=== PATIENT | female | born 1970 | race Caucasian/White ===

== ENCOUNTER 2017-07-11 06:16 | Day surgery (SDC) | payer MEDICARE ==
[2017-07-09 14:22] LABS: HEMATOCRIT 46.6 % (36.0-48.0); HEMOGLOBIN 15.7 g/dL (12-16); MCH 29.3 pg (26.0-34.0); MCHC 33.7 g/dL (31.0-37.0); MCV 87.1 fL (80.0-100.0); MEAN PLATELET VOLUME 10.6 fL (7.4-10.4); RBC 5.35 10x6/uL (4.00-5.40); RDW 12.9 % (11.5-14.5); WBC 9.8 10x3/uL (4.8-10.8)
[~2017-07-11 06:16] MED LIST: COUMADIN5 MG PO; CYCLOBENZAPRINE10 MG PO; DILAUDID4 MG PO; KLONOPIN0.5 MG PO; NORCO 10/325 TA1 TA1 PO; NORCO 7.5/325 T1 TA1 PO; PERCOCET 10/3251 TA1 PO; SOMA350 MG PO; TYLENOL #4 W/CO1 TAB PO
[2017-07-11 12:32] VITALS: BP 125/84; BMI 35.3
[2017-07-11] MEDS ORDERED: MEPERIDINE HCL50 MG PO (15:38)
--- NOTE | 2017-07-11 18:21 | NUR ---
1645 IV DC WITH CATHER TIP INTACT
--- NOTE | 2017-07-26 10:57 | OP ---
PATIENT NAME: SALMA FREEMAN MEDICAL RECORD: [id number] :[birth year] [facility]ATION[facility] ADMISSION DATE: SURGEON: MCKAY DENNIS MD DATE OF OPERATION: 07/11/2017 PREOPERATIVE DIAGNOSES: Patellar tendon and lateral retinacular tear status post fall down stairs with total knee arthroplasty. POSTOPERATIVE DIAGNOSES: Patellar tendon and lateral retinacular tear status post fall down stairs with total knee arthroplasty. PROCEDURE: Left knee patellar tendon and lateral retinacular repair. SURGEON: Mckay Dennis MD ANESTHESIA: General. INTRAOPERATIVE COMPLICATIONS: None. SUMMARY OF PATHOLOGIC FINDINGS: The patient had partial thickness tearing of the patellar tendon as well as complete tearing of the medial retinaculum after a fall down stairs. OPERATIVE SUMMARY IN DETAIL: After obtaining the appropriate preoperative orthopedic surgery consent as well as anesthetic consultation, evaluation, and clearance, the patient was brought and placed on the operating table in supine position. After general laryngeal mask was administered, tourniquet was placed about the proximal aspect of left lower extremity. Left lower extremity was then prepped and draped in routine sterile fashion. The leg was elevated and exsanguinated, tourniquet inflated to 350 mmHg. An incision was made down the previous incision. Gentle dissection was carried out and the tear of the medial retinaculum was immediately visible as was the partial thickness tear of the patellar tendon. A combination of FiberWire as well as Ethibond were utilized for reapproximation. Slight imbrication was done as the medial retinaculum had elongated. This was advanced approximately 1 cm and the patellar tendon was then reapproximated using a modified Luna suture on the half side that it was torn, this looked to be a very stable repair. The wound was copiously irrigated and closed with #1 Vicryl followed by skin austen. Sterile dressings were applied. Knee immobilizer was applied. Tourniquet was deflated. The patient was awakened, taken to recovery in stable condition. All final needle and sponge counts were correct. TRANSINT:[id number] Voice Confirmation ID: [id number] DOCUMENT ID: [id number] MCKAY DENNIS MD at 1051 CC: [id number] DICTATION DATE: 07/24/17 0538 SOFTWARE EDUCATOR: 07/24/17 0823 DEP SD 07/11/17 [facility] [address] [facility] [place] [address]
== END 2017-07-11 17:00 | disposition home or self-care (01) ==
LOC: D.OPS 06:16
PROVIDERS: Anesthesiology
DX: S83.015A Lateral dislocation of left patella, initial encounter (principal); K21.9 Gastro-esophageal reflux disease without esophagitis; E66.01 Morbid (severe) obesity due to excess calories; Z68.35 Body mass index [BMI] 35.0-35.9, adult; Z01.812 Encounter for preprocedural laboratory examination

== ENCOUNTER → 2017-08-20 15:52 | Outpatient (CLI) | payer MEDICARE ==
[~2017-08-20 15:52] MED LIST changes: +BACTRIM DS TABL1 TAB PO; +CEFAZOLIN2 GM/50 ML IV; +DOXYCYCLINE HY100 M2 PO; +ELIQUIS2.5 MG PO; +HYDROCODONE-APA1 TAB PO; +MEPERIDINE HCL50 MG PO; +OXYCONTIN10 MG PO
[2017-08-20 16:35] LABS: BASOPHILS 0.3 % (0-2); EOSINOPHILS 1.8 % (0-7); HEMATOCRIT 35.9 % (36.0-48.0); HEMOGLOBIN 11.3 g/dL (12-16); IMMATURE GRANULOCYTES 0.1 % (0-5); MCH 27.8 pg (26.0-34.0); MCHC 31.5 g/dL (31.0-37.0); MCV 88.2 fL (80.0-100.0); MEAN PLATELET VOLUME 10.6 fL (7.4-10.4); MONOCYTES 8.1 % (2-11); NEUTROPHILS 63.7 % (40-80); RBC 4.07 10x6/uL (4.00-5.40); RDW 13.8 % (11.5-14.5); WBC 8.9 10x3/uL (4.8-10.8)
[2017-08-20 17:10] LABS: PLATELET COUNT 413 10x3/uL (130-400)
[2017-08-20 18:17] LABS: ERYTHROCYTE SEDIMENTATION RATE 52 mm/hr (0-20)
== END | disposition home or self-care (01) ==
LOC: D.LABREF 15:52
PROVIDERS: Orthopaedic Surgery
DX: M25.562 Pain in left knee (principal)

== ENCOUNTER 2017-08-27 16:57 | Inpatient (IN) | payer MEDICARE ==
[~2017-08-27] VITALS: Ht 180.3 cm; Wt 115.0 kg
[~2017-08-27 16:57] MED LIST changes: -BACTRIM DS TABL1 TAB PO; -CEFAZOLIN2 GM/50 ML IV; -DOXYCYCLINE HY100 M2 PO; -ELIQUIS2.5 MG PO; -HYDROCODONE-APA1 TAB PO; -OXYCONTIN10 MG PO
--- NOTE | 2017-08-27 17:19 | NUR ---
RECEIVED TO ROOM [address] ERVIN OFFICE. A/O X3. LEFT KNEE RED AND SWOLLEN WITH 3 SMALL OPEN AREAS AND WARMTH THROUGHOUT. DENIES NEEDS.
[2017-08-27] MEDS ORDERED: BACTRIM DS TABL1 TAB PO (17:21)
[2017-08-27 17:41] VITALS: BP 128/83; Ht 180.3 cm; Wt 115.0 kg
--- NOTE | 2017-08-27 18:06 | NUR ---
IV SITED TO LEFT FOREARM AFTER 3 ATTEMPTS. ATE ALL OF SUPPER TRAY. DENIES NEEDS.
[2017-08-27 18:39] LABS: BASOPHILS 0.4 % (0-2); EOSINOPHILS 1.3 % (0-7); HEMATOCRIT 37.3 % (36.0-48.0); HEMOGLOBIN 11.9 g/dL (12-16); IMMATURE GRANULOCYTES 0.2 % (0-5); MCH 27.3 pg (26.0-34.0); MCHC 31.9 g/dL (31.0-37.0); MCV 85.6 fL (80.0-100.0); MEAN PLATELET VOLUME 10.9 fL (7.4-10.4); MONOCYTES 6.4 % (2-11); NEUTROPHILS 62.7 % (40-80); RBC 4.36 10x6/uL (4.00-5.40); RDW 13.6 % (11.5-14.5); WBC 9.1 10x3/uL (4.8-10.8)
[2017-08-27 18:40] LABS: PLATELET COUNT 321 10x3/uL (130-400)
[2017-08-27 18:48] LABS: ANION GAP 15.9 mmol/L (8-16); C-REACTIVE PROTEIN 4.4 mg/dL (0.0-0.9); CALCIUM 8.7 mg/dL (8.5-10.1); CARBON DIOXIDE 25.8 mmol/L (21.0-32.0); CREATININE - SERUM 0.9 mg/dL (0.6-1.3); POTASSIUM - SERUM 4.7 mmol/L (3.5-5.1)
[2017-08-27 20:00] VITALS: BP 118/70
--- NOTE | 2017-08-27 20:30 | NUR ---
IN BED AAO X3. LEFT KNEE RED WITH MODERATE SWELLING.THREE SM. OPEN AREAS NOTED.WARM TO TOUCH.FOOT WARM DENIES NUMBNESS OR TINGLING ON DORSIFLEXION. GOOD PEDAL PULSE.WILL CONTINUE TO MONITOR FOR ANY CHGES. NEUROVASCULAR STATUS AND FOLLOW CURRENT PLAN OF CARE.
[2017-08-27 20:48] LABS: ERYTHROCYTE SEDIMENTATION RATE 94 mm/hr (0-20)
[2017-08-28] VITALS: BP 122/68
[2017-08-28 04:00] VITALS: BP 100/56
--- NOTE | 2017-08-28 05:44 | NUR ---
PATIENT RESTING IN BED AND DENIES NEEDS AT THIS TIME. NO VISIBLE SIGNS OF DISTRESS. BED IN LOWEST POSITION AND CALL LIGHT WITHIN REACH. ENCOURAGED THE PATIENT TO CALL IF SHE HAS NEEDS.
[2017-08-28 06:05] LABS: BASOPHILS 0.7 % (0-2); EOSINOPHILS 2.6 % (0-7); HEMATOCRIT 30.2 % (36.0-48.0); IMMATURE GRANULOCYTES 0.1 % (0-5); LYMPHOCYTES 25.1 % (15-50); MCH 26.4 pg (26.0-34.0); MCHC 30.8 g/dL (31.0-37.0); MCV 85.8 fL (80.0-100.0); MEAN PLATELET VOLUME 10.6 fL (7.4-10.4); MONOCYTES 10.5 % (2-11); PLATELET COUNT 284 10x3/uL (130-400); RBC 3.52 10x6/uL (4.00-5.40); RDW 13.8 % (11.5-14.5); WBC 7.3 10x3/uL (4.8-10.8)
[2017-08-28 06:15] LABS: HEMOGLOBIN 9.3 g/dL (12-16)
[2017-08-28 06:37] LABS: ANION GAP 13.7 mmol/L (8-16); CALCIUM 8.4 mg/dL (8.5-10.1); CARBON DIOXIDE 25.1 mmol/L (21.0-32.0); CREATININE - SERUM 0.9 mg/dL (0.6-1.3)
[2017-08-28 06:44] LABS: POTASSIUM - SERUM 3.8 mmol/L (3.5-5.1)
--- NOTE | 2017-08-28 08:00 | NUR ---
PATIENT IS AWAKE AND ALERT, IV IS PATENT. SHE HAS NO C/O AT THIS TIME, BP LOW THIS AM SO SHE SAYS "I AM GING TO WAIT TO USE MY PAIN MED."
--- NOTE | 2017-08-28 09:30 | NUR ---
PATIENT C/O PAIN AT IV SITE, THERE IS REDNESS NOTED, STOPPED IV, AND CALLED IV NURSE PADDY TO REINSERT.
[2017-08-28 09:32] VITALS: BP 97/59
--- NOTE | 2017-08-28 10:30 | NUR ---
PADDY IV NURSE CAME AN REINSERTED A 20 GUAGE CATH INTO LEFT HAND. ATTEMPTS X3 TO FLUSH AND IT FLOWS, BUT SLOWLY, UNTAPED AREA AND PULLED CATH OUT AND FLUSHED AGAIN. STARTED FLUIDS AND ANTIBIOTICS, BUT THE IV IS POSITIONAL. WILL MONITOE.
[2017-08-28 13:03] VITALS: BP 110/65
--- NOTE | 2017-08-28 13:11 | NUR ---
D/C'D INFILTRATED CATH NOW, BANDAID APPLIED.
--- NOTE | 2017-08-28 13:56 | NUR ---
PATIENT IS GETTING UPSET THAT HER IV KEEPS BEEPING AND SHE SAYS "JUST RESITE IT" DID PULL IV CATH OUT A LITTLE MORE AND RETAPED, IT IS INFUSING WITHOUT BEING POSITIONAL AT THIS TIME.
[2017-08-28 15:34] VITALS: BP 94/52
[2017-08-28 23:09] VITALS: BP 107/71
--- NOTE | 2017-08-29 | NUR ---
PT DENIES ANY NEEDS AT THIS TIME. CALL LIGHT IN REACH, WILL CONTINUE WITH PLAN OF CARE.
--- NOTE | 2017-08-29 00:24 | NUR ---
REC'D.CHGE. OF SHIFT.DRSG. LEFT KNEE DRY AND INTACT.MODERATE AMT. EDEMA REDNESS WITH FIRMNESS TO TOUCH TO LEFT KNEE.DENIES DECREASE IN SENSATION.PEDAL PULSE PRESENT.WILL CONTINUE TO MONITOR FOR ANY CHGES. IN NEUROVASCULAR STATUS AND FOLLOW CURRENT PLAN OF CARE
[2017-08-29 01:20] VITALS: BP 118/59
[2017-08-29 05:24] LABS: BASOPHILS 0.6 % (0-2); HEMATOCRIT 31.7 % (36.0-48.0); HEMOGLOBIN 9.9 g/dL (12-16); IMMATURE GRANULOCYTES 0.1 % (0-5); LYMPHOCYTES 26.8 % (15-50); MCH 26.8 pg (26.0-34.0); MCHC 31.2 g/dL (31.0-37.0); MCV 85.9 fL (80.0-100.0); MEAN PLATELET VOLUME 10.7 fL (7.4-10.4); MONOCYTES 10.7 % (2-11); NEUTROPHILS 58.8 % (40-80); PLATELET COUNT 286 10x3/uL (130-400); RBC 3.69 10x6/uL (4.00-5.40); RDW 13.6 % (11.5-14.5); WBC 6.9 10x3/uL (4.8-10.8)
[2017-08-29 05:45] LABS: ANION GAP 11.5 mmol/L (8-16); C-REACTIVE PROTEIN 4.6 mg/dL (0.0-0.9); CALCIUM 8.5 mg/dL (8.5-10.1); CARBON DIOXIDE 27.7 mmol/L (21.0-32.0); CREATININE - SERUM 0.9 mg/dL (0.6-1.3); POTASSIUM - SERUM 4.2 mmol/L (3.5-5.1)
[2017-08-29 05:48] VITALS: BP 115/61
[2017-08-29 06:39] LABS: ERYTHROCYTE SEDIMENTATION RATE 99 mm/hr (0-20)
--- NOTE | 2017-08-29 08:00 | NUR ---
Patient Name: SALMA FREEMAN Admission Status: Urgent Accout number: [id number] Admission Date: 08-27-2017 : 1970 Admission Diagnosis:PYOGENIC ARTHRITIS, UNSPECIFIED Attending: MCKAY DENNIS Current LOS: 2 Anticipated DC Date: 09-02-2017 Planned Disposition: Home Primary Insurance: MEDICARE A & B Discharge Planning Comments: CM MET WITH PATIENT REGARDING D/C NEEDS AND PLANS. PATIENT STATED SHE LIVES WITH HER SISTER AND SHE WILL DRIVE PATIENT HOME AT DISCHARGE. PATIENT STATED THERE ARE NO STEPS OR STAIRS AT HOME. PATIENT IS INDEPENDENT WITH HER CARE AND HAS A WHEELCHAIR, AND WALKER AT HOME. PATIENT SEES AN DIMMER BOARD OPERATOR NAMED [facility] IN [place]. PATIENT DOES NOT KNOW PHYSICIANS NAME DIMMER BOARD OPERATOR IS UNDER. PATIENTS PHARMACY IS [facility] IN [place]. PATIENT HAS REFUSED HOME HEALTH. CM WILL CONTINUE TO FOLLOW PATIENT WITH D/C NEEDS AND PLANS. PCP ? DIMMER BOARD OPERATOR [facility]- [phone] ELLE (SISTER) [phone] Environmental Permitting Specialist: Isabella Woodard Is the patient Alert and Oriented? Yes 0 * How many steps to enter\exit or inside your home? 0 0 * PCP SEES DIMMER BOARD OPERATOR AT [place] NAMED [facility]OBO DOES NOT KNOW PHYSICIAN 0 * Pharmacy [facility] * Preadmission Environment Home with Family 0 * ADLs Independent 0 * Equipment Walker Wheelchair 0 * List name and contact numbers for known caregivers / representatives who currently or will assist patient after discharge: ELLE ([place]) [phone] 0 * Community resources currently utilized None 0 * Additional services required to return to the preadmission environment? Yes 0 * Can the patient safely return to the preadmission environment? Yes 0 * Has this patient been hospitalized within the prior 30 days at any hospital? No 0 Grand Total: 0
[2017-08-29 09:42] VITALS: BP 112/68
[2017-08-29 13:05] VITALS: BP 118/65
--- NOTE | 2017-08-29 13:18 | NUR ---
PT NOTE-NO COMPLAINTS AT PRESENT. STATES PAIN IS CONTROLLED AT PRESENT. CALL LIGHT IN REACH
[2017-08-29 16:00] VITALS: BP 107/57
--- NOTE | 2017-08-29 19:00 | NUR ---
REPORT RECEIVED AND CARE OF PT ASSUMED. PT LYING IN SEMI LUNA'S POSITION WATCHING TV. IV IN RIGHT HAND PATENT WITH 1/2 NS INFUSING AT 50 ML / HR. DRESSING ON LEFT KNEE CLEAN AND DRY. WILL MONITOR [place] FOR NEEDS.
--- NOTE | 2017-08-29 19:15 | NUR ---
PT CONSENTED FOR AM SURGERY BY DAY SHIFT NURSE.
--- NOTE | 2017-08-29 20:30 | NUR ---
PT C/O IV BURNING. REMOVED AND ATTEMPTED TO RE-SITE WITHOUT SUCCESS.
[2017-08-29 21:20] VITALS: BP 122/71
--- NOTE | 2017-08-29 21:30 | NUR ---
IV RE-SITED BY EAN ROWAN RN TO LEFT WRIST USING 22 GUAGE CATHETER. IV FLUIDS RE-STARTED.
--- NOTE | 2017-08-29 21:43 | NUR ---
HS MEDICATIONS GIVEN. WILL CONTINUE TO MONITOR FOR NEEDS.
--- NOTE | 2017-08-29 22:30 | NUR ---
GAVE HS SNACK OF CHOCOLATE PUDDING X2. WILL CONTINUE TO MONITOR FOR NEEDS.
--- NOTE | 2017-08-30 | NUR ---
NPO STATUS BEGINS NOW. ALL CUPS AND FOOD ITEMS REMOVED FROM PT'S TABLE.
--- NOTE | 2017-08-30 01:20 | NUR ---
CHANGED DRESSING ON LEFT KNEE THAT IS SATURATED WITH DRAINAGE. CLEANSED WOUND AND COVERED WITH 4X4'S AND MEDIPORE TAPE. WILL CONTINUE TO MONITOR FOR NEEDS.
[2017-08-30 05:16] LABS: BASOPHILS 0.6 % (0-2); EOSINOPHILS 2.6 % (0-7); HEMATOCRIT 31.6 % (36.0-48.0); HEMOGLOBIN 10.1 g/dL (12-16); IMMATURE GRANULOCYTES 0.1 % (0-5); LYMPHOCYTES 24.9 % (15-50); MCH 27.2 pg (26.0-34.0); MCV 85.2 fL (80.0-100.0); MEAN PLATELET VOLUME 10.8 fL (7.4-10.4); NEUTROPHILS 62.8 % (40-80); PLATELET COUNT 298 10x3/uL (130-400); RBC 3.71 10x6/uL (4.00-5.40); RDW 13.7 % (11.5-14.5); WBC 6.8 10x3/uL (4.8-10.8)
[2017-08-30 05:56] LABS: ANION GAP 11.6 mmol/L (8-16); CALCIUM 8.8 mg/dL (8.5-10.1); CARBON DIOXIDE 28.5 mmol/L (21.0-32.0); CREATININE - SERUM 0.9 mg/dL (0.6-1.3); POTASSIUM - SERUM 4.1 mmol/L (3.5-5.1); VANCOMYCIN - TROUGH 10.3 ug/mL (10.0-20.0)
--- NOTE | 2017-08-30 07:35 | NUR ---
PT AOX4 RESP EVEN AND NONLABORED PT DENIES NEEDS AT THIS TIME IV TO LEFT WRIST PATENT AND INTACT AT THIS TIME SRX2 BED AT LOWEST SETTING CALL LIGHT WITHIN REACH WILL CONTINUE TO MONITOR
[2017-08-30 08:36] VITALS: BP 112/76
[2017-08-30 13:47] VITALS: BP 106/67
--- NOTE | 2017-08-30 19:00 | NUR ---
REPORT RECEIVED AND CARE OF PT ASSUMED. PT LYING IN SEMI LUNA'S POSITION WATCHING TV. IV IN LEFT WRIST PATENT WITH 1/2 NS INFUSING AT 50 ML / HR. DRESSING ON LEFT KNEE CLEAN AND DRY WITH SMALL AREA OF DRAINAGE SEEPING THROUGH ERASTO WRAP. MARKED AREA TO SEE IF PROGRESSING. WILL MONITOR CLOSELY FOR NEEDS.
--- NOTE | 2017-08-30 19:45 | NUR ---
GAVE CHOCOLATE MILK FOR SNACK.
[2017-08-30 20:00] VITALS: BP 116/58
--- NOTE | 2017-08-30 20:45 | NUR ---
HS MEDICATIONS GIVEN. WILL CONTINUE TO MONITOR FOR NEEDS.
[2017-08-31] VITALS: BP 130/60
[2017-08-31 04:00] VITALS: BP 125/73
[2017-08-31 06:45] LABS: BASOPHILS 0.4 % (0-2); EOSINOPHILS 0.3 % (0-7); HEMATOCRIT 29.7 % (36.0-48.0); HEMOGLOBIN 9.1 g/dL (12-16); IMMATURE GRANULOCYTES 0.1 % (0-5); MCH 26.5 pg (26.0-34.0); MCHC 30.6 g/dL (31.0-37.0); MCV 86.6 fL (80.0-100.0); MEAN PLATELET VOLUME 10.5 fL (7.4-10.4); NEUTROPHILS 69.2 % (40-80); PLATELET COUNT 296 10x3/uL (130-400); RBC 3.43 10x6/uL (4.00-5.40); RDW 13.9 % (11.5-14.5); WBC 7.6 10x3/uL (4.8-10.8)
[2017-08-31 07:18] LABS: ANION GAP 14.1 mmol/L (8-16); CALCIUM 8.2 mg/dL (8.5-10.1); CARBON DIOXIDE 26.1 mmol/L (21.0-32.0); CREATININE - SERUM 0.9 mg/dL (0.6-1.3); POTASSIUM - SERUM 4.2 mmol/L (3.5-5.1)
--- NOTE | 2017-08-31 09:00 | NUR ---
MORNING MEDS PASSED AT THIS TIME. SILVER LAP MACHINE TENDER SYRINGE CHANGED WELL. FRESH WATER PROVIDED. BED LOW, CALL LIGHT IN REACH, DENIES NEEDS. CPOC.
--- NOTE | 2017-08-31 09:30 | NUR ---
PATIENT IN BED WITH IV INTACT. NO COMPLAINTS AT THIS TIME. CALL LIGHT WITHIN REACH.
[2017-08-31 10:10] VITALS: BP 133/72
--- NOTE | 2017-08-31 12:49 | NUR ---
PT REC'D FROM [facility]. RESTING IN BED WATCHING TV. AAOX4. RATING CURRENT PAIN IN L KNEE 04/22. DILAUDID AQUATICS SPECIALIST INFUSING. DRESSING TO L KNEE WITH SOME DRAINAGE. OUTLINED WITH MARKER, INITIALED AND DATED. WILL CHANGE. PIV TO L WRIST FREE OF REDNESS AND SWELLING. DISCUSSED LAB VALUES. NO QUESTIONS OR CONCERNS VOICED AT THIS TIME. BED LOW, CALL LIGHT IN REACH, DENIES NEEDS. CPOC.
[2017-08-31 13:39] VITALS: BP 109/56
--- NOTE | 2017-08-31 14:19 | NUR ---
PIV TO L WRIST SWOLLEN AND TENDER. DC'D WITH CATHETER INTACT. RESITED TO R HAND WITH 22 GUAGE CATHETER. X1 ATTEMPT. RECONNECTED TO IVF. BED LOW, CALL LIGHT IN REACH, DENIES NEEDS CPOC.
[2017-08-31 16:51] VITALS: BP 110/64
--- NOTE | 2017-08-31 17:37 | NUR ---
DRESSING TO L KNEE CHANGED. PACKING CHANGED USING 1/2" IODOFORM GUAZE. SECURED WITH 4X4'S, KERLIX, AND A NEW ERASTO WRAP. PT TOLERATED WELL. DILAUDID PUMP REBUILDER INFUSING. PIV TO R HAND FREE OF REDNESS AND SWELLING. BED LOW, CALL LIGHT IN REACH, DENIES NEEDS. CPOC.
--- NOTE | 2017-08-31 19:00 | NUR ---
REPORT RECEIVED AND CARE OF PT ASSUMED. PT LYING IN SEMI LUNA'S POSITION WATCHING TV. IV IN RIGHT HAND PATENT WITH 1/2 NS INFUSING AT 50 ML / HR. MATERIALS MGMT TECH / DEMERAL IN USE FOR PAIN CONTROL. DRESSING LEFT KNEE CLEAN AND DRY. WILL MONITOR CLOSLEY FOR NEEDS.
[2017-08-31 20:00] VITALS: BP 109/64
--- NOTE | 2017-08-31 20:45 | NUR ---
HS SNACK OF ICE CREAM AND JESS CRACKERS GIVEN.
--- NOTE | 2017-08-31 21:31 | NUR ---
HS MEDICATIONS GIVEN. WILL CONTINUE TO MONITOR FOR NEEDS.
[2017-09-01] VITALS: BP 131/53; BP 94/55
[2017-09-01 04:00] VITALS: BP 112/66
[2017-09-01 06:04] LABS: BASOPHILS 0.4 % (0-2); EOSINOPHILS 2.7 % (0-7); HEMATOCRIT 30.9 % (36.0-48.0); HEMOGLOBIN 9.3 g/dL (12-16); IMMATURE GRANULOCYTES 0.3 % (0-5); LYMPHOCYTES 37.5 % (15-50); MCH 26.9 pg (26.0-34.0); MCHC 30.1 g/dL (31.0-37.0); MEAN PLATELET VOLUME 10.5 fL (7.4-10.4); MONOCYTES 7.2 % (2-11); NEUTROPHILS 51.9 % (40-80); PLATELET COUNT 281 10x3/uL (130-400); RBC 3.46 10x6/uL (4.00-5.40); RDW 14.4 % (11.5-14.5); WBC 7.5 10x3/uL (4.8-10.8)
[2017-09-01 06:11] LABS: MCV 89.3 fL (80.0-100.0)
[2017-09-01 06:33] LABS: ANION GAP 13.4 mmol/L (8-16); CALCIUM 8.2 mg/dL (8.5-10.1); CARBON DIOXIDE 26.4 mmol/L (21.0-32.0); CREATININE - SERUM 0.9 mg/dL (0.6-1.3); POTASSIUM - SERUM 3.8 mmol/L (3.5-5.1)
--- NOTE | 2017-09-01 07:00 | NUR ---
PATIENT IN BED WITH NO COMPLAINTS. IV INTACT. CALL LIGHT WITHIN REACH.
--- NOTE | 2017-09-01 07:12 | NUR ---
PT IS SITTING IN BED AT A 45 DEGREE ANGLE, STATED THAT PAIN IS AT A 10 IN KNEE AND IS USUALLY THERE OR GREATER WHEN SHE GETS UP TO USE RESTROOM, PT HAS BULL FIDDLE PLAYER AND STATED THAT DOES HELP, DID NOT WANT ANYTHING ELSE AT THIS TIME, BED IN LOW POSITION, CALL LIGHT IN REACH, CONTINUE WITH PLAN OF CARE
[2017-09-01 08:31] VITALS: BP 104/61
--- NOTE | 2017-09-01 08:51 | NUR ---
VANCOMYCIN TROUGH WAS 18 THIS MORNING DRAWN CORRECTLY. RENAL FUNCTION APPEARS STABLE. WILL CONTINUE VANCOMYCIN ORDERED AND WILL RECHECK A TROUGH IN A FEW DAYS
[2017-09-01 11:47] VITALS: BP 100/50
[2017-09-01 15:51] VITALS: BP 104/51
[2017-09-01 20:00] VITALS: BP 125/74; BP 94/55
--- NOTE | 2017-09-01 23:15 | NUR ---
PT AWOKE WITH SEVERE PAIN IN LEFT KNEE...MOANING AND GRIMACING. GAVE BOLUS OF 25 MG DEMERAL VIA VEGETABLE CUTTER. WILL MONITOR FOR EFFECTIVENESS. CALL LIGHT WITHIN REACH.
[2017-09-02] VITALS: BP 125/74
--- NOTE | 2017-09-02 08:14 | NUR ---
PT IV CAME DISLODGED, HERNAN CAME IN AT THAT TIME AND TOLD ME TO JUST DC IT PT IS TO BE DC TODAY, PER HERNAN PT NEEDS TO BE SEEN BY PT BEFORE DC, EDMUNDOUE WITH PT CARE UNTIL DC
[2017-09-02] MEDS ORDERED: PERCOCET 10/3251 TA1 PO (08:16)
[2017-09-02] MEDS ORDERED: ELIQUIS2.5 MG PO (08:16)
[2017-09-02] MEDS ORDERED: DOXYCYCLINE HY100 M2 PO (08:19)
[2017-09-02 08:38] VITALS: BP 121/71
--- NOTE | 2017-09-02 09:04 | NUR ---
CM REASSESSMENT NOTE: PATIENT IS DISCHARGING HOME TODAY / FRIEND OR FAMILY DRIVING HER. PATIENT SIGNED THE [facility] FORM WITH [facility]. [facility] WILL CALL PATIENT AND SET UP TIME FOR TOMORROWS VISIT. D/C IMM SERVED. PATIENT HAD NO OTHER NEEDS FOR DISCHARGE.
--- NOTE | 2017-09-02 09:30 | NUR ---
PT AOX4 RESP EVEN AND NONLABORED PT DENIES NEEDS AT THIS TIME PT HERE FOR LEFT KNEE INFECTION FOR THIS VISIT SRX2 BED AT LOWEST SETTING CALL LIGHT WITHIN REACH WILL CONTINUE TO MONITOR
--- NOTE | 2017-09-02 09:56 | NUR ---
WENT OVER PT DC INFORMATION WITH PT, CHANGED PT DRESSING. WAITING ON RIDE
--- NOTE | 2017-09-30 14:52 | OP ---
PATIENT NAME: SALMA FEREMAN MEDICAL RECORD: [id number] :68 LOCATION:[facility] ADMISSION DATE:08/27/17 SURGEON: MCKAY DENNIS MD DATE OF OPERATION: 08/30/2017 PREOPERATIVE DIAGNOSIS: Infected left knee. POSTOPERATIVE DIAGNOSIS: Infected left prepatellar bursa. PROCEDURE: Excisional debridement of infected left prepatellar bursa to include skin, subcutaneous tissue, portions of fat, fascia, and muscle. SURGEON: Mckay Dennis MD ANESTHESIA: General. INTRAOPERATIVE COMPLICATIONS: None. SUMMARY OF PATHOLOGIC FINDINGS: Upon entering this patient's knee, copious amounts of pus was taken out of the prepatellar fascia, it did not go into the knee. No purulence could be expressed from the knee using an 18-gauge needle at separate side. OPERATIVE SUMMARY IN DETAIL: After obtaining the appropriate preoperative orthopedic surgery consent as well as anesthetic consultation, evaluation and clearance, the patient was brought to the operating room and placed on the operating table in supine position. After general laryngeal mask airway was administered, the patient's left lower extremity was prepped and draped in routine sterile fashion. The wound was then incised, cultures were taken, and then the wound tract itself was opened up and copiously irrigated using pulsatile lavage alumni relations manager, curettage as well as scalpel debridement and finally a rongeur debridement. When it was felt that all necrotic appearing tissue had been removed, the wound was packed with 1-inch iodoform gauze. Sterile dressings were applied. The patient was awakened and taken to recovery in stable condition. All final instruments and sponge counts were correct. TRANSINT:[id number] Voice Confirmation ID: [id number] DOCUMENT ID: [id number] MCKAY DENNIS MD at 1452 CC: [id number] DICTATION DATE: 09/30/17 1326 ACTIVITY ASSISTANT: 09/30/17 1343 DIS IN 09/02/17 [place] [id number] [place] [address]
== END 2017-09-02 09:58 | disposition home health service (06) | DRG 858 ==
LOC: D.MS 16:57
PROVIDERS: ADMIT Orthopaedic Surgery
PROC: 0JBP0ZZ Excision of Left Lower Leg Subcutaneous Tissue and Fascia, Open Approach (ICD-10-PCS; principal; 2017-08-30 10:45)
DX: T81.4XXA Infection following a procedure, initial encounter (principal); L76.82 Other postprocedural complications of skin and subcutaneous tissue

== ENCOUNTER → 2017-10-11 12:39 | Outpatient (CLI) | payer MEDICARE ==
[2017-08-27 17:41] VITALS: BMI 35.3
[~2017-10-11 12:39] MED LIST changes: +BACTRIM DS TABL1 TAB PO; +CEFAZOLIN2 GM/50 ML IV; +DOXYCYCLINE HY100 M2 PO; +ELIQUIS2.5 MG PO; +HYDROCODONE-APA1 TAB PO; +OXYCONTIN10 MG PO
== END | disposition home or self-care (01) ==
LOC: D.CT 10-09 11:00
DX: M25.562 Pain in left knee (principal)

== ENCOUNTER 2017-10-24 10:48 | Inpatient (IN) | payer MEDICARE ==
[~2017-10-24] VITALS: Ht 180.3 cm; Wt 114.8 kg
--- NOTE | ~2017-10-24 | OP ---
PATIENT NAME: SALMA FREEMAN MEDICAL RECORD: [id number] :68 LOCATION:[facility] ADMISSION DATE:10/24/17 SURGEON: MCKAY DENNIS MD DATE OF OPERATION: 10/24/2017 PREOPERATIVE DIAGNOSIS: Bursal infection of the left knee. POSTOPERATIVE DIAGNOSIS: Infection, left total knee arthroplasty. PROCEDURE: Arthroscopic irrigation, cultures were taken. OPERATIVE SUMMARY IN DETAIL: After obtaining the appropriate preoperative orthopedic surgery consent as well as anesthetic consultation, evaluation, and clearance, the patient was brought to the operating room and placed on operating table in supine position. After adequate general laryngeal mask was administered, tourniquet was placed about the proximal aspect of left lower extremity. left lower extremity was prepped and draped in routine sterile fashion. The leg was elevated and exsanguinated, tourniquet was inflated to 250 mmHg. At this point, inferior medial portal and inferior lateral portal were established followed by the superior medial. Before arthroscopic flow was established, the intra-articular fluid was collected and sent to the lab for cultures as well as further studies. At this time, copious resector debridement of medial and lateral gutters as well as the suprapopliteal space was undertaken. Approximately 12 liters of fluid was washed through the knee. At this point, the arthroscopy portals were closed in routine interrupted fashion using 4-0 Prolene. Sterile dressings were applied. The patient was awakened, taken to recovery room in stable condition. All final needle and sponge counts were correct. TRANSINT:[id number] Voice Confirmation ID: [id number] DOCUMENT ID: [id number] MCKAY DENNIS MD at 1920 CC: [id number] DICTATION DATE: 10/28/17 1333 PLUMBING DESIGNER: 10/28/17 1718 ADM IN [facility] [address] [place] [address]
--- NOTE | ~2017-10-24 | OP ---
PATIENT NAME: SALMA FREEMAN MEDICAL RECORD: [id number] :[birth year] LOCATION:[facility] ADMISSION DATE:10/24/17 SURGEON: MCKAY DENNIS MD DATE OF OPERATION: 10/28/2017 PREOPERATIVE DIAGNOSIS: Infected left total knee. POSTOPERATIVE DIAGNOSIS: Infected left total knee. PROCEDURE: Removal of infected left total knee with antibiotic cement spacer. SURGEON: Mckay Dennis MD ANESTHESIA: General. INTRAOPERATIVE COMPLICATIONS: None. SUMMARY OF PATHOLOGIC FINDINGS: The patient had gross infection underneath the femoral component consistent with preop diagnosis of Staphylococcus aureus infection. OPERATIVE SUMMARY IN DETAIL: After obtaining the appropriate preoperative orthopedic surgery consent as well as anesthetic consultation, evaluation and clearance, the patient was brought to the operating room and placed on the operating table in supine position. After general laryngeal mask was administered, tourniquet was placed about the proximal aspect of the left lower extremity. Left lower extremity was then prepped and draped in routine sterile fashion. Previously utilized incision was utilized again. A paramedian arthrotomy was performed and distal femur was exposed. Serial and sequential takedown of the cement was done. When the femur was removed, there was no bone loss. Findings of infection underneath the total knee were noted. The distal femoral component was removed. Polyethylene component was then removed and then again the cement mantle was taken down with the grasp osteotome set from [employer]. The tibial component was removed with no blood loss either. At this point, the patellar component was removed as was the cement holding the patellar component and then the wound was copiously irrigated. Curettage was utilized to scrape the distal femur and proximal tibial bone ends posteriorly, distally, and anteriorly, followed by further curettage. At this point, antibiotic cement spacer was mixed and allowed to get doughy and then it was placed between the 2 bone ends and a small piece was placed to maintain patellar separation. At this point, the paramedian arthrotomy was closed with #2 Ethibond. This was followed by #1 Vicryl, 2-0 Vicryl, and skin austen. Sterile dressings were applied. The patient was awakened and taken to recovery room in stable condition. All final needle and sponge counts were correct. TRANSINT:[id number] Voice Confirmation ID: [id number] DOCUMENT ID: [id number] OPERATIVE REPORT [id number] LYDIASALMA MCKAY MUSTAFA MD at 1504 CC: [id number] DICTATION DATE: 10/31/17 1253 CAN CARRIER: 10/31/17 1332 ADM IN [place] [id number] [place] [id number]
[~2017-10-24 10:48] MED LIST changes: -CEFAZOLIN2 GM/50 ML IV; -HYDROCODONE-APA1 TAB PO; -OXYCONTIN10 MG PO
[2017-10-24] MEDS ORDERED: HYDROCODONE-APA1 TAB PO (11:19)
[2017-10-24 11:36] VITALS: BP 191/77; BMI 35.5
[2017-10-24 12:39] LABS: BASOPHILS 0.5 % (0-2); EOSINOPHILS 1.5 % (0-7); HEMATOCRIT 38.8 % (36.0-48.0); HEMOGLOBIN 12.3 g/dL (12-16); IMMATURE GRANULOCYTES 0.1 % (0-5); LYMPHOCYTES 25.4 % (15-50); MCH 25.5 pg (26.0-34.0); MCHC 31.7 g/dL (31.0-37.0); MCV 80.3 fL (80.0-100.0); MEAN PLATELET VOLUME 10.8 fL (7.4-10.4); MONOCYTES 7.3 % (2-11); NEUTROPHILS 65.2 % (40-80); RBC 4.83 10x6/uL (4.00-5.40); RDW 13.9 % (11.5-14.5)
[2017-10-24 12:42] LABS: PLATELET COUNT 350 10x3/uL (130-400)
[2017-10-24 12:52] LABS: C-REACTIVE PROTEIN 2.3 mg/dL (0.0-0.9); CALCIUM 9.4 mg/dL (8.5-10.1); CARBON DIOXIDE 28.9 mmol/L (21.0-32.0); CREATININE - SERUM 0.9 mg/dL (0.6-1.3)
[2017-10-24 12:54] LABS: ANION GAP 15.1 mmol/L (8-16)
[2017-10-24 13:45] VITALS: BP 191/77
[2017-10-24 14:57] LABS: ERYTHROCYTE SEDIMENTATION RATE 91 mm/hr (0-20)
[2017-10-24 17:18] VITALS: BP 114/80
[2017-10-24 22:28] VITALS: BP 97/55
[2017-10-25 02:16] VITALS: BP 103/58
[2017-10-25 04:00] VITALS: BP 102/53
[2017-10-25 06:04] LABS: BASOPHILS 0.4 % (0-2); EOSINOPHILS 3.2 % (0-7); HEMATOCRIT 33.6 % (36.0-48.0); HEMOGLOBIN 10.3 g/dL (12-16); IMMATURE GRANULOCYTES 0.3 % (0-5); LYMPHOCYTES 37.2 % (15-50); MCHC 30.7 g/dL (31.0-37.0); MCV 81.6 fL (80.0-100.0); MEAN PLATELET VOLUME 10.6 fL (7.4-10.4); MONOCYTES 7.9 % (2-11); PLATELET COUNT 302 10x3/uL (130-400); RBC 4.12 10x6/uL (4.00-5.40); RDW 14.2 % (11.5-14.5)
[2017-10-25 06:17] LABS: CALCIUM 8.1 mg/dL (8.5-10.1); CARBON DIOXIDE 28.1 mmol/L (21.0-32.0); CHLORIDE - SERUM 108 mmol/L (98-107); CREATININE - SERUM 0.8 mg/dL (0.6-1.3); GLUCOSE 95 mg/dL (74-106); SODIUM 145 mmol/L (136-145); eGFR NON AFRICAN AMERICAN 81 mL/min (90-120)
[2017-10-25 06:26] LABS: CALC OSMOLALITY 292 mosm/kg (275-300); POTASSIUM - SERUM 3.6 mmol/L (3.5-5.1); UREA NITROGEN 24 mg/dL (7-18)
[2017-10-25 08:57] VITALS: BP 98/64
[2017-10-25 12:46] VITALS: BP 113/81
[2017-10-25 13:26] VITALS: BMI 35.3
[2017-10-25 20:00] VITALS: BP 108/63
[2017-10-26] VITALS: BP 107/62
[2017-10-26 06:33] LABS: BASOPHILS 0.1 % (0-2); EOSINOPHILS 0 % (0-7); HEMATOCRIT 33.5 % (36.0-48.0); HEMOGLOBIN 10.3 g/dL (12-16); IMMATURE GRANULOCYTES 0.2 % (0-5); LYMPHOCYTES 15.9 % (15-50); MCHC 30.7 g/dL (31.0-37.0); MCV 81.3 fL (80.0-100.0); MONOCYTES 6.5 % (2-11); NEUTROPHILS 77.3 % (40-80); PLATELET COUNT 330 10x3/uL (130-400); RBC 4.12 10x6/uL (4.00-5.40); WBC 9.3 10x3/uL (4.8-10.8)
[2017-10-26 06:57] LABS: CALCIUM 8.7 mg/dL (8.5-10.1); CARBON DIOXIDE 25.3 mmol/L (21.0-32.0); CHLORIDE - SERUM 104 mmol/L (98-107); CREATININE - SERUM 0.8 mg/dL (0.6-1.3); POTASSIUM - SERUM 3.8 mmol/L (3.5-5.1); SODIUM 141 mmol/L (136-145); eGFR NON AFRICAN AMERICAN 81 mL/min (90-120)
[2017-10-26 06:59] LABS: CALC OSMOLALITY 285 mosm/kg (275-300); GLUCOSE 152 mg/dL (74-106); UREA NITROGEN 17 mg/dL (7-18)
[2017-10-26 08:34] VITALS: BP 116/70
[2017-10-26 12:05] VITALS: BP 104/57
[2017-10-26 12:08] LABS: PROTEIN - BODY FLUID 4.7 G/DL
[2017-10-26 16:07] VITALS: BP 100/72
[2017-10-26 22:01] VITALS: BP 119/58
[2017-10-27] VITALS (7 sets, daily range): BP systolic 104–127; BP diastolic 59–70
[2017-10-27 05:51] LABS: BASOPHILS 0.4 % (0-2); EOSINOPHILS 1.6 % (0-7); HEMATOCRIT 33.5 % (36.0-48.0); IMMATURE GRANULOCYTES 0.2 % (0-5); LYMPHOCYTES 27.8 % (15-50); MCH 24.9 pg (26.0-34.0); MCHC 29.9 g/dL (31.0-37.0); MEAN PLATELET VOLUME 11.2 fL (7.4-10.4); MONOCYTES 9.9 % (2-11); NEUTROPHILS 60.1 % (40-80); RBC 4.02 10x6/uL (4.00-5.40); RDW 14.5 % (11.5-14.5); WBC 10.4 10x3/uL (4.8-10.8)
[2017-10-27 06:05] LABS: MCV 83.3 fL (80.0-100.0); PLATELET COUNT 245 10x3/uL (130-400)
[2017-10-27 06:28] LABS: CALC OSMOLALITY 284 mosm/kg (275-300); CALCIUM 7.8 mg/dL (8.5-10.1); CARBON DIOXIDE 24.8 mmol/L (21.0-32.0); CHLORIDE - SERUM 106 mmol/L (98-107); CREATININE - SERUM 0.8 mg/dL (0.6-1.3); GLUCOSE 115 mg/dL (74-106); POTASSIUM - SERUM 4.1 mmol/L (3.5-5.1); SODIUM 141 mmol/L (136-145); UREA NITROGEN 20 mg/dL (7-18); eGFR NON AFRICAN AMERICAN 81 mL/min (90-120)
[2017-10-28 03:56] LABS: BASOPHILS 0.4 % (0-2); EOSINOPHILS 2.7 % (0-7); HEMATOCRIT 31.7 % (36.0-48.0); HEMOGLOBIN 9.5 g/dL (12-16); IMMATURE GRANULOCYTES 0.3 % (0-5); LYMPHOCYTES 29.2 % (15-50); MCH 24.9 pg (26.0-34.0); MCV 83.2 fL (80.0-100.0); MEAN PLATELET VOLUME 11.3 fL (7.4-10.4); MONOCYTES 12.7 % (2-11); NEUTROPHILS 54.7 % (40-80); PLATELET COUNT 266 10x3/uL (130-400); RBC 3.81 10x6/uL (4.00-5.40); RDW 14.8 % (11.5-14.5); WBC 7.8 10x3/uL (4.8-10.8)
[2017-10-28 04:07] LABS: CALC OSMOLALITY 278 mosm/kg (275-300); CALCIUM 7.8 mg/dL (8.5-10.1); CARBON DIOXIDE 29.8 mmol/L (21.0-32.0); CHLORIDE - SERUM 104 mmol/L (98-107); CREATININE - SERUM 0.7 mg/dL (0.6-1.3); GLUCOSE 102 mg/dL (74-106); SODIUM 139 mmol/L (136-145); UREA NITROGEN 16 mg/dL (7-18); eGFR NON AFRICAN AMERICAN > 90 mL/min (90-120)
[2017-10-28 04:29] VITALS: BP 107/63
[2017-10-28 08:44] VITALS: BP 108/59
[2017-10-28 12:34] VITALS: BP 117/69
[2017-10-28 17:18] VITALS: BP 121/68
[2017-10-28 20:00] VITALS: BP 129/60
[2017-10-29 06:08] LABS: CALC OSMOLALITY 272 mosm/kg (275-300); CARBON DIOXIDE 29.9 mmol/L (21.0-32.0); CHLORIDE - SERUM 101 mmol/L (98-107); CREATININE - SERUM 0.8 mg/dL (0.6-1.3); GLUCOSE 125 mg/dL (74-106); POTASSIUM - SERUM 4.1 mmol/L (3.5-5.1); SODIUM 136 mmol/L (136-145); UREA NITROGEN 12 mg/dL (7-18); eGFR NON AFRICAN AMERICAN 81 mL/min (90-120)
[2017-10-29 06:13] LABS: BASOPHILS 0.2 % (0-2); EOSINOPHILS 1.1 % (0-7); HEMATOCRIT 32.1 % (36.0-48.0); HEMOGLOBIN 9.9 g/dL (12-16); IMMATURE GRANULOCYTES 0.1 % (0-5); LYMPHOCYTES 14.5 % (15-50); MCH 25.2 pg (26.0-34.0); MCHC 30.8 g/dL (31.0-37.0); MCV 81.7 fL (80.0-100.0); MEAN PLATELET VOLUME 11.1 fL (7.4-10.4); MONOCYTES 14.1 % (2-11); PLATELET COUNT 271 10x3/uL (130-400); RBC 3.93 10x6/uL (4.00-5.40); RDW 14.8 % (11.5-14.5); WBC 8.5 10x3/uL (4.8-10.8)
[2017-10-29 06:49] VITALS: BP 133/65
[2017-10-29 08:45] VITALS: BP 108/66
[2017-10-29 12:18] VITALS: BP 112/62
[2017-10-29 14:46] VITALS: Ht 180.3 cm; Wt 114.8 kg
[2017-10-29 16:31] VITALS: BP 110/57
[2017-10-29 20:24] VITALS: BP 109/61
[2017-10-29 23:39] VITALS: BP 101/55
[2017-10-30 04:33] VITALS: BP 111/63
[2017-10-30 06:15] LABS: CALCIUM 8.3 mg/dL (8.5-10.1); CARBON DIOXIDE 27.1 mmol/L (21.0-32.0); CHLORIDE - SERUM 101 mmol/L (98-107); CREATININE - SERUM 0.8 mg/dL (0.6-1.3); GLUCOSE 137 mg/dL (74-106); POTASSIUM - SERUM 4.3 mmol/L (3.5-5.1); SODIUM 135 mmol/L (136-145); eGFR NON AFRICAN AMERICAN 81 mL/min (90-120)
[2017-10-30 06:45] LABS: C-REACTIVE PROTEIN 120.1 mg/dL (0.0-0.9); CALC OSMOLALITY 273 mosm/kg (275-300); UREA NITROGEN 18 mg/dL (7-18)
[2017-10-30 07:02] LABS: ERYTHROCYTE SEDIMENTATION RATE 65 mm/hr (0-20)
[2017-10-30 07:54] VITALS: BP 101/65
[2017-10-30 11:38] VITALS: BP 117/71
[2017-10-30 15:55] VITALS: BP 109/58
[2017-10-30 22:12] VITALS: BP 110/53
[2017-10-31 01:32] VITALS: BP 99/46
[2017-10-31 06:33] VITALS: BP 92/58
[2017-10-31] MEDS ORDERED: ELIQUIS2.5 MG PO (07:48)
[2017-10-31] MEDS ORDERED: OXYCONTIN10 MG PO (07:49)
[2017-10-31] MEDS ORDERED: HYDROCODONE-APA1 TAB PO (07:49)
[2017-10-31 12:20] VITALS: BP 134/59
[2017-10-31 16:34] VITALS: BP 118/59
[2017-10-31 20:54] VITALS: BP 106/50
[2017-11-01 00:53] VITALS: BP 111/42
[2017-11-01 04:00] VITALS: BP 108/68
[2017-11-01 08:34] VITALS: BP 121/65
[2017-11-01] MEDS ORDERED: CEFAZOLIN2 GM/50 ML IV (12:41)
== END 2017-11-01 21:15 | disposition home health service (06) | DRG 465 ==
LOC: D.MS 10:48
PROVIDERS: Orthopaedic Surgery; Student in an Organized Health Care Education/Training Program
PROC: 0S9D4ZZ Drainage of Left Knee Joint, Percutaneous Endoscopic Approach (ICD-10-PCS; principal; 2017-10-24)
PROC: 0SPD0JZ Removal of Synthetic Substitute from Left Knee Joint, Open Approach (ICD-10-PCS; 2017-10-28)
PROC: 0SHD08Z Insertion of Spacer into Left Knee Joint, Open Approach (ICD-10-PCS; 2017-10-28)
DX: T84.54XA Infection and inflammatory reaction due to internal left knee prosthesis, initial encounter (principal); F17.200 Nicotine dependence, unspecified, uncomplicated; M66.862 Spontaneous rupture of other tendons, left lower leg; F41.9 Anxiety disorder, unspecified; F32.9 Major depressive disorder, single episode, unspecified

== ENCOUNTER → 2017-11-04 14:49 | Outpatient (CLI) | payer MEDICARE ==
[2017-10-29 14:46] VITALS: BMI 35.3
[~2017-11-04 14:49] MED LIST changes: +CEFAZOLIN2 GM/50 ML IV; +HYDROCODONE-APA1 TAB PO; +OXYCONTIN10 MG PO
[2017-11-04 15:13] LABS: BASOPHILS 0.4 % (0-2); EOSINOPHILS 3.8 % (0-7); HEMATOCRIT 29.3 % (36.0-48.0); HEMOGLOBIN 8.7 g/dL (12-16); IMMATURE GRANULOCYTES 0.2 % (0-5); LYMPHOCYTES 24.4 % (15-50); MCH 24.8 pg (26.0-34.0); MCHC 29.7 g/dL (31.0-37.0); MCV 83.5 fL (80.0-100.0); MEAN PLATELET VOLUME 10.5 fL (7.4-10.4); NEUTROPHILS 62.2 % (40-80); PLATELET COUNT 309 10x3/uL (130-400); RBC 3.51 10x6/uL (4.00-5.40); RDW 15.6 % (11.5-14.5); WBC 4.7 10x3/uL (4.8-10.8)
[2017-11-04 15:29] LABS: CREATININE - SERUM 0.7 mg/dL (0.6-1.3)
[2017-11-04 16:43] LABS: ERYTHROCYTE SEDIMENTATION RATE 99 mm/hr (0-20)
== END | disposition home or self-care (01) ==
LOC: D.LABREF 14:49
PROVIDERS: Orthopaedic Surgery
DX: T84.53XA Infection and inflammatory reaction due to internal right knee prosthesis, initial encounter (principal)

== ENCOUNTER → 2017-11-12 13:48 | Outpatient (CLI) | payer MEDICARE ==
[2017-10-29 14:46] VITALS: BMI 35.3
[2017-11-12 16:53] LABS: BASOPHILS 0.5 % (0-2); EOSINOPHILS 4.5 % (0-7); HEMATOCRIT 33.2 % (36.0-48.0); HEMOGLOBIN 9.9 g/dL (12-16); IMMATURE GRANULOCYTES 0.3 % (0-5); LYMPHOCYTES 25.3 % (15-50); MCH 24.9 pg (26.0-34.0); MCHC 29.8 g/dL (31.0-37.0); MCV 83.6 fL (80.0-100.0); MONOCYTES 7.7 % (2-11); NEUTROPHILS 61.7 % (40-80); PLATELET COUNT 303 10x3/uL (130-400); RBC 3.97 10x6/uL (4.00-5.40); RDW 15.9 % (11.5-14.5); WBC 7.6 10x3/uL (4.8-10.8)
[2017-11-12 17:19] LABS: C-REACTIVE PROTEIN 0.5 mg/dL (0.0-0.9); CREATININE - SERUM 0.8 mg/dL (0.6-1.3)
[2017-11-12 18:31] LABS: ERYTHROCYTE SEDIMENTATION RATE 1 mm/hr (0-20)
== END | disposition home or self-care (01) ==
LOC: D.LABREF 13:48
PROVIDERS: Orthopaedic Surgery
DX: B95.61 Methicillin susceptible Staphylococcus aureus infection as the cause of diseases classified elsewhere (principal); T84.53XD Infection and inflammatory reaction due to internal right knee prosthesis, subsequent encounter

== ENCOUNTER → 2017-11-19 13:33 | Outpatient (CLI) | payer MEDICARE ==
[2017-10-29 14:46] VITALS: BMI 35.3
[2017-11-19 13:48] LABS: BASOPHILS 0.4 % (0-2); EOSINOPHILS 2.9 % (0-7); HEMOGLOBIN 10.8 g/dL (12-16); IMMATURE GRANULOCYTES 0.1 % (0-5); LYMPHOCYTES 23.4 % (15-50); MCH 25.5 pg (26.0-34.0); MCHC 30.9 g/dL (31.0-37.0); MCV 82.5 fL (80.0-100.0); MEAN PLATELET VOLUME 11.8 fL (7.4-10.4); MONOCYTES 5.2 % (2-11); PLATELET COUNT 251 10x3/uL (130-400); RBC 4.24 10x6/uL (4.00-5.40); RDW 15.5 % (11.5-14.5); WBC 7.1 10x3/uL (4.8-10.8)
[2017-11-19 14:00] LABS: CREATININE - SERUM 0.7 mg/dL (0.6-1.3)
[2017-11-19 15:10] LABS: ERYTHROCYTE SEDIMENTATION RATE 23 mm/hr (0-20)
== END | disposition home or self-care (01) ==
LOC: D.LABREF 13:33
PROVIDERS: Orthopaedic Surgery
DX: T84.53XD Infection and inflammatory reaction due to internal right knee prosthesis, subsequent encounter (principal); B95.61 Methicillin susceptible Staphylococcus aureus infection as the cause of diseases classified elsewhere

== ENCOUNTER → 2017-11-25 14:22 | Outpatient (CLI) | payer MEDICARE ==
[2017-10-29 14:46] VITALS: BMI 35.3
[2017-11-25 14:38] LABS: BASOPHILS 0.4 % (0-2); EOSINOPHILS 4.1 % (0-7); HEMATOCRIT 34.1 % (36.0-48.0); HEMOGLOBIN 10.4 g/dL (12-16); IMMATURE GRANULOCYTES 0.2 % (0-5); LYMPHOCYTES 26.1 % (15-50); MCH 25.5 pg (26.0-34.0); MCHC 30.5 g/dL (31.0-37.0); MCV 83.6 fL (80.0-100.0); MEAN PLATELET VOLUME 11.3 fL (7.4-10.4); MONOCYTES 7.4 % (2-11); NEUTROPHILS 61.8 % (40-80); RBC 4.08 10x6/uL (4.00-5.40); RDW 15.5 % (11.5-14.5); WBC 4.6 10x3/uL (4.8-10.8)
[2017-11-25 14:42] LABS: PLATELET COUNT 186 10x3/uL (130-400)
[2017-11-25 14:46] LABS: C-REACTIVE PROTEIN 1.1 mg/dL (0.0-0.9); CREATININE - SERUM 0.8 mg/dL (0.6-1.3)
[2017-11-25 16:18] LABS: ERYTHROCYTE SEDIMENTATION RATE 16 mm/hr (0-20)
== END | disposition home or self-care (01) ==
LOC: D.LABREF 14:22
PROVIDERS: Orthopaedic Surgery
DX: B95.61 Methicillin susceptible Staphylococcus aureus infection as the cause of diseases classified elsewhere (principal); T84.53XD Infection and inflammatory reaction due to internal right knee prosthesis, subsequent encounter

== ENCOUNTER → 2017-12-03 11:26 | Outpatient (CLI) | payer MEDICARE ==
[2017-10-29 14:46] VITALS: BMI 35.3
[2017-12-03 11:41] LABS: HEMATOCRIT 35.9 % (36.0-48.0); HEMOGLOBIN 11.5 g/dL (12-16); LYMPHOCYTES 39.8 % (15-50); MEAN PLATELET VOLUME 11.5 fL (7.4-10.4); NEUTROPHILS 51.4 % (40-80); PLATELET COUNT 178 10x3/uL (130-400); RBC 4.43 10x6/uL (4.00-5.40); RDW 14.6 % (11.5-14.5); WBC 4.9 10x3/uL (4.8-10.8)
[2017-12-03 12:07] LABS: C-REACTIVE PROTEIN 0.5 mg/dL (0.0-0.9); CREATININE - SERUM 0.7 mg/dL (0.6-1.3)
[2017-12-03 12:43] LABS: ERYTHROCYTE SEDIMENTATION RATE 17 mm/hr (0-20)
== END | disposition home or self-care (01) ==
LOC: D.LABREF 11:26
PROVIDERS: Orthopaedic Surgery
DX: B95.61 Methicillin susceptible Staphylococcus aureus infection as the cause of diseases classified elsewhere (principal); T84.53XA Infection and inflammatory reaction due to internal right knee prosthesis, initial encounter

== ENCOUNTER → 2017-12-09 15:15 | Outpatient (CLI) | payer MEDICARE ==
[2017-10-29 14:46] VITALS: BMI 35.3
[2017-12-09 15:37] LABS: BASOPHILS 0.6 % (0-2); EOSINOPHILS 2.1 % (0-7); HEMATOCRIT 36.7 % (36.0-48.0); HEMOGLOBIN 11.3 g/dL (12-16); LYMPHOCYTES 31.6 % (15-50); MCH 25.7 pg (26.0-34.0); MCHC 30.8 g/dL (31.0-37.0); MCV 83.4 fL (80.0-100.0); MEAN PLATELET VOLUME 11.4 fL (7.4-10.4); MONOCYTES 7.8 % (2-11); NEUTROPHILS 57.9 % (40-80); PLATELET COUNT 182 10x3/uL (130-400); RDW 15.1 % (11.5-14.5); WBC 5.3 10x3/uL (4.8-10.8)
[2017-12-09 16:00] LABS: C-REACTIVE PROTEIN 0.2 mg/dL (0.0-0.9)
[2017-12-09 17:16] LABS: ERYTHROCYTE SEDIMENTATION RATE 23 mm/hr (0-20)
[2017-12-10 08:25] LABS: CREATININE - SERUM 0.7 mg/dL (0.6-1.3)
== END | disposition home or self-care (01) ==
LOC: D.LABREF 15:15
PROVIDERS: Orthopaedic Surgery
DX: B95.61 Methicillin susceptible Staphylococcus aureus infection as the cause of diseases classified elsewhere (principal); T84.53XA Infection and inflammatory reaction due to internal right knee prosthesis, initial encounter

== ENCOUNTER 2017-12-19 11:28 | Inpatient (IN) | payer MEDICARE ==
[~2017-12-19] VITALS: Ht 180.3 cm; Wt 106.4 kg
[2017-12-19 13:07] LABS: BASOPHILS 0.3 % (0-2); EOSINOPHILS 2.4 % (0-7); HEMATOCRIT 38.9 % (36.0-48.0); HEMOGLOBIN 12.3 g/dL (12-16); MCH 26.2 pg (26.0-34.0); MCHC 31.6 g/dL (31.0-37.0); MCV 82.9 fL (80.0-100.0); MEAN PLATELET VOLUME 11.6 fL (7.4-10.4); MONOCYTES 8.2 % (2-11); NEUTROPHILS 54.1 % (40-80); PLATELET COUNT 184 10x3/uL (130-400); RBC 4.69 10x6/uL (4.00-5.40); RDW 14.9 % (11.5-14.5); WBC 6.7 10x3/uL (4.8-10.8)
[2017-12-19 13:23] LABS: ALBUMIN 3.2 g/dL (3.4-5.0); ALKALINE PHOSPHATASE 74 U/L (46-116); ALT (SGPT) 13 U/L (10-68); BILIRUBIN - TOTAL 0.26 mg/dL (0.2-1.3); CALC OSMOLALITY 285 mosm/kg (275-300); CALCIUM 8.8 mg/dL (8.5-10.1); CARBON DIOXIDE 26.1 mmol/L (21.0-32.0); CHLORIDE - SERUM 105 mmol/L (98-107); CREATININE - SERUM 0.8 mg/dL (0.6-1.3); GLUCOSE 106 mg/dL (74-106); POTASSIUM - SERUM 3.4 mmol/L (3.5-5.1); SODIUM 142 mmol/L (136-145); UREA NITROGEN 21 mg/dL (7-18); eGFR NON AFRICAN AMERICAN 81 mL/min (90-120)
[2017-12-19 16:08] LABS: APPEARANCE CLEAR (CLEAR); BILIRUBIN NEGATIVE (NEGATIVE); COLOR YELLOW (YELLOW); GLUCOSE NEGATIVE (NEGATIVE); KETONE NEGATIVE (NEGATIVE); NITRITE NEGATIVE (NEGATIVE); PROTEIN NEGATIVE (NEGATIVE); UROBILINOGEN NORMAL (NORMAL)
[2017-12-20 03:11] VITALS: BP 103/57; BMI 32.7
[2017-12-20 04:00] VITALS: BP 92/51
[2017-12-20 05:35] LABS: BASOPHILS 0.7 % (0-2); EOSINOPHILS 2.7 % (0-7); HEMATOCRIT 34.6 % (36.0-48.0); HEMOGLOBIN 10.9 g/dL (12-16); IMMATURE GRANULOCYTES 0.2 % (0-5); LYMPHOCYTES 45.5 % (15-50); MCH 26.1 pg (26.0-34.0); MCHC 31.5 g/dL (31.0-37.0); MEAN PLATELET VOLUME 11.1 fL (7.4-10.4); MONOCYTES 8.6 % (2-11); NEUTROPHILS 42.3 % (40-80); PLATELET COUNT 156 10x3/uL (130-400); RBC 4.17 10x6/uL (4.00-5.40); RDW 14.7 % (11.5-14.5); WBC 5.8 10x3/uL (4.8-10.8)
[2017-12-20 06:47] LABS: CALC OSMOLALITY 283 mosm/kg (275-300); CALCIUM 7.9 mg/dL (8.5-10.1); CHLORIDE - SERUM 105 mmol/L (98-107); CREATININE - SERUM 0.8 mg/dL (0.6-1.3); GLUCOSE 121 mg/dL (74-106); POTASSIUM - SERUM 3.9 mmol/L (3.5-5.1); SODIUM 140 mmol/L (136-145); UREA NITROGEN 23 mg/dL (7-18); eGFR NON AFRICAN AMERICAN 81 mL/min (90-120)
[2017-12-20 08:43] VITALS: BP 99/47
[2017-12-20 09:16] LABS: ERYTHROCYTE SEDIMENTATION RATE 13 mm/hr (0-20)
[2017-12-20 12:46] VITALS: BP 99/50
[2017-12-20 12:49] VITALS: Ht 180.3 cm; Wt 106.4 kg
[2017-12-20 16:26] VITALS: BP 94/53
[2017-12-20 23:02] VITALS: BP 111/67
[2017-12-21 04:32] VITALS: BP 113/56
[2017-12-21 10:51] VITALS: BP 125/65
[2017-12-21 15:10] VITALS: BP 107/60
[2017-12-21 22:58] VITALS: BP 105/63
[2017-12-22 01:21] VITALS: BP 115/67
[2017-12-22 05:44] VITALS: BP 116/64
[2017-12-22 09:00] VITALS: BP 116/70
[2017-12-22 13:13] VITALS: BP 128/68
[2017-12-22 16:58] VITALS: BP 108/71
[2017-12-22 23:07] VITALS: BP 114/82
[2017-12-23 05:06] VITALS: BP 118/68
[2017-12-23 08:18] VITALS: BP 125/87
[2017-12-23 13:20] VITALS: BP 139/88
== END 2017-12-23 15:01 | disposition home or self-care (01) | DRG 561 ==
LOC: D.ER 11:28 → D.MS 15:39 → D.EDHOLD 15:39 → OBSVTIME 15:39 → D.MS 22:33
PROVIDERS: Emergency Medicine; Nurse Practitioner Family; Orthopaedic Surgery
PROC: 0S9D3ZZ Drainage of Left Knee Joint, Percutaneous Approach (ICD-10-PCS; principal; 2017-12-20)
DX: T84.54XA Infection and inflammatory reaction due to internal left knee prosthesis, initial encounter (principal); F41.9 Anxiety disorder, unspecified; F32.9 Major depressive disorder, single episode, unspecified; Z91.19 Patient's noncompliance with other medical treatment and regimen; M66.9 Spontaneous rupture of unspecified tendon

== ENCOUNTER 2017-12-29 08:24 | Inpatient (IN) | payer MEDICARE ==
[~2017-12-29] VITALS: Ht 180.3 cm; Wt 110.5 kg
--- NOTE | ~2017-12-29 | CN ---
PATIENT NAME:SALMA FREEMAN MEDICAL RECORD: [id number] : 68 LOCATION:[facility] ADMIT DATE: 12/29/17 ACCOUNT: [id number] CONSULTING PHYSICIAN: MARIA ELENA ADAMS MD REFERRING PHYSICIAN: NITZA ROMERO MD DATE OF CONSULTATION: 12/30/2017 IDENTIFYING DATA: The patient is 47 years old and she is admitted to the hospital secondary to aseptic knee. CHIEF COMPLAINT: Depression. HISTORY OF PRESENT ILLNESS: The patient endorses a lot of neurovegetative depressive symptoms that she ties largely to her frustrations over the knee replacement she had a year ago. She says she has been unable to walk for most or all of that time and that she has become quite frustrated and depressed. She also says that she is looking very forward to her surgery tomorrow and thinks that that will largely resolve the issues. Unfortunately, the patient does have a remote history of overdose and suicide attempt associated with depression and she formally was followed by the [facility] for that. She would like to return to doing so. ASSESSMENT: 1. Adjustment disorder with mixed emotional features. 2. History of major depression. PLAN: I think it is very reasonable to treat the patient with a low dose of an SSRI. I also think it is very appropriate and reasonable to refer her to the [facility] for outpatient followup after hospitalization here and her rehabilitation from the knee replacement has been sufficient such that she can reasonably make the outpatient appointments. I do not see her as acutely dangerous or suicidal at this point. TRANSINT:[id number] Voice Confirmation ID: [id number] DOCUMENT ID: [id number] MARIA ELENA ADAMS MD at 1445 CC: [id number] DICTATION DATE: 12/30/17 1414 LABOR RELATIONS SPECIALIST: 12/30/17 1423 ADM IN [facility] [address] [place] [address]
--- NOTE | ~2017-12-29 | OP ---
PATIENT NAME: SALMA SEPULVEDA MEDICAL RECORD: [id number] :68 LOCATION:[facility] ADMISSION DATE:12/29/17 SURGEON: MCKAY DENNIS MD DATE OF OPERATION: 12/31/2017 PREOPERATIVE DIAGNOSIS: Recurrent infection of the left knee. POSTOPERATIVE DIAGNOSIS: Recurrent infection of the left knee. PROCEDURES: 1. Excisional debridement of the left knee. 2. Placement of antibiotic cement spacer. 3. Removal of previous antibiotic cement spacer. SURGEON: Mckay Dennis MD ANESTHESIA: General. INTRAOPERATIVE COMPLICATIONS: None. SUMMARY OF PATHOLOGIC FINDINGS: The patient had a huge area of pus in the suprapatellar pouch consistent with the increasing sedimentation rate and C-reactive protein. INDICATIONS: Ms. Sepulveda has been an extremely noncompliant patient. After she had her index procedure, she fell going downstairs, ruptured quad requiring surgery from that, re-ruptured this requiring repeat surgery for that, did not keep multiple follow ups, came in with a painful knee, which turned out to be infected. The infection was treated with resection and placement of antibiotic cement spacer and when she was discharged, she made no follow ups until her return to the hospital with a recurrent infection. She did, however, receive 6 weeks of antibiotic therapy, evidently transportation has been a very hard issue for her. This has been sorted out possibly at this time. OPERATIVE SUMMARY IN DETAIL: After obtaining the appropriate preoperative orthopedic surgery consent as well as anesthetic consultation, evaluation and clearance, the patient was brought to the operating room and placed on the operating table in supine position. After general laryngeal mask was administered, tourniquet was placed about the proximal aspect of left lower extremity. Left lower extremity was prepped and draped in routine sterile fashion. The leg was elevated, it was not exsanguinated. Tourniquet was inflated to 350 mmHg. Routine midline incision was taken down for paramedian arthrotomy, immediately upon cutting the paramedian arthrotomy, copious amounts of purulent fluid were obtained. They were sent for stat Gram stain, it did show gram-positive cocci. At this point, the knee was opened up completely. The antibiotic cement spacer was taken out in its entirety. Serial and sequential rongeur curettage was utilized for excisional debridement to include skin, subcutaneous tissue, portions of fat, fascia, muscle, and bone. Pulsatile lavage irrigation was continued and then a second vancomycin laden antibiotic cement spacer was made and placed between the tibia and distal femur after this had become doughy. After the cement was allowed to harden, the paramedian arthrotomy was closed with #2 Ethibond followed by #1 Vicryl, 2-0 Vicryl, and skin austen. Sterile dressings were applied. The patient was awakened, taken to recovery in stable condition. All final needle and sponge counts were correct. OPERATIVE REPORT [id number] SALMA SEPULVEDA TRANSINT:[id number] Voice Confirmation ID: [id number] DOCUMENT ID: [id number] JEANNIE LIU, MCKAY FUENTES at 1401 CC: [id number] DICTATION DATE: 12/31/17 1310 BRIDGE GAME DIRECTOR: 12/31/17 1336 ADM IN [place] [id number] [place] [address]
[2017-12-29 09:24] LABS: BASOPHILS 0.1 % (0-2); EOSINOPHILS 0.9 % (0-7); HEMOGLOBIN 13.5 g/dL (12-16); IMMATURE GRANULOCYTES 0.1 % (0-5); LYMPHOCYTES 13.8 % (15-50); MCH 26.7 pg (26.0-34.0); MCHC 32.1 g/dL (31.0-37.0); MEAN PLATELET VOLUME 10.7 fL (7.4-10.4); MONOCYTES 8.7 % (2-11); NEUTROPHILS 76.4 % (40-80); PLATELET COUNT 260 10x3/uL (130-400); RBC 5.06 10x6/uL (4.00-5.40); RDW 15.3 % (11.5-14.5); WBC 13.6 10x3/uL (4.8-10.8)
[2017-12-29 09:26] LABS: ALBUMIN 4.1 g/dL (3.4-5.0); ANION GAP 14.6 mmol/L (8-16); BILIRUBIN - TOTAL 0.58 mg/dL (0.2-1.3); C-REACTIVE PROTEIN 2.3 mg/dL (0.0-0.9); CALCIUM 9.9 mg/dL (8.5-10.1); CARBON DIOXIDE 27.2 mmol/L (21.0-32.0); CREATININE - SERUM 0.9 mg/dL (0.6-1.3); POTASSIUM - SERUM 3.8 mmol/L (3.5-5.1); PROTEIN - SERUM 8.4 g/dL (6.4-8.2)
[2017-12-29 10:28] LABS: ERYTHROCYTE SEDIMENTATION RATE 39 mm/hr (0-20)
[2017-12-29 17:34] VITALS: BP 128/78; BMI 33.9
[2017-12-30 05:05] VITALS: BP 109/67
[2017-12-30 06:05] LABS: BASOPHILS 0.3 % (0-2); HEMATOCRIT 35.1 % (36.0-48.0); HEMOGLOBIN 10.9 g/dL (12-16); IMMATURE GRANULOCYTES 0.3 % (0-5); MCH 26.1 pg (26.0-34.0); MCHC 31.1 g/dL (31.0-37.0); MEAN PLATELET VOLUME 11.1 fL (7.4-10.4); MONOCYTES 12.4 % (2-11); PLATELET COUNT 224 10x3/uL (130-400); RBC 4.18 10x6/uL (4.00-5.40); RDW 15.7 % (11.5-14.5); WBC 10.5 10x3/uL (4.8-10.8)
[2017-12-30 06:14] LABS: CALC OSMOLALITY 277 mosm/kg (275-300); CALCIUM 8.5 mg/dL (8.5-10.1); CHLORIDE - SERUM 102 mmol/L (98-107); CREATININE - SERUM 0.8 mg/dL (0.6-1.3); GLUCOSE 116 mg/dL (74-106); POTASSIUM - SERUM 4.1 mmol/L (3.5-5.1); SODIUM 137 mmol/L (136-145); eGFR NON AFRICAN AMERICAN 81 mL/min (90-120)
[2017-12-30 06:20] LABS: UREA NITROGEN 21 mg/dL (7-18)
[2017-12-30 09:38] VITALS: BP 114/64
[2017-12-30 10:52] LABS: APPEARANCE CLEAR (CLEAR); BILIRUBIN NEGATIVE (NEGATIVE); COLOR DK YELLOW (YELLOW); GLUCOSE NEGATIVE (NEGATIVE); KETONE NEGATIVE (NEGATIVE); NITRITE NEGATIVE (NEGATIVE); PROTEIN NEGATIVE (NEGATIVE); SPECIFIC GRAVITY 1.025 (1.005-1.020); UROBILINOGEN NORMAL (NORMAL)
[2017-12-30 13:11] VITALS: BP 117/67
[2017-12-30 14:32] VITALS: Ht 180.3 cm; Wt 110.5 kg
[2017-12-30 16:44] VITALS: BP 104/57
[2017-12-30 23:59] VITALS: BP 108/60
[2017-12-31 04:17] VITALS: BP 112/64
[2017-12-31 06:58] LABS: BASOPHILS 0.3 % (0-2); EOSINOPHILS 1.8 % (0-7); HEMATOCRIT 32.7 % (36.0-48.0); HEMOGLOBIN 10.1 g/dL (12-16); IMMATURE GRANULOCYTES 0.3 % (0-5); MCHC 30.9 g/dL (31.0-37.0); MCV 84.1 fL (80.0-100.0); MEAN PLATELET VOLUME 11.7 fL (7.4-10.4); MONOCYTES 11.6 % (2-11); PLATELET COUNT 236 10x3/uL (130-400); RBC 3.89 10x6/uL (4.00-5.40); RDW 15.4 % (11.5-14.5); WBC 10.9 10x3/uL (4.8-10.8)
[2017-12-31 07:04] LABS: CALC OSMOLALITY 273 mosm/kg (275-300); CALCIUM 8.6 mg/dL (8.5-10.1); CARBON DIOXIDE 26.3 mmol/L (21.0-32.0); CHLORIDE - SERUM 100 mmol/L (98-107); CREATININE - SERUM 0.8 mg/dL (0.6-1.3); GLUCOSE 119 mg/dL (74-106); POTASSIUM - SERUM 3.9 mmol/L (3.5-5.1); SODIUM 135 mmol/L (136-145); UREA NITROGEN 20 mg/dL (7-18); eGFR NON AFRICAN AMERICAN 81 mL/min (90-120)
[2017-12-31 08:40] VITALS: BP 114/75
[2017-12-31 20:22] VITALS: BP 103/67
[2018-01-01 00:23] VITALS: BP 139/76
[2018-01-01 04:40] VITALS: BP 109/68
[2018-01-01 06:33] LABS: BASOPHILS 0.1 % (0-2); EOSINOPHILS 0 % (0-7); HEMATOCRIT 32.7 % (36.0-48.0); HEMOGLOBIN 10.1 g/dL (12-16); IMMATURE GRANULOCYTES 0.3 % (0-5); LYMPHOCYTES 8.2 % (15-50); MCH 25.9 pg (26.0-34.0); MCHC 30.9 g/dL (31.0-37.0); MCV 83.8 fL (80.0-100.0); MEAN PLATELET VOLUME 11.8 fL (7.4-10.4); MONOCYTES 8.9 % (2-11); NEUTROPHILS 82.5 % (40-80); PLATELET COUNT 283 10x3/uL (130-400)
[2018-01-01 07:24] LABS: ALBUMIN 2.4 g/dL (3.4-5.0); ALKALINE PHOSPHATASE 131 U/L (46-116); ALT (SGPT) 29 U/L (10-68); BILIRUBIN - TOTAL 0.17 mg/dL (0.2-1.3); CALC OSMOLALITY 281 mosm/kg (275-300); CALCIUM 8.7 mg/dL (8.5-10.1); CARBON DIOXIDE 24.9 mmol/L (21.0-32.0); CHLORIDE - SERUM 102 mmol/L (98-107); CREATININE - SERUM 0.8 mg/dL (0.6-1.3); GLUCOSE 162 mg/dL (74-106); PROTEIN - SERUM 7.1 g/dL (6.4-8.2); SODIUM 138 mmol/L (136-145); UREA NITROGEN 18 mg/dL (7-18); eGFR NON AFRICAN AMERICAN 81 mL/min (90-120)
[2018-01-01 08:18] LABS: ERYTHROCYTE SEDIMENTATION RATE 97 mm/hr (0-20)
[2018-01-01 08:30] VITALS: BP 123/72; BP 187/97
[2018-01-01 13:22] VITALS: BP 118/60
[2018-01-01 17:23] VITALS: BP 122/59
[2018-01-01 21:18] VITALS: BP 111/58
[2018-01-02 04:09] VITALS: BP 115/74
[2018-01-02 05:59] LABS: BASOPHILS 0.2 % (0-2); EOSINOPHILS 0.3 % (0-7); HEMATOCRIT 31.8 % (36.0-48.0); HEMOGLOBIN 9.7 g/dL (12-16); IMMATURE GRANULOCYTES 0.3 % (0-5); LYMPHOCYTES 26.4 % (15-50); MCH 25.9 pg (26.0-34.0); MCHC 30.5 g/dL (31.0-37.0); MEAN PLATELET VOLUME 11.1 fL (7.4-10.4); MONOCYTES 7.4 % (2-11); NEUTROPHILS 65.4 % (40-80); PLATELET COUNT 310 10x3/uL (130-400); RBC 3.74 10x6/uL (4.00-5.40); RDW 15.4 % (11.5-14.5); WBC 9.2 10x3/uL (4.8-10.8)
[2018-01-02 06:03] LABS: CALC OSMOLALITY 277 mosm/kg (275-300); CALCIUM 8.3 mg/dL (8.5-10.1); CARBON DIOXIDE 26.6 mmol/L (21.0-32.0); CHLORIDE - SERUM 105 mmol/L (98-107); CREATININE - SERUM 0.8 mg/dL (0.6-1.3); POTASSIUM - SERUM 3.9 mmol/L (3.5-5.1); SODIUM 138 mmol/L (136-145); UREA NITROGEN 19 mg/dL (7-18); eGFR NON AFRICAN AMERICAN 81 mL/min (90-120)
[2018-01-02 06:08] LABS: GLUCOSE 95 mg/dL (74-106)
[2018-01-02 08:31] VITALS: BP 120/48
[2018-01-02 13:03] VITALS: BP 82/65
[2018-01-02] MEDS ORDERED: RIFADIN150 MG PO (15:26)
[2018-01-02] MEDS ORDERED: FLORAJEN3 CAPS460 MG PO (15:26)
[2018-01-02 16:28] VITALS: BP 117/63
[2018-01-02 20:55] VITALS: BP 102/57
== END 2018-01-02 22:25 | disposition home health service (06) | DRG 494 ==
LOC: D.ER 08:24 → D.EDHOLD 14:15 → D.MS 14:15
PROVIDERS: Family Medicine; Internal Medicine Nephrology; Orthopaedic Surgery
PROC: 0S9D3ZZ Drainage of Left Knee Joint, Percutaneous Approach (ICD-10-PCS; principal; 2017-12-29)
PROC: 0QBK0ZZ Excision of Left Fibula, Open Approach (ICD-10-PCS; 2017-12-31)
PROC: 0SHD08Z Insertion of Spacer into Left Knee Joint, Open Approach (ICD-10-PCS; 2017-12-31)
PROC: 0SPD08Z Removal of Spacer from Left Knee Joint, Open Approach (ICD-10-PCS; 2017-12-31)
DX: T84.54XA Infection and inflammatory reaction due to internal left knee prosthesis, initial encounter (principal); F41.8 Other specified anxiety disorders; F43.25 Adjustment disorder with mixed disturbance of emotions and conduct; Z91.19 Patient's noncompliance with other medical treatment and regimen; E66.01 Morbid (severe) obesity due to excess calories; Z68.32 Body mass index [BMI] 32.0-32.9, adult; B95.61 Methicillin susceptible Staphylococcus aureus infection as the cause of diseases classified elsewhere; Z91.5 Personal history of self-harm; Z87.891 Personal history of nicotine dependence

== ENCOUNTER → 2018-01-06 13:26 | Outpatient (CLI) | payer MEDICARE ==
[2017-12-30 14:32] VITALS: BMI 33.9
[~2018-01-06 13:26] MED LIST changes: +EFFEXOR100 MG PO; +FLORAJEN3 CAPS460 MG PO; +RIFADIN150 MG PO; +VIBRAMYCIN 100100 MG PO
[2018-01-06 14:09] LABS: C-REACTIVE PROTEIN 1.2 mg/dL (0.0-0.9); CREATININE - SERUM 0.8 mg/dL (0.6-1.3)
[2018-01-06 15:10] LABS: ERYTHROCYTE SEDIMENTATION RATE 40 mm/hr (0-20)
[2018-01-06 15:13] LABS: BASOPHILS 0.2 % (0-2); EOSINOPHILS 3.3 % (0-7); HEMATOCRIT 34.9 % (36.0-48.0); IMMATURE GRANULOCYTES 0.2 % (0-5); LYMPHOCYTES 27.4 % (15-50); MCH 26.6 pg (26.0-34.0); MCHC 31.5 g/dL (31.0-37.0); MCV 84.3 fL (80.0-100.0); MEAN PLATELET VOLUME 10.7 fL (7.4-10.4); MONOCYTES 6.8 % (2-11); NEUTROPHILS 62.1 % (40-80); RBC 4.14 10x6/uL (4.00-5.40); RDW 16.1 % (11.5-14.5); WBC 8.1 10x3/uL (4.8-10.8)
[2018-01-06 15:15] LABS: PLATELET COUNT 381 10x3/uL (130-400)
== END | disposition home or self-care (01) ==
LOC: D.LABREF 13:26
PROVIDERS: Student in an Organized Health Care Education/Training Program
DX: T84.9XXA Unspecified complication of internal orthopedic prosthetic device, implant and graft, initial encounter (principal)

== ENCOUNTER → 2018-01-14 17:43 | Outpatient (CLI) | payer MEDICARE ==
[2017-12-30 14:32] VITALS: BMI 33.9
[2018-01-14 20:35] LABS: BASOPHILS 0.9 % (0-2); EOSINOPHILS 2.8 % (0-7); HEMATOCRIT 33.7 % (36.0-48.0); HEMOGLOBIN 10.2 g/dL (12-16); IMMATURE GRANULOCYTES 0.1 % (0-5); LYMPHOCYTES 33.6 % (15-50); MCH 25.8 pg (26.0-34.0); MCHC 30.3 g/dL (31.0-37.0); MCV 85.1 fL (80.0-100.0); MEAN PLATELET VOLUME 11.4 fL (7.4-10.4); NEUTROPHILS 53.6 % (40-80); RBC 3.96 10x6/uL (4.00-5.40); RDW 15.2 % (11.5-14.5); WBC 6.7 10x3/uL (4.8-10.8)
[2018-01-14 20:46] LABS: CREATININE - SERUM 0.7 mg/dL (0.6-1.3)
[2018-01-14 20:47] LABS: PLATELET COUNT 282 10x3/uL (130-400)
[2018-01-14 22:14] LABS: ERYTHROCYTE SEDIMENTATION RATE 16 mm/hr (0-20)
== END | disposition home or self-care (01) ==
LOC: D.LABREF 17:43
PROVIDERS: Student in an Organized Health Care Education/Training Program
DX: T84.54XA Infection and inflammatory reaction due to internal left knee prosthesis, initial encounter (principal)

== ENCOUNTER → 2018-01-20 14:08 | Outpatient (CLI) | payer MEDICARE ==
[2017-12-30 14:32] VITALS: BMI 33.9
[2018-01-20 14:20] LABS: BASOPHILS 0.3 % (0-2); EOSINOPHILS 1.9 % (0-7); HEMATOCRIT 38.6 % (36.0-48.0); HEMOGLOBIN 11.9 g/dL (12-16); LYMPHOCYTES 22.7 % (15-50); MCHC 30.8 g/dL (31.0-37.0); MCV 84.5 fL (80.0-100.0); MEAN PLATELET VOLUME 11.7 fL (7.4-10.4); MONOCYTES 6.3 % (2-11); NEUTROPHILS 68.8 % (40-80); PLATELET COUNT 282 10x3/uL (130-400); RBC 4.57 10x6/uL (4.00-5.40); RDW 15.1 % (11.5-14.5); WBC 6.8 10x3/uL (4.8-10.8)
[2018-01-20 14:33] LABS: CREATININE - SERUM 0.7 mg/dL (0.6-1.3)
[2018-01-20 15:21] LABS: ERYTHROCYTE SEDIMENTATION RATE 40 mm/hr (0-20)
== END | disposition home or self-care (01) ==
LOC: D.LABREF 14:08
PROVIDERS: Student in an Organized Health Care Education/Training Program
DX: B95.62 Methicillin resistant Staphylococcus aureus infection as the cause of diseases classified elsewhere (principal); T84.54XA Infection and inflammatory reaction due to internal left knee prosthesis, initial encounter; Z51.81 Encounter for therapeutic drug level monitoring; Z79.2 Long term (current) use of antibiotics

== ENCOUNTER → 2018-01-27 13:19 | Outpatient (CLI) | payer MEDICARE ==
[2017-12-30 14:32] VITALS: BMI 33.9
[2018-01-27 14:51] LABS: BASOPHILS 0.5 % (0-2); EOSINOPHILS 4.8 % (0-7); HEMATOCRIT 36.5 % (36.0-48.0); HEMOGLOBIN 11.5 g/dL (12-16); IMMATURE GRANULOCYTES 0.2 % (0-5); LYMPHOCYTES 35.6 % (15-50); MCH 26.9 pg (26.0-34.0); MCHC 31.5 g/dL (31.0-37.0); MCV 85.3 fL (80.0-100.0); MEAN PLATELET VOLUME 11.3 fL (7.4-10.4); MONOCYTES 9.9 % (2-11); PLATELET COUNT 244 10x3/uL (130-400); RBC 4.28 10x6/uL (4.00-5.40); RDW 14.5 % (11.5-14.5)
[2018-01-27 15:00] LABS: C-REACTIVE PROTEIN 2.1 mg/dL (0.0-0.9); CREATININE - SERUM 0.8 mg/dL (0.6-1.3)
[2018-01-27 15:55] LABS: ERYTHROCYTE SEDIMENTATION RATE 43 mm/hr (0-20)
== END | disposition home or self-care (01) ==
LOC: D.LABREF 13:19
PROVIDERS: Student in an Organized Health Care Education/Training Program
DX: T84.54XA Infection and inflammatory reaction due to internal left knee prosthesis, initial encounter (principal); Z51.81 Encounter for therapeutic drug level monitoring; Z79.2 Long term (current) use of antibiotics

== ENCOUNTER → 2018-02-03 13:23 | Outpatient (CLI) | payer MEDICARE ==
[2017-12-30 14:32] VITALS: BMI 33.9
[2018-02-03 14:18] LABS: BASOPHILS 0.7 % (0-2); EOSINOPHILS 3.6 % (0-7); HEMATOCRIT 34.4 % (36.0-48.0); HEMOGLOBIN 10.8 g/dL (12-16); LYMPHOCYTES 28.1 % (15-50); MCH 26.5 pg (26.0-34.0); MCHC 31.4 g/dL (31.0-37.0); MCV 84.3 fL (80.0-100.0); MONOCYTES 10.8 % (2-11); NEUTROPHILS 56.8 % (40-80); PLATELET COUNT 208 10x3/uL (130-400); RBC 4.08 10x6/uL (4.00-5.40); RDW 14.6 % (11.5-14.5); WBC 4.5 10x3/uL (4.8-10.8)
[2018-02-03 14:44] LABS: C-REACTIVE PROTEIN 3.4 mg/dL (0.0-0.9); CREATININE - SERUM 0.8 mg/dL (0.6-1.3)
[2018-02-03 15:48] LABS: ERYTHROCYTE SEDIMENTATION RATE 40 mm/hr (0-20)
== END | disposition home or self-care (01) ==
LOC: D.LABREF 13:23
PROVIDERS: Student in an Organized Health Care Education/Training Program
DX: B95.62 Methicillin resistant Staphylococcus aureus infection as the cause of diseases classified elsewhere (principal); Z51.81 Encounter for therapeutic drug level monitoring; Z79.2 Long term (current) use of antibiotics

== ENCOUNTER → 2018-02-11 14:24 | Outpatient (CLI) | payer MEDICARE ==
[2017-12-30 14:32] VITALS: BMI 33.9
[2018-02-11 15:00] LABS: BASOPHILS 0.3 % (0-2); HEMATOCRIT 38.2 % (36.0-48.0); HEMOGLOBIN 12.4 g/dL (12-16); IMMATURE GRANULOCYTES 0.2 % (0-5); LYMPHOCYTES 27.1 % (15-50); MCHC 32.5 g/dL (31.0-37.0); MCV 83.2 fL (80.0-100.0); MEAN PLATELET VOLUME 11.7 fL (7.4-10.4); MONOCYTES 7.1 % (2-11); NEUTROPHILS 63.3 % (40-80); RBC 4.59 10x6/uL (4.00-5.40); RDW 14.3 % (11.5-14.5); WBC 5.9 10x3/uL (4.8-10.8)
[2018-02-11 15:05] LABS: PLATELET COUNT 290 10x3/uL (130-400)
[2018-02-11 15:13] LABS: C-REACTIVE PROTEIN 0.4 mg/dL (0.0-0.9); CREATININE - SERUM 0.8 mg/dL (0.6-1.3)
[2018-02-11 16:17] LABS: ERYTHROCYTE SEDIMENTATION RATE 48 mm/hr (0-20)
== END | disposition home or self-care (01) ==
LOC: D.LABREF 14:24
PROVIDERS: Student in an Organized Health Care Education/Training Program
DX: T84.54XA Infection and inflammatory reaction due to internal left knee prosthesis, initial encounter (principal); Z51.81 Encounter for therapeutic drug level monitoring; Z79.2 Long term (current) use of antibiotics

== ENCOUNTER 2018-02-24 06:17 | Inpatient (IN) | payer MEDICARE ==
[2018-02-21 15:27] LABS: BASOPHILS 0.4 % (0-2); EOSINOPHILS 3.8 % (0-7); HEMATOCRIT 37.9 % (36.0-48.0); HEMOGLOBIN 12.2 g/dL (12-16); IMMATURE GRANULOCYTES 0.1 % (0-5); MCH 27.2 pg (26.0-34.0); MCHC 32.2 g/dL (31.0-37.0); MCV 84.4 fL (80.0-100.0); MEAN PLATELET VOLUME 10.5 fL (7.4-10.4); MONOCYTES 6.4 % (2-11); NEUTROPHILS 58.3 % (40-80); PLATELET COUNT 330 10x3/uL (130-400); RBC 4.49 10x6/uL (4.00-5.40); RDW 13.9 % (11.5-14.5); WBC 7.8 10x3/uL (4.8-10.8)
[2018-02-21 15:42] LABS: APTT 30.1 SECONDS (22.8-39.4); PROTIME 12.8 SECONDS (11.6-15.0)
[2018-02-21 15:58] LABS: ALBUMIN 3.1 g/dL (3.4-5.0); ALKALINE PHOSPHATASE 81 U/L (46-116); ALT (SGPT) 10 U/L (10-68); BILIRUBIN - TOTAL 0.16 mg/dL (0.2-1.3); CALC OSMOLALITY 279 mosm/kg (275-300); CALCIUM 9.3 mg/dL (8.5-10.1); CARBON DIOXIDE 29.3 mmol/L (21.0-32.0); CHLORIDE - SERUM 102 mmol/L (98-107); CREATININE - SERUM 0.7 mg/dL (0.6-1.3); GLUCOSE 103 mg/dL (74-106); POTASSIUM - SERUM 3.5 mmol/L (3.5-5.1); PROTEIN - SERUM 7.9 g/dL (6.4-8.2); SODIUM 140 mmol/L (136-145); UREA NITROGEN 15 mg/dL (7-18); eGFR NON AFRICAN AMERICAN > 90 mL/min (90-120)
[~2018-02-24] VITALS: Ht 180.3 cm; Wt 111.8 kg
--- NOTE | ~2018-02-24 | OP ---
PATIENT NAME: SALMA FREEMAN MEDICAL RECORD: [id number] :68 LOCATION:[id number] ADMISSION DATE:02/24/18 SURGEON: MCKAY DENNIS MD DATE OF OPERATION: 02/24/2018 PREOPERATIVE DIAGNOSES: Prior infection of the left knee, status post removal of left total knee arthroplasty, I&D of a cement spacer times 2. POSTOPERATIVE DIAGNOSES: Prior infection of the left knee, status post removal of left total knee arthroplasty, I&D of a cement spacer times 2. PROCEDURE: Revision total knee arthroplasty of the left knee. SURGEON: Mckay Dennis MD ANESTHESIA: General. INTRAOPERATIVE COMPLICATIONS: None. SUMMARY OF PATHOLOGIC FINDINGS: The wound bed at this occasion looked very good. Intraoperative Gram stain was negative. There was no evidence of phlegmon or any purulent material. IMPLANTS USED: John triathlon total stabilizer with distal and posterior augments of 10 and 5 respectively on the femur and a tibial baseplate augment of 5. Size 9 polyethylene insert and a 150 mm stem proximally and a 100 mm stem distally. Both stems press fit cemented at the knee joint. OPERATIVE SUMMARY IN DETAIL: After obtaining the appropriate preoperative orthopedic surgery consents as well as anesthetic consultation, evaluation and clearance, the patient was brought to the operating room and placed on the operating table in supine position. After general laryngeal mask airway was administered, the tourniquet was placed about the proximal aspect of the left lower extremity. Left lower extremity was then prepped and draped in routine sterile fashion. Leg was elevated and exsanguinated, tourniquet was inflated to 350 mmHg. Previously utilized incision was taken down for a paramedian arthrotomy. A substantial amount of scar tissue was encountered. The knee was flexed to approximately 100 degrees. Further scar tissue was taken down. Dissection was carried out. Cultures were taken prior to flexing the knee. At this point, serial and sequential debridement of all tissue that was on the bone ends was carried out with a scalpel and rongeurs as well as curettage. When the joint was a substantially cleaned out, distal femur was reamed and the distal femoral preparations were made for the distal femoral stabilizing including posterior augments medially and laterally at 5 and distal augments medial and laterally of 10. The offset required was a 6 o'clock at 9 to centralize the femur. This was built on the back table and inserted and found to be excellent. Having completed this, attention was turned to the tibia. Likewise all soft tissue had been removed from the proximal tibia. Intramedullary reamer was then followed by proximal tibial clean cut out with 5 augments on either side of the tibial baseplate and a 100-mm stem. These trials were put in and taken through range of motion, corresponding to the above-mentioned final components. These were then removed and then substantial pulsatile irrigation was followed by drying the bone ends. Final components were prepared on the back field. They were cemented into place. All excess cement was removed. After the cement was allowed to harden, the knee was gently taken through a range of motion. Please OPERATIVE REPORT [id number] SALMA FREEMAN note that the patellar tendinous insert on the tibial tubercle was augmented with a SwiveLock from [employer]. The joint capsule intracapsularly in the entire knee joint was sprayed down Vitagel. The paramedian arthrotomy was closed with combination of #2 Ethibond and #5 Ethibond. The subcutaneous closure was achieved with #1 Vicryl, 2-0 Vicryl and skin austen. Sterile dressings were applied. Tourniquet was deflated. The patient was given TXA. Knee immobilizer was applied. The patient was awakened and taken to recovery room in stable condition. All final sponge and needle counts were correct. TRANSINT:[id number] Voice Confirmation ID: [id number] DOCUMENT ID: [id number] JEANNIE LIU, MCKAY FUENTES at 1246 CC: [id number] DICTATION DATE: 02/24/18 0954 ASSOCIATE DOCTOR: 02/24/18 1219 [facility] [address] [place] [address]
[~2018-02-24 06:17] MED LIST changes: -EFFEXOR100 MG PO; -VIBRAMYCIN 100100 MG PO
[2018-02-24 06:46] VITALS: BP 127/84; BMI 34.5
[2018-02-24 11:41] VITALS: BP 131/65
[2018-02-24 13:46] VITALS: BP 121/74; Ht 180.3 cm; Wt 111.8 kg
[2018-02-24 21:45] VITALS: BP 117/65
[2018-02-25 01:01] VITALS: BP 118/64
[2018-02-25 04:45] VITALS: BP 124/74
[2018-02-25 05:02] LABS: HEMATOCRIT 29.7 % (36.0-48.0); HEMOGLOBIN 9.3 g/dL (12-16); MCH 26.1 pg (26.0-34.0); MCHC 31.3 g/dL (31.0-37.0); MCV 83.4 fL (80.0-100.0); MEAN PLATELET VOLUME 10.3 fL (7.4-10.4); RBC 3.56 10x6/uL (4.00-5.40); RDW 14.1 % (11.5-14.5); WBC 9.8 10x3/uL (4.8-10.8)
[2018-02-25 08:16] VITALS: BP 139/74
[2018-02-25 13:02] VITALS: BP 135/70
[2018-02-25 16:50] VITALS: BP 166/84
[2018-02-25 21:07] VITALS: BP 155/84
[2018-02-26 01:17] VITALS: BP 158/74
[2018-02-26 04:44] VITALS: BP 164/84
[2018-02-26 05:04] LABS: HEMOGLOBIN 8.9 g/dL (12-16); MCH 26.4 pg (26.0-34.0); MCHC 31.8 g/dL (31.0-37.0); MCV 83.1 fL (80.0-100.0); MEAN PLATELET VOLUME 10.1 fL (7.4-10.4); RBC 3.37 10x6/uL (4.00-5.40); RDW 14.5 % (11.5-14.5); WBC 8.8 10x3/uL (4.8-10.8)
[2018-02-26 08:00] VITALS: BP 149/89
[2018-02-26 12:53] VITALS: BP 127/79
[2018-02-26 16:04] VITALS: BP 146/83
[2018-02-26 20:15] VITALS: BP 123/67
[2018-02-27 01:48] VITALS: BP 134/64
[2018-02-27 04:53] VITALS: BP 148/74
[2018-02-27 08:32] VITALS: BP 147/75
[2018-02-27] MEDS ORDERED: ELIQUIS2.5 MG PO (10:27)
[2018-02-27] MEDS ORDERED: PERCOCET 10/3251 TA1 PO (10:27)
== END 2018-02-27 12:13 | disposition home or self-care (01) | DRG 467 ==
LOC: D.MS 06:17 → D.SDCHOLD 06:17 → D.MS 10:53
PROVIDERS: Anesthesiology; Orthopaedic Surgery
PROC: 0SPD08Z Removal of Spacer from Left Knee Joint, Open Approach (ICD-10-PCS; 2018-02-24)
PROC: 0SRD0JA Replacement of Left Knee Joint with Synthetic Substitute, Uncemented, Open Approach (ICD-10-PCS; principal; 2018-02-24 08:00)
DX: Z47.33 Aftercare following explantation of knee joint prosthesis (principal); D62 Acute posthemorrhagic anemia; F41.9 Anxiety disorder, unspecified; F17.200 Nicotine dependence, unspecified, uncomplicated

== ENCOUNTER → 2018-03-04 11:44 | Outpatient (CLI) | payer MEDICARE ==
[2018-02-24 13:46] VITALS: BMI 34.3
[~2018-03-04 11:44] MED LIST changes: +EFFEXOR100 MG PO; +VIBRAMYCIN 100100 MG PO
[2018-03-04 14:11] LABS: BASOPHILS 0.5 % (0-2); EOSINOPHILS 1.4 % (0-7); HEMATOCRIT 34.8 % (36.0-48.0); HEMOGLOBIN 11.1 g/dL (12-16); IMMATURE GRANULOCYTES 0.3 % (0-5); MCH 26.6 pg (26.0-34.0); MCHC 31.9 g/dL (31.0-37.0); MCV 83.5 fL (80.0-100.0); MEAN PLATELET VOLUME 10.4 fL (7.4-10.4); MONOCYTES 7.1 % (2-11); NEUTROPHILS 67.7 % (40-80); RBC 4.17 10x6/uL (4.00-5.40); RDW 14.7 % (11.5-14.5); WBC 8.7 10x3/uL (4.8-10.8)
[2018-03-04 14:16] LABS: PLATELET COUNT 503 10x3/uL (130-400)
[2018-03-04 14:43] LABS: CALC OSMOLALITY 283 mosm/kg (275-300); CALCIUM 9.6 mg/dL (8.5-10.1); CARBON DIOXIDE 24.3 mmol/L (21.0-32.0); CHLORIDE - SERUM 103 mmol/L (98-107); CREATININE - SERUM 0.7 mg/dL (0.6-1.3); GLUCOSE 102 mg/dL (74-106); SODIUM 141 mmol/L (136-145); UREA NITROGEN 21 mg/dL (7-18); eGFR NON AFRICAN AMERICAN > 90 mL/min (90-120)
[2018-03-04 15:55] LABS: ERYTHROCYTE SEDIMENTATION RATE 80 mm/hr (0-20)
== END | disposition home or self-care (01) ==
LOC: D.LABREF 11:44
PROVIDERS: Orthopaedic Surgery
DX: M79.605 Pain in left leg (principal)

== ENCOUNTER 2018-03-08 21:35 | Inpatient (IN) | payer MEDICARE ==
[~2018-03-08] VITALS: Ht 180.3 cm; Wt 110.2 kg
--- NOTE | ~2018-03-08 | OP ---
PATIENT NAME: SALMA FREEMAN MEDICAL RECORD: [id number] :68 LOCATION:[facility] ADMISSION DATE:03/08/18 SURGEON: MCKAY DENNIS MD DATE OF OPERATION: 03/13/2018 PREOPERATIVE DIAGNOSIS: Recurrent infection, left total knee arthroplasty, status post revision. POSTOPERATIVE DIAGNOSIS: Recurrent infection, left total knee arthroplasty, status post revision. PROCEDURES: 1. Complete removal of revision total knee arthroplasty. 2. Curettage excisional debridement of the knee cavity. 3. Placement of antibiotic cement spacer. SURGEON: Mckay Dennis MD ANESTHESIA: General. INTRAOPERATIVE COMPLICATIONS: None. SUMMARY OF PATHOLOGIC FINDINGS: The knee was grossly infected and the patellar tendon reapproximation had all but completely avulsed secondary to infection. At this point, decision was made to essentially start over instead of doing a poly swap, I do feel like it was too grossly contaminated for poly exchange. OPERATIVE SUMMARY IN DETAIL: After obtaining appropriate preoperative orthopedic surgery consents as well as anesthetic consultation, evaluation and clearance, the patient was brought to the operating room and placed on the operating table in supine position. After adequate general laryngeal mask was administered, tourniquet was placed on the proximal aspect of the left lower extremity. Left lower extremity was then prepped and draped in routine sterile fashion. The leg was elevated and exsanguinated, tourniquet was inflated to 250 mmHg. Previously utilized incision was made, turbid appearing fluid was immediately encountered along with a large cavity. Cultures were taken from deep at this point. Dissection was carried down to the previous paramedian arthrotomy and the knee joint was exposed. Gross purulence slime layer was noted on all components. At this point, the decision was made to proceed with extraction and cement spacer rather than try to do just a simple poly exchange. Polyethylene was removed along with the center post followed by removal of the tibial baseplate. Fortunately, the tibial baseplate and the femur were removed with almost zero bone loss and I do feel like there is plenty of room for standard revision total knee arthroplasty after this operation. At this point, both curettage and rongeur were utilized to scrape bony ends and clean every aspect of the knee joint from any nonviable-appearing material. Having finished the irrigation approximately 6 liters, the vancomycin-laden antibiotic cement spacer was placed in the knee joint, allowed to harden and moved fractionally so that the cement would not adhere to the bone. Having completed this, the paramedian arthrotomy was closed with #2 Ethibond. This was followed with a #1 Vicryl, 2-0 Vicryl and skin austen. It is of note that the patient will likely have to have a graft for her patellar tendon at the time of revision surgery. Hopefully, the infection can be eradicated. Having completed this, a Prevena vacuum dressing was placed. Tourniquet was deflated. The patient was placed in a knee immobilizer. She was awakened, LMA was removed. She was taken to OPERATIVE REPORT [id number] SALMA FREEMAN recovery in stable condition. All final needle and sponge counts were correct. TRANSINT:[id number] Voice Confirmation ID: [id number] DOCUMENT ID: [id number] JEANNIE LIU, MCKAY FUENTES at 1737 CC: [id number] DICTATION DATE: 03/13/18 1606 PIPE PRODUCTION WORKER: 03/13/18 1731 ADM IN [facility] [address] [place] [address]
[~2018-03-08 21:35] MED LIST changes: -EFFEXOR100 MG PO; -VIBRAMYCIN 100100 MG PO
[2018-03-08 23:17] LABS: BASOPHILS 0.3 % (0-2); EOSINOPHILS 1.4 % (0-7); HEMATOCRIT 33.5 % (36.0-48.0); HEMOGLOBIN 10.7 g/dL (12-16); IMMATURE GRANULOCYTES 0.2 % (0-5); LYMPHOCYTES 30.8 % (15-50); MCH 26.7 pg (26.0-34.0); MCHC 31.9 g/dL (31.0-37.0); MCV 83.5 fL (80.0-100.0); MEAN PLATELET VOLUME 10.1 fL (7.4-10.4); MONOCYTES 7.1 % (2-11); NEUTROPHILS 60.2 % (40-80); RBC 4.01 10x6/uL (4.00-5.40); RDW 15.3 % (11.5-14.5); WBC 8.9 10x3/uL (4.8-10.8)
[2018-03-08 23:18] LABS: PLATELET COUNT 332 10x3/uL (130-400)
[2018-03-08 23:40] LABS: ALBUMIN 3.3 g/dL (3.4-5.0); ALKALINE PHOSPHATASE 118 U/L (46-116); ALT (SGPT) 11 U/L (10-68); BILIRUBIN - TOTAL 0.21 mg/dL (0.2-1.3); C-REACTIVE PROTEIN 0.8 mg/dL (0.0-0.9); CALC OSMOLALITY 285 mosm/kg (275-300); CALCIUM 8.8 mg/dL (8.5-10.1); CARBON DIOXIDE 27.5 mmol/L (21.0-32.0); CHLORIDE - SERUM 104 mmol/L (98-107); CREATININE - SERUM 0.7 mg/dL (0.6-1.3); GLUCOSE 109 mg/dL (74-106); POTASSIUM - SERUM 3.4 mmol/L (3.5-5.1); PROTEIN - SERUM 7.1 g/dL (6.4-8.2); SODIUM 142 mmol/L (136-145); UREA NITROGEN 17 mg/dL (7-18); eGFR NON AFRICAN AMERICAN > 90 mL/min (90-120)
[2018-03-09] MEDS ORDERED: VIBRAMYCIN 100100 MG PO (00:18)
[2018-03-09] MEDS ORDERED: EFFEXOR100 MG PO (00:20)
[2018-03-09 00:28] LABS: ERYTHROCYTE SEDIMENTATION RATE 9 mm/hr (0-20)
[2018-03-09 01:59] VITALS: BP 180/96; BMI 33.9
[2018-03-09 04:33] VITALS: BP 180/96
[2018-03-09 07:11] LABS: BASOPHILS 0.5 % (0-2); EOSINOPHILS 2.1 % (0-7); HEMATOCRIT 29.4 % (36.0-48.0); HEMOGLOBIN 9.2 g/dL (12-16); LYMPHOCYTES 36.4 % (15-50); MCH 26.3 pg (26.0-34.0); MCHC 31.3 g/dL (31.0-37.0); MEAN PLATELET VOLUME 10.2 fL (7.4-10.4); MONOCYTES 6.5 % (2-11); NEUTROPHILS 54.5 % (40-80); PLATELET COUNT 306 10x3/uL (130-400); RDW 15.5 % (11.5-14.5)
[2018-03-09 07:19] LABS: WBC 5.8 10x3/uL (4.8-10.8)
[2018-03-09 08:42] VITALS: BP 115/67
[2018-03-09 12:45] VITALS: BP 133/73
[2018-03-09 16:35] VITALS: BP 100/59
[2018-03-09 17:12] LABS: % SATURATION 15 % (15-55); IRON 45 ug/dl (35-150); TOTAL IRON BIND CAPACITY 283 ug/dl (260-445); UNSAT IRON BIND CAPACITY 238 ug/dl (150-375)
[2018-03-09 17:28] LABS: FERRITIN 130 ng/mL (3-244); LDH 209 U/L (81-234)
[2018-03-09 20:00] VITALS: BP 128/78
[2018-03-10 04:00] VITALS: BP 109/65
[2018-03-10 07:30] LABS: BASOPHILS 0.9 % (0-2); EOSINOPHILS 1.8 % (0-7); HEMATOCRIT 28.3 % (36.0-48.0); HEMOGLOBIN 8.8 g/dL (12-16); IMMATURE GRANULOCYTES 0.2 % (0-5); LYMPHOCYTES 40.4 % (15-50); MCH 26.3 pg (26.0-34.0); MCHC 31.1 g/dL (31.0-37.0); MCV 84.5 fL (80.0-100.0); MEAN PLATELET VOLUME 10.5 fL (7.4-10.4); MONOCYTES 7.1 % (2-11); NEUTROPHILS 49.6 % (40-80); RBC 3.35 10x6/uL (4.00-5.40); RDW 15.3 % (11.5-14.5); WBC 5.5 10x3/uL (4.8-10.8)
[2018-03-10 07:45] LABS: CALC OSMOLALITY 283 mosm/kg (275-300); CARBON DIOXIDE 28.1 mmol/L (21.0-32.0); CHLORIDE - SERUM 109 mmol/L (98-107); CREATININE - SERUM 0.7 mg/dL (0.6-1.3); GLUCOSE 104 mg/dL (74-106); POTASSIUM - SERUM 3.7 mmol/L (3.5-5.1); SODIUM 142 mmol/L (136-145); UREA NITROGEN 15 mg/dL (7-18); eGFR NON AFRICAN AMERICAN > 90 mL/min (90-120)
[2018-03-10 07:49] LABS: PLATELET COUNT 242 10x3/uL (130-400)
[2018-03-10 08:00] VITALS: BP 120/65
[2018-03-10 16:17] LABS: APPEARANCE CLEAR (CLEAR); BILIRUBIN NEGATIVE (NEGATIVE); COLOR YELLOW (YELLOW); GLUCOSE NEGATIVE (NEGATIVE); KETONE NEGATIVE (NEGATIVE); NITRITE NEGATIVE (NEGATIVE); PROTEIN NEGATIVE (NEGATIVE); SPECIFIC GRAVITY 1.015 (1.005-1.020); UROBILINOGEN NORMAL (NORMAL)
[2018-03-10 22:58] VITALS: BP 126/65
[2018-03-11 05:19] LABS: BASOPHILS 0.6 % (0-2); EOSINOPHILS 2.4 % (0-7); HEMATOCRIT 29.6 % (36.0-48.0); HEMOGLOBIN 9.3 g/dL (12-16); IMMATURE GRANULOCYTES 0.2 % (0-5); LYMPHOCYTES 36.8 % (15-50); MCH 26.5 pg (26.0-34.0); MCHC 31.4 g/dL (31.0-37.0); MCV 84.3 fL (80.0-100.0); MEAN PLATELET VOLUME 10.6 fL (7.4-10.4); MONOCYTES 9.1 % (2-11); NEUTROPHILS 50.9 % (40-80); PLATELET COUNT 230 10x3/uL (130-400); RBC 3.51 10x6/uL (4.00-5.40); RDW 15.1 % (11.5-14.5); WBC 4.9 10x3/uL (4.8-10.8)
[2018-03-11 05:32] LABS: CALC OSMOLALITY 286 mosm/kg (275-300); CALCIUM 8.1 mg/dL (8.5-10.1); CARBON DIOXIDE 29.3 mmol/L (21.0-32.0); CHLORIDE - SERUM 108 mmol/L (98-107); CREATININE - SERUM 0.7 mg/dL (0.6-1.3); GLUCOSE 103 mg/dL (74-106); POTASSIUM - SERUM 3.8 mmol/L (3.5-5.1); SODIUM 144 mmol/L (136-145); UREA NITROGEN 13 mg/dL (7-18); eGFR NON AFRICAN AMERICAN > 90 mL/min (90-120)
[2018-03-11 05:40] VITALS: BP 138/64
[2018-03-11 09:28] VITALS: BP 158/86
[2018-03-11 12:20] VITALS: Ht 180.3 cm; Wt 110.2 kg
[2018-03-11 13:26] VITALS: BP 139/85
[2018-03-11 22:17] VITALS: BP 145/65
[2018-03-12 03:56] VITALS: BP 130/65
[2018-03-12 06:21] LABS: BASOPHILS 0.6 % (0-2); EOSINOPHILS 2.3 % (0-7); HEMATOCRIT 31.7 % (36.0-48.0); HEMOGLOBIN 10.1 g/dL (12-16); IMMATURE GRANULOCYTES 0.2 % (0-5); LYMPHOCYTES 33.7 % (15-50); MCH 26.6 pg (26.0-34.0); MCHC 31.9 g/dL (31.0-37.0); MCV 83.4 fL (80.0-100.0); MEAN PLATELET VOLUME 11.5 fL (7.4-10.4); MONOCYTES 8.8 % (2-11); NEUTROPHILS 54.4 % (40-80); PLATELET COUNT 263 10x3/uL (130-400); RDW 15.1 % (11.5-14.5); WBC 4.8 10x3/uL (4.8-10.8)
[2018-03-12 07:06] LABS: C-REACTIVE PROTEIN 0.6 mg/dL (0.0-0.9); CALC OSMOLALITY 278 mosm/kg (275-300); CALCIUM 8.6 mg/dL (8.5-10.1); CHLORIDE - SERUM 103 mmol/L (98-107); CREATININE - SERUM 0.8 mg/dL (0.6-1.3); GLUCOSE 99 mg/dL (74-106); POTASSIUM - SERUM 3.6 mmol/L (3.5-5.1); SODIUM 141 mmol/L (136-145); eGFR NON AFRICAN AMERICAN 81 mL/min (90-120)
[2018-03-12 07:13] LABS: UREA NITROGEN 8 mg/dL (7-18)
[2018-03-12 08:22] LABS: FOLATE (FOLIC ACID) - SERUM 8.6 ng/mL (>3.0)
[2018-03-12 09:22] LABS: ERYTHROCYTE SEDIMENTATION RATE 30 mm/hr (0-20)
[2018-03-12 10:03] VITALS: BP 139/70
[2018-03-12 13:35] VITALS: BP 94/60
[2018-03-12 16:54] VITALS: BP 97/60
[2018-03-12 21:38] VITALS: BP 97/58
[2018-03-13 03:50] VITALS: BP 98/58
[2018-03-13 06:09] LABS: CALC OSMOLALITY 280 mosm/kg (275-300); CALCIUM 7.9 mg/dL (8.5-10.1); CARBON DIOXIDE 28.3 mmol/L (21.0-32.0); CHLORIDE - SERUM 106 mmol/L (98-107); CREATININE - SERUM 0.8 mg/dL (0.6-1.3); GLUCOSE 111 mg/dL (74-106); SODIUM 140 mmol/L (136-145); eGFR NON AFRICAN AMERICAN 81 mL/min (90-120)
[2018-03-13 06:14] LABS: BASOPHILS 0.6 % (0-2); HEMATOCRIT 30.5 % (36.0-48.0); HEMOGLOBIN 9.5 g/dL (12-16); IMMATURE GRANULOCYTES 0.2 % (0-5); MCH 26.2 pg (26.0-34.0); MCHC 31.1 g/dL (31.0-37.0); MCV 84.3 fL (80.0-100.0); MEAN PLATELET VOLUME 11.6 fL (7.4-10.4); MONOCYTES 12.4 % (2-11); NEUTROPHILS 51.8 % (40-80); PLATELET COUNT 159 10x3/uL (130-400); RBC 3.62 10x6/uL (4.00-5.40); RDW 15.4 % (11.5-14.5); WBC 5.3 10x3/uL (4.8-10.8)
[2018-03-13 06:19] LABS: UREA NITROGEN 16 mg/dL (7-18)
[2018-03-13 08:30] VITALS: BP 101/52
[2018-03-13 12:50] VITALS: BP 111/55
[2018-03-13 17:06] VITALS: BP 135/71
[2018-03-13 20:00] VITALS: BP 104/56
[2018-03-14] VITALS: BP 113/66
[2018-03-14 04:00] VITALS: BP 113/63
[2018-03-14 06:03] LABS: BASOPHILS 0.3 % (0-2); EOSINOPHILS 1.6 % (0-7); HEMOGLOBIN 8.7 g/dL (12-16); IMMATURE GRANULOCYTES 0.2 % (0-5); MCH 26.7 pg (26.0-34.0); MCHC 31.1 g/dL (31.0-37.0); MCV 85.9 fL (80.0-100.0); MEAN PLATELET VOLUME 11.4 fL (7.4-10.4); MONOCYTES 16.7 % (2-11); NEUTROPHILS 62.2 % (40-80); PLATELET COUNT 196 10x3/uL (130-400); RBC 3.26 10x6/uL (4.00-5.40); RDW 15.5 % (11.5-14.5); WBC 6.2 10x3/uL (4.8-10.8)
[2018-03-14 06:37] LABS: CALC OSMOLALITY 272 mosm/kg (275-300); CALCIUM 7.6 mg/dL (8.5-10.1); CARBON DIOXIDE 28.3 mmol/L (21.0-32.0); CHLORIDE - SERUM 103 mmol/L (98-107); CREATININE - SERUM 0.8 mg/dL (0.6-1.3); GLUCOSE 110 mg/dL (74-106); POTASSIUM - SERUM 4.3 mmol/L (3.5-5.1); SODIUM 136 mmol/L (136-145); UREA NITROGEN 13 mg/dL (7-18); eGFR NON AFRICAN AMERICAN 81 mL/min (90-120)
[2018-03-14 06:40] LABS: VANCOMYCIN - TROUGH 11.2 ug/mL (10.0-20.0)
[2018-03-14 07:57] VITALS: BP 112/54
[2018-03-14 11:47] VITALS: BP 102/42
[2018-03-14 15:46] VITALS: BP 130/67
[2018-03-14 20:00] VITALS: BP 123/64
[2018-03-15] VITALS: BP 123/81
[2018-03-15 04:00] VITALS: BP 148/79
[2018-03-15 06:06] LABS: HEMATOCRIT 27.4 % (36.0-48.0); HEMOGLOBIN 8.5 g/dL (12-16); MCH 26.4 pg (26.0-34.0); MCV 85.1 fL (80.0-100.0); MEAN PLATELET VOLUME 12.3 fL (7.4-10.4); RBC 3.22 10x6/uL (4.00-5.40); RDW 15.5 % (11.5-14.5); WBC 5.7 10x3/uL (4.8-10.8)
[2018-03-15 09:04] VITALS: BP 129/57
[2018-03-15 13:23] VITALS: BP 152/68
[2018-03-15 16:58] VITALS: BP 119/61
[2018-03-15 19:36] VITALS: BP 106/56
[2018-03-16] VITALS: BP 106/43
[2018-03-16 04:00] VITALS: BP 114/63
[2018-03-16 06:24] LABS: BASOPHILS 0.3 % (0-2); EOSINOPHILS 3.4 % (0-7); HEMOGLOBIN 8.3 g/dL (12-16); IMMATURE GRANULOCYTES 0.2 % (0-5); LYMPHOCYTES 30.3 % (15-50); MCH 26.7 pg (26.0-34.0); MCHC 30.7 g/dL (31.0-37.0); MCV 86.8 fL (80.0-100.0); MONOCYTES 13.6 % (2-11); NEUTROPHILS 52.2 % (40-80); PLATELET COUNT 164 10x3/uL (130-400); RBC 3.11 10x6/uL (4.00-5.40); RDW 15.5 % (11.5-14.5); WBC 5.8 10x3/uL (4.8-10.8)
[2018-03-16 06:39] LABS: ALBUMIN 2.2 g/dL (3.4-5.0); ALKALINE PHOSPHATASE 116 U/L (46-116); ALT (SGPT) 8 U/L (10-68); CALC OSMOLALITY 278 mosm/kg (275-300); CALCIUM 8.2 mg/dL (8.5-10.1); CARBON DIOXIDE 29.8 mmol/L (21.0-32.0); CHLORIDE - SERUM 104 mmol/L (98-107); CREATININE - SERUM 0.6 mg/dL (0.6-1.3); GLUCOSE 117 mg/dL (74-106); SODIUM 140 mmol/L (136-145); eGFR NON AFRICAN AMERICAN > 90 mL/min (90-120)
[2018-03-16 06:45] LABS: UREA NITROGEN 9 mg/dL (7-18)
[2018-03-16 08:33] VITALS: BP 116/67
[2018-03-16 11:57] VITALS: BP 143/78
[2018-03-16 17:00] VITALS: BP 126/51
[2018-03-16 20:00] VITALS: BP 133/67
[2018-03-17 04:00] VITALS: BP 111/51
[2018-03-17 05:16] LABS: BASOPHILS 0.5 % (0-2); HEMATOCRIT 26.3 % (36.0-48.0); HEMOGLOBIN 8.1 g/dL (12-16); IMMATURE GRANULOCYTES 0.2 % (0-5); MCH 26.6 pg (26.0-34.0); MCHC 30.8 g/dL (31.0-37.0); MCV 86.2 fL (80.0-100.0); MEAN PLATELET VOLUME 11.8 fL (7.4-10.4); MONOCYTES 12.1 % (2-11); NEUTROPHILS 61.2 % (40-80); PLATELET COUNT 184 10x3/uL (130-400); RBC 3.05 10x6/uL (4.00-5.40); RDW 15.4 % (11.5-14.5); WBC 6.1 10x3/uL (4.8-10.8)
[2018-03-17 05:33] LABS: ALBUMIN 2.1 g/dL (3.4-5.0); ALKALINE PHOSPHATASE 106 U/L (46-116); CALC OSMOLALITY 280 mosm/kg (275-300); CALCIUM 8.1 mg/dL (8.5-10.1); CARBON DIOXIDE 30.9 mmol/L (21.0-32.0); CHLORIDE - SERUM 105 mmol/L (98-107); CREATININE - SERUM 0.7 mg/dL (0.6-1.3); GLUCOSE 121 mg/dL (74-106); POTASSIUM - SERUM 4.1 mmol/L (3.5-5.1); PROTEIN - SERUM 5.9 g/dL (6.4-8.2); SODIUM 141 mmol/L (136-145); UREA NITROGEN 11 mg/dL (7-18); eGFR NON AFRICAN AMERICAN > 90 mL/min (90-120)
[2018-03-17 05:39] LABS: ALT (SGPT) 5 U/L (10-68)
[2018-03-17 09:08] VITALS: BP 98/55
[2018-03-17 12:45] VITALS: BP 100/47
[2018-03-17 16:29] VITALS: BP 112/61
[2018-03-17 19:50] VITALS: BP 123/59
[2018-03-17 22:22] VITALS: BP 124/59
[2018-03-18 04:00] VITALS: BP 97/55
[2018-03-18 06:39] LABS: BASOPHILS 0.4 % (0-2); EOSINOPHILS 4.2 % (0-7); HEMATOCRIT 26.4 % (36.0-48.0); IMMATURE GRANULOCYTES 0.2 % (0-5); LYMPHOCYTES 27.4 % (15-50); MCH 26.4 pg (26.0-34.0); MCHC 30.3 g/dL (31.0-37.0); MCV 87.1 fL (80.0-100.0); MEAN PLATELET VOLUME 12.4 fL (7.4-10.4); NEUTROPHILS 56.8 % (40-80); PLATELET COUNT 127 10x3/uL (130-400); RBC 3.03 10x6/uL (4.00-5.40); RDW 15.3 % (11.5-14.5); WBC 4.8 10x3/uL (4.8-10.8)
[2018-03-18 06:45] LABS: ALBUMIN 2.2 g/dL (3.4-5.0); ALKALINE PHOSPHATASE 108 U/L (46-116); BILIRUBIN - TOTAL 0.12 mg/dL (0.2-1.3); CALC OSMOLALITY 284 mosm/kg (275-300); CALCIUM 8.1 mg/dL (8.5-10.1); CARBON DIOXIDE 30.2 mmol/L (21.0-32.0); CHLORIDE - SERUM 105 mmol/L (98-107); CREATININE - SERUM 0.8 mg/dL (0.6-1.3); GLUCOSE 149 mg/dL (74-106); PROTEIN - SERUM 6.3 g/dL (6.4-8.2); SODIUM 142 mmol/L (136-145); UREA NITROGEN 11 mg/dL (7-18); eGFR NON AFRICAN AMERICAN 81 mL/min (90-120)
[2018-03-18 06:47] LABS: ALT (SGPT) 7 U/L (10-68)
[2018-03-18 08:17] VITALS: BP 102/49
[2018-03-18 12:35] VITALS: BP 109/52
[2018-03-18 15:49] VITALS: BP 115/48
[2018-03-18 20:00] VITALS: BP 109/53
[2018-03-19] VITALS (7 sets, daily range): BP systolic 111–142; BP diastolic 56–78
[2018-03-19 05:39] LABS: BASOPHILS 0.6 % (0-2); EOSINOPHILS 4.8 % (0-7); HEMATOCRIT 26.9 % (36.0-48.0); HEMOGLOBIN 8.1 g/dL (12-16); LYMPHOCYTES 37.4 % (15-50); MCH 26.5 pg (26.0-34.0); MCHC 30.1 g/dL (31.0-37.0); MCV 87.9 fL (80.0-100.0); MEAN PLATELET VOLUME 11.2 fL (7.4-10.4); MONOCYTES 8.5 % (2-11); NEUTROPHILS 48.7 % (40-80); RBC 3.06 10x6/uL (4.00-5.40); RDW 15.5 % (11.5-14.5); WBC 4.8 10x3/uL (4.8-10.8)
[2018-03-19 05:44] LABS: PLATELET COUNT 222 10x3/uL (130-400)
[2018-03-19 06:12] LABS: ALBUMIN 2.2 g/dL (3.4-5.0); ALKALINE PHOSPHATASE 103 U/L (46-116); ALT (SGPT) 6 U/L (10-68); CALC OSMOLALITY 283 mosm/kg (275-300); CALCIUM 8.3 mg/dL (8.5-10.1); CARBON DIOXIDE 31.1 mmol/L (21.0-32.0); CHLORIDE - SERUM 106 mmol/L (98-107); CREATININE - SERUM 0.6 mg/dL (0.6-1.3); GLUCOSE 103 mg/dL (74-106); POTASSIUM - SERUM 4.3 mmol/L (3.5-5.1); PROTEIN - SERUM 6.3 g/dL (6.4-8.2); SODIUM 143 mmol/L (136-145); UREA NITROGEN 11 mg/dL (7-18); VANCOMYCIN - TROUGH 13.4 ug/mL (10.0-20.0); eGFR NON AFRICAN AMERICAN > 90 mL/min (90-120)
[2018-03-20 03:58] VITALS: BP 128/58
[2018-03-20 05:45] LABS: BASOPHILS 0.5 % (0-2); EOSINOPHILS 3.9 % (0-7); HEMATOCRIT 29.8 % (36.0-48.0); IMMATURE GRANULOCYTES 0.2 % (0-5); LYMPHOCYTES 22.6 % (15-50); MCH 26.1 pg (26.0-34.0); MCHC 30.2 g/dL (31.0-37.0); MCV 86.4 fL (80.0-100.0); MEAN PLATELET VOLUME 10.7 fL (7.4-10.4); MONOCYTES 8.1 % (2-11); NEUTROPHILS 64.7 % (40-80); PLATELET COUNT 274 10x3/uL (130-400); RBC 3.45 10x6/uL (4.00-5.40); RDW 15.3 % (11.5-14.5); WBC 6.2 10x3/uL (4.8-10.8)
[2018-03-20 06:02] LABS: ALBUMIN 2.5 g/dL (3.4-5.0); ALKALINE PHOSPHATASE 106 U/L (46-116); BILIRUBIN - TOTAL 0.15 mg/dL (0.2-1.3); CALCIUM 9.1 mg/dL (8.5-10.1); CHLORIDE - SERUM 106 mmol/L (98-107); CREATININE - SERUM 0.7 mg/dL (0.6-1.3); GLUCOSE 113 mg/dL (74-106); SODIUM 141 mmol/L (136-145); eGFR NON AFRICAN AMERICAN > 90 mL/min (90-120)
[2018-03-20 06:03] LABS: ALT (SGPT) 8 U/L (10-68); CALC OSMOLALITY 279 mosm/kg (275-300); UREA NITROGEN 8 mg/dL (7-18)
[2018-03-20 07:59] LABS: PROTIME 12.8 SECONDS (11.6-15.0)
[2018-03-20 08:20] VITALS: BP 153/74
[2018-03-20 13:20] LABS: PROTEIN - BODY FLUID 6.5 G/DL
[2018-03-20 14:33] LABS: MACROPHAGES BF 13 %; NEUT - BF 74 %
[2018-03-20 15:52] VITALS: BP 115/64
[2018-03-20 19:58] VITALS: BP 147/74
[2018-03-21] VITALS (8 sets, daily range): BP systolic 97–160; BP diastolic 67–87
[2018-03-21 11:19] LABS: FUNGUS STAIN Final report (())
[2018-03-21 16:15] LABS: AFB SPECIMEN PROCESSING Concentration (())
[2018-03-22 04:20] VITALS: BP 147/68
[2018-03-22 08:16] VITALS: BP 123/71
[2018-03-22 12:09] VITALS: BP 139/82
[2018-03-22 16:09] LABS: AEROBE ID Final report (()); RESULT 1 Streptococcus mitis (())
[2018-03-22 16:55] VITALS: BP 142/78
[2018-03-22 20:49] VITALS: BP 175/90
[2018-03-23 00:52] VITALS: BP 142/81
[2018-03-23 04:17] VITALS: BP 142/71
[2018-03-23 09:09] VITALS: BP 140/68
[2018-03-23 12:31] VITALS: BP 133/69
[2018-03-23 20:09] VITALS: BP 134/79
[2018-03-24] VITALS: BP 124/65
[2018-03-24 04:00] VITALS: BP 136/79
[2018-03-24 07:01] LABS: BASOPHILS 0.7 % (0-2); EOSINOPHILS 4.3 % (0-7); HEMATOCRIT 27.5 % (36.0-48.0); HEMOGLOBIN 8.8 g/dL (12-16); IMMATURE GRANULOCYTES 0.4 % (0-5); LYMPHOCYTES 19.9 % (15-50); MCV 87.6 fL (80.0-100.0); MEAN PLATELET VOLUME 11.4 fL (7.4-10.4); NEUTROPHILS 63.7 % (40-80); RBC 3.14 10x6/uL (4.00-5.40); RDW 14.8 % (11.5-14.5); WBC 8.1 10x3/uL (4.8-10.8)
[2018-03-24 07:06] LABS: C-REACTIVE PROTEIN 0.7 mg/dL (0.0-0.9); CALC OSMOLALITY 280 mosm/kg (275-300); CALCIUM 8.5 mg/dL (8.5-10.1); CARBON DIOXIDE 28.4 mmol/L (21.0-32.0); CHLORIDE - SERUM 105 mmol/L (98-107); CREATININE - SERUM 0.7 mg/dL (0.6-1.3); GLUCOSE 107 mg/dL (74-106); POTASSIUM - SERUM 3.9 mmol/L (3.5-5.1); SODIUM 141 mmol/L (136-145); UREA NITROGEN 13 mg/dL (7-18); eGFR NON AFRICAN AMERICAN > 90 mL/min (90-120)
[2018-03-24 07:20] LABS: PLATELET COUNT 361 10x3/uL (130-400)
[2018-03-24 07:49] LABS: ERYTHROCYTE SEDIMENTATION RATE 140 mm/hr (0-20)
[2018-03-24] MEDS ORDERED: PERCOCET 10/3251 TA1 PO (08:11)
[2018-03-24 08:50] VITALS: BP 138/84
[2018-03-24] MEDS ORDERED: FLORAJEN3 CAPS460 MG PO (11:26)
[2018-03-24] MEDS ORDERED: CUBICIN500 MG IV (11:27)
[2018-03-24 11:40] VITALS: BP 149/81
[2018-03-24] MEDS ORDERED: LEVAQUIN750 MG PO (12:07)
[2018-03-24 16:11] LABS: AEROBE ID Final report (())
[2018-03-31 06:07] LABS: VIRAL - RESULT No virus isolated. (())
[2018-04-19 10:11] LABS: FUNGUS MYCOLOGY CULTURE Final report (())
[2018-05-12 10:12] LABS: ACID FAST CULTURE Negative (()); ACID FAST SMEAR Negative (())
== END 2018-03-24 14:22 | disposition home health service (06) | DRG 464 ==
LOC: D.ER 21:35 → D.MS 23:29
PROVIDERS: Family Medicine; Internal Medicine Nephrology; Orthopaedic Surgery; Orthopaedic Surgery Foot and Ankle Surgery; Radiology Vascular & Interventional Radiology; Student in an Organized Health Care Education/Training Program
PROC: 0SPD0JZ Removal of Synthetic Substitute from Left Knee Joint, Open Approach (ICD-10-PCS; principal; 2018-03-13 13:00)
PROC: 0SHD08Z Insertion of Spacer into Left Knee Joint, Open Approach (ICD-10-PCS; 2018-03-13 13:00)
PROC: 02HV33Z Insertion of Infusion Device into Superior Vena Cava, Percutaneous Approach (ICD-10-PCS; 2018-03-18)
PROC: B548ZZA Ultrasonography of Superior Vena Cava, Guidance (ICD-10-PCS; 2018-03-18)
PROC: 0S9D3ZZ Drainage of Left Knee Joint, Percutaneous Approach (ICD-10-PCS; 2018-03-20)
DX: T84.54XA Infection and inflammatory reaction due to internal left knee prosthesis, initial encounter (principal); D62 Acute posthemorrhagic anemia; S76.112A Strain of left quadriceps muscle, fascia and tendon, initial encounter; I10 Essential (primary) hypertension; E87.6 Hypokalemia; E66.01 Morbid (severe) obesity due to excess calories; Z91.19 Patient's noncompliance with other medical treatment and regimen; Z68.33 Body mass index [BMI] 33.0-33.9, adult; B95.0 Streptococcus, group A, as the cause of diseases classified elsewhere; B95.61 Methicillin susceptible Staphylococcus aureus infection as the cause of diseases classified elsewhere; F17.200 Nicotine dependence, unspecified, uncomplicated

== ENCOUNTER → 2018-04-02 12:46 | Outpatient (CLI) | payer MEDICARE ==
[2018-03-11 12:20] VITALS: BMI 33.9
[~2018-04-02 12:46] MED LIST changes: +CUBICIN500 MG IV; +EFFEXOR100 MG PO; +LEVAQUIN750 MG PO; +TORADOL10 MG PO; +VIBRAMYCIN 100100 MG PO
[2018-04-02 13:15] LABS: BASOPHILS 0.7 % (0-2); EOSINOPHILS 2.6 % (0-7); HEMATOCRIT 37.4 % (36.0-48.0); HEMOGLOBIN 11.4 g/dL (12-16); IMMATURE GRANULOCYTES 0.2 % (0-5); LYMPHOCYTES 33.1 % (15-50); MCH 26.6 pg (26.0-34.0); MCHC 30.5 g/dL (31.0-37.0); MCV 87.2 fL (80.0-100.0); MEAN PLATELET VOLUME 12.3 fL (7.4-10.4); MONOCYTES 6.7 % (2-11); NEUTROPHILS 56.7 % (40-80); RBC 4.29 10x6/uL (4.00-5.40); RDW 15.2 % (11.5-14.5); WBC 6.1 10x3/uL (4.8-10.8)
[2018-04-02 13:35] LABS: C-REACTIVE PROTEIN 1.8 mg/dL (0.0-0.9); CREATININE - SERUM 0.8 mg/dL (0.6-1.3)
[2018-04-02 13:39] LABS: PLATELET COUNT 231 10x3/uL (130-400)
[2018-04-02 14:54] LABS: ERYTHROCYTE SEDIMENTATION RATE 38 mm/hr (0-20)
== END | disposition home or self-care (01) ==
LOC: D.LABREF 12:46
PROVIDERS: Orthopaedic Surgery
DX: M00.9 Pyogenic arthritis, unspecified (principal); Z79.2 Long term (current) use of antibiotics

== ENCOUNTER 2018-04-03 19:39 | Emergency (ER) | payer MEDICARE ==
[~2018-04-03] VITALS: Ht 180.3 cm; Wt 112.0 kg
[~2018-04-03 19:39] MED LIST changes: -TORADOL10 MG PO
[2018-04-03 20:12] VITALS: Ht 180.3 cm; Wt 112.0 kg
[2018-04-03 20:38] LABS: BASOPHILS 0.5 % (0-2); EOSINOPHILS 1.9 % (0-7); HEMATOCRIT 38.3 % (36.0-48.0); HEMOGLOBIN 12.2 g/dL (12-16); IMMATURE GRANULOCYTES 0.2 % (0-5); MCH 27.2 pg (26.0-34.0); MCHC 31.9 g/dL (31.0-37.0); MCV 85.3 fL (80.0-100.0); MEAN PLATELET VOLUME 10.8 fL (7.4-10.4); MONOCYTES 8.7 % (2-11); NEUTROPHILS 54.7 % (40-80); PLATELET COUNT 234 10x3/uL (130-400); RBC 4.49 10x6/uL (4.00-5.40); WBC 6.3 10x3/uL (4.8-10.8)
[2018-04-03 21:03] LABS: ALBUMIN 3.4 g/dL (3.4-5.0); ALKALINE PHOSPHATASE 104 U/L (46-116); ALT (SGPT) 19 U/L (10-68); BILIRUBIN - TOTAL 0.22 mg/dL (0.2-1.3); CALC OSMOLALITY 277 mosm/kg (275-300); CALCIUM 9.2 mg/dL (8.5-10.1); CHLORIDE - SERUM 101 mmol/L (98-107); CREATININE - SERUM 0.8 mg/dL (0.6-1.3); GLUCOSE 96 mg/dL (74-106); POTASSIUM - SERUM 3.8 mmol/L (3.5-5.1); PROTEIN - SERUM 7.9 g/dL (6.4-8.2); SODIUM 139 mmol/L (136-145); eGFR NON AFRICAN AMERICAN 81 mL/min (90-120)
[2018-04-03 21:05] LABS: UREA NITROGEN 13 mg/dL (7-18)
[2018-04-03] MEDS ORDERED: TORADOL10 MG PO (22:16)
[2018-04-03 23:20] VITALS: BP 147/89
== END 2018-04-03 23:20 | disposition home or self-care (01) ==
LOC: D.ER 19:39
PROVIDERS: Family Medicine
DX: G89.18 Other acute postprocedural pain (principal); S80.02XA Contusion of left knee, initial encounter; X58.XXXA Exposure to other specified factors, initial encounter; Y93.9 Activity, unspecified; Y92.9 Unspecified place or not applicable; F17.200 Nicotine dependence, unspecified, uncomplicated

== ENCOUNTER → 2018-04-09 16:53 | Outpatient (CLI) | payer MEDICARE ==
[2018-04-03 20:12] VITALS: BMI 33.9
[~2018-04-09 16:53] MED LIST changes: +TORADOL10 MG PO
[2018-04-09 21:39] LABS: BASOPHILS 0.5 % (0-2); EOSINOPHILS 1.6 % (0-7); HEMATOCRIT 34.6 % (36.0-48.0); HEMOGLOBIN 10.5 g/dL (12-16); IMMATURE GRANULOCYTES 0.2 % (0-5); LYMPHOCYTES 32.9 % (15-50); MCH 26.7 pg (26.0-34.0); MCHC 30.3 g/dL (31.0-37.0); MEAN PLATELET VOLUME 11.8 fL (7.4-10.4); NEUTROPHILS 53.8 % (40-80); PLATELET COUNT 198 10x3/uL (130-400); RBC 3.93 10x6/uL (4.00-5.40); RDW 15.2 % (11.5-14.5); WBC 6.1 10x3/uL (4.8-10.8)
[2018-04-09 21:58] LABS: CREATININE - SERUM 0.7 mg/dL (0.6-1.3)
[2018-04-09 22:46] LABS: ERYTHROCYTE SEDIMENTATION RATE 7 mm/hr (0-20)
== END | disposition home or self-care (01) ==
LOC: D.LABREF 16:53
PROVIDERS: Orthopaedic Surgery
DX: M00.9 Pyogenic arthritis, unspecified (principal); Z51.81 Encounter for therapeutic drug level monitoring; Z79.2 Long term (current) use of antibiotics

== ENCOUNTER → 2018-04-14 16:27 | Outpatient (CLI) | payer MEDICARE ==
[2018-04-03 20:12] VITALS: BMI 33.9
[2018-04-14 20:10] LABS: BASOPHILS 0.4 % (0-2); EOSINOPHILS 3.6 % (0-7); HEMATOCRIT 33.8 % (36.0-48.0); HEMOGLOBIN 10.4 g/dL (12-16); IMMATURE GRANULOCYTES 0.2 % (0-5); LYMPHOCYTES 27.2 % (15-50); MCH 26.2 pg (26.0-34.0); MCHC 30.8 g/dL (31.0-37.0); MCV 85.1 fL (80.0-100.0); MEAN PLATELET VOLUME 12.4 fL (7.4-10.4); NEUTROPHILS 62.6 % (40-80); PLATELET COUNT 170 10x3/uL (130-400); RBC 3.97 10x6/uL (4.00-5.40); RDW 14.5 % (11.5-14.5)
[2018-04-14 20:47] LABS: C-REACTIVE PROTEIN 1.7 mg/dL (0.0-0.9); CREATININE - SERUM 0.7 mg/dL (0.6-1.3)
[2018-04-14 21:17] LABS: ERYTHROCYTE SEDIMENTATION RATE 21 mm/hr (0-20)
== END | disposition home or self-care (01) ==
LOC: D.LAB 16:27
PROVIDERS: Orthopaedic Surgery
DX: T85.79XA Infection and inflammatory reaction due to other internal prosthetic devices, implants and grafts, initial encounter (principal)

== ENCOUNTER → 2018-04-21 16:52 | Outpatient (CLI) | payer MEDICARE ==
[2018-04-03 20:12] VITALS: BMI 33.9
[2018-04-21 17:54] LABS: BASOPHILS 0.4 % (0-2); EOSINOPHILS 2.5 % (0-7); HEMATOCRIT 36.6 % (36.0-48.0); HEMOGLOBIN 11.7 g/dL (12-16); IMMATURE GRANULOCYTES 0.1 % (0-5); LYMPHOCYTES 19.6 % (15-50); MCH 26.9 pg (26.0-34.0); MCV 84.1 fL (80.0-100.0); MEAN PLATELET VOLUME 11.3 fL (7.4-10.4); MONOCYTES 10.7 % (2-11); NEUTROPHILS 66.7 % (40-80); RBC 4.35 10x6/uL (4.00-5.40); RDW 14.4 % (11.5-14.5); WBC 7.6 10x3/uL (4.8-10.8)
[2018-04-21 17:55] LABS: PLATELET COUNT 210 10x3/uL (130-400)
[2018-04-21 18:19] LABS: C-REACTIVE PROTEIN 2.5 mg/dL (0.0-0.9); CREATININE - SERUM 0.9 mg/dL (0.6-1.3)
[2018-04-21 19:39] LABS: ERYTHROCYTE SEDIMENTATION RATE 24 mm/hr (0-20)
== END | disposition home or self-care (01) ==
LOC: D.LABREF 16:52
PROVIDERS: Orthopaedic Surgery
DX: M00.9 Pyogenic arthritis, unspecified (principal)

== ENCOUNTER 2018-05-26 08:00 | Inpatient (IN) | payer MEDICARE ==
[2018-05-21 12:08] LABS: HEMATOCRIT 47.7 % (36.0-48.0); HEMOGLOBIN 15.7 g/dL (12-16); LYMPHOCYTES 25.3 % (15-50); MCH 26.5 pg (26.0-34.0); MCHC 32.9 g/dL (31.0-37.0); MCV 80.4 fL (80.0-100.0); NEUTROPHILS 69.8 % (40-80); PLATELET COUNT 171 10x3/uL (130-400); RBC 5.93 10x6/uL (4.00-5.40); RDW 14.2 % (11.5-14.5); WBC 6.6 10x3/uL (4.8-10.8)
[2018-05-21 12:17] LABS: APPEARANCE HAZY (CLEAR); BACTERIA MODERATE /hpf (NONE SEEN); BILIRUBIN NEGATIVE (NEGATIVE); COLOR DK YELLOW (YELLOW); EPITHELIAL CELLS 0-5 /hpf (0-5); GLUCOSE NEGATIVE (NEGATIVE); KETONE NEGATIVE (NEGATIVE); MUCUS >1+ /lpf (NONE SEEN); NITRITE NEGATIVE (NEGATIVE); PROTEIN NEGATIVE (NEGATIVE); RED CELLS - URINE 0-5 /hpf (0-5); SPECIFIC GRAVITY 1.025 (1.005-1.020); UROBILINOGEN NORMAL (NORMAL); WHITE CELLS - URINE 0-5 /hpf (0-5); YEAST RARE /hpf (NONE SEEN)
[2018-05-21 12:24] LABS: CALC OSMOLALITY 284 mosm/kg (275-300); CALCIUM 9.3 mg/dL (8.5-10.1); CARBON DIOXIDE 28.2 mmol/L (21.0-32.0); CHLORIDE - SERUM 103 mmol/L (98-107); CREATININE - SERUM 0.7 mg/dL (0.6-1.3); GLUCOSE 106 mg/dL (74-106); POTASSIUM - SERUM 4.1 mmol/L (3.5-5.1); SODIUM 143 mmol/L (136-145); UREA NITROGEN 13 mg/dL (7-18); eGFR NON AFRICAN AMERICAN > 90 mL/min (90-120)
[2018-05-21 12:27] LABS: APTT 26.8 SECONDS (22.8-39.4); INR 1.01 (0.85-1.17); PROTIME 12.9 SECONDS (11.6-15.0)
[~2018-05-26] VITALS: Ht 180.3 cm; Wt 110.5 kg
--- NOTE | ~2018-05-26 | OP ---
PATIENT NAME: SALMA FREEMAN MEDICAL RECORD: [id number] :68 LOCATION:[facility] ADMISSION DATE:05/26/18 SURGEON: MCKAY DENNIS MD DATE OF OPERATION: 05/26/2018 PREOPERATIVE DIAGNOSIS: Prior infected total knee on the left. POSTOPERATIVE DIAGNOSIS: Prior infected total knee on the left. PROCEDURE: 1. Revision left total knee arthroplasty. 2. Removal of previously placed cement spacer. SURGEON: Mckay Dennis MD ANESTHESIA: General. INTRAOPERATIVE COMPLICATIONS: None. SUMMARY OF PATHOLOGIC FINDINGS: At last the patient's wound bed was very clean and receptive to total knee arthroplasty. Preoperative markers had normalized. The patient continues to have problems with the quadriceps mechanism, although it seemed to be more healed this time than it had in the past. Slight tibial tubercle avulsion was encountered; however, this was treated with a corkscrew anchor. IMPLANTS USED: John triathlon total knee arthroplasty with a size 5 distal femoral component, 10 mm medial and lateral distal augments, a 20 x 150 mm fluted stem, size 5 tibial baseplate with a 18 x 100 mm fluted stem, offset adapters were used in both 6 on the femur and 2 on the tibia. OPERATIVE SUMMARY IN DETAIL: After obtaining the appropriate preoperative orthopedic surgery consent as well as anesthetic consultation, evaluation, and clearance, the patient was brought to the operating room and placed on the operating table in supine position. After adequate general laryngeal mask airway was administered, tourniquet was placed on the proximal aspect of the left lower extremity. Left lower extremity was then prepped and draped in routine sterile fashion. Leg was elevated and exsanguinated, tourniquet was inflated to 350 mmHg. Routine midline incision was taken over the previous incision. Care was taken to avoid further rupture into her anteromedial incision. The incision was taken down for paramedian arthrotomy. Paramedian arthrotomy was performed. Careful dissection was then utilized to get down to the cement spacer, which was serially and sequentially removed with an osteotome. Having completed this, gentle flexion was then brought up. The distal femur was exposed. Substantial amounts of soft tissue fibrosis were removed. Serial and sequential reaming of the distal femur was then followed by chamfer cuts after appropriate measurements and box cutting. The final trial component corresponding to the above components was put into place with good position and placement. Attention was then turned to the proximal femur. Again, serial and sequential reaming were done for the appropriate sized tibia. The cleanup cut was then made. The trial corresponding to the above-mentioned trial with the offsets as mentioned was then put into place. Serial and sequential trials were then undertaken with the tibial insert. It was felt that the 19 was the most appropriate. This was taken through range of motion and found to be stable in all planes. Trials were then removed. The knee was OPERATIVE REPORT [id number] SALMA FREEMAN copiously irrigated while the trials being assembled on the back table. Final components were cemented into place. All excess cement was removed. After the polyethylene was put into place, the knee was again taken through range of motion, good patellar tracking and good stability in all planes. Wound was again copiously irrigated and closed with #2 Ethibond followed by #1 Vicryl, 2-0 Vicryl and skin austen. The wound was dressed with a Prevena after the tourniquet was deflated. The patient was then awakened and taken to the recovery room in stable condition. All final needle and sponge counts were correct. TRANSINT:[id number] Voice Confirmation ID: [id number] DOCUMENT ID: [id number] JEANNIE LIU, MCKAY FUENTES at 1459 CC: [id number] DICTATION DATE: 05/27/18 1003 DECALER: 05/27/18 1112 ADM IN [place] [id number] [place] [address]
[2018-05-26 09:12] VITALS: BP 129/83; BMI 33.9
[2018-05-26 15:19] VITALS: BP 130/83
[2018-05-26 15:25] VITALS: BP 130/83; Ht 180.3 cm; Wt 110.5 kg
[2018-05-26 16:33] VITALS: BP 117/66
[2018-05-26 21:02] VITALS: BP 109/59
[2018-05-27 05:45] VITALS: BP 102/60
[2018-05-27 07:19] LABS: HEMATOCRIT 33.9 % (36.0-48.0); HEMOGLOBIN 10.6 g/dL (12-16); MCHC 31.3 g/dL (31.0-37.0); MCV 83.3 fL (80.0-100.0); MEAN PLATELET VOLUME 12.1 fL (7.4-10.4); RBC 4.07 10x6/uL (4.00-5.40); RDW 14.1 % (11.5-14.5)
[2018-05-27 09:21] VITALS: BP 113/64
[2018-05-27 12:38] VITALS: BP 110/63
[2018-05-27 17:30] VITALS: BP 125/71
[2018-05-27 21:36] VITALS: BP 110/64
[2018-05-28 04:17] VITALS: BP 104/60
[2018-05-28 06:04] LABS: HEMATOCRIT 32.5 % (36.0-48.0); HEMOGLOBIN 10.1 g/dL (12-16); MCHC 31.1 g/dL (31.0-37.0); MCV 83.8 fL (80.0-100.0); MEAN PLATELET VOLUME 11.2 fL (7.4-10.4); RBC 3.88 10x6/uL (4.00-5.40); RDW 14.5 % (11.5-14.5); WBC 8.1 10x3/uL (4.8-10.8)
[2018-05-28 08:40] VITALS: BP 114/65
[2018-05-28 12:19] VITALS: BP 113/62
[2018-05-28 16:37] VITALS: BP 97/45
[2018-05-28 19:50] VITALS: BP 114/61
[2018-05-29] VITALS: BP 98/52
[2018-05-29 04:00] VITALS: BP 115/62
[2018-05-29] MEDS ORDERED: HYDROCODONE-APA1 TAB PO (07:53)
[2018-05-29] MEDS ORDERED: ELIQUIS2.5 MG PO (07:53)
[2018-05-29] MEDS ORDERED: CYCLOBENZAPRINE10 MG PO (07:53)
[2018-05-29 08:19] VITALS: BP 113/54
== END 2018-05-29 12:22 | disposition home health service (06) | DRG 468 ==
LOC: D.SDCHOLD 08:00 → D.MS 08:00 → D.SDCHOLD 09:45 → D.MS 15:06
PROVIDERS: Orthopaedic Surgery
PROC: 0SPD08Z Removal of Spacer from Left Knee Joint, Open Approach (ICD-10-PCS; 2018-05-26)
PROC: 0SPD0JZ Removal of Synthetic Substitute from Left Knee Joint, Open Approach (ICD-10-PCS; principal; 2018-05-26 09:45)
PROC: 0SRD0J9 Replacement of Left Knee Joint with Synthetic Substitute, Cemented, Open Approach (ICD-10-PCS; 2018-05-26 09:45)
DX: Z47.33 Aftercare following explantation of knee joint prosthesis (principal); F41.9 Anxiety disorder, unspecified; F17.200 Nicotine dependence, unspecified, uncomplicated

== ENCOUNTER 2018-07-26 16:17 | Emergency (ER) | payer MEDICARE ==
[~2018-07-26] VITALS: Ht 180.3 cm; Wt 112.3 kg
[2018-07-26 16:28] VITALS: Ht 180.3 cm; Wt 112.3 kg
[2018-07-26 17:19] LABS: BASOPHILS 0.5 % (0-2); EOSINOPHILS 2.7 % (0-7); HEMATOCRIT 35.6 % (36.0-48.0); HEMOGLOBIN 11.4 g/dL (12-16); IMMATURE GRANULOCYTES 0.3 % (0-5); LYMPHOCYTES 31.7 % (15-50); MCH 27.4 pg (26.0-34.0); MCV 85.6 fL (80.0-100.0); MEAN PLATELET VOLUME 10.1 fL (7.4-10.4); MONOCYTES 6.4 % (2-11); NEUTROPHILS 58.4 % (40-80); PLATELET COUNT 248 10x3/uL (130-400); RBC 4.16 10x6/uL (4.00-5.40); RDW 14.3 % (11.5-14.5); WBC 7.5 10x3/uL (4.8-10.8)
[2018-07-26 17:34] LABS: ALBUMIN 3.5 g/dL (3.4-5.0); ALKALINE PHOSPHATASE 113 U/L (46-116); ALT (SGPT) 19 U/L (10-68); BILIRUBIN - TOTAL 0.24 mg/dL (0.2-1.3); CALC OSMOLALITY 281 mosm/kg (275-300); CALCIUM 9.2 mg/dL (8.5-10.1); CHLORIDE - SERUM 104 mmol/L (98-107); CREATININE - SERUM 0.8 mg/dL (0.6-1.3); GLUCOSE 92 mg/dL (74-106); POTASSIUM - SERUM 3.9 mmol/L (3.5-5.1); PROTEIN - SERUM 7.6 g/dL (6.4-8.2); SODIUM 141 mmol/L (136-145); UREA NITROGEN 14 mg/dL (7-18); eGFR NON AFRICAN AMERICAN 81 mL/min (90-120)
[2018-07-26 21:25] LABS: ERYTHROCYTE SEDIMENTATION RATE 49 mm/hr (0-20)
[2018-07-26] MEDS ORDERED: NORCO 10-325 TA1 TAB PO (21:44)
[2018-07-26 21:55] VITALS: BP 136/72
== END 2018-07-26 21:56 | disposition home or self-care (01) ==
LOC: D.ER 16:17
PROVIDERS: Family Medicine
DX: M25.562 Pain in left knee (principal); Z96.652 Presence of left artificial knee joint; V49.9XXA Car occupant (driver) (passenger) injured in unspecified traffic accident, initial encounter; Y93.89 Activity, other specified; Y92.410 Unspecified street and highway as the place of occurrence of the external cause; F17.200 Nicotine dependence, unspecified, uncomplicated; R60.0 Localized edema

== ENCOUNTER → 2018-08-05 09:56 | Outpatient (CLI) | payer MEDICARE ==
[2018-07-26 16:28] VITALS: BMI 34.5
[~2018-08-05 09:56] MED LIST changes: +NORCO 10-325 TA1 TAB PO; +OXYCODONE-APAP1 TAB PO
[2018-08-05 11:41] LABS: BASOPHILS 0.6 % (0-2); EOSINOPHILS 1.5 % (0-7); HEMATOCRIT 34.6 % (36.0-48.0); HEMOGLOBIN 11.4 g/dL (12-16); IMMATURE GRANULOCYTES 0.2 % (0-5); MCH 27.5 pg (26.0-34.0); MCHC 32.9 g/dL (31.0-37.0); MCV 83.4 fL (80.0-100.0); MEAN PLATELET VOLUME 10.2 fL (7.4-10.4); MONOCYTES 5.1 % (2-11); NEUTROPHILS 61.6 % (40-80); RBC 4.15 10x6/uL (4.00-5.40); RDW 13.5 % (11.5-14.5); WBC 5.5 10x3/uL (4.8-10.8)
[2018-08-05 11:42] LABS: PLATELET COUNT 300 10x3/uL (130-400)
[2018-08-05 12:45] LABS: ERYTHROCYTE SEDIMENTATION RATE 28 mm/hr (0-20)
== END | disposition home or self-care (01) ==
LOC: D.US 09:56
PROVIDERS: Orthopaedic Surgery
DX: R22.42 Localized swelling, mass and lump, left lower limb (principal)

== ENCOUNTER 2018-08-07 08:51 | Day surgery (SDC) | payer MEDICARE ==
[~2018-08-07] VITALS: Ht 180.3 cm; Wt 114.8 kg
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
[~2018-08-07 08:51] MED LIST changes: -OXYCODONE-APAP1 TAB PO
[2018-08-07 10:00] VITALS: BP 131/85; Ht 180.3 cm; Wt 114.8 kg
[2018-08-07 10:45] LABS: HEMATOCRIT 36.6 % (36.0-48.0); HEMOGLOBIN 11.7 g/dL (12-16); MCH 27.3 pg (26.0-34.0); MCV 85.3 fL (80.0-100.0); MEAN PLATELET VOLUME 11.2 fL (7.4-10.4); RBC 4.29 10x6/uL (4.00-5.40); RDW 13.8 % (11.5-14.5); WBC 4.8 10x3/uL (4.8-10.8)
[2018-08-07] MEDS ORDERED: OXYCODONE-APAP1 TAB PO (14:50)
== END 2018-08-07 16:25 | disposition home or self-care (01) ==
LOC: D.OPS 08:51 → D.PAN 13:00 → D.OPS 13:00
PROVIDERS: Orthopaedic Surgery
DX: S80.12XA Contusion of left lower leg, initial encounter (principal)

== ENCOUNTER → 2018-08-18 18:09 | Outpatient (CLI) | payer MEDICARE ==
[2018-08-07 10:00] VITALS: BMI 35.3
[~2018-08-18 18:09] MED LIST changes: +OXYCODONE-APAP1 TAB PO
[2018-08-18 18:42] LABS: HEMATOCRIT 39.4 % (36.0-48.0); IMMATURE GRANULOCYTES 0.2 % (0-5); MCH 27.8 pg (26.0-34.0); MCV 84.2 fL (80.0-100.0); MEAN PLATELET VOLUME 11.6 fL (7.4-10.4); PLATELET COUNT 246 10x3/uL (130-400); RBC 4.68 10x6/uL (4.00-5.40); RDW 13.3 % (11.5-14.5); WBC 9.7 10x3/uL (4.8-10.8)
[2018-08-18 19:31] LABS: BASOPHILS 0 % (0-2); EOSINOPHILS 1 % (0-7); LYMPHOCYTES 24 % (15-50); MONOCYTES 1 % (2-11); NEUTROPHILS 74 % (40-80); PLATELET ESTIMATE NORMAL
[2018-08-18 19:52] LABS: ERYTHROCYTE SEDIMENTATION RATE 20 mm/hr (0-20)
== END | disposition home or self-care (01) ==
LOC: D.LABREF 18:09
PROVIDERS: Clinical Nurse Specialist Family Health
DX: M25.562 Pain in left knee (principal)

== ENCOUNTER 2018-08-23 16:45 | Emergency (ER) | payer MEDICARE ==
[~2018-08-23] VITALS: Ht 180.3 cm; Wt 66.8 kg
[2018-08-23 16:52] VITALS: Ht 180.3 cm; Wt 66.8 kg
[2018-08-23 18:02] LABS: BASOPHILS 0.3 % (0-2); EOSINOPHILS 2.6 % (0-7); HEMATOCRIT 38.5 % (36.0-48.0); HEMOGLOBIN 12.5 g/dL (12-16); IMMATURE GRANULOCYTES 0.2 % (0-5); LYMPHOCYTES 32.2 % (15-50); MCH 27.3 pg (26.0-34.0); MCHC 32.5 g/dL (31.0-37.0); MCV 84.1 fL (80.0-100.0); MEAN PLATELET VOLUME 10.6 fL (7.4-10.4); MONOCYTES 6.9 % (2-11); NEUTROPHILS 57.8 % (40-80); PLATELET COUNT 216 10x3/uL (130-400); RBC 4.58 10x6/uL (4.00-5.40); RDW 13.3 % (11.5-14.5); WBC 6.1 10x3/uL (4.8-10.8)
[2018-08-23 18:12] LABS: ALBUMIN 3.4 g/dL (3.4-5.0); ALKALINE PHOSPHATASE 103 U/L (46-116); ALT (SGPT) 17 U/L (10-68); BILIRUBIN - TOTAL 0.17 mg/dL (0.2-1.3); C-REACTIVE PROTEIN 0.9 mg/dL (0.0-0.9); CALC OSMOLALITY 282 mosm/kg (275-300); CALCIUM 9.1 mg/dL (8.5-10.1); CARBON DIOXIDE 27.6 mmol/L (21.0-32.0); CHLORIDE - SERUM 106 mmol/L (98-107); CREATININE - SERUM 0.7 mg/dL (0.6-1.3); GLUCOSE 104 mg/dL (74-106); POTASSIUM - SERUM 3.8 mmol/L (3.5-5.1); PROTEIN - SERUM 7.2 g/dL (6.4-8.2); SODIUM 142 mmol/L (136-145); UREA NITROGEN 13 mg/dL (7-18); eGFR NON AFRICAN AMERICAN > 90 mL/min (90-120)
[2018-08-23] MEDS ORDERED: NORCO 7.5/325 T1 TA1 PO (19:01)
[2018-08-23 19:24] VITALS: BP 140/93
== END 2018-08-23 19:24 | disposition home or self-care (01) ==
LOC: D.ER 16:45
PROVIDERS: Family Medicine
DX: M25.562 Pain in left knee (principal); F17.200 Nicotine dependence, unspecified, uncomplicated

== ENCOUNTER → 2018-09-09 14:17 | Outpatient (CLI) | payer MEDICARE ==
[2018-08-23 16:52] VITALS: BMI 20.5
[2018-09-09 15:27] LABS: BASOPHILS 0.3 % (0-2); HEMATOCRIT 41.6 % (36.0-48.0); HEMOGLOBIN 13.5 g/dL (12-16); IMMATURE GRANULOCYTES 0.2 % (0-5); LYMPHOCYTES 25.4 % (15-50); MCH 27.6 pg (26.0-34.0); MCHC 32.5 g/dL (31.0-37.0); MCV 85.1 fL (80.0-100.0); MEAN PLATELET VOLUME 11.6 fL (7.4-10.4); MONOCYTES 7.3 % (2-11); NEUTROPHILS 64.8 % (40-80); PLATELET COUNT 255 10x3/uL (130-400); RBC 4.89 10x6/uL (4.00-5.40); RDW 12.9 % (11.5-14.5); WBC 9.3 10x3/uL (4.8-10.8)
[2018-09-09 17:20] LABS: ERYTHROCYTE SEDIMENTATION RATE 20 mm/hr (0-20)
== END | disposition home or self-care (01) ==
LOC: D.LABREF 14:17
PROVIDERS: Orthopaedic Surgery
DX: M25.562 Pain in left knee (principal)

== ENCOUNTER → 2018-10-10 12:23 | Outpatient (CLI) | payer MEDICARE ==
[2018-08-23 16:52] VITALS: BMI 20.5
[2018-10-10 12:42] LABS: BASOPHILS 0.3 % (0-2); EOSINOPHILS 0.9 % (0-7); HEMATOCRIT 39.1 % (36.0-48.0); HEMOGLOBIN 12.8 g/dL (12-16); IMMATURE GRANULOCYTES 0.1 % (0-5); LYMPHOCYTES 17.1 % (15-50); MCH 27.5 pg (26.0-34.0); MCHC 32.7 g/dL (31.0-37.0); MCV 84.1 fL (80.0-100.0); MONOCYTES 10.2 % (2-11); NEUTROPHILS 71.4 % (40-80); PLATELET COUNT 273 10x3/uL (130-400); RBC 4.65 10x6/uL (4.00-5.40); RDW 13.9 % (11.5-14.5); WBC 10.1 10x3/uL (4.8-10.8)
[2018-10-10 14:45] LABS: ERYTHROCYTE SEDIMENTATION RATE 61 mm/hr (0-20)
== END | disposition home or self-care (01) ==
LOC: D.LABREF 12:23
PROVIDERS: Orthopaedic Surgery
DX: M25.562 Pain in left knee (principal)

== ENCOUNTER 2018-10-14 12:06 | Emergency (ER) | payer MEDICARE ==
[~2018-10-14] VITALS: Ht 180.3 cm; Wt 127.3 kg
[2018-10-14 12:08] VITALS: Ht 180.3 cm; Wt 127.3 kg
[2018-10-14 15:04] VITALS: BP 140/66
== END 2018-10-14 15:06 | disposition home or self-care (01) ==
LOC: D.ER 12:06
DX: M25.562 Pain in left knee (principal)

== ENCOUNTER 2018-10-19 10:39 | Inpatient (IN) | payer MEDICARE ==
[~2018-10-19] VITALS: Ht 180.3 cm; Wt 113.6 kg
[2018-10-19 12:34] LABS: BASOPHILS 0.3 % (0-2); EOSINOPHILS 0.5 % (0-7); HEMATOCRIT 40.5 % (36.0-48.0); HEMOGLOBIN 13.5 g/dL (12-16); IMMATURE GRANULOCYTES 0.2 % (0-5); MCH 27.6 pg (26.0-34.0); MCHC 33.3 g/dL (31.0-37.0); MCV 82.8 fL (80.0-100.0); MEAN PLATELET VOLUME 9.9 fL (7.4-10.4); MONOCYTES 6.3 % (2-11); NEUTROPHILS 75.7 % (40-80); PLATELET COUNT 411 10x3/uL (130-400); RBC 4.89 10x6/uL (4.00-5.40); RDW 13.4 % (11.5-14.5); WBC 10.7 10x3/uL (4.8-10.8)
[2018-10-19 12:48] LABS: ALBUMIN 2.9 g/dL (3.4-5.0); ANION GAP 16.1 mmol/L (8-16); BILIRUBIN - TOTAL 0.27 mg/dL (0.2-1.3); C-REACTIVE PROTEIN 9.9 mg/dL (0.0-0.9); CALCIUM 9.5 mg/dL (8.5-10.1); CARBON DIOXIDE 26.5 mmol/L (21.0-32.0); CREATININE - SERUM 0.9 mg/dL (0.6-1.3); POTASSIUM - SERUM 3.6 mmol/L (3.5-5.1); PROTEIN - SERUM 9.3 g/dL (6.4-8.2)
[2018-10-19 16:34] LABS: ERYTHROCYTE SEDIMENTATION RATE 105 mm/hr (0-20)
[2018-10-19 18:22] VITALS: BP 129/68; BMI 34.5
[2018-10-19 20:00] VITALS: BP 119/75
--- NOTE | 2018-10-19 20:30 | NUR ---
PATIENT RESTING IN BED WITH NO S/S OF DISTRESS. BROUGHT PATIENT PAIN MEDS, SNACK, A DRINK, AND SEVERAL PERSONAL ITEMS PER HER REQUEST. PATIENT DENIES OTHER NEEDS AT THIS TIME. BED IN LOWEST POSITION AND CALL LIGHT WITHIN REACH. ENCOURAGED THE PATIENT TO CALL IF SHE HAS NEEDS. WILL CONTINUE TO MONITOR.
[2018-10-19 23:59] VITALS: BP 107/64
[2018-10-20 04:00] VITALS: BP 114/57
--- NOTE | 2018-10-20 07:24 | NUR ---
ADMINISTERED 1MG OF DILAUDID FOR PAIN LEVEL OF 10/10. PT DENIES ANY OTHER NEEDS AT THIS TIME. CALL LIGHT IN REACH, NAD NOTED, WILL CONTINUE TO MONITOR.
[2018-10-20 08:05] LABS: BASOPHILS 0.3 % (0-2); EOSINOPHILS 1.6 % (0-7); HEMATOCRIT 33.7 % (36.0-48.0); IMMATURE GRANULOCYTES 0.3 % (0-5); LYMPHOCYTES 25.6 % (15-50); MCH 26.7 pg (26.0-34.0); MCHC 31.8 g/dL (31.0-37.0); NEUTROPHILS 64.2 % (40-80); PLATELET COUNT 335 10x3/uL (130-400); RBC 4.01 10x6/uL (4.00-5.40); RDW 13.4 % (11.5-14.5); WBC 9.3 10x3/uL (4.8-10.8)
[2018-10-20 08:16] LABS: HEMOGLOBIN 10.7 g/dL (12-16)
[2018-10-20 08:19] LABS: ANION GAP 15.3 mmol/L (8-16); CALCIUM 8.4 mg/dL (8.5-10.1); CREATININE - SERUM 0.9 mg/dL (0.6-1.3); POTASSIUM - SERUM 3.3 mmol/L (3.5-5.1)
[2018-10-20 08:24] VITALS: BP 109/65
--- NOTE | 2018-10-20 10:43 | NUR ---
PT RATES PAIN LEVEL NOW 7/10, DENIES ANY NEEDS AT THIS TIME. CALL LIGHT IN REACH, NAD NOTED, WILL CONTINUE TO MONITOR.
[2018-10-20 13:00] VITALS: BP 102/65
--- NOTE | 2018-10-20 13:21 | NUR ---
PT RESTING COMFROTABLY WITH EYES CLOSED, NAD NOTED, CALL LIGHT IN REACH.
[2018-10-20 13:55] VITALS: BMI 34.4
--- NOTE | 2018-10-20 15:00 | NUR ---
IVBP VANCOMYCIN HUNG AT THIS TIME. PT DROWSY BUT EASILY AROUSES TO VOICE. DENIES ANY NEEDS AT THIS TIME. CALL LIGHT IN REACH, NAD NOTED, WILL CONTINUE TO MONITOR.
[2018-10-20 16:54] VITALS: BP 99/51
[2018-10-20 20:00] VITALS: BP 101/50
--- NOTE | 2018-10-20 20:55 | NUR ---
PATIENT RESTING IN BED WITH NO S/S OF DISTRESS. ADMINISTERED MEDS PER ORDERS. PATIENT DENIES NEEDS AT THIS TIME. BED IN LOWEST POSITION AND CALL LIGHT WITHIN REACH. ENCOURAGED THE PATIENT TO CALL IF SHE HAS NEEDS. WILL CONTINUE TO MONITOR.
[2018-10-21] VITALS: BP 115/63
[2018-10-21 04:00] VITALS: BP 117/53
[2018-10-21 07:27] VITALS: BP 112/54
[2018-10-21 08:39] LABS: BASOPHILS 0.2 % (0-2); EOSINOPHILS 1.4 % (0-7); HEMOGLOBIN 9.8 g/dL (12-16); IMMATURE GRANULOCYTES 0.2 % (0-5); LYMPHOCYTES 24.4 % (15-50); MCH 26.5 pg (26.0-34.0); MCHC 31.6 g/dL (31.0-37.0); MCV 83.8 fL (80.0-100.0); MEAN PLATELET VOLUME 9.7 fL (7.4-10.4); MONOCYTES 7.8 % (2-11); PLATELET COUNT 286 10x3/uL (130-400); RDW 13.4 % (11.5-14.5); WBC 8.8 10x3/uL (4.8-10.8)
[2018-10-21 08:48] LABS: CALC OSMOLALITY 280 mosm/kg (275-300); CARBON DIOXIDE 25.3 mmol/L (21.0-32.0); CHLORIDE - SERUM 106 mmol/L (98-107); GLUCOSE 117 mg/dL (74-106); POTASSIUM - SERUM 3.6 mmol/L (3.5-5.1); SODIUM 140 mmol/L (136-145); UREA NITROGEN 15 mg/dL (7-18)
[2018-10-21 08:57] LABS: CALCIUM 8.3 mg/dL (8.5-10.1); CREATININE - SERUM 0.8 mg/dL (0.6-1.3); eGFR NON AFRICAN AMERICAN 81 mL/min (90-120)
[2018-10-21 10:14] LABS: ERYTHROCYTE SEDIMENTATION RATE 86 mm/hr (0-20)
[2018-10-21 11:43] VITALS: BP 114/58
--- NOTE | 2018-10-21 14:30 | NUR ---
CALLED PHARMACY AND SPOKE WITH OSIEL, INFORMED HIM THAT I NEED TOMAOT FOR PT.
[2018-10-21 15:13] VITALS: BP 121/64
[2018-10-21 16:53] VITALS: Ht 180.3 cm; Wt 113.6 kg
[2018-10-21] MEDS ORDERED: OXYCODONE-APAP1 TAB PO (18:49)
[2018-10-21 20:00] VITALS: BP 120/55
--- NOTE | 2018-10-21 20:16 | NUR ---
PATIENT RESTING IN BED WITH NO S/S OF DISTRESS. ASSISTED PATIENT WITH BEDPAN. ADMINISTERED MEDS PER ORDERS. PATIENT DENIES OTHER NEEDS AT THIS TIME. BED IN LOWEST POSITION AND CALL LIGHT WITHIN REACH. ENCOURAGED THE PATIENT TO CALL IF SHE HAS NEEDS.
[2018-10-22 00:20] VITALS: BP 116/50
[2018-10-22 04:00] VITALS: BP 116/60
[2018-10-22 07:18] LABS: BASOPHILS 0.1 % (0-2); EOSINOPHILS 1.5 % (0-7); HEMATOCRIT 30.7 % (36.0-48.0); HEMOGLOBIN 9.5 g/dL (12-16); IMMATURE GRANULOCYTES 0.2 % (0-5); LYMPHOCYTES 24.7 % (15-50); MCH 26.2 pg (26.0-34.0); MCHC 30.9 g/dL (31.0-37.0); MCV 84.8 fL (80.0-100.0); MEAN PLATELET VOLUME 10.3 fL (7.4-10.4); MONOCYTES 7.6 % (2-11); NEUTROPHILS 65.9 % (40-80); PLATELET COUNT 307 10x3/uL (130-400); RBC 3.62 10x6/uL (4.00-5.40); RDW 13.5 % (11.5-14.5); WBC 8.5 10x3/uL (4.8-10.8)
[2018-10-22 07:42] LABS: CALC OSMOLALITY 277 mosm/kg (275-300); CALCIUM 8.3 mg/dL (8.5-10.1); CARBON DIOXIDE 26.1 mmol/L (21.0-32.0); CHLORIDE - SERUM 106 mmol/L (98-107); CREATININE - SERUM 0.7 mg/dL (0.6-1.3); GLUCOSE 99 mg/dL (74-106); POTASSIUM - SERUM 3.8 mmol/L (3.5-5.1); SODIUM 140 mmol/L (136-145); eGFR NON AFRICAN AMERICAN > 90 mL/min (90-120)
[2018-10-22 07:45] LABS: UREA NITROGEN 10 mg/dL (7-18)
[2018-10-22 08:24] VITALS: BP 107/56
[2018-10-22 09:19] LABS: ERYTHROCYTE SEDIMENTATION RATE 88 mm/hr (0-20)
--- NOTE | 2018-10-22 09:24 | NUR ---
AM MEDS GIVEN AT THIS TIME. ALSO GAVE 0.4MG BOLUS OF DILAUDID FOR PAIN LEVEL OF 10/10. ALSO HELPED PT TO USE BEDPAN. PT DENIES ANY OTHER NEEDS AT THIS TIME. CALL LIGHT IN REACH, NAD NOTED, WILL CONTINUE TO MONITOR.
[2018-10-22 12:56] VITALS: BP 112/61
--- NOTE | 2018-10-22 15:38 | NUR ---
PT RESTING COMFORTABLY IN BED, DENIES ANY NEEDS AT THIS TIME. CALL LIGHT IN REACH, NAD NOTED, WILL CONTINUE PLAN OF CARE.
--- NOTE | 2018-10-22 16:04 | NUR ---
DILAUDID SUPERVISOR SEWER SYSTEM SYRINGE CHANGED AT THIS TIME. PT RATES PAIN LEVEL OF 10/10. PT DENIES ANY OTHER NEEDS AT THIS TIME. CALL LIGHT IN REACH, FAMILY AT BEDSIDE, NAD NOTED, WILL CONTINUE TO MONITOR.
[2018-10-22 16:50] VITALS: BP 115/59
--- NOTE | 2018-10-22 17:36 | NUR ---
0.4MG BOLUS OF DILAUDID GIVEN FOR PAIN LEVEL OF 10/10 TO LT KNEE. PT DENIES ANY OTHER NEEDS AT THIS TIME. CALL LIGHT IN REACH, FAMILY AT BEDSIDE, NAD NOTED.
--- NOTE | 2018-10-22 19:46 | NUR ---
PT CALLED FOR BEDPAN AND PUT HER SELF ON IT. PT DECLINED ANY ASSIST, PT IS ALERT AND HAS LEFT KNEE ELEVATED ON KNEE. PT BEDLOW AND CALL LIGHT IN REACH. ANIMAL GROOMER DILAUDID NOTED IN LEFT FA WITH NS INFUSING ORDERED. PT STATES SHE WILL USE CALL LIGHT WHEN FINISHED. PT HAS NO S/S OF DISTRESS. BEDLOW AND CALL LIGHT IN REACH. NAME AND DATE PLACED ON BOARD. WILL CPOC
[2018-10-22 21:00] VITALS: BP 132/73
--- NOTE | 2018-10-22 21:04 | NUR ---
BOLUS DOSE GIVEN PER PT REQUEST. STATES PAIN IS 10/10 IN LEFT KNEE. PT HAS NO S/S OF DISTRESS. BEDLOW AND CALL LIGHT IN REACH. WILL CPOC
--- NOTE | 2018-10-22 23:27 | NUR ---
PT CALLED FOR BEDPAN. URINE 200 PT BEDLOW AND CALL LIGHT IN REACH. WILL CPOC
--- NOTE | 2018-10-23 00:32 | NUR ---
PT IS AAO. COMPLAINS OF PAIN IN LEFT KNEE. BOLUS DOSE OF 0.4MG GIVEN PT HAS NO S/S OF DISTRESS. PT BEDLOW AND CALL LIGHT IN REACH. WILL CPOC
--- NOTE | 2018-10-23 00:38 | NUR ---
PT IS NPO AFTER MIDNIGHT. NO FLUIDS AT BEDSIDE. PT DENIES ANY NEEDS. WILL CPOC
--- NOTE | 2018-10-23 03:45 | NUR ---
PT ASLEEP. RESP EVEN AND UNLABORED. BEDLOW AND CALL LIGHT IN REACH. PT WILL CALL FOR ASSIST WHEN NEEDED. NO S/S OF DISTRESS. WILL CPOC
[2018-10-23 06:21] VITALS: BP 139/72
--- NOTE | 2018-10-23 06:25 | NUR ---
BOLUS GIVEN FOR PRN BREAKTHROUGH PAIN. PT ASKING FOR BEDPAN. GAVE PT A HEPACLEANS TO LEFT KNEE. PT HAS NO S/S OF DISTRESS. BEDLOW AND CALL LIGHT IN REACH.
[2018-10-23 07:50] LABS: CALC OSMOLALITY 276 mosm/kg (275-300); CALCIUM 8.2 mg/dL (8.5-10.1); CARBON DIOXIDE 26.3 mmol/L (21.0-32.0); CHLORIDE - SERUM 103 mmol/L (98-107); CREATININE - SERUM 0.7 mg/dL (0.6-1.3); GLUCOSE 93 mg/dL (74-106); POTASSIUM - SERUM 4.2 mmol/L (3.5-5.1); SODIUM 139 mmol/L (136-145); UREA NITROGEN 10 mg/dL (7-18); eGFR NON AFRICAN AMERICAN > 90 mL/min (90-120)
[2018-10-23 08:18] LABS: HEMATOCRIT 32.8 % (36.0-48.0); HEMOGLOBIN 10.6 g/dL (12-16); LYMPHOCYTES 22.6 % (15-50); MCH 26.8 pg (26.0-34.0); MCHC 32.3 g/dL (31.0-37.0); MEAN PLATELET VOLUME 11.7 fL (7.4-10.4); NEUTROPHILS 69.8 % (40-80); RBC 3.95 10x6/uL (4.00-5.40); RDW 12.3 % (11.5-14.5); WBC 8.6 10x3/uL (4.8-10.8)
[2018-10-23 08:23] LABS: PLATELET COUNT 216 10x3/uL (130-400)
[2018-10-23 09:11] LABS: ERYTHROCYTE SEDIMENTATION RATE 95 mm/hr (0-20)
[2018-10-23 09:34] VITALS: BP 108/54
[2018-10-23 12:41] VITALS: BP 120/60
[2018-10-23 16:42] VITALS: BP 118/76
[2018-10-23 19:50] VITALS: BP 136/72
--- NOTE | 2018-10-23 20:06 | NUR ---
GAVE PATIENT BOLUS DOSE OF HYDROMORPHONE MIRROR MACHINE FEEDER 0.4 FOR PAIN 10/10 ON 0-10 PAIN SCALE LEFT KNEE. WCTM.
--- NOTE | 2018-10-24 00:40 | NUR ---
ADMINISTERED BOLUS DOSE OF HYDROMORPHONE FOR PAIN 9/10 ON 0-10 PAIN SCALE LEFT LEG. CALL LIGHT IN REACH. [facility].
--- NOTE | 2018-10-24 01:33 | NUR ---
TRIED TO RE-SITE IV ON RIGHT WRIST. UNSUCCESSFUL ATTEMPT. REDRESSED EXISTING IV LEFT AC. WCTM.
--- NOTE | 2018-10-24 01:43 | NUR ---
PUT 4 X 4 ON PATIENTS LEFT KNEE FOR DRAINAGE.
--- NOTE | 2018-10-24 03:40 | NUR ---
ADMINISTERED BOLUS DOSE OF HYDROMORPHONE FOR PAIN 10/10 ON 0-10 PAIN SCALE LEFT LEG. CALL LIGHT IN REACH. [facility].
[2018-10-24 04:15] VITALS: BP 108/52
[2018-10-24 07:26] LABS: CALC OSMOLALITY 277 mosm/kg (275-300); CALCIUM 8.3 mg/dL (8.5-10.1); CARBON DIOXIDE 29.6 mmol/L (21.0-32.0); CHLORIDE - SERUM 104 mmol/L (98-107); CREATININE - SERUM 0.7 mg/dL (0.6-1.3); GLUCOSE 97 mg/dL (74-106); POTASSIUM - SERUM 3.6 mmol/L (3.5-5.1); SODIUM 140 mmol/L (136-145); UREA NITROGEN 10 mg/dL (7-18); eGFR NON AFRICAN AMERICAN > 90 mL/min (90-120)
[2018-10-24 08:00] VITALS: BP 116/78
[2018-10-24 08:24] VITALS: BP 113/41
[2018-10-24 08:43] LABS: ERYTHROCYTE SEDIMENTATION RATE 95 mm/hr (0-20)
[2018-10-24 08:45] LABS: BASOPHILS 0.1 % (0-2); EOSINOPHILS 2.3 % (0-7); HEMATOCRIT 30.3 % (36.0-48.0); HEMOGLOBIN 9.7 g/dL (12-16); IMMATURE GRANULOCYTES 0.1 % (0-5); LYMPHOCYTES 23.4 % (15-50); MCH 26.6 pg (26.0-34.0); MCV 83.2 fL (80.0-100.0); MEAN PLATELET VOLUME 10.8 fL (7.4-10.4); MONOCYTES 7.4 % (2-11); NEUTROPHILS 66.7 % (40-80); RBC 3.64 10x6/uL (4.00-5.40); RDW 13.1 % (11.5-14.5); WBC 7.9 10x3/uL (4.8-10.8)
[2018-10-24 08:52] LABS: PLATELET COUNT 343 10x3/uL (130-400)
--- NOTE | 2018-10-24 09:29 | NUR ---
PT RESTING IN BED THIS AM, C/O IV LEAKING IN LEFT AC. IV INSPECTED, INFILTRATION NOTED. IV STOPPED AND REMOVED. IV RESITED TO RIGHT THUMB. BOLUS DOSE OF 0.4MG DILAUDID SQUARE SHEAR OPERATOR GIVEN PER EMAR ORDER FOR C/O PAIN 10/10 ON A NUMERICAL SCALE IN LEFT KNEE. LEFT KNEE BLISTER NOTED, DRAINAGE TO SITE. 4X4 GAUZE COVERING. RESPIRATIONS EVEN AND UNLABORED, NO S/S OF DISTRESS NOTED. DENIES FURTHER NEEDS. BED LOW AND LOCKED, SR UP X2, CL IN EASY REACH.
[2018-10-24 11:40] VITALS: BP 122/63
--- NOTE | 2018-10-24 13:17 | NUR ---
RESTING QUIETLY IN BED. C/O PAIN TO LEFT KNEE. REQUESTING MORE PAIN MEDS. WILL MONITOR.
[2018-10-24 16:43] VITALS: BP 125/81
[2018-10-25] VITALS: BP 136/75
--- NOTE | 2018-10-25 | NUR ---
IV SITE BECAME RED AND PUFFY SO IT WAS DC'D. PT HAD A FURNITURE RENTAL CONSULTANT FOR PAIN CONTROL AND MD WAS CALLED TO RECEIVE ANOTHER WAY TO GIVE PAIN MEDS TO KEEP PT COMFORTABLE UNTIL THE AM WHEN SHE CAN POSSIBLE GET A MIDLINE OR PICC. HER INFECTED KNEE IS DRAINING LOTS OF BLOODY FLUID AND SHE WAS CLEANED UP AND NEW SHEETS AND PADS FOR KNEE WERE APPLIED. SHE DID NOT WANT TO TAKE THE NEW ORDER OF [place] FOR PAIN SHE SAID IT HURT SO BAD AND IT HAD NOT HELPED IN THE PAST. SHE RECEIVED DILAUDID FOR PAIN IM AND IT SEEMED TO HELP.
[2018-10-25 03:00] VITALS: BP 116/64
[2018-10-25 06:11] LABS: BASOPHILS 0.3 % (0-2); EOSINOPHILS 1.7 % (0-7); HEMATOCRIT 32.3 % (36.0-48.0); HEMOGLOBIN 10.3 g/dL (12-16); IMMATURE GRANULOCYTES 0.2 % (0-5); LYMPHOCYTES 16.5 % (15-50); MCH 26.5 pg (26.0-34.0); MCHC 31.9 g/dL (31.0-37.0); MCV 83.2 fL (80.0-100.0); MEAN PLATELET VOLUME 10.4 fL (7.4-10.4); MONOCYTES 8.3 % (2-11); PLATELET COUNT 331 10x3/uL (130-400); RBC 3.88 10x6/uL (4.00-5.40); RDW 13.1 % (11.5-14.5)
[2018-10-25 06:31] LABS: CALC OSMOLALITY 277 mosm/kg (275-300); CALCIUM 8.5 mg/dL (8.5-10.1); CHLORIDE - SERUM 102 mmol/L (98-107); CREATININE - SERUM 0.7 mg/dL (0.6-1.3); GLUCOSE 115 mg/dL (74-106); POTASSIUM - SERUM 3.9 mmol/L (3.5-5.1); SODIUM 139 mmol/L (136-145); UREA NITROGEN 9 mg/dL (7-18); eGFR NON AFRICAN AMERICAN > 90 mL/min (90-120)
--- NOTE | 2018-10-25 07:15 | NUR ---
PT RESTING IN BED EYES OPEN. PT C/O PAIN 07/23. PT ALERT AND ORIENTED. NO S/S OF ACUTE DISTRESS NOTED. NO IV ACCESS AT THIS TIME. PHYSICIAN AWARE. LEFT KNEE SEROUS DRAINAGE. SCHEDULED FOR SURGERY ON SATURDAY. PT DENIES ANYTHING FURTHER AT THIS TIME. CALL LIGHT IN REACH. WILL CONTINUE TO MONITOR.
--- NOTE | 2018-10-25 07:45 | NUR ---
PT C/O PAIN 07/23, GAVE DILAUDID INJ 2MG. NO S/S OF ACUTE DISTRESS. PT DENIES ANYTHING FURTHER AT THIS TIME. CALL LIGHT IN REACH. WILL CONTINUE TO MONITOR.
[2018-10-25 08:16] LABS: ERYTHROCYTE SEDIMENTATION RATE 105 mm/hr (0-20)
[2018-10-25 08:25] VITALS: BP 126/79
[2018-10-25 12:02] VITALS: BP 118/64
--- NOTE | 2018-10-25 15:39 | NUR ---
PT IS LYING IN BED STATING PAIN IS EXCRUCIATING, ASKED FOR A BOLUS, PT STATED SHE FEELS IF SHE NEEDS TO URINATE CONSTANTLY AND IT IS STARTING TO BURN, ORDERED UA AND CULTURE UNDER ADMITTING DOCTOR, ADMINISTERED MACHINE STONECUTTER BOLUS OF 0.4 DILAUDID. CL IN REACH NO OTHER NEEDS VOICED, CONTINUE WITH PLAN OF CARE
[2018-10-25 16:52] VITALS: BP 123/77
--- NOTE | 2018-10-25 18:35 | NUR ---
PT RESTING IN BED, EYES CLOSED. RESPIRATIONS EVEN AND UNLABORED. NO C/O PAIN. NO S/S OF ACUTE DISTRESS NOTED. PT DENIES ANYTHING FURTHER AT THIS TIME. CALL LIGHT IN REACH. WILL CONTINUE TO MONITOR.
[2018-10-25 18:39] LABS: APPEARANCE CLEAR (CLEAR); BILIRUBIN NEGATIVE (NEGATIVE); COLOR YELLOW (YELLOW); GLUCOSE NEGATIVE (NEGATIVE); KETONE NEGATIVE (NEGATIVE); NITRITE NEGATIVE (NEGATIVE); PROTEIN NEGATIVE (NEGATIVE); SPECIFIC GRAVITY 1.005 (1.005-1.020); UROBILINOGEN NORMAL (NORMAL)
[2018-10-25 19:00] VITALS: BP 147/81
--- NOTE | 2018-10-25 19:14 | NUR ---
RECIEVED UP IN BED WITH EYES OPEN AND TV ON. ALERT AND ORIENTED X4. IV TO LEFT WRIST WITH NS AT 75ML/HR. 4X4'S TO LEFT KNEE WITH SMALL AMT OF YELLOW DRAINAGE. LEFT KNEE EDEMATOUS. DENIES ANY NEEDS AT THIS TIME. WILL CONT. WITH POC.
--- NOTE | 2018-10-25 23:51 | NUR ---
IV RESTARTED WITH ATTEMPTS X2 WITH 22GA TO RIGHT POSTERIOR WRIST. PT IS LEFT HANDED.
[2018-10-26] VITALS: BP 101/54
[2018-10-26 03:00] VITALS: BP 86/50
[2018-10-26 09:36] VITALS: BP 98/50
[2018-10-26 13:00] VITALS: BP 80/49
[2018-10-26 15:12] VITALS: BP 112/46
--- NOTE | 2018-10-26 17:00 | NUR ---
APPLIED ICE PACK TO LEFT KNEE FOR DISCOMFORTS 0.4 MG BOLUS GIVEN FOR SEVERE PAIN 07/23. DENIES ANY OTHER NEEDS OR DISCOMFORTS, BED LOWERED AND LOCKED CALL LIGHT WITHIN REACH
[2018-10-26 19:00] VITALS: BP 120/53
--- NOTE | 2018-10-26 19:59 | NUR ---
PATIENT RESTING IN BED AND DENIES NEEDS AT THIS TIME. ADMINISTERED MEDS PER ORDERS. BED IN LOWEST POSITION AND CALL LIGHT WITHIN REACH. ENCOURAGED THE PATIENT TO CALL IF SHE HAS NEEDS. WILL CONTINUE TO MONITOR
[2018-10-27] VITALS: BP 115/43
[2018-10-27 03:00] VITALS: BP 99/55
--- NOTE | 2018-10-27 07:45 | NUR ---
PT AOX4 RESP EVEN AND NONLABORED PT DENIES NEEDS AT THIS TIME IV TO RIGHT WRIST PATENT AND INTACT AT THIS TIME SRX2 BED AT LOWEST SETTING CALL LIGHT WITHIN REACH WILL CONTINUE TO MONITOR
[2018-10-27 08:00] VITALS: BP 101/53
[2018-10-27 10:10] LABS: BASOPHILS 0.2 % (0-2); EOSINOPHILS 1.9 % (0-7); HEMATOCRIT 30.6 % (36.0-48.0); HEMOGLOBIN 9.4 g/dL (12-16); IMMATURE GRANULOCYTES 0.2 % (0-5); LYMPHOCYTES 22.8 % (15-50); MCH 25.8 pg (26.0-34.0); MCHC 30.7 g/dL (31.0-37.0); MCV 84.1 fL (80.0-100.0); MEAN PLATELET VOLUME 10.8 fL (7.4-10.4); MONOCYTES 9.2 % (2-11); NEUTROPHILS 65.7 % (40-80); PLATELET COUNT 322 10x3/uL (130-400); RBC 3.64 10x6/uL (4.00-5.40); RDW 13.2 % (11.5-14.5); WBC 8.8 10x3/uL (4.8-10.8)
[2018-10-27 10:43] LABS: ALKALINE PHOSPHATASE 68 U/L (46-116); ALT (SGPT) 11 U/L (10-68); BILIRUBIN - TOTAL 0.16 mg/dL (0.2-1.3); CALC OSMOLALITY 283 mosm/kg (275-300); CALCIUM 8.3 mg/dL (8.5-10.1); CARBON DIOXIDE 28.2 mmol/L (21.0-32.0); CHLORIDE - SERUM 106 mmol/L (98-107); CREATININE - SERUM 0.8 mg/dL (0.6-1.3); GLUCOSE 91 mg/dL (74-106); POTASSIUM - SERUM 3.6 mmol/L (3.5-5.1); PROTEIN - SERUM 6.4 g/dL (6.4-8.2); SODIUM 142 mmol/L (136-145); UREA NITROGEN 15 mg/dL (7-18); eGFR NON AFRICAN AMERICAN 81 mL/min (90-120)
[2018-10-27 12:00] VITALS: BP 114/72
[2018-10-27 13:08] LABS: % SATURATION 13 % (15-55); IRON 29 ug/dl (35-150); TOTAL IRON BIND CAPACITY 220 ug/dl (260-445); UNSAT IRON BIND CAPACITY 191 ug/dl (150-375)
--- NOTE | 2018-10-27 14:32 | NUR ---
Pt is NPO for surgery today. Pt reports son may bring in food for after surgery as she is already hungry. Pt reports yesterday she ate a good lunch and then experienced some nausea around dinner time and didnt eat much. Pt later had a snack of pudding. RD following
[2018-10-27 16:00] VITALS: BP 114/62
[2018-10-27 20:00] VITALS: BP 102/57
--- NOTE | 2018-10-27 20:02 | NUR ---
PATIENT TAKEN FOR SURGERY
--- NOTE | 2018-10-27 20:07 | NUR ---
PATIENT TAKEN FOR SURGERY
--- NOTE | 2018-10-27 21:58 | NUR ---
REC'D REPORT FROM RECOVERY ON PATIENT
--- NOTE | 2018-10-27 22:25 | NUR ---
REC'D PATIENT FROM RECOVERY. PATIENT HAS NO S/S OF DISTRESS. BROUGHT PATIENT HER DINNER TRAY, STARTED HER FLUIDS, HOOKED PATIENT'S BRUSHER HAND UP. PATIENT HAS GUESTS AT BEDSIDE AND DENIES OTHER NEEDS AT THIS TIME. BED IN LOWET POSITION AND CALL LIGHT WITHIN REACH. ENCOURAGED THE PATIENT TO CALL IF SHE HAS NEEDS
[2018-10-28] VITALS: BP 135/73
[2018-10-28 04:00] VITALS: BP 103/47
[2018-10-28 07:06] LABS: BASOPHILS 0.1 % (0-2); EOSINOPHILS 0 % (0-7); HEMATOCRIT 33.9 % (36.0-48.0); HEMOGLOBIN 10.9 g/dL (12-16); IMMATURE GRANULOCYTES 0.7 % (0-5); LYMPHOCYTES 7.1 % (15-50); MCH 26.4 pg (26.0-34.0); MCHC 32.2 g/dL (31.0-37.0); MEAN PLATELET VOLUME 11.6 fL (7.4-10.4); MONOCYTES 0.9 % (2-11); NEUTROPHILS 91.2 % (40-80); RBC 4.13 10x6/uL (4.00-5.40); WBC 8.1 10x3/uL (4.8-10.8)
[2018-10-28 07:13] LABS: MCV 82.1 fL (80.0-100.0); PLATELET COUNT 242 10x3/uL (130-400)
[2018-10-28 07:39] LABS: ALBUMIN 2.1 g/dL (3.4-5.0); ANION GAP 13.7 mmol/L (8-16); BILIRUBIN - TOTAL 0.15 mg/dL (0.2-1.3); CALCIUM 8.1 mg/dL (8.5-10.1); CARBON DIOXIDE 25.5 mmol/L (21.0-32.0)
[2018-10-28 07:43] LABS: CREATININE - SERUM 1.1 mg/dL (0.6-1.3); POTASSIUM - SERUM 4.2 mmol/L (3.5-5.1)
[2018-10-28 08:05] VITALS: BP 130/80
--- NOTE | 2018-10-28 08:07 | NUR ---
PATIENT IS ON ELECTROLYTE PROTOCOL, THE PATIENTS POTASSIUM IS WNL THIS MORNING AT 4.2. THE PHOS AND MAG HAVE NOT BEEN ORDERED/MONITORED THIS VISIT.
--- NOTE | 2018-10-28 08:09 | NUR ---
RECIEVED REPORT, MET PATIENT SITTING UP IN BED, FAMILY AT BEDSIDE. PATIENT REQUESTING HER KLONOPIN AND A BOLUS DOSE FROM PREPARED FOODS SERVICE TEAM MEMBER. NO SOB/DISTRESS NOTED.
--- NOTE | 2018-10-28 09:18 | NUR ---
CALLED PHARMACY AND REQUESTED KLONOPIN FOR THE PATIENT
--- NOTE | 2018-10-28 10:34 | NUR ---
CALLED AND SPOKE TO DYLAN IN THE PHARMACY, REQUESTING FOR THE 2ND TIME, KLONOPIN FOR THE PATIENT
--- NOTE | 2018-10-28 11:30 | MORECARE ---
CASE MANAGEMENT DISCHARGE SUMMARY PATIENT: SALMA FREEMAN UNIT: [id number] ADM DATE: 10/19/18 AGE: 48 : [birth year] SEX: F ROOM/BED: D.1201 AUTHOR: LYNN BRADLEY PHYSICIAN: REFERRING PHYSICIAN: NITZA ROMERO MD DATE OF SERVICE: 10/28/18 Discharge Plan Patient Name: SALMA FREEMAN [facility] [facility] 1970 Planned Disposition: Home with Home Health Anticipated Discharge Date: 10/31/18 Discharge Date: Expected LOS: 12 Initial Reviewer: [email or web address] Initial Review Date: 10/28/2018 Generated: 10/28/18 12:30 pm Comments DCP- Discharge Planning Updated by [email or web address]: Afshan Durham on 10/20/18 11:[address] 1135 CM went to meet with patient to assess needs. She states she was just medicated for pain and wanted to rest..Will revisit. CM to follow. Previously has opted for outpatient physical therapy in [place]. Patient Name: SALMA FREEMAN Page [id number] at 1130 All edits/amendments must be made on the electronic document DICTATION DATE: 10/28/18 113 AIR MOTOR REPAIRER: OBDULIO 10/28/18 1130 RPT#: [id number] DC DATE: STATUS: ADM IN [place] [address] [place] [address] END OF REPORT
--- NOTE | 2018-10-28 11:48 | MORECARE ---
CASE MANAGEMENT DISCHARGE SUMMARY PATIENT: SALMA FREEMAN UNIT: [id number] ADM DATE: 10/19/18 AGE: 48 : 68 SEX: F ROOM/BED: D.1201 AUTHOR: LYNN BRADLEY PHYSICIAN: REFERRING PHYSICIAN: NITZA ROMERO MD DATE OF SERVICE: 10/28/18 Discharge Plan Patient Name: SALMA FREEMAN [facility] [facility] 1970 Planned Disposition: Home with Home Health Anticipated Discharge Date: 10/31/18 Discharge Date: Expected LOS: 12 Initial Reviewer: [email or web address] Initial Review Date: 10/28/2018 Generated: 10/28/18 12:47 pm Comments DCP- Discharge Planning Updated by [email or web address]: Afshan Durham on 10/20/18 11:[address] 1135 CM went to meet with patient to assess needs. She states she was just medicated for pain and wanted to rest..Will revisit. CM to follow. Previously has opted for outpatient physical therapy in [place]. Last DP export: 10/28/18 10:30 a Patient Name: SALMA FREEMAN Page [id number] at 1148 All edits/amendments must be made on the electronic document DICTATION DATE: 10/28/18 1147 WET POUR MIXER: OBDULIO 10/28/18 1147 RPT#: [id number] DC DATE: STATUS: ADM IN [facility] [address] [place] [address] END OF REPORT
[2018-10-28 11:54] VITALS: BP 118/69
--- NOTE | 2018-10-28 11:56 | MORECARE ---
CASE MANAGEMENT DISCHARGE SUMMARY PATIENT: SALMA SEPULVEDA UNIT: [id number] ADM DATE: 10/19/18 AGE: 48 : 68 SEX: F ROOM/BED: D.1201 AUTHOR: MIRNA,DOC PHYSICIAN: REFERRING PHYSICIAN: NITZA ROMERO MD DATE OF SERVICE: 10/28/18 Discharge Plan Patient Name: SALMA SEPULVEDA Facility: [facility]:[place] : 1970 Planned Disposition: Home with Home Health Anticipated Discharge Date: 10/31/18 Discharge Date: Expected LOS: 12 Initial Reviewer: [email or web address] Initial Review Date: 10/28/2018 Generated: 10/28/18 12:56 pm Comments DCP- Discharge Planning Updated by [email or web address]: Lamar Hogan on 10/28/18 10:[address] Patient Name: SALMA SEPULVEDA Admission Status: ER Accout number: [id number] Admission Date: 10-19-2018 : 1970 Admission Diagnosis:INFECT/INFLM REACTION DUE TO INTERNAL LEFT KNEE PROSTH, Attending: NITZA ROMERO Current LOS: 9 Anticipated DC Date: 10-31-2018 Planned Disposition: Home with Home Health Primary Insurance: MEDICARE A & B Discharge Planning Comments: CM met with patient about discharge planning / needs. Patient states her plan is to discharge home to her cousin's house ([facility] [phone]) at [address] [place] [address]. used to live with her daughter, Lorenza Sepulveda ([phone]) but moved to her cousin's house just prior to hospitalization because she would be able to get 24 hour care at her cousin's house. States she has used [facility] in the past and if she needs home health again for IV infusions or wound vac dressing changes she wants to use the agency again. Patient signed AYAH for [facility]. Patient also informed CM that she has used [facility] previously and if she has to get IV Antibiotics at home upon discharge, she wants to use them for the infusion supplies. Patient states she may need a walker. She had borrowed one previously but doesn't have it anymore. Denies any other discharge planning needs or concerns at this time. States she feels safe at the cousin's house and her cousin will transport her home upon discharge. CM will continue to follow and assist as needed with discharge planning / needs. Outside Sales Executive: Lamar Hogan DCP- Discharge Planning Updated by [email or web address]: Afshan Fernandezs on 10/20/18 11:[address] 1135 CM went to meet with patient to assess needs. She states she was just medicated for pain and wanted to rest..Will revisit. CM to follow. Previously has opted for outpatient physical therapy in [place]. DCPIA - Discharge Planning Initial Assessment Updated by [id number]: Lamar Hogan on 10/28/18 11:49 am * Is the patient Alert and Oriented? Yes * How many steps to enter\exit or inside your home? * PCP NONE * Pharmacy [facility] * Preadmission Environment Home with Family * ADLs Independent * Equipment Wheelchair * List name and contact numbers for known caregivers / representatives who currently or will assist patient after discharge: Lou Sandoval, cousin, Lorenza Sepulveda, daughter, * Verbal permission to speak to the caregivers and representatives has been obtained from the patient. N/A * Community resources currently utilized Home Health * Please name any agencies selected above. [facility], [facility], * Additional services required to return to the preadmission environment? Yes * Can the patient safely return to the preadmission environment? Yes * Has this patient been hospitalized within the prior 30 days at any hospital? No Coverage Notice Reviewer: [id number] - Lamar Hogan Notice Issued Date-Time: 10/28/2018 11:55 Notice Type: Patient Choice Letter Notice Delivered To: Patient Relationship to Patient: Self Continuous Crusher Operator Name: Delivery Method: HAND - Hand Delivered Kate Days: Prior Verbal Notification: Recipient Understood Notice: Yes Recipient Signature: Yes Med Rec Note Co-signed by Attending: Coverage Notice Comment: Last DP export: 10/28/18 10:47 a Patient Name: SALMA SEPULVEDA Page [phone] at 1156 All edits/amendments must be made on the electronic document DICTATION DATE: 10/28/18 1155 ASSEMBLY LINE SUPERVISOR: DM 10/28/18 1155 RPT#: [id number] DC DATE: STATUS: ADM IN [facility] [address] [place] [address] END OF REPORT
[2018-10-28 13:19] LABS: FOLATE (FOLIC ACID) - SERUM 9.1 ng/mL (>3.0)
[2018-10-28 15:40] VITALS: BP 131/65
--- NOTE | 2018-10-28 19:40 | NUR ---
PATIENT RESTING IN BED AND DENIES NEEDS AT THIS TIME. BED IN LOWEST POSITION AND CALL LIGHT WITHIN REACH. ENCOURAGED THE PATIENT TO CALL IF SHE HAS NEEDS. WILL CONTINUE TO MONITOR.
[2018-10-28 19:44] VITALS: BP 104/42
[2018-10-29 04:00] VITALS: BP 112/42
[2018-10-29 05:43] LABS: BASOPHILS 0.1 % (0-2); EOSINOPHILS 0.2 % (0-7); HEMOGLOBIN 9.4 g/dL (12-16); IMMATURE GRANULOCYTES 0.3 % (0-5); LYMPHOCYTES 17.6 % (15-50); MCH 26.1 pg (26.0-34.0); MCHC 31.3 g/dL (31.0-37.0); MCV 83.3 fL (80.0-100.0); MEAN PLATELET VOLUME 11.2 fL (7.4-10.4); MONOCYTES 8.6 % (2-11); NEUTROPHILS 73.2 % (40-80); RDW 13.4 % (11.5-14.5)
[2018-10-29 05:54] LABS: PLATELET COUNT 297 10x3/uL (130-400); WBC 10.4 10x3/uL (4.8-10.8)
[2018-10-29 06:22] LABS: ANION GAP 13.3 mmol/L (8-16); BILIRUBIN - TOTAL 0.06 mg/dL (0.2-1.3); CALCIUM 7.9 mg/dL (8.5-10.1); CARBON DIOXIDE 25.3 mmol/L (21.0-32.0); CREATININE - SERUM 0.9 mg/dL (0.6-1.3); POTASSIUM - SERUM 3.6 mmol/L (3.5-5.1); PROTEIN - SERUM 6.5 g/dL (6.4-8.2)
--- NOTE | 2018-10-29 07:34 | NUR ---
AM ROUNDS- PT EATING BREAKFAST AT THIS TIME. A/O X4, RESP EVEN AND NONLABORED ON RA. LT MIDLINE INFUSIG NS AT 50CC/HR AND DILAUDID DIABETES PHYSICIAN AT 0.2MG Q10MIN, WITH 4MG LOCKOUT. PT DENIES ANY PAIN AT THIS TIME. POST OP DAY 2 OF I&D OF LT KNEE, ERASTO BANDAGE AND WOUND VAC IN PLACE. CALL LIGHT IN REACH, NAD NOTED,W ILL CONTINUE PLAN OF CARE.
[2018-10-29 07:54] VITALS: BP 115/55
--- NOTE | 2018-10-29 09:27 | NUR ---
GAVE 0.5MG OF KLONOPIN PER PT REQUEST. ALSO PROVIDED PT WITH LEMON WIYOT SODA. PT DENIES ANY OTHER NEEDS AT THIS TIME. CALL LIGHT IN REACH, NAD NOTED, WILL CONTINUE TO MONITOR.
[2018-10-29 11:46] VITALS: BP 101/50
--- NOTE | 2018-10-29 11:54 | NUR ---
ZINC MINER BLASTING SYRINGE CHANGED AT THIS TIME, ALSO GAVE 0.4MG BOLUS FOR PAIN LEVEL OF 10/10. PROVIDED PT WITH LEMON BIG LAGOON SODA. PT DENIES ANY NEEDS AT THIS TIME. CALL LIGHT IN REACH, NAD NOTED, WILL CONTINUE TO MONITOR.
[2018-10-29 15:46] VITALS: BP 103/47
--- NOTE | 2018-10-29 19:20 | NUR ---
INTRODUCED SELF TO PATIENT, PATIENT WAS UP ON THE SIDE OF THE BED, BED IN LOWEST POSITION, CALL LIGHT IN REACH. NO NEEDS AT THIS TIME.
--- NOTE | 2018-10-30 03:23 | NUR ---
BOLUS GIVEN FOR PT BREAKTHROUGH PAIN
[2018-10-30 04:41] VITALS: BP 110/53
[2018-10-30 06:31] LABS: BASOPHILS 0.5 % (0-2); EOSINOPHILS 1.3 % (0-7); HEMATOCRIT 33.6 % (36.0-48.0); HEMOGLOBIN 10.6 g/dL (12-16); IMMATURE GRANULOCYTES 0.6 % (0-5); LYMPHOCYTES 30.7 % (15-50); MCH 26.7 pg (26.0-34.0); MCHC 31.5 g/dL (31.0-37.0); MCV 84.6 fL (80.0-100.0); MEAN PLATELET VOLUME 11.3 fL (7.4-10.4); MONOCYTES 9.3 % (2-11); NEUTROPHILS 57.6 % (40-80); PLATELET COUNT 341 10x3/uL (130-400); RBC 3.97 10x6/uL (4.00-5.40); RDW 13.7 % (11.5-14.5); WBC 9.9 10x3/uL (4.8-10.8)
[2018-10-30 07:39] LABS: ALBUMIN 2.3 g/dL (3.4-5.0); ALKALINE PHOSPHATASE 83 U/L (46-116); BILIRUBIN - TOTAL 0.09 mg/dL (0.2-1.3); CALCIUM 8.3 mg/dL (8.5-10.1); CARBON DIOXIDE 27.1 mmol/L (21.0-32.0); CHLORIDE - SERUM 106 mmol/L (98-107); CREATININE - SERUM 0.7 mg/dL (0.6-1.3); POTASSIUM - SERUM 3.9 mmol/L (3.5-5.1); PROTEIN - SERUM 6.7 g/dL (6.4-8.2); SODIUM 143 mmol/L (136-145); eGFR NON AFRICAN AMERICAN > 90 mL/min (90-120)
[2018-10-30 07:48] LABS: ALT (SGPT) 17 U/L (10-68); CALC OSMOLALITY 284 mosm/kg (275-300); GLUCOSE 87 mg/dL (74-106); UREA NITROGEN 14 mg/dL (7-18)
[2018-10-30 09:46] VITALS: BP 107/65
--- NOTE | 2018-10-30 11:09 | NUR ---
PT STATED PAIN IS STILL BAD WITH REGIONAL FLATBED TRUCK DRIVER AND BOLUS, ADVISED PT SHE HAS [place]CO ON DEC FOR BREAKTHROUGH PAIN AND WE CAN TRY THAT AT NOON INSTEAD OF BOLUS TO SEE IF BETTER, PT IS UP WITH ASSISTANCE, NO SIGNS OR SYMPTOMS OF DISTRESS, CONTINUE WITH PLAN OF CARE
[2018-10-30 13:02] VITALS: BP 111/58
--- NOTE | 2018-10-30 13:42 | NUR ---
Nutrition Follow Up: Chart reviewed. Pt is POD 3 I&D and has wound vac. Diet: Regular PO Intake: 64% meal avg BM: 10/22/17 - no BM x 8 days? Labs reviewed Meds noted inlcuding Reglan Rec continue current diet. Will honor food preferences and provide supplements prn. RD following.
[2018-10-30 17:27] VITALS: BP 113/78
--- NOTE | 2018-10-30 18:00 | NUR ---
PT EATING DINNER, DENIES NEEDS. WCTM.
--- NOTE | 2018-10-30 19:32 | NUR ---
INTRODUCED SELF TO PATIENT, SEVERAL FAMILY/FRIENDS AT BEDSIDE. PATIENT SEEMED IN BETTER SPIRITS TODAY. BED IS IN LOWEST POSITION, CALL LIGHT WITHIN REACH. NO NEEDS AT THIS TIME.
[2018-10-30 20:00] VITALS: BP 98/41
--- NOTE | 2018-10-30 20:03 | NUR ---
PT BP IS LOW, DOCUMENTED IN CHART. SPOKE WITH PT REGARDING DILAUDID MAKING IT LOWER. PT VERBALIZED UNDERSTANDING. NETWORK ENGINEER ADMINISTRATOR PAUSED UNTIL BP IS RECHECKED AND NOT LOW. PT HAS NO S/S OF DISTRESS. ANTHONY. WILL CPOC
--- NOTE | 2018-10-30 22:07 | NUR ---
RECHECKED BP 141/68, GAVE PATIENT BACK BUTTON FOR CHEMOTHERAPIST. APPLIED CALMOSEPTINE CREAM TO LEFT UPPER LEG/BUTTOCK AREA R/T REDNESS AND EXCORIATION, BLANCHABLE. ENCOURAGED PATIENT TO TRY TO LAY ON RIGHT SIDE OR ALTERNATE OFF BACK. PATIENT HAS NO S/SX OF DISCOMFORT AT THIS TIME, BED IN LOWEST POSITION, CALL LIGHT IN REACH.
--- NOTE | 2018-10-31 03:07 | NUR ---
STARTED PATIENTS CEFAZOLIN, CEFAZOLIN FROM PREVIOUS SHIFT WAS SPIKE BUT THE BAG WAS STILL FULL.
[2018-10-31 05:24] VITALS: BP 118/66
[2018-10-31 06:23] LABS: BASOPHILS 0.5 % (0-2); EOSINOPHILS 2.1 % (0-7); HEMATOCRIT 30.8 % (36.0-48.0); HEMOGLOBIN 9.5 g/dL (12-16); IMMATURE GRANULOCYTES 0.9 % (0-5); LYMPHOCYTES 31.9 % (15-50); MCH 25.9 pg (26.0-34.0); MCHC 30.8 g/dL (31.0-37.0); MCV 83.9 fL (80.0-100.0); MEAN PLATELET VOLUME 10.7 fL (7.4-10.4); MONOCYTES 8.8 % (2-11); NEUTROPHILS 55.8 % (40-80); PLATELET COUNT 277 10x3/uL (130-400); RBC 3.67 10x6/uL (4.00-5.40); RDW 13.7 % (11.5-14.5); WBC 8.1 10x3/uL (4.8-10.8)
--- NOTE | 2018-10-31 06:32 | NUR ---
PATIENT RESTING QUIETLY DURING MORNING VITALS, NO S/SX OF DISTRESS OR PAIN NOTED.
[2018-10-31 06:48] LABS: ALKALINE PHOSPHATASE 73 U/L (46-116); ALT (SGPT) 17 U/L (10-68); BILIRUBIN - TOTAL 0.13 mg/dL (0.2-1.3); CALC OSMOLALITY 281 mosm/kg (275-300); CALCIUM 7.8 mg/dL (8.5-10.1); CARBON DIOXIDE 29.4 mmol/L (21.0-32.0); CHLORIDE - SERUM 104 mmol/L (98-107); CREATININE - SERUM 0.8 mg/dL (0.6-1.3); GLUCOSE 100 mg/dL (74-106); SODIUM 141 mmol/L (136-145); UREA NITROGEN 14 mg/dL (7-18); eGFR NON AFRICAN AMERICAN 81 mL/min (90-120)
--- NOTE | 2018-10-31 07:30 | NUR ---
PT AAOX4 RESP EVEN ADN NONLABORED, NO SIGNS OF DISTRTESS NOTED, WILL CONTINUE TO MONITOR CL IN REACH
[2018-10-31 08:00] VITALS: BP 111/62
--- NOTE | 2018-10-31 10:32 | NUR ---
Wound vac dressing change: Right knee surgical incision 1.5cm x 11cm x 2.8cm No odor Wound bed is red and vascular/small bloody drainage No tendon, muscle or bone exposed Used 1 piece black foam to wound bed + 1 piece black foam for TRAC pad Pt tolerated well. -125mmhg moderate continuous Education: Dressing changes (3xweek), healing process. Pt voiced understanding.
[2018-10-31 11:53] VITALS: BP 102/59
[2018-10-31] MEDS ORDERED: Ancef 2 GM/Dextrose IV (12:04)
[2018-10-31] MEDS ORDERED: RIFADIN300 MG PO (12:05)
[2018-10-31] MEDS ORDERED: KLONOPIN0.5 MG PO (12:05)
[2018-10-31] MEDS ORDERED: OXYCODONE-APAP1 TAB PO (12:05)
--- NOTE | 2018-10-31 12:30 | NUR ---
PT AAOX4 RESP EVEN AND NONLABORED, NO SIGNS OF DISTRESS NOTED, SITTING IN BED EATING LUNCH NO QUESTIONS/CONCERNS EXPRESSED
--- NOTE | 2018-10-31 12:34 | MORECARE ---
CASE MANAGEMENT DISCHARGE SUMMARY PATIENT: SALMA SEPULVEDA UNIT: [id number] ADM DATE: 10/19/18 AGE: 48 : 68 SEX: F ROOM/BED: D.1201 AUTHOR: MIRNA,DOC PHYSICIAN: REFERRING PHYSICIAN: NITZA ROMERO MD DATE OF SERVICE: 10/31/18 Discharge Plan Patient Name: SALMA SEPULVEDA Facility: [facility]:[place] : 1970 Planned Disposition: Home with Home Health Anticipated Discharge Date: 10/31/18 Discharge Date: Expected LOS: 12 Initial Reviewer: [email or web address] Initial Review Date: 10/28/2018 Generated: 10/31/18 1:34 pm Comments DCP- Discharge Planning Updated by [email or web address]: Lamar Hogan on 10/28/18 10:[address] Patient Name: SALMA SEPULVEDA Admission Status: ER Accout number: [id number] Admission Date: 10-19-2018 : 1970 Admission Diagnosis:INFECT/INFLM REACTION DUE TO INTERNAL LEFT KNEE PROSTH, Attending: NITZA ROMERO Current LOS: 9 Anticipated DC Date: 10-31-2018 Planned Disposition: Home with Home Health Primary Insurance: MEDICARE A & B Discharge Planning Comments: CM met with patient about discharge planning / needs. Patient states her plan is to discharge home to her cousin's house ([facility] [phone]) at [address] [place] [address]. used to live with her daughter, Lorenza Sepulveda ([phone]) but moved to her cousin's house just prior to hospitalization because she would be able to get 24 hour care at her cousin's house. States she has used [facility] in the past and if she needs home health again for IV infusions or wound vac dressing changes she wants to use the agency again. Patient signed AYAH for [facility]. Patient also informed CM that she has used [facility] previously and if she has to get IV Antibiotics at home upon discharge, she wants to use them for the infusion supplies. Patient states she may need a walker. She had borrowed one previously but doesn't have it anymore. Denies any other discharge planning needs or concerns at this time. States she feels safe at the cousin's house and her cousin will transport her home upon discharge. CM will continue to follow and assist as needed with discharge planning / needs. Hand Outside Cutter: Lamar Hogan DCP- Discharge Planning Updated by [email or web address]: Afshan Fernandezs on 10/20/18 11:[address] 1135 CM went to meet with patient to assess needs. She states she was just medicated for pain and wanted to rest..Will revisit. CM to follow. Previously has opted for outpatient physical therapy in [place]. DCPIA - Discharge Planning Initial Assessment Updated by [email or web address]: Lamar Hogan on 10/28/18 11:49 am * Is the patient Alert and Oriented? Yes * How many steps to enter\exit or inside your home? * PCP NONE * Pharmacy [facility] * Preadmission Environment Home with Family * ADLs Independent * Equipment Wheelchair * List name and contact numbers for known caregivers / representatives who currently or will assist patient after discharge: Lou Sandoval, cousin, Lorenza Sepulveda, daughter, * Verbal permission to speak to the caregivers and representatives has been obtained from the patient. N/A * Community resources currently utilized Home Health * Please name any agencies selected above. [facility], [facility], * Additional services required to return to the preadmission environment? Yes * Can the patient safely return to the preadmission environment? Yes * Has this patient been hospitalized within the prior 30 days at any hospital? No External Providers External Provider: [facility] Next Contact Date: Service Request Date: Service Type: Resolution: Reviewer: Comments: Coverage Notice Reviewer: [id number] - Lamareusebio Hogan Notice Issued Date-Time: 10/28/2018 11:55 Notice Type: Patient Choice Letter Notice Delivered To: Patient Relationship to Patient: Self Research Advisor Name: Delivery Method: HAND - Hand Delivered Kate Days: Prior Verbal Notification: Recipient Understood Notice: Yes Recipient Signature: Yes Med Rec Note Co-signed by Attending: Coverage Notice Comment: Last DP export: 10/28/18 10:56 a Patient Name: SALMA SEPULVEDA Page 70781 at 1234 All edits/amendments must be made on the electronic document DICTATION DATE: 10/31/18 123 NURSE MIDWIFE/CLINICAL INSTRUCTOR: OBDULIO 10/31/18 1233 RPT#: [id number] DC DATE: STATUS: ADM IN [facility] [address] [place] [address] END OF REPORT
--- NOTE | 2018-10-31 12:58 | MORECARE ---
CASE MANAGEMENT DISCHARGE SUMMARY PATIENT: SALMA SEPULVEDA UNIT: [id number] ADM DATE: 10/19/18 AGE: 48 : 68 SEX: F ROOM/BED: D.1201 AUTHOR: MIRNA,DOC PHYSICIAN: REFERRING PHYSICIAN: NITZA ROMERO MD DATE OF SERVICE: 10/31/18 Discharge Plan Patient Name: SALMA SEPULVEDA Facility: [facility]:[place] : 1970 Planned Disposition: Home with Home Health Anticipated Discharge Date: 10/31/18 Discharge Date: Expected LOS: 12 Initial Reviewer: [email or web address] Initial Review Date: 10/28/2018 Generated: 10/31/18 1:57 pm Comments DCP- Discharge Planning Updated by [email or web address]: Lamar Hogan on 10/28/18 10:[address] Patient Name: SALMA SEPULVEDA Admission Status: ER Accout number: [id number] Admission Date: 10-19-2018 : 1970 Admission Diagnosis:INFECT/INFLM REACTION DUE TO INTERNAL LEFT KNEE PROSTH, Attending: NITZA ROMERO Current LOS: 9 Anticipated DC Date: 10-31-2018 Planned Disposition: Home with Home Health Primary Insurance: MEDICARE A & B Discharge Planning Comments: CM met with patient about discharge planning / needs. Patient states her plan is to discharge home to her cousin's house ([facility] [phone]) at [address] [place] [address]. used to live with her daughter, Lorenza Sepulveda ([phone]) but moved to her cousin's house just prior to hospitalization because she would be able to get 24 hour care at her cousin's house. States she has used [facility] in the past and if she needs home health again for IV infusions or wound vac dressing changes she wants to use the agency again. Patient signed AYAH for [facility]. Patient also informed CM that she has used [facility] previously and if she has to get IV Antibiotics at home upon discharge, she wants to use them for the infusion supplies. Patient states she may need a walker. She had borrowed one previously but doesn't have it anymore. Denies any other discharge planning needs or concerns at this time. States she feels safe at the cousin's house and her cousin will transport her home upon discharge. CM will continue to follow and assist as needed with discharge planning / needs. Paramedical Aide: Lamar Hogan DCP- Discharge Planning Updated by [email or web address]: Afshan Fernandezs on 10/20/18 11:[address] 1135 CM went to meet with patient to assess needs. She states she was just medicated for pain and wanted to rest..Will revisit. CM to follow. Previously has opted for outpatient physical therapy in [place]. DCPIA - Discharge Planning Initial Assessment Updated by [email or web address]: Lamar Hogan on 10/28/18 11:49 am * Is the patient Alert and Oriented? Yes * How many steps to enter\exit or inside your home? * PCP NONE * Pharmacy [facility] * Preadmission Environment Home with Family * ADLs Independent * Equipment Wheelchair * List name and contact numbers for known caregivers / representatives who currently or will assist patient after discharge: Lou Sandoval, cousin, Lorenza Sepulveda, daughter, * Verbal permission to speak to the caregivers and representatives has been obtained from the patient. N/A * Community resources currently utilized Home Health * Please name any agencies selected above. [facility], [facility], * Additional services required to return to the preadmission environment? Yes * Can the patient safely return to the preadmission environment? Yes * Has this patient been hospitalized within the prior 30 days at any hospital? No External Providers [facility] Next Contact Date: Service Request Date: Service Type: Resolution: Reviewer: Comments: External Provider: [facility] Next Contact Date: Service Request Date: Service Type: Resolution: Reviewer: Comments: Coverage Notice Reviewer: [id number] - Lamar Hogan Notice Issued Date-Time: 10/28/2018 11:55 Notice Type: Patient Choice Letter Notice Delivered To: Patient Relationship to Patient: Self Transitions Rn Care Coordinator Name: Delivery Method: HAND - Hand Delivered Ktae Days: Prior Verbal Notification: Recipient Understood Notice: Yes Recipient Signature: Yes Med Rec Note Co-signed by Attending: Coverage Notice Comment: Last DP export: 10/31/18 11:34 a Patient Name: SALMA SEPULVEDA Page [phone] at 1258 All edits/amendments must be made on the electronic document DICTATION DATE: 10/31/18 1257 DELIVERY MANAGER: OBDULIO 10/31/18 1257 RPT#: [id number] DC DATE: STATUS: ADM IN [facility] [address] [place] [address] END OF REPORT
--- NOTE | 2018-10-31 13:11 | MORECARE ---
CASE MANAGEMENT DISCHARGE SUMMARY PATIENT: SALMA SEPULVEDA UNIT: [id number] ADM DATE: 10/19/18 AGE: 48 : [birth year] SEX: F ROOM/BED: D.1201 AUTHOR: MIRNA,DOC PHYSICIAN: REFERRING PHYSICIAN: NITZA ROMERO MD DATE OF SERVICE: 10/31/18 Discharge Plan Patient Name: SALMA SEPULVEDA Facility: [facility]:[place] : 1970 Planned Disposition: Home with Home Health Anticipated Discharge Date: 10/31/18 Discharge Date: Expected LOS: 12 Initial Reviewer: [email or web address] Initial Review Date: 10/28/2018 Generated: 10/31/18 2:11 pm Comments DCP- Discharge Planning Updated by [email or web address]: Lamar Hogan on 10/31/18 12:[address] CM received orders for Home Health, IV antibiotics, and wound vac. CM met with patient. explained and served DC IMM. CM contacted Karla Wilcox ([phone]) about wound vac. Faxed records as requested. Instructed Karla that Dr Meade's nurse, Valeria pinedas vac order faxed to [phone]. CM called [facility]. Spoke with Svitlana. Faxed records as requested. Informed HH that patient would discharge to her cousin's home at [address] [place] [id number]. [phone]. CM called [facility]. Spoke with Monica. Agency did not want to accept patient with [facility] for the duration IV Abx are ordered. CM spoke with patient and she selected [facility] for IV Abx. CM called [facility]. Spoke with Danette. Faxed records as requested. CM informed Danette that [facility] be [facility] agency. CM called [facility] and informed them that [facility] would be the infusion company. CM will continue to follow and assist as needed with discharge planning / needs. DCP- Discharge Planning Updated by [id number]: Lamar Hogan on 10/28/18 10:[address] Patient Name: SALMA SEPULVEDA Admission Status: ER Accout number: [id number] Admission Date: 10-19-2018 : 1970 Admission Diagnosis:INFECT/INFLM REACTION DUE TO INTERNAL LEFT KNEE PROSTH, Attending: NITZA ROMERO Current LOS: 9 Anticipated DC Date: 10-31-2018 Planned Disposition: Home with Home Health Primary Insurance: MEDICARE A & B Discharge Planning Comments: CM met with patient about discharge planning / needs. Patient states her plan is to discharge home to her cousin's house ([facility] [phone]) at [address] [place] [address]. States used to live with her daughter, Lorenza Sepulveda ([phone]) but moved to her cousin's house just prior to hospitalization because she would be able to get 24 hour care at her cousin's house. States she has used [facility] in the past and if she needs home health again for IV infusions or wound vac dressing changes she wants to use the agency again. Patient signed AYAH for [facility]. Patient also informed CM that she has used [facility] previously and if she has to get IV Antibiotics at home upon discharge, she wants to use them for the infusion supplies. Patient states she may need a walker. She had borrowed one previously but doesn't have it anymore. Denies any other discharge planning needs or concerns at this time. States she feels safe at the cousin's house and her cousin will transport her home upon discharge. CM will continue to follow and assist as needed with discharge planning / needs. Student Services Advisor: Lamar Hogan DCP- Discharge Planning Updated by [email or web address]: Afshan Durham on 10/20/18 11:[address] 1135 CM went to meet with patient to assess needs. She states she was just medicated for pain and wanted to rest..Will revisit. CM to follow. Previously has opted for outpatient physical therapy in [place]. DCPIA - Discharge Planning Initial Assessment Updated by [email or web address]: Lamar Hogan on 10/28/18 11:49 am * Is the patient Alert and Oriented? Yes * How many steps to enter\exit or inside your home? * PCP NONE * Pharmacy [facility] * Preadmission Environment Home with Family * ADLs Independent * Equipment Wheelchair * List name and contact numbers for known caregivers / representatives who currently or will assist patient after discharge: Lou Sandoval, cousin, Lorenza Sepulveda, daughter, * Verbal permission to speak to the caregivers and representatives has been obtained from the patient. N/A * Community resources currently utilized Home Health * Please name any agencies selected above. [facility], [facility], * Additional services required to return to the preadmission environment? Yes * Can the patient safely return to the preadmission environment? Yes * Has this patient been hospitalized within the prior 30 days at any hospital? No Coverage Notice Reviewer: [id number] Blank Hogan Notice Issued Date-Time: 10/28/2018 11:55 Notice Type: Patient Choice Letter Notice Delivered To: Patient Relationship to Patient: Self Navigation Teacher Name: Delivery Method: HAND - Hand Delivered Kate Days: Prior Verbal Notification: Recipient Understood Notice: Yes Recipient Signature: Yes Med Rec Note Co-signed by Attending: Coverage Notice Comment: Last DP export: 10/31/18 11:58 a Patient Name: SALMA SEPULVEDA Page 42810 at 1311 All edits/amendments must be made on the electronic document DICTATION DATE: 10/31/18 131 POST FORM REMOVER: OBDULIO 10/31/18 1311 RPT#: [id number] DC DATE: STATUS: ADM IN [facility] [address] [place] [address] END OF REPORT
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
--- NOTE | 2018-10-31 15:45 | MORECARE ---
CASE MANAGEMENT DISCHARGE SUMMARY PATIENT: SALMA SEPULVEDA UNIT: [id number] ADM DATE: 10/19/18 AGE: 48 : [birth year] SEX: F ROOM/BED: D.1201 AUTHOR: MIRNA,DOC PHYSICIAN: REFERRING PHYSICIAN: NITZA ROMERO MD DATE OF SERVICE: 10/31/18 Discharge Plan Patient Name: SALMA SEPULVEDA Facility: [facility]:[place] : 1970 Planned Disposition: Home with Home Health Anticipated Discharge Date: 10/31/18 Discharge Date: Expected LOS: 12 Initial Reviewer: [email or web address] Initial Review Date: 10/28/2018 Generated: 10/31/18 4:45 pm Comments DCP- Discharge Planning Updated by [email or web address]: Lamar Hogan on 10/31/18 12:[address] CM received orders for Home Health, IV antibiotics, and wound vac. CM met with patient. explained and served DC IMM. CM contacted Karla Wilcox ([phone]) about wound vac. Faxed records as requested. Instructed Karla that Dr Meade's nurse, Valeria pinedas vac order faxed to [phone]. CM called [facility]. Spoke with Svitlana. Faxed records as requested. Informed HH that patient would discharge to her cousin's home at [address] [place] [id number]. [facility] [phone]. CM called [facility]. Spoke with Monica. Agency did not want to accept patient with [facility] for the duration IV Abx are ordered. CM spoke with patient and she selected [facility] for IV Abx. CM called [facility]. Spoke with Danette. Faxed records as requested. CM informed Danette that [facility] agency. CM called [facility] and informed them that [facility] would be the infusion company. CM will continue to follow and assist as needed with discharge planning / needs. DCP- Discharge Planning Updated by [email or web address]: Lamar Hogan on 10/28/18 10:[address] Patient Name: SALMA SEPULVEDA Admission Status: ER Accout number: [id number] Admission Date: 10-19-2018 : 1970 Admission Diagnosis:INFECT/INFLM REACTION DUE TO INTERNAL LEFT KNEE PROSTH, Attending: NITZA ROMERO Current LOS: 9 Anticipated DC Date: 10-31-2018 Planned Disposition: Home with Home Health Primary Insurance: MEDICARE A & B Discharge Planning Comments: CM met with patient about discharge planning / needs. Patient states her plan is to discharge home to her cousin's house ([facility] [phone]) at [address] [place] [address]. States used to live with her daughter, Lorenza Sepulveda ([phone]) but moved to her cousin's house just prior to hospitalization because she would be able to get 24 hour care at her cousin's house. States she has used [facility] in the past and if she needs home health again for IV infusions or wound vac dressing changes she wants to use the agency again. Patient signed A[facility]AH for [facility]. Patient also informed CM that she has used [facility] previously and if she has to get IV Antibiotics at home upon discharge, she wants to use them for the infusion supplies. Patient states she may need a walker. She had borrowed one previously but doesn't have it anymore. Denies any other discharge planning needs or concerns at this time. States she feels safe at the cousin's house and her cousin will transport her home upon discharge. CM will continue to follow and assist as needed with discharge planning / needs. Credit Investigator: Lamar Hogan DCP- Discharge Planning Updated by [email or web address]: Afshan Durham on 10/20/18 11:[address] 1135 CM went to meet with patient to assess needs. She states she was just medicated for pain and wanted to rest..Will revisit. CM to follow. Previously has opted for outpatient physical therapy in [place]. DCPIA - Discharge Planning Initial Assessment Updated by [email or web address]: Lamar Hogan on 10/28/18 11:49 am * Is the patient Alert and Oriented? Yes * How many steps to enter\exit or inside your home? * PCP NONE * Pharmacy [facility] * Preadmission Environment Home with Family * ADLs Independent * Equipment Wheelchair * List name and contact numbers for known caregivers / representatives who currently or will assist patient after discharge: Lou Sandoval, cousin, Lorenza Sepulveda, daughter, * Verbal permission to speak to the caregivers and representatives has been obtained from the patient. N/A * Community resources currently utilized Home Health * Please name any agencies selected above. [facility], [facility], * Additional services required to return to the preadmission environment? Yes * Can the patient safely return to the preadmission environment? Yes * Has this patient been hospitalized within the prior 30 days at any hospital? No External Providers External Provider: [facility] Next Contact Date: Service Request Date: Service Type: Resolution: Reviewer: Comments: Coverage Notice Reviewer: [id number] Blank Hogan Notice Issued Date-Time: 10/28/2018 11:55 Notice Type: Patient Choice Letter Notice Delivered To: Patient Relationship to Patient: Self Cement Mixer Name: Delivery Method: HAND - Hand Delivered Kate Days: Prior Verbal Notification: Recipient Understood Notice: Yes Recipient Signature: Yes Med Rec Note Co-signed by Attending: Coverage Notice Comment: Last DP export: 10/31/18 12:11 p Patient Name: SALMA SEPULVEDA Page 12157 at 1545 All edits/amendments must be made on the electronic document DICTATION DATE: 10/31/18 1545 ASH WORKER: OBDULIO 10/31/18 154 RPT#: [id number] DC DATE: STATUS: ADM IN [facility] [address] [place] [address] END OF REPORT
[2018-10-31 16:00] VITALS: BP 126/75
--- NOTE | 2018-10-31 16:04 | MORECARE ---
CASE MANAGEMENT DISCHARGE SUMMARY PATIENT: SALMA SEPULVEDA UNIT: [id number] ADM DATE: 10/19/18 AGE: 48 : 68 SEX: F ROOM/BED: D.1201 AUTHOR: MIRNA,DOC PHYSICIAN: REFERRING PHYSICIAN: NITZA ROMERO MD DATE OF SERVICE: 10/31/18 Discharge Plan Patient Name: SALMA SEPULVEDA Facility: [facility]:[place] : 1970 Planned Disposition: Home with Home Health Anticipated Discharge Date: 10/31/18 Discharge Date: Expected LOS: 12 Initial Reviewer: [email or web address] Initial Review Date: 10/28/2018 Generated: 10/31/18 5:04 pm Comments DCP- Discharge Planning Updated by [email or web address]: Marlin Zuleta on 10/31/18 3:[address] Patient Name: SALMA SEPULVEDA Admission Status: ER Accout number: [id number] Admission Date: 10-19-2018 : 1970 Admission Diagnosis:INFECT/INFLM REACTION DUE TO INTERNAL LEFT KNEE PROSTH, Attending: NITZA ROMERO Current LOS: 12 Anticipated DC Date: 10-31-2018 Planned Disposition: Home with Home Health Primary Insurance: MEDICARE A & B Discharge Planning Comments: CM RECEIVED CALL FROM [address] AND CANNOT ACCEPT PATIENT. CALLED [facility] AND FAXED REFERRAL TO THEM, THEY STATE WILL BE SATURDAY BEFORE THEY CAN RUN HER INSURANCE BECAUSE COMPANIES ARE CLOSED NOW. STATES WILL CONTACT US SATURDAY AFTER GETTING AUTH. [facility]OS[facility] [place] CALLED AND WILL ACCEPT THE PATIENT. PAPERS SIGNED AND FAXED TO [facility], WAITING FOR APPROVAL. Crozer Operator: Marlin Zuleta DCP- Discharge Planning Updated by [id number]: Lamar Hogan on 10/31/18 12:[address] CM received orders for Home Health, IV antibiotics, and wound vac. CM met with patient. explained and served DC IMM. CM contacted Karla Wilcox ([phone]) about wound vac. Faxed records as requested. Instructed Karla that Dr Meade's nurse, Valeria pinedas vac order faxed to [phone]. CM called [facility]. Spoke with Svitlana. Faxed records as requested. Informed HH that patient would discharge to her cousin's home at [address] [place], [place] [id number]. Emergency contact will be Caio Elliott [phone]. CM called [facility]. Spoke with Monica. Agency did not want to accept patient with [facility] for the duration IV Abx are ordered. CM spoke with patient and she selected [facility] for IV Abx. CM called [facility]. Spoke with Danette. Faxed records as requested. CM informed Danette that [facility]. CM called [facility] and informed them that [facility] would be the infusion company. CM will continue to follow and assist as needed with discharge planning / needs. DCP- Discharge Planning Updated by [email or web address]: Lamar Hogan on 10/28/18 10:[address] Patient Name: SALMA SEPULVEDA Admission Status: ER Accout number: [id number] Admission Date: 10-19-2018 : 1970 Admission Diagnosis:INFECT/INFLM REACTION DUE TO INTERNAL LEFT KNEE PROSTH, Attending: NITZA ROMERO Current LOS: 9 Anticipated DC Date: 10-31-2018 Planned Disposition: Home with Home Health Primary Insurance: MEDICARE A & B Discharge Planning Comments: CM met with patient about discharge planning / needs. Patient states her plan is to discharge home to her cousin's house (Lou Jaime [phone]) at [address] [place] [address]. States used to live with her daughter, Lorenza Sepulveda ([phone]) but moved to her cousin's house just prior to hospitalization because she would be able to get 24 hour care at her cousin's house. States she has used [facility] in the past and if she needs home health again for IV infusions or wound vac dressing changes she wants to use the agency again. Patient signed A[facility]AH for [facility]. Patient also informed CM that she has used [facility] previously and if she has to get IV Antibiotics at home upon discharge, she wants to use them for the infusion supplies. Patient states she may need a walker. She had borrowed one previously but doesn't have it anymore. Denies any other discharge planning needs or concerns at this time. States she feels safe at the cousin's house and her cousin will transport her home upon discharge. CM will continue to follow and assist as needed with discharge planning / needs. Crozer Operator: Lamar Hogan DCP- Discharge Planning Updated by [id number]: Afshan Fernandezs on 10/20/18 11:[address] 1135 CM went to meet with patient to assess needs. She states she was just medicated for pain and wanted to rest..Will revisit. CM to follow. Previously has opted for outpatient physical therapy in [place]. DCPIA - Discharge Planning Initial Assessment Updated by [email or web address]: Lamar Hogan on 10/28/18 11:49 am * Is the patient Alert and Oriented? Yes * How many steps to enter\exit or inside your home? * PCP NONE * Pharmacy [facility] * Preadmission Environment Home with Family * ADLs Independent * Equipment Wheelchair * List name and contact numbers for known caregivers / representatives who currently or will assist patient after discharge: Lou Sandoval, cousin, Lorenza Sepulveda, daughter, * Verbal permission to speak to the caregivers and representatives has been obtained from the patient. N/A * Community resources currently utilized Home Health * Please name any agencies selected above. [facility], [facility], * Additional services required to return to the preadmission environment? Yes * Can the patient safely return to the preadmission environment? Yes * Has this patient been hospitalized within the prior 30 days at any hospital? No Coverage Notice Reviewer: [id number] - Lamar Hogan Notice Issued Date-Time: 10/28/2018 11:55 Notice Type: Patient Choice Letter Notice Delivered To: Patient Relationship to Patient: Self Predatory Animal Trapper Name: Delivery Method: HAND - Hand Delivered Kate Days: Prior Verbal Notification: Recipient Understood Notice: Yes Recipient Signature: Yes Med Rec Note Co-signed by Attending: Coverage Notice Comment: Last DP export: 10/31/18 2:45 p Patient Name: SALMA SEPULVEDA Page 75506 at 1604 All edits/amendments must be made on the electronic document DICTATION DATE: 10/31/18 1604 PROJECT DEVELOPMENT DIRECTOR: OBDULIO 10/31/18 1604 RPT#: [id number] DC DATE: STATUS: ADM IN [facility] [address] [place] [address] END OF REPORT
--- NOTE | 2018-10-31 18:18 | NUR ---
RESTING QUIETLY IN BED. DENIES NEEDS. ANXIOUS TO GO HOME.
[2018-10-31 20:00] VITALS: BP 145/82
[2018-11-01] VITALS: BP 112/76
[2018-11-01 04:00] VITALS: BP 106/58
[2018-11-01 07:28] LABS: BASOPHILS 0.4 % (0-2); EOSINOPHILS 2.7 % (0-7); HEMATOCRIT 32.6 % (36.0-48.0); HEMOGLOBIN 10.1 g/dL (12-16); IMMATURE GRANULOCYTES 0.7 % (0-5); LYMPHOCYTES 28.7 % (15-50); MCH 26.2 pg (26.0-34.0); MCV 84.5 fL (80.0-100.0); MONOCYTES 9.5 % (2-11); PLATELET COUNT 276 10x3/uL (130-400); RBC 3.86 10x6/uL (4.00-5.40); RDW 14.2 % (11.5-14.5); WBC 8.2 10x3/uL (4.8-10.8)
[2018-11-01 07:29] LABS: CALC OSMOLALITY 275 mosm/kg (275-300); CALCIUM 8.1 mg/dL (8.5-10.1); CARBON DIOXIDE 30.5 mmol/L (21.0-32.0); CHLORIDE - SERUM 101 mmol/L (98-107); CREATININE - SERUM 0.8 mg/dL (0.6-1.3); GLUCOSE 107 mg/dL (74-106); POTASSIUM - SERUM 4.5 mmol/L (3.5-5.1); SODIUM 138 mmol/L (136-145); UREA NITROGEN 13 mg/dL (7-18); eGFR NON AFRICAN AMERICAN 81 mL/min (90-120)
--- NOTE | 2018-11-01 09:00 | NUR ---
DENIES ANY NEEDS AT THIS TIME.
[2018-11-01 16:13] VITALS: BP 112/67
--- NOTE | 2018-11-01 19:31 | NUR ---
PATIENT RESTING IN BED WITH EYES CLOSED AND NO S/S OF DISTRESS. BED IN LOWEST POSITION AND CALL LIGHT WITHIN REACH. ENCOURAGED THE PATIENT TO CALL IF SHE HAS NEEDS. WILL CONTINUE TO MONITOR.
[2018-11-01 19:39] VITALS: BP 107/50
[2018-11-01 23:31] VITALS: BP 124/73
[2018-11-02 04:24] VITALS: BP 102/52
[2018-11-02 06:28] LABS: BASOPHILS 0.5 % (0-2); HEMATOCRIT 35.1 % (36.0-48.0); HEMOGLOBIN 10.9 g/dL (12-16); IMMATURE GRANULOCYTES 0.9 % (0-5); MCH 26.7 pg (26.0-34.0); MCHC 31.1 g/dL (31.0-37.0); MCV 85.8 fL (80.0-100.0); MONOCYTES 9.7 % (2-11); NEUTROPHILS 57.9 % (40-80); PLATELET COUNT 289 10x3/uL (130-400); RBC 4.09 10x6/uL (4.00-5.40); RDW 14.4 % (11.5-14.5); WBC 8.4 10x3/uL (4.8-10.8)
[2018-11-02 06:51] LABS: C-REACTIVE PROTEIN 2.9 mg/dL (0.0-0.9); CALC OSMOLALITY 276 mosm/kg (275-300); CALCIUM 8.2 mg/dL (8.5-10.1); CARBON DIOXIDE 32.4 mmol/L (21.0-32.0); CHLORIDE - SERUM 100 mmol/L (98-107); CREATININE - SERUM 0.8 mg/dL (0.6-1.3); GLUCOSE 105 mg/dL (74-106); POTASSIUM - SERUM 4.8 mmol/L (3.5-5.1); SODIUM 138 mmol/L (136-145); UREA NITROGEN 15 mg/dL (7-18); eGFR NON AFRICAN AMERICAN 81 mL/min (90-120)
--- NOTE | 2018-11-02 07:46 | NUR ---
PT AAOX4 RESP EVEN AND NONLABORED, NO SIGNS OF DISTRESS NOTED, NO QUESTIONS/CONCERNS EXPRESSED WILL CONTINUE TO MONITOR CL IN REACH
[2018-11-02 07:56] LABS: ERYTHROCYTE SEDIMENTATION RATE 56 mm/hr (0-20)
[2018-11-02 08:57] VITALS: BP 91/47
[2018-11-02 11:00] VITALS: BP 96/46
[2018-11-02 15:00] VITALS: BP 115/55
--- NOTE | 2018-11-02 15:37 | NUR ---
RESTING QUIETLY IN BED. DENIES ANY NEEDS AT THIS TIME.
[2018-11-02 19:45] VITALS: BP 106/56
--- NOTE | 2018-11-02 20:33 | NUR ---
PATIENT RESTING IN BED WITH GUESTS AT BEDSIDE. ADMINISTERED MEDS PER ORDERS. GAVE PATIENT ICE FOR HER LEFT KNEE AND BROUGHT HER A DRINK AND SNACK PER HER REQUEST. PATIENT DENIES OTHER NEEDS AT THIS TIME. BED IN LOWEST POSITION AND CALL LIGHT WITHIN REACH. ENCOURAGED THE PATIENT TO CALL IF SHE HAS NEEDS. WILL CONTINUE TO MONITOR.
[2018-11-02 23:55] VITALS: BP 104/52
[2018-11-03 03:55] VITALS: BP 102/53
[2018-11-03 06:56] LABS: BASOPHILS 0.4 % (0-2); EOSINOPHILS 1.8 % (0-7); HEMATOCRIT 35.9 % (36.0-48.0); HEMOGLOBIN 11.2 g/dL (12-16); IMMATURE GRANULOCYTES 0.5 % (0-5); MCH 26.4 pg (26.0-34.0); MCHC 31.2 g/dL (31.0-37.0); MCV 84.7 fL (80.0-100.0); MEAN PLATELET VOLUME 10.8 fL (7.4-10.4); MONOCYTES 9.9 % (2-11); NEUTROPHILS 67.4 % (40-80); PLATELET COUNT 262 10x3/uL (130-400); RBC 4.24 10x6/uL (4.00-5.40); RDW 14.4 % (11.5-14.5)
[2018-11-03 06:58] LABS: WBC 11.5 10x3/uL (4.8-10.8)
[2018-11-03 07:08] LABS: CALC OSMOLALITY 271 mosm/kg (275-300); CALCIUM 8.6 mg/dL (8.5-10.1); CARBON DIOXIDE 30.1 mmol/L (21.0-32.0); CHLORIDE - SERUM 97 mmol/L (98-107); CREATININE - SERUM 0.8 mg/dL (0.6-1.3); GLUCOSE 100 mg/dL (74-106); POTASSIUM - SERUM 4.3 mmol/L (3.5-5.1); SODIUM 136 mmol/L (136-145); UREA NITROGEN 12 mg/dL (7-18); eGFR NON AFRICAN AMERICAN 81 mL/min (90-120)
[2018-11-03 08:35] VITALS: BP 98/56
--- NOTE | 2018-11-03 11:20 | MORECARE ---
CASE MANAGEMENT DISCHARGE SUMMARY PATIENT: SALMA SEPULVEDA UNIT: [id number] ADM DATE: 10/19/18 AGE: 48 : 68 SEX: F ROOM/BED: D.1201 AUTHOR: MIRNA,DOC PHYSICIAN: REFERRING PHYSICIAN: NITZA ROMERO MD DATE OF SERVICE: 11/03/18 Discharge Plan Patient Name: SALMA SEPULVEDA Facility: [facility]:[place] : 1970 Planned Disposition: Home with Home Health Anticipated Discharge Date: 10/31/18 Discharge Date: Expected LOS: 12 Initial Reviewer: [email or web address] Initial Review Date: 10/28/2018 Generated: 11/03/18 12:20 pm Comments DCP- Discharge Planning Updated by [email or web address]: Afshan Durham on 11/03/18 10:[address] LATE ENTRY 1000 RECEIVED TELEPHONE CALL FROM LAMAR WITH [facility] AT [phone]. ADVISED CM WILL CONTACT [facility] TO VERIFY STATUS OF SN COVERAGE. WILL LAMAR WHEN HOME HEALTH IS CONFIRMED. 1103 TC TO [facility]. AWAITED CB FROM CHIQUI SHE WAS ON THE PHONE. REC CB . CHIQUI STATES SHE HAS BEEN COMMUNICATING WITH THE INSURANCE COMPANY AND HER WOOD BORING MACHINE OPERATOR IN [place]. THE INSURANCE COMPANY HAS NOT APPROVED NURSING AT THIS TIME. SHE MUST COMPLETE ADDITIONAL INSURANCE FORMS. TC TO UPDATE [facility] ABOUT STATUS OF DISCHARGE. ADVISED THE PRIMARY NURSE OF PRESENT STATUS. DCP- Discharge Planning Updated by [email or web address]: Marlin Zuleta on 10/31/18 3:[address] Patient Name: SALMA SEPULVEDA Admission Status: ER Accout number: [id number] Admission Date: 10-19-2018 : 1970 Admission Diagnosis:INFECT/INFLM REACTION DUE TO INTERNAL LEFT KNEE PROSTH, Attending: NITZA ROMERO Current LOS: 12 Anticipated DC Date: 10-31-2018 Planned Disposition: Home with Home Health Primary Insurance: MEDICARE A & B Discharge Planning Comments: CM RECEIVED CALL FROM [facility] AND CANNOT ACCEPT PATIENT. CALLED [facility] AND FAXED REFERRAL TO THEM, THEY STATE WILL BE SATURDAY BEFORE THEY CAN RUN HER INSURANCE BECAUSE COMPANIES ARE CLOSED NOW. STATES WILL CONTACT US SATURDAY AFTER GETTING AUTH. [facility] CALLED AND WILL ACCEPT THE PATIENT. PAPERS SIGNED AND FAXED TO [facility], WAITING FOR APPROVAL. Gas Pump Attendant: Marlin Zuleta DCP- Discharge Planning Updated by [email or web address]: Lamar Hogan on 10/31/18 12:[address] CM received orders for Home Health, IV antibiotics, and wound vac. CM met with patient. explained and served DC IMM. CM contacted Karla Wilcox ([phone]) about wound vac. Faxed records as requested. Instructed Karla that Dr Meade's nurse, Valeria wants vac order faxed to [phone]. CM called [facility]. Spoke with Svtilana. Faxed records as requested. Informed HH that patient would discharge to her cousin's home at [address] [place] [address]. Emergency contact will be Lou JaimeCaio [phone]. CM called [facility]. Spoke with Monica. Agency did not want to accept patient with [facility] for the duration IV Abx are ordered. CM spoke with patient and she selected [facility] for IV Abx. CM called [facility]. Spoke with Danette. Faxed records as requested. CM informed Danette that [facility] would be Home Health agency. CM called [facility] and informed them that [facility] would be the infusion company. CM will continue to follow and assist as needed with discharge planning / needs. DCP- Discharge Planning Updated by [email or web address]: Lamar Hogan on 10/28/18 10:[address] Patient Name: SALMA SEPULVEDA Admission Status: ER Accout number: [id number] Admission Date: 10-19-2018 : 1970 Admission Diagnosis:INFECT/INFLM REACTION DUE TO INTERNAL LEFT KNEE PROSTH, Attending: NITZA ROMERO Current LOS: 9 Anticipated DC Date: 10-31-2018 Planned Disposition: Home with Home Health Primary Insurance: MEDICARE A & B Discharge Planning Comments: CM met with patient about discharge planning / needs. Patient states her plan is to discharge home to her cousin's house (Lou Jaime [phone]) at [address] [place] [address]. States used to live with her daughter, Lorenza Sepulvead ([phone]) but moved to her cousin's house just prior to hospitalization because she would be able to get 24 hour care at her cousin's house. States she has used [facility] in the past and if she needs home health again for IV infusions or wound vac dressing changes she wants to use the agency again. Patient signed AYAH for [facility]. Patient also informed CM that she has used [facility] previously and if she has to get IV Antibiotics at home upon discharge, she wants to use them for the infusion supplies. Patient states she may need a walker. She had borrowed one previously but doesn't have it anymore. Denies any other discharge planning needs or concerns at this time. States she feels safe at the cousin's house and her cousin will transport her home upon discharge. CM will continue to follow and assist as needed with discharge planning / needs. Gas Pump Attendant: Lamar Hogan DCP- Discharge Planning Updated by [email or web address]: Afshan Durham on 10/20/18 11:[address] 1135 CM went to meet with patient to assess needs. She states she was just medicated for pain and wanted to rest..Will revisit. CM to follow. Previously has opted for outpatient physical therapy in [place]. DCPIA - Discharge Planning Initial Assessment Updated by [email or web address]: Lamar Hogan on 10/28/18 11:49 am * Is the patient Alert and Oriented? Yes * How many steps to enter\exit or inside your home? * PCP NONE * Pharmacy [facility] * Preadmission Environment Home with Family * ADLs Independent * Equipment Wheelchair * List name and contact numbers for known caregivers / representatives who currently or will assist patient after discharge: Lou Sandoval, cousin, Lorenza Sepulveda, daughter, * Verbal permission to speak to the caregivers and representatives has been obtained from the patient. N/A * Community resources currently utilized Home Health * Please name any agencies selected above. [facility], [facility], * Additional services required to return to the preadmission environment? Yes * Can the patient safely return to the preadmission environment? Yes * Has this patient been hospitalized within the prior 30 days at any hospital? No Coverage Notice Reviewer: [id number] - Lamar Hogan Notice Issued Date-Time: 10/28/2018 11:55 Notice Type: Patient Choice Letter Notice Delivered To: Patient Relationship to Patient: Self Plasma Specialist Name: Delivery Method: HAND - Hand Delivered Kate Days: Prior Verbal Notification: Recipient Understood Notice: Yes Recipient Signature: Yes Med Rec Note Co-signed by Attending: Coverage Notice Comment: Last DP export: 10/31/18 3:04 p Patient Name: SALMA SEPULVEDA Page [id number] at 1120 All edits/amendments must be made on the electronic document DICTATION DATE: 11/03/18 111 PLUG CUTTING MACHINE OPERATOR: OBDULIO 11/03/18 1119 RPT#: [id number] DC DATE: STATUS: ADM IN [facility] [address] [place] [address] END OF REPORT
[2018-11-03 11:38] VITALS: BP 100/67
--- NOTE | 2018-11-03 13:55 | NUR ---
WOUND TYPE: SURGICAL WOUND LOCATION: RIGHT KNEE MEASUREMENT DATE: 11/03/18 1,5CN X 19CN X 1,5CN (IMPROVED) FULL THICKNESS? YES MUSCLE, TENDON OR BONE EXPOSED? NO UNDERMINING? NO TUNNELING/SINUS? NO APPEARANCE OF WOUND BED : RED/BEEFY EXUDATE (AMOUNT, COLOR, ODOR): SMALL BLOODY FOAM TYPE: BLACK 1 PIECE TO WOUND BED + 1 PIECE FOR TRAC PAD EDUCATION: TROUBLESHOOTING ALARMS SETTINGS: -125MMHG MOD CONTINUOUS PT TOLERATED WELL.
--- NOTE | 2018-11-03 14:13 | NUR ---
RN ROUNDING DONE WITH JAY JAY MOSCOSO RN WOUND CARE IN ROOM AT THIS TIME CHANGING LEFT KNEE WOUND VAC OUT.
[2018-11-03 15:37] VITALS: BP 108/70
--- NOTE | 2018-11-03 17:38 | NUR ---
PATIENT LYING IN BED RESTING. HAVING ANXIETY R/T EXPECTED TO BE DISCHARGED BUT UNABLE DUE TO INSURANCE APPROVAL FOR HOME HEALTH. FAMILY AT BEDSIDE.
--- NOTE | 2018-11-03 18:15 | MORECARE ---
CASE MANAGEMENT DISCHARGE SUMMARY PATIENT: SALMA SEPULVEDA UNIT: [id number] ADM DATE: 10/19/18 AGE: 48 : 68 SEX: F ROOM/BED: D.1201 AUTHOR: MIRNA,DOC PHYSICIAN: REFERRING PHYSICIAN: NITZA ROMERO MD DATE OF SERVICE: 11/03/18 Discharge Plan Patient Name: SALMA SEPULVEDA Facility: [facility]:[place] : 1970 Planned Disposition: Home with Home Health Anticipated Discharge Date: 10/31/18 Discharge Date: Expected LOS: 12 Initial Reviewer: [email or web address] Initial Review Date: 10/28/2018 Generated: 11/03/18 7:14 pm Comments DCP- Discharge Planning Updated by [email or web address]: Afshan Durham on 11/03/18 5:[address] LATE ENTRY 1415 CM SPOKE WITH [facility] SHOOTING GALLERY OPERATOR, JAYSON, THIS PM AT [phone]. WOUND VAC WAS APPROVED. MARS FAXED PROOF OF DELIVERY FORM TO [employer]. CALLED AND SPOKE WITH DEBORAH AT 1350. SHE STATED SHE WOULD DELIVER THE UNIT AND OBTAIN SIGNATURE. WOUND VAC UNIT AT [place] [address] NURSE' STATION. STAFF AWARE. MARS HAD CALLED TO CHECK WITH CHIQUI AT [facility] EARLIER THIS PM. SHE WAS GOING INTO A MEETING. CM LEFT PHONE NUMBER. [facility] READY FOR IVAB DELIVERY WHEN NURSING OBTAINED. WOUND VAC SUPPLIES AVAILABLE AWAITING INSURANCE PROVIDER TO APPROVE HALFWAY CARE ! MARS HAD UPDATED THE PATIENT EARLIER. HER DAUGHTER CAME TO THE DESK THIS PM. MARS PROVIDED HER [employer] PHONE NUMBER SO THAT SHE COULD SPEAK WITH [facility] DIRECTLY REGARDING THE INSURANCE CHALLENGES. DCP- Discharge Planning Updated by [id number]: Afshan Durham on 11/03/18 10:[address] LATE ENTRY 1000 RECEIVED TELEPHONE CALL FROM LAMAR WITH [facility] AT [phone]. ADVISED CM WILL CONTACT [facility] TO VERIFY STATUS OF SN COVERAGE. WILL LAMAR WHEN HOME HEALTH IS CONFIRMED. 1103 TC TO [facility]. AWAITED CB FROM CHIQUI SHE WAS ON THE PHONE. REC CB . CHIQUI STATES SHE HAS BEEN COMMUNICATING WITH THE INSURANCE COMPANY AND HER SLUNK SKINNER IN [place]. THE INSURANCE COMPANY HAS NOT APPROVED NURSING AT THIS TIME. SHE MUST COMPLETE ADDITIONAL INSURANCE FORMS. TC TO UPDATE [facility] ABOUT STATUS OF DISCHARGE. ADVISED THE PRIMARY NURSE OF PRESENT STATUS. DCP- Discharge Planning Updated by [email or web address]: Marlin Zuleta on 10/31/18 3:[address] Patient Name: SALMA SEPULVEDA Admission Status: ER Accout number: [id number] Admission Date: 10-19-2018 : 1970 Admission Diagnosis:INFECT/INFLM REACTION DUE TO INTERNAL LEFT KNEE PROSTH, Attending: NITZA ROMERO Current LOS: 12 Anticipated DC Date: 10-31-2018 Planned Disposition: Home with Home Health Primary Insurance: MEDICARE A & B Discharge Planning Comments: CM RECEIVED CALL FROM [address] AND CANNOT ACCEPT PATIENT. CALLED [facility] AND FAXED REFERRAL TO THEM, THEY STATE WILL BE SATURDAY BEFORE THEY CAN RUN HER INSURANCE BECAUSE COMPANIES ARE CLOSED NOW. STATES WILL CONTACT US SATURDAY AFTER GETTING AUTH. JOSÉ MANUEL [facility] CALLED AND WILL ACCEPT THE PATIENT. PAPERS SIGNED AND FAXED TO [facility], WAITING FOR APPROVAL. Publication Designer: Marlineusebio Zuleta DCP- Discharge Planning Updated by [email or web address]: Lamar Hogan on 10/31/18 12:[address] CM received orders for Home Health, IV antibiotics, and wound vac. CM met with patient. explained and served DC IMM. CM contacted Karla Wilcox ([phone]) about wound vac. Faxed records as requested. Instructed Karla that Dr Meade's nurse, Valeria wants vac order faxed to [phone]. CM called [facility]. Spoke with Svitlana. Faxed records as requested. Informed HH that patient would discharge to her cousin's home at [address] [place] [address]. Emergency contact will be Toby Elliottsin [phone]. CM called [facility]. Spoke with Monica. Agency did not want to accept patient with [facility] for the duration IV Abx are ordered. CM spoke with patient and she selected [facility] for IV Abx. CM called [facility]. Spoke with Danette. Faxed records as requested. CM informed Danette that [facility] Home Health agency. CM called [facility] and informed them that [facility] would be the infusion company. CM will continue to follow and assist as needed with discharge planning / needs. DCP- Discharge Planning Updated by [id number]: Lamar Hogan on 10/28/18 10:[address] Patient Name: SALMA SEPULVEDA Admission Status: ER Accout number: [id number] Admission Date: 10-19-2018 : 1970 Admission Diagnosis:INFECT/INFLM REACTION DUE TO INTERNAL LEFT KNEE PROSTH, Attending: NITZA ROMERO Current LOS: 9 Anticipated DC Date: 10-31-2018 Planned Disposition: Home with Home Health Primary Insurance: MEDICARE A & B Discharge Planning Comments: CM met with patient about discharge planning / needs. Patient states her plan is to discharge home to her cousin's house ([facility] [phone]) at [address] [place] [address]. States used to live with her daughter, Lorenza Sepulveda ([phone]) but moved to her cousin's house just prior to hospitalization because she would be able to get 24 hour care at her cousin's house. States she has used [facility] in the past and if she needs home health again for IV infusions or wound vac dressing changes she wants to use the agency again. Patient signed AYAH for [facility]. Patient also informed CM that she has used [facility] previously and if she has to get IV Antibiotics at home upon discharge, she wants to use them for the infusion supplies. Patient states she may need a walker. She had borrowed one previously but doesn't have it anymore. Denies any other discharge planning needs or concerns at this time. States she feels safe at the cousin's house and her cousin will transport her home upon discharge. CM will continue to follow and assist as needed with discharge planning / needs. Publication Designer: Lamar Hogan DCP- Discharge Planning Updated by [email or web address]: Afshan Durham on 10/20/18 11:[address] 1135 CM went to meet with patient to assess needs. She states she was just medicated for pain and wanted to rest..Will revisit. CM to follow. Previously has opted for outpatient physical therapy in [place]. DCPIA - Discharge Planning Initial Assessment Updated by [email or web address]: Lamar Hogan on 10/28/18 11:49 am * Is the patient Alert and Oriented? Yes * How many steps to enter\exit or inside your home? * PCP NONE * Pharmacy [facility] * Preadmission Environment Home with Family * ADLs Independent * Equipment Wheelchair * List name and contact numbers for known caregivers / representatives who currently or will assist patient after discharge: Lou Sandoval, cousin, Lorenza Sepulveda, daughter, * Verbal permission to speak to the caregivers and representatives has been obtained from the patient. N/A * Community resources currently utilized Home Health * Please name any agencies selected above. [facility], [facility], * Additional services required to return to the preadmission environment? Yes * Can the patient safely return to the preadmission environment? Yes * Has this patient been hospitalized within the prior 30 days at any hospital? No Coverage Notice Reviewer: [id number] Blank Hogan Notice Issued Date-Time: 10/28/2018 11:55 Notice Type: Patient Choice Letter Notice Delivered To: Patient Relationship to Patient: Self Shredding Specialist Name: Delivery Method: HAND - Hand Delivered Kate Days: Prior Verbal Notification: Recipient Understood Notice: Yes Recipient Signature: Yes Med Rec Note Co-signed by Attending: Coverage Notice Comment: Last DP export: 11/03/18 10:20 a Patient Name: SALMA SEPULVEDA Page 33554 at 1815 All edits/amendments must be made on the electronic document DICTATION DATE: 11/03/181813 CUTTING MACHINE FIXER: OBDULIO 11/03/181813 RPT#: [id number] DC DATE: STATUS: ADM IN [facility] [address] [place] [address] END OF REPORT
--- NOTE | 2018-11-03 19:55 | NUR ---
PATIENT VOMITING. RAJESH BECERRA AT BEDSIDE. ADMINISTERED ZOFRAN. PATIENT STATED THE NAUSEA STARTED WHEN SHE STARTED TAKING HER PAIN PILLS. I TOLD THE PATIENT THAT I WOULD GET HER ODT ZOFRAN FROM PHARMACY AND START ADMINISTERING WITH HER PAIN MEDICATION TO SEE IF THAT HELPS. THE PATIENT AGREES. PATIENT DENIES OTHER NEEDS AT THIS TIME. BED IN LOWEST POSITION AND CALL LIGHT WITHIN REACH. ENCOURAGED THE PATIENT TO CALL IF SHE HAS NEEDS. WILL CONTINUE TO MONITOR.
[2018-11-03 20:00] VITALS: BP 135/74
[2018-11-04] VITALS (7 sets, daily range): BP systolic 113–148; BP diastolic 67–85
--- NOTE | 2018-11-04 00:38 | NUR ---
PATIENT C/O OF SWEATING AND PATIENT STATING "I JUST DON'T FEEL GOOD". GAVE PATIENT A BED BATH AND CHANGED ALL OF HER LINENS. PATIENT REQUESTED I BRING HER PAIN PILL WHEN IT IS DUE AT 0120. PATIENT HAS REDNESS AND BREAKDOWN TO HER BUTTOCK AND INNER THIGH PRIMARILY ON HER LEFT SIDE. PATIENT DENIES OTHER NEEDS AT THIS TIME. BED IN LOWEST POSITION AND CALL LIGHT WITHIN REACH. ENCOURAGED THE PATIENT TO CALL IF SHE HAS NEEDS.
--- NOTE | 2018-11-04 02:05 | NUR ---
PATIENT RESTING IN BED WITH EYES CLOSED AND NO S/S OF DISTRESS. WILL CONTINUE TO MONITOR.
--- NOTE | 2018-11-04 04:02 | NUR ---
PT RESTING WITH EYES CLOSED, AROUSES TO SOFT VERBAL STIMULATION, VS OBTAINED, PT REQUESTS PAIN MED, INFORMED PT THAT I WILL LET HER NURSE KNOW, PT STATES "THANK YOU", DENIES FURTHER NEEDS AT THIS TIME, BED IN LOW POSITION, SIDE RAILS X 2, CALL LIGHT IN REACH
[2018-11-04 06:59] LABS: BASOPHILS 0.3 % (0-2); EOSINOPHILS 0.8 % (0-7); HEMOGLOBIN 12.7 g/dL (12-16); IMMATURE GRANULOCYTES 0.5 % (0-5); LYMPHOCYTES 19.3 % (15-50); MCH 27.1 pg (26.0-34.0); MCHC 32.6 g/dL (31.0-37.0); MCV 83.2 fL (80.0-100.0); MEAN PLATELET VOLUME 10.8 fL (7.4-10.4); MONOCYTES 8.6 % (2-11); NEUTROPHILS 70.5 % (40-80); PLATELET COUNT 295 10x3/uL (130-400); RBC 4.69 10x6/uL (4.00-5.40); RDW 14.5 % (11.5-14.5); WBC 12.9 10x3/uL (4.8-10.8)
[2018-11-04 07:28] LABS: CALC OSMOLALITY 278 mosm/kg (275-300); CALCIUM 9.1 mg/dL (8.5-10.1); CARBON DIOXIDE 26.8 mmol/L (21.0-32.0); CHLORIDE - SERUM 100 mmol/L (98-107); CREATININE - SERUM 0.8 mg/dL (0.6-1.3); GLUCOSE 120 mg/dL (74-106); POTASSIUM - SERUM 3.9 mmol/L (3.5-5.1); SODIUM 139 mmol/L (136-145); UREA NITROGEN 13 mg/dL (7-18); eGFR NON AFRICAN AMERICAN 81 mL/min (90-120)
--- NOTE | 2018-11-04 08:21 | NUR ---
PT AOX4 RESP EVEN AND NONLABORED PT DENIES NEEDS AT THIS TIME PT HERE FOR SEPTIC KNEE FOR THIS VISIT WILL CONTINUE TO MONITOR
--- NOTE | 2018-11-04 10:30 | MORECARE ---
CASE MANAGEMENT DISCHARGE SUMMARY PATIENT: SALMA SEPULVEDA UNIT: [id number] ADM DATE: 10/19/18 AGE: 48 : [birth year] SEX: F ROOM/BED: D.1201 AUTHOR: MIRNA,DOC PHYSICIAN: REFERRING PHYSICIAN: NITZA ROMERO MD DATE OF SERVICE: 11/04/18 Discharge Plan Patient Name: SALMA SEPULVEDA Facility: [facility]:[place] : 1970 Planned Disposition: Home with Home Health Anticipated Discharge Date: 10/31/18 Discharge Date: Expected LOS: 12 Initial Reviewer: [id number] Initial Review Date: 10/28/2018 Generated: 11/04/18 11:30 am Comments DCP- Discharge Planning Updated by [id number]: Marlin Zuleta on 11/04/18 9:[address] Patient Name: SALMA SEPULVEDA Admission Status: ER Accout number: [id number] Admission Date: 10-19-2018 : 1970 Admission Diagnosis:INFECT/INFLM REACTION DUE TO INTERNAL LEFT KNEE PROSTH, Attending: NITZA ROMERO Current LOS: 16 Anticipated DC Date: 10-31-2018 Planned Disposition: Home with Home Health Primary Insurance: MEDICARE A & B Discharge Planning Comments: MARS SPOKE WITH CHIQUI AT [facility] AND THEY ARE STILL WORKING ON GETTING INSURANCE AUTH. SHE WILL CONTACT ME WITH AN UPDATE WHEN SHE HAS ONE. [facility] PHONE NUMBER IS [phone]. Care Giver: Marlin Zuleta DCP- Discharge Planning Updated by [id number]: Afshan Durham on 11/03/18 5:[address] LATE ENTRY 1415 MARS SPOKE WITH [facility] OVEN UNLOADER, JAYSON, THIS PM AT [phone]. WOUND VAC WAS APPROVED. MARS FAXED PROOF OF DELIVERY FORM TO [employer]. CALLED AND SPOKE WITH DEBORAH AT 1350. SHE STATED SHE WOULD DELIVER THE UNIT AND OBTAIN SIGNATURE. WOUND VAC UNIT AT MED [facility] NURSE' STATION. STAFF AWARE. MARS HAD CALLED TO CHECK WITH CHIQUI AT [facility] EARLIER THIS PM. SHE WAS GOING INTO A MEETING. MARS LEFT PHONE NUMBER. [place] READY FOR IVAB DELIVERY WHEN NURSING OBTAINED. WOUND VAC SUPPLIES AVAILABLE AWAITING INSURANCE PROVIDER TO APPROVE LONG TERM CARE ! CM HAD UPDATED THE PATIENT EARLIER. HER DAUGHTER CAME TO THE DESK THIS PM. PROVIDED HER [employer] PHONE NUMBER SO THAT SHE COULD SPEAK WITH SANJUANITA DIRECTLY REGARDING THE INSURANCE CHALLENGES. DCP- Discharge Planning Updated by [id number]: Afshan Durham on 11/03/18 10:[address] LATE ENTRY 1000 RECEIVED TELEPHONE CALL FROM LAMAR WITH [facility] AT [phone]. ADVISED CM WILL CONTACT [facility] TO VERIFY STATUS OF SN COVERAGE. WILL LAMAR WHEN HOME HEALTH IS CONFIRMED. 1103 TC TO SANJUANITA [email or web address]. AWAITED CB FROM CHIQUI SHE WAS ON THE PHONE. REC CB . CHIQUI STATES SHE HAS BEEN COMMUNICATING WITH THE INSURANCE COMPANY AND HER DIVISION SERVICE MANAGER IN [place]. THE INSURANCE COMPANY HAS NOT APPROVED NURSING AT THIS TIME. SHE MUST COMPLETE ADDITIONAL INSURANCE FORMS. TC TO UPDATE JOSÉ MANUEL LAPORTE ABOUT STATUS OF DISCHARGE. ADVISED THE PRIMARY NURSE OF PRESENT STATUS. DCP- Discharge Planning Updated by [id number]: Marlin Zuleta on 10/31/18 3:[address] Patient Name: SALMA SEPULVEDA Admission Status: ER Accout number: [id number] Admission Date: 10-19-2018 : 1970 Admission Diagnosis:INFECT/INFLM REACTION DUE TO INTERNAL LEFT KNEE PROSTH, Attending: NITZA ROMERO Current LOS: 12 Anticipated DC Date: 10-31-2018 Planned Disposition: Home with Home Health Primary Insurance: MEDICARE A & B Discharge Planning Comments: CM RECEIVED CALL FROM [address] AND CANNOT ACCEPT PATIENT. CALLED [facility] AND FAXED REFERRAL TO THEM, THEY STATE WILL BE SATURDAY BEFORE THEY CAN RUN HER INSURANCE BECAUSE COMPANIES ARE CLOSED NOW. STATES WILL CONTACT US SATURDAY AFTER GETTING AUTH. JOSÉ MANUEL LUIS CALLED AND WILL ACCEPT THE PATIENT. PAPERS SIGNED AND FAXED TO [facility], WAITING FOR APPROVAL. Care Giver: Marlin Zuleta DCP- Discharge Planning Updated by [id number]: Lamar Hogan on 10/31/18 12:[address] CM received orders for Home Health, IV antibiotics, and wound vac. CM met with patient. explained and served DC IMM. CM contacted Karla Wilcox ([phone]) about wound vac. Faxed records as requested. Instructed Karla that Dr Meade's nurse, Valeria pinedas vac order faxed to [phone]. CM called [facility]. Spoke with Svitlana. Faxed records as requested. Informed HH that patient would discharge to her cousin's home at [address] [place], [place] [id number]. Emergency contact will be Caio Elliott [phone]. CM called [facility]. Spoke with Monica. Agency did not want to accept patient with [facility] for the duration IV Abx are ordered. CM spoke with patient and she selected [facility] for IV Abx. CM called [facility]. Spoke with Danette. Faxed records as requested. CM informed Danette that [facility] be Home Health agency. CM called [facility] and informed them that [facility] would be the infusion company. CM will continue to follow and assist as needed with discharge planning / needs. DCP- Discharge Planning Updated by [id number]: Lamar Hogan on 10/28/18 10:[address] Patient Name: SALMA SEPULVEDA Admission Status: ER Accout number: [id number] Admission Date: 10-19-2018 : 1970 Admission Diagnosis:INFECT/INFLM REACTION DUE TO INTERNAL LEFT KNEE PROSTH, Attending: NITZA ROMERO Current LOS: 9 Anticipated DC Date: 10-31-2018 Planned Disposition: Home with Home Health Primary Insurance: MEDICARE A & B Discharge Planning Comments: CM met with patient about discharge planning / needs. Patient states her plan is to discharge home to her cousin's house ([place] [phone]) at [address] [place] [address]. used to live with her daughter, Lorenza Sepulveda ([phone]) but moved to her cousin's house just prior to hospitalization because she would be able to get 24 hour care at her cousin's house. States she has used [facility] in the past and if she needs home health again for IV infusions or wound vac dressing changes she wants to use the agency again. Patient signed AYAH for [facility]. Patient also informed CM that she has used [facility] previously and if she has to get IV Antibiotics at home upon discharge, she wants to use them for the infusion supplies. Patient states she may need a walker. She had borrowed one previously but doesn't have it anymore. Denies any other discharge planning needs or concerns at this time. States she feels safe at the cousin's house and her cousin will transport her home upon discharge. CM will continue to follow and assist as needed with discharge planning / needs. Care Giver: Lamar Hogan DCP- Discharge Planning Updated by [id number]: Afshan Herminio on 10/20/18 11:[address] 1135 CM went to meet with patient to assess needs. She states she was just medicated for pain and wanted to rest..Will revisit. CM to follow. Previously has opted for outpatient physical therapy in [place]. DCPIA - Discharge Planning Initial Assessment Updated by [id number]: Lamar Hogan on 10/28/18 11:49 am * Is the patient Alert and Oriented? Yes * How many steps to enter\exit or inside your home? * PCP NONE * Pharmacy [facility] * Preadmission Environment Home with Family * ADLs Independent * Equipment Wheelchair * List name and contact numbers for known caregivers / representatives who currently or will assist patient after discharge: Lou Jaime, cousin, Lorenza Sepulveda, daughter, * Verbal permission to speak to the caregivers and representatives has been obtained from the patient. N/A * Community resources currently utilized Home Health * Please name any agencies selected above. [facility], [facility], * Additional services required to return to the preadmission environment? Yes * Can the patient safely return to the preadmission environment? Yes * Has this patient been hospitalized within the prior 30 days at any hospital? No Coverage Notice Reviewer: [id number] - Lamar Hogan Notice Issued Date-Time: 10/28/2018 11:55 Notice Type: Patient Choice Letter Notice Delivered To: Patient Relationship to Patient: Self Bead Wire Taper Name: Delivery Method: HAND - Hand Delivered Kate Days: Prior Verbal Notification: Recipient Understood Notice: Yes Recipient Signature: Yes Med Rec Note Co-signed by Attending: Coverage Notice Comment: Last DP export: 11/03/18 5:14 p Patient Name: SALMA SEPULVEDA Page 31004 at 1030 All edits/amendments must be made on the electronic document DICTATION DATE: 11/04/18 103 [employer] SUPPORT EQUIPMENT REPAIRER: OBDULIO 11/04/18 1030 RPT#: [id number] DC DATE: STATUS: ADM IN [facility] [address] [place] [address] END OF REPORT
--- NOTE | 2018-11-04 13:57 | NUR ---
Reviewed chart- pt is low nutritional risk Regular diet with 100,100,25% intake of meals yesterday Plans to d/c soon RD following
--- NOTE | 2018-11-04 14:30 | NUR ---
PATIENT LYING IN BED PLAYING ON PHONE. NO SIGNS OF DISTRESS, NO COMPLAINTS. TURNED OFF LIGHTS FOR PATIENT ON THE WAY OUT. ALL NEEDS MET AT THIS TIME.
--- NOTE | 2018-11-04 17:41 | NUR ---
FEMALE STATING THAT SHE WAS PATIENT'S DAUGHTER CALLED REQUESTING INFORMATION ABOUT PATIENT. I TOLD HER I COULD NOT GIVE MEDICAL INFORMATION WITHOUT THEM KNOWING HER PASSCODE. PATIENT DID NOT HAVE PASSCODE SET UP. TOLD CALLER TO GET PATIENT'S PASSCODE AND I WOULD GET IT FROM HER TOO. I WENT IN TO PATIENT'S ROOM AND ASKED FOR A PASSCODE SO I COULD GIVE THE CALLER INFORMATION AND SHE STATED, "NO" I GOT BACK ON PHONE WITH CALLER AND TOLD HER I COULD NOT GIVE ANY INFORMATION. SHE WAS YELLING AT ME THAT THEY LIVE 10 HOU[address] AWAY OUT OF STATE AND THAT THE PATIENT HAS CALLED THEM SAYING THAT THEY NEED TO COME BECAUSE SHE IS SICK AND THE HOSPITAL WON'T LET HER GO. WOMAN SAID THAT SHE IS ON "PAPERWORK" AND NEEDS INFORMATION. I TOLD HER THAT THE PATIENT SPECIFICALLY SIAD NOT TO GIVE THEM INFORMATION. THE WOMAN APOLOGIZED TO ME AND SAID IT WAS NOT MY FAULT AND THAT SHE WOULD TALK TO THE PATIENT AGAIN. I TOLD CALLER THAT
--- NOTE | 2018-11-04 19:55 | NUR ---
ALERT AND ORIENTED X4. LYING IN BED. RESP EVEN AND NONLABORED. REPORTS PAIN IN LT KNEE 8. WAS JUST MEDICATED PRIOR TO SHIFT CHANGE. RED RASH NOTED UNDER BREASTS AND GROIN AREA. PEDAL PULSES STRONG AND EQUAL. ERASTO WRAP NOTED AROUND WOUND VAC DRSG TO LT KNEE TO CONTINUOUS SUCTION @ 125 MMHG WITH BLOODY DRAINAGE NOTED IN CANISTER. AMBULATORY. GAIT UNSTEADY. LT MIDLINE IS SALINE LOCKED TO LT UPPER ARM. ANXIOUS AND REQEUSTS KLONOPIN. SR ELEVATED X2. CL IN REACH.
--- NOTE | 2018-11-04 20:15 | NUR ---
MEDICATED WITH KLONOPIN FOR ANXIETY. CL IN REACH.
--- NOTE | 2018-11-04 22:10 | NUR ---
MEDICATED FOR C/O PAIN IN LT KNEE WITH PERCOCET. CL IN REACH.
--- NOTE | 2018-11-04 23:35 | NUR ---
NAUSEATED, DRY HEAVING. VOMITED APPROX 100 ML OF CLEAR FLUID. MEDICATED WITH ZOFRAN FOR NAUSEA ORDERED.
--- NOTE | 2018-11-05 00:15 | NUR ---
STATES SHE IS NO LONGER NAUSEATED. NO DISTRESS. CL IN REACH.
--- NOTE | 2018-11-05 02:25 | NUR ---
REQUESTING PERCOCET. MEDICATED WITH PERCOCET. GIVEN JELLO SNACK. CL IN REACH.
[2018-11-05 04:30] VITALS: BP 125/78
[2018-11-05 05:56] LABS: BASOPHILS 0.3 % (0-2); EOSINOPHILS 1.2 % (0-7); HEMATOCRIT 39.2 % (36.0-48.0); HEMOGLOBIN 12.6 g/dL (12-16); IMMATURE GRANULOCYTES 0.4 % (0-5); LYMPHOCYTES 23.3 % (15-50); MCH 26.7 pg (26.0-34.0); MCHC 32.1 g/dL (31.0-37.0); MCV 83.1 fL (80.0-100.0); MEAN PLATELET VOLUME 10.4 fL (7.4-10.4); MONOCYTES 8.5 % (2-11); NEUTROPHILS 66.3 % (40-80); PLATELET COUNT 278 10x3/uL (130-400); RBC 4.72 10x6/uL (4.00-5.40); RDW 14.6 % (11.5-14.5)
[2018-11-05 05:57] LABS: CALC OSMOLALITY 280 mosm/kg (275-300); CALCIUM 8.8 mg/dL (8.5-10.1); CARBON DIOXIDE 26.5 mmol/L (21.0-32.0); CHLORIDE - SERUM 101 mmol/L (98-107); CREATININE - SERUM 0.7 mg/dL (0.6-1.3); GLUCOSE 122 mg/dL (74-106); POTASSIUM - SERUM 3.7 mmol/L (3.5-5.1); SODIUM 139 mmol/L (136-145); eGFR NON AFRICAN AMERICAN > 90 mL/min (90-120)
[2018-11-05 06:12] LABS: UREA NITROGEN 17 mg/dL (7-18)
--- NOTE | 2018-11-05 06:20 | NUR ---
REQUESTED PAIN MED. MEDICATED WITH PERCOCET.
--- NOTE | 2018-11-05 06:30 | NUR ---
PT GYROSCOPIC INSTRUMENT TESTER LIGHT, PT REQUESTED AND SERVED FRESH 20, DENIES FURTHER NEEDS
--- NOTE | 2018-11-05 06:49 | NUR ---
VOMITING AGAIN. MEDICATED WITH ZOFRAN. SMALL AMT CLEAR EMESIS NOTED.
--- NOTE | 2018-11-05 07:30 | NUR ---
PT SITTING UP IN BED. CL IN REACH. BED IN LOW POSITION. SIDE RAILS X2. NS SALINE RUNNING AT 125 ML/HR. RESP EVEN AND UNLABORED. TV ON AND LIGHTS OUT. PT DENIES NEEDS OR PAIN AT THIS TIME.
--- NOTE | 2018-11-05 09:08 | MORECARE ---
CASE MANAGEMENT DISCHARGE SUMMARY PATIENT: SALMA SEPULVEDA UNIT: [id number] ADM DATE: 10/19/18 AGE: 48 : 68 SEX: F ROOM/BED: D.1201 AUTHOR: MIRNA,DOC PHYSICIAN: REFERRING PHYSICIAN: NITZA ROMERO MD DATE OF SERVICE: 11/05/18 Discharge Plan Patient Name: SALMA SEPULVEDA Facility: [facility]:[place] : 1970 Planned Disposition: Home with Home Health Anticipated Discharge Date: 10/31/18 Discharge Date: Expected LOS: 12 Initial Reviewer: [id number] Initial Review Date: 10/28/2018 Generated: 11/05/18 10:07 am Comments DCP- Discharge Planning Updated by [id number]: Marlin Zuleta on 11/04/18 9:[address] Patient Name: SALMA SEPULVEDA Admission Status: ER Accout number: [id number] Admission Date: 10-19-2018 : 1970 Admission Diagnosis:INFECT/INFLM REACTION DUE TO INTERNAL LEFT KNEE PROSTH, Attending: NITZA ROMERO Current LOS: 16 Anticipated DC Date: 10-31-2018 Planned Disposition: Home with Home Health Primary Insurance: MEDICARE A & B Discharge Planning Comments: MARS SPOKE WITH CHIQUI AT [facility] AND THEY ARE STILL WORKING ON GETTING INSURANCE AUTH. SHE WILL CONTACT ME WITH AN UPDATE WHEN SHE HAS ONE. [place] PHONE NUMBER IS [phone]. Air Valve Repairer: Marlin Zuleta DCP- Discharge Planning Updated by [id number]: Afshan Durham on 11/03/18 5:[address] LATE ENTRY 1415 MARS SPOKE WITH [facility] PROTECTIVE CLOTHING ISSUER, JAYSON, THIS PM AT [phone]. WOUND VAC WAS APPROVED. MARS FAXED PROOF OF DELIVERY FORM TO [employer] [facility]. CALLED AND SPOKE WITH DEBORAH AT 1350. SHE STATED SHE WOULD DELIVER THE UNIT AND OBTAIN SIGNATURE. WOUND VAC UNIT AT MED [facility] NURSE' STATION. STAFF AWARE. MARS HAD CALLED TO CHECK WITH CHIQUI AT [facility] EARLIER THIS PM. SHE WAS GOING INTO A MEETING. MARS LEFT PHONE NUMBER. [place] READY FOR IVAB DELIVERY WHEN NURSING OBTAINED. WOUND VAC SUPPLIES AVAILABLE AWAITING INSURANCE PROVIDER TO APPROVE LONG TERM CARE ! CM HAD UPDATED THE PATIENT EARLIER. HER DAUGHTER CAME TO THE DESK THIS PM. PROVIDED HER [employer] PHONE NUMBER SO THAT SHE COULD SPEAK WITH SANJUANITA DIRECTLY REGARDING THE INSURANCE CHALLENGES. DCP- Discharge Planning Updated by [id number]: Afshan Durham on 11/03/18 10:[address] LATE ENTRY 1000 RECEIVED TELEPHONE CALL FROM LAMAR WITH [facility] AT [phone]. ADVISED CM WILL CONTACT [facility] TO VERIFY STATUS OF SN COVERAGE. WILL LAMAR WHEN HOME HEALTH IS CONFIRMED. 1103 TC TO SANJUANITA Wheely [facility]. AWAITED CB FROM CHIQUI SHE WAS ON THE PHONE. REC CB . CHIQUI STATES SHE HAS BEEN COMMUNICATING WITH THE INSURANCE COMPANY AND HER RACK LOADER IN [place]. THE INSURANCE COMPANY HAS NOT APPROVED NURSING AT THIS TIME. SHE MUST COMPLETE ADDITIONAL INSURANCE FORMS. TC TO UPDATE JOSÉ MANUEL VIBURNUM ABOUT STATUS OF DISCHARGE. ADVISED THE PRIMARY NURSE OF PRESENT STATUS. DCP- Discharge Planning Updated by [id number]: Marlin Zuleta on 10/31/18 3:[address] Patient Name: SALMA SEPULVEDA Admission Status: ER Accout number: [id number] Admission Date: 10-19-2018 : 1970 Admission Diagnosis:INFECT/INFLM REACTION DUE TO INTERNAL LEFT KNEE PROSTH, Attending: NITZA ROMERO Current LOS: 12 Anticipated DC Date: 10-31-2018 Planned Disposition: Home with Home Health Primary Insurance: MEDICARE A & B Discharge Planning Comments: CM RECEIVED CALL FROM [address] AND CANNOT ACCEPT PATIENT. [facility] AND FAXED REFERRAL TO THEM, THEY STATE WILL BE SATURDAY BEFORE THEY CAN RUN HER INSURANCE BECAUSE COMPANIES ARE CLOSED NOW. STATES WILL CONTACT US SATURDAY AFTER GETTING AUTH. JOSÉ MANUEL LUIS CALLED AND WILL ACCEPT THE PATIENT. PAPERS SIGNED AND FAXED TO [facility], WAITING FOR APPROVAL. Air Valve Repairer: Marlin Zuleta DCP- Discharge Planning Updated by [id number]: Lamar Hogan on 10/31/18 12:[address] CM received orders for Home Health, IV antibiotics, and wound vac. CM met with patient. explained and served DC IMM. CM contacted Karla Wilcox ([phone]) about wound vac. Faxed records as requested. Instructed Karla that Dr Meade's nurse, Valeria pinedas vac order faxed to [phone]. CM called [facility]. Spoke with Svitlana. Faxed records as requested. Informed HH that patient would discharge to her cousin's home at [address] [place], [place] [id number]. Emergency contact will be Caio Elliott [phone]. CM called [facility]. Spoke with Monica. Agency did not want to accept patient with [facility] for the duration IV Abx are ordered. CM spoke with patient and she selected [facility] for IV Abx. CM called [facility]. Spoke with Danette. Faxed records as requested. CM informed Danette that [facility] Health agency. CM called [facility] and informed them that [facility] would be the infusion company. CM will continue to follow and assist as needed with discharge planning / needs. DCP- Discharge Planning Updated by [id number]: Lamar Hogan on 10/28/18 10:[address] Patient Name: SALMA SEPULVEDA Admission Status: ER Accout number: [id number] Admission Date: 10-19-2018 : 1970 Admission Diagnosis:INFECT/INFLM REACTION DUE TO INTERNAL LEFT KNEE PROSTH, Attending: NITZA ROMERO Current LOS: 9 Anticipated DC Date: 10-31-2018 Planned Disposition: Home with Home Health Primary Insurance: MEDICARE A & B Discharge Planning Comments: CM met with patient about discharge planning / needs. Patient states her plan is to discharge home to her cousin's house ([place] [phone]) at [address] [place] [address]. used to live with her daughter, Lorenza Sepulveda ([phone]) but moved to her cousin's house just prior to hospitalization because she would be able to get 24 hour care at her cousin's house. States she has used [facility] in the past and if she needs home health again for IV infusions or wound vac dressing changes she wants to use the agency again. Patient signed AYAH for [facility]. Patient also informed CM that she has used [facility] previously and if she has to get IV Antibiotics at home upon discharge, she wants to use them for the infusion supplies. Patient states she may need a walker. She had borrowed one previously but doesn't have it anymore. Denies any other discharge planning needs or concerns at this time. States she feels safe at the cousin's house and her cousin will transport her home upon discharge. CM will continue to follow and assist as needed with discharge planning / needs. Air Valve Repairer: Lamar Hogan DCP- Discharge Planning Updated by [id number]: Afshanjed Fernandezs on 10/20/18 11:[address] 1135 CM went to meet with patient to assess needs. She states she was just medicated for pain and wanted to rest..Will revisit. CM to follow. Previously has opted for outpatient physical therapy in [place]. DCPIA - Discharge Planning Initial Assessment Updated by [id number]: Lamar Hogan on 10/28/18 11:49 am * Is the patient Alert and Oriented? Yes * How many steps to enter\exit or inside your home? * PCP NONE * Pharmacy [facility] * Preadmission Environment Home with Family * ADLs Independent * Equipment Wheelchair * List name and contact numbers for known caregivers / representatives who currently or will assist patient after discharge: Lou Jaime, cousin, Lorenza Sepulveda, daughter, * Verbal permission to speak to the caregivers and representatives has been obtained from the patient. N/A * Community resources currently utilized Home Health * Please name any agencies selected above. [facility], [facility], * Additional services required to return to the preadmission environment? Yes * Can the patient safely return to the preadmission environment? Yes * Has this patient been hospitalized within the prior 30 days at any hospital? No Coverage Notice Reviewer: [id number] - Lamar Hogan Notice Issued Date-Time: 10/28/2018 11:55 Notice Type: Patient Choice Letter Notice Delivered To: Patient Relationship to Patient: Self Chef De Froid Name: Delivery Method: HAND - Hand Delivered Kate Days: Prior Verbal Notification: Recipient Understood Notice: Yes Recipient Signature: Yes Med Rec Note Co-signed by Attending: Coverage Notice Comment: Last DP export: 11/04/18 9:30 a Patient Name: SALMA SEPULVEDA Page 43047 at 0908 All edits/amendments must be made on the electronic document DICTATION DATE: 11/05/18906 CAGE OPERATOR: DM 11/05/18906 RPT#: [id number] DC DATE: STATUS: ADM IN [facility] [address] [place] [address] END OF REPORT
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
[2018-11-05 09:50] VITALS: BP 113/70
--- NOTE | 2018-11-05 12:00 | NUR ---
PT LYING IN BED. CL IN REACH. DENIES NEEDS OR PAIN.
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
--- NOTE | 2018-11-05 19:30 | NUR ---
PATIENT RESTING IN BED WITH EYES OPEN AND WATCHING TV. ALERT AND ORIENTED. LEFT MIDLINE RUNNING NS @ 125 ML/HR. LEFT KNEE INCISION AND WOUND VAC. DRESSING CDI. DENIES HAVING ANY NEEDS AT THIS TIME. BED IN LOWEST POSITION. SIDE RAILS UP. CALL LIGHT IN REACH. CONTINUE PLAN OF CARE.
[2018-11-05 20:00] VITALS: BP 106/67
[2018-11-06] VITALS (8 sets, daily range): BP systolic 104–146; BP diastolic 33–83
--- NOTE | 2018-11-06 03:00 | NUR ---
PATIENT RESTING IN BED WITH EYES CLOSED. NO SIGNS OF DISTRESS. BED IN LOWEST POSITION. SIDE RAILS UP. CALL LIGHT IN REACH. CONTINUE PLAN OF CARE.
--- NOTE | 2018-11-06 07:15 | NUR ---
PT AAOX4 RESP EVEN AND NONLABORED, NO SIGNS OF DISTRESS NOTED, NO QUESTIONS/CONCERNS EXPRESSED, CL IN REACH WILL CONTINUE TO MONITOR
--- NOTE | 2018-11-06 09:00 | NUR ---
DENIES ANY NEEDS AT THIS TIME.
--- NOTE | 2018-11-06 14:01 | NUR ---
WOUND VAC DRESSING CHANGE: WOUND LOCATION:left knee WOUND TYPE: surgical MEASUREMENT DATE: 11/06/18 1cm x 9.5cm x 1.4cm (improved) FULL THICKNESS? yes MUSCLE, TENDON OR BONE EXPOSED? no UNDERMINING? no TUNNELING/SINUS? no APPEARANCE OF WOUND BED : red/beefy EXUDATE (AMOUNT, COLOR, ODOR): small bloody no odor FOAM TYPE: 1 black to wound bed + 1 black for TRAC pad EDUCATION: Healing process SETTINGS: -125mmhg moderate continuous Pt tolerated well.
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
[2018-11-07 04:38] VITALS: BP 146/87
--- NOTE | 2018-11-07 07:51 | NUR ---
PT ASLEEP, DI DNOT WAKE I ENTRED. DID NOT FURTHER DISTURB AT THIS TIME. CL IN REACH. SRX2
[2018-11-07 08:00] VITALS: BP 144/79
--- NOTE | 2018-11-07 11:14 | NUR ---
PT ESCORTED OUT VIA WHEELCHAIR WITH FAMILY TO POV.
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
== END 2018-11-07 11:14 | disposition home health service (06) | DRG 493 ==
LOC: D.ER 10:39 → D.EDHOLD 17:02 → D.M3 17:02
PROVIDERS: Emergency Medicine; Family Medicine; Orthopaedic Surgery; ADMIT Internal Medicine Nephrology
PROC: 0S9D3ZZ Drainage of Left Knee Joint, Percutaneous Approach (ICD-10-PCS; 2018-10-19)
PROC: 0S9D3ZZ Drainage of Left Knee Joint, Percutaneous Approach (ICD-10-PCS; 2018-10-27)
PROC: 0QBH0ZZ Excision of Left Tibia, Open Approach (ICD-10-PCS; principal; 2018-10-27 16:45)
PROC: 05HB33Z Insertion of Infusion Device into Right Basilic Vein, Percutaneous Approach (ICD-10-PCS; 2018-11-06)
PROC: B54MZZA Ultrasonography of Right Upper Extremity Veins, Guidance (ICD-10-PCS; 2018-11-06)
DX: T84.54XA Infection and inflammatory reaction due to internal left knee prosthesis, initial encounter (principal); F17.213 Nicotine dependence, cigarettes, with withdrawal; Y83.8 Other surgical procedures as the cause of abnormal reaction of the patient, or of later complication, without mention of misadventure at the time of the procedure; F41.9 Anxiety disorder, unspecified; K59.00 Constipation, unspecified; B95.61 Methicillin susceptible Staphylococcus aureus infection as the cause of diseases classified elsewhere; D50.9 Iron deficiency anemia, unspecified

== ENCOUNTER → 2018-11-10 21:19 | Outpatient (CLI) | payer MEDICARE ==
[2018-10-21 16:53] VITALS: BMI 34.4
[~2018-11-10 21:19] MED LIST changes: +Ancef 2 GM/Dextrose IV; +RIFADIN300 MG PO
[2018-11-10 21:50] LABS: BASOPHILS 0.4 % (0-2); EOSINOPHILS 2.3 % (0-7); HEMATOCRIT 31.9 % (36.0-48.0); HEMOGLOBIN 10.1 g/dL (12-16); IMMATURE GRANULOCYTES 0.1 % (0-5); LYMPHOCYTES 28.1 % (15-50); MCH 26.9 pg (26.0-34.0); MCHC 31.7 g/dL (31.0-37.0); MCV 84.8 fL (80.0-100.0); MONOCYTES 7.9 % (2-11); NEUTROPHILS 61.2 % (40-80); PLATELET COUNT 239 10x3/uL (130-400); RBC 3.76 10x6/uL (4.00-5.40); RDW 14.7 % (11.5-14.5); WBC 7.1 10x3/uL (4.8-10.8)
[2018-11-10 22:04] LABS: C-REACTIVE PROTEIN 5.4 mg/dL (0.0-0.9); CREATININE - SERUM 0.7 mg/dL (0.6-1.3)
[2018-11-10 23:17] LABS: ERYTHROCYTE SEDIMENTATION RATE 52 mm/hr (0-20)
== END | disposition home or self-care (01) ==
LOC: D.LABREF 21:19
PROVIDERS: Student in an Organized Health Care Education/Training Program
DX: T84.53XD Infection and inflammatory reaction due to internal right knee prosthesis, subsequent encounter (principal); A41.9 Sepsis, unspecified organism; B95.61 Methicillin susceptible Staphylococcus aureus infection as the cause of diseases classified elsewhere

== ENCOUNTER → 2018-11-17 14:38 | Outpatient (CLI) | payer MEDICARE ==
[2018-10-21 16:53] VITALS: BMI 34.4
[~2018-11-17 14:38] MED LIST changes: +HYDROCODON-ACE1 EA10 PO
[2018-11-17 15:07] LABS: BASOPHILS 0.3 % (0-2); EOSINOPHILS 2.3 % (0-7); HEMATOCRIT 35.7 % (36.0-48.0); HEMOGLOBIN 11.2 g/dL (12-16); IMMATURE GRANULOCYTES 0.2 % (0-5); LYMPHOCYTES 29.6 % (15-50); MCH 26.7 pg (26.0-34.0); MCHC 31.4 g/dL (31.0-37.0); MEAN PLATELET VOLUME 10.8 fL (7.4-10.4); MONOCYTES 6.2 % (2-11); NEUTROPHILS 61.4 % (40-80); PLATELET COUNT 257 10x3/uL (130-400); RDW 14.9 % (11.5-14.5); WBC 5.8 10x3/uL (4.8-10.8)
[2018-11-17 15:21] LABS: C-REACTIVE PROTEIN 3.9 mg/dL (0.0-0.9); CREATININE - SERUM 0.7 mg/dL (0.6-1.3)
[2018-11-17 16:16] LABS: ERYTHROCYTE SEDIMENTATION RATE 70 mm/hr (0-20)
== END | disposition home or self-care (01) ==
LOC: D.LABREF 14:38
PROVIDERS: Orthopaedic Surgery
DX: T84.54XA Infection and inflammatory reaction due to internal left knee prosthesis, initial encounter (principal); Z48.01 Encounter for change or removal of surgical wound dressing

== ENCOUNTER → 2018-11-25 17:21 | Outpatient (CLI) | payer MEDICARE ==
[2018-10-21 16:53] VITALS: BMI 34.4
[2018-11-25 18:04] LABS: BASOPHILS 0.5 % (0-2); EOSINOPHILS 1.9 % (0-7); HEMATOCRIT 39.3 % (36.0-48.0); HEMOGLOBIN 12.7 g/dL (12-16); IMMATURE GRANULOCYTES 0.1 % (0-5); LYMPHOCYTES 30.5 % (15-50); MCH 27.4 pg (26.0-34.0); MCHC 32.3 g/dL (31.0-37.0); MCV 84.9 fL (80.0-100.0); MEAN PLATELET VOLUME 10.6 fL (7.4-10.4); MONOCYTES 6.8 % (2-11); NEUTROPHILS 60.2 % (40-80); PLATELET COUNT 289 10x3/uL (130-400); RBC 4.63 10x6/uL (4.00-5.40); RDW 14.7 % (11.5-14.5); WBC 7.3 10x3/uL (4.8-10.8)
[2018-11-25 18:20] LABS: C-REACTIVE PROTEIN 2.5 mg/dL (0.0-0.9); CALC OSMOLALITY 283 mosm/kg (275-300); CALCIUM 8.7 mg/dL (8.5-10.1); CARBON DIOXIDE 24.8 mmol/L (21.0-32.0); CHLORIDE - SERUM 101 mmol/L (98-107); CREATININE - SERUM 0.7 mg/dL (0.6-1.3); GLUCOSE 97 mg/dL (74-106); SODIUM 142 mmol/L (136-145); UREA NITROGEN 16 mg/dL (7-18); VANCOMYCIN - RANDOM 0.3 ug/mL (10.0-20.0); eGFR NON AFRICAN AMERICAN > 90 mL/min (90-120)
[2018-11-25 19:37] LABS: ERYTHROCYTE SEDIMENTATION RATE 69 mm/hr (0-20)
== END | disposition home or self-care (01) ==
LOC: D.LABREF 17:21
PROVIDERS: Orthopaedic Surgery
DX: M00.9 Pyogenic arthritis, unspecified (principal)

== ENCOUNTER 2018-12-09 14:24 | Inpatient (IN) | payer MEDICARE ==
[~2018-12-09] VITALS: Ht 180.3 cm; Wt 112.3 kg
--- NOTE | ~2018-12-09 | HEMODYNAMI ---
PATIENT:SALMA FREEMAN MEDICAL RECORD: [id number] : 68 LOCATION:D.MS Hernandez2204 ADMISSION DATE: 12/09/18 Generatedon:12/10/201811:57 Patient name: SALMA FREEMAN Patient #: [id number] SSN: : 1970 Date of study: 12/10/2018 Page: Of Hemodynamic Procedure Report Patient Data Patient Demographics Procedure consent was obtained First Name: SALMA Gender: Female Last Name: LYDIA : 1970 [facility] Initial: C Age: 48 year(s) Patient #: [id number] Race: Unknown Additional ID: [id number] Contact details Address: [address] [place] [address] State: [place] City: [place] Zip code: [address] Past Medical History Allergies Allergen Reaction Date Comments Reported Morphine 12/10/2018 Admission Admission Data Admission Date: 12/09/2018 Admission Time: 14:24 Room #: D.2204 Procedure Procedure Types Cath Procedure Peripheral Cath Diagnostic Procedure Miscellaneous Joint Aspiration w/US Procedure Description Procedure Date Procedure Date: 12/10/2018 Procedure Start Time: 11:36 Procedure Staff Name Function Nichelle Coleman RN Nurse Ga Novak RT Monitor Reza Lynn MD Performing Physician Hemodynamics Rest Pre Cath Intra NCS Post Cath Procedure Log Time Note 11:18:48 Ga Novak RT (R) (CV) sent for patient. Start room use. 11:18:57 Time tracking: Regular hours (M-F 7:00 - 5:00) 11:19:01 Plan of Care:Hemodynamics will remain stable., Cardiac rhythm will remain stable., Comfort level will be maintained., Respiratory function will remain adequate., Patient/ family verbilizes understanding of procedure., Procedure tolerated without complication., Recovers from procedure without complications.. 11:19:05 Patient arrived from Med/Surg to IR. Patient remains on bed/stretcher for procedure. 11:19:07 Correct patient and procedure confirmed by team. 11:19:09 Signed procedure consent form obtained from patient. 11:19:11 Full Disclosure recording started 11:19:11 - 11:19:20 Patient allergic to Morphine 11:19:26 Is patient on blood thinner?No 11:19:42 Left Knee was prepped with betadine and draped in sterile fashion. 11:35:33 Physician arrived 11:35:34 --------ALL STOP TIME OUT------ 11:35:56 Left knee site verified by team. 11:36:12 Sedation plan: Local Anesthetic Medication:Lidocaine 11:36:21 Procedure started. 11:36:32 Local anesthetic to Left Knee with Lidocaine 1% by Reza Lynn MD.INITIA L ACCESS ONLY 11:36:42 SAFE-T PLUS MYELOGRAM TRAY opened to sterile field. 11:56:52 Procedure ended.(Physican Out) 11:57:00 Insertion/operative site no bleeding no hematoma. 11:57:26 bandaide applied to lt.knee fluid sent to lab site stable Device Usage Item Name Manufacture Quantity Catalog Hospital Part Current Minimal Lot# / Number Charge Number Stock Stock Serial# Code SAFE-T [employer] 1 [id number] PLUS MYELOGRAM TRAY Signature Audit Dexter Stage Time Signature Unsigned Intra-Procedure 12/10/2018 Ga 11:57:44 AM Kishore RT (R) (CV) Signatures Monitor : Ga Signature : Kishore RT Date : Time : [facility] [address] [place] [address]
[~2018-12-09 14:24] MED LIST changes: -HYDROCODON-ACE1 EA10 PO
[2018-12-09 15:08] LABS: BASOPHILS 0.5 % (0-2); EOSINOPHILS 2.3 % (0-7); HEMATOCRIT 36.4 % (36.0-48.0); HEMOGLOBIN 11.5 g/dL (12-16); IMMATURE GRANULOCYTES 0.1 % (0-5); LYMPHOCYTES 24.5 % (15-50); MCH 27.3 pg (26.0-34.0); MCHC 31.6 g/dL (31.0-37.0); MCV 86.3 fL (80.0-100.0); MEAN PLATELET VOLUME 10.1 fL (7.4-10.4); MONOCYTES 7.3 % (2-11); NEUTROPHILS 65.3 % (40-80); PLATELET COUNT 232 10x3/uL (130-400); RBC 4.22 10x6/uL (4.00-5.40); RDW 14.5 % (11.5-14.5); WBC 8.2 10x3/uL (4.8-10.8)
[2018-12-09 15:36] LABS: ANION GAP 15.3 mmol/L (8-16); C-REACTIVE PROTEIN 2.7 mg/dL (0.0-0.9); CALCIUM 7.9 mg/dL (8.5-10.1); CARBON DIOXIDE 27.7 mmol/L (21.0-32.0); CREATININE - SERUM 0.9 mg/dL (0.6-1.3)
[2018-12-09 16:20] VITALS: BP 118/60; BMI 34.5
[2018-12-09 16:42] LABS: ERYTHROCYTE SEDIMENTATION RATE 52 mm/hr (0-20)
[2018-12-09] MEDS ORDERED: HYDROCODON-ACE1 EA10 PO (17:38)
--- NOTE | 2018-12-09 19:30 | NUR ---
PT SITTING UP IN BED, NO SIGNS OF DISTRESS. ALERT AND ORIENTED. IV LEFT HAND INFUSING 1/2 NS @ 50 W/ DILAUDID SUPPORT CLERK FOR PAIN CONTROL. PT STATES PAIN IN LEFT KNEE IS 4/10 AT THIS TIME. LEFT KNEE SWOLLEN, TENDER TO TOUCH. PT DENIES NEEDS AT THIS TIME. CL IN REACH, WILL CONTINUE TO MONITOR
[2018-12-09 20:00] VITALS: BP 113/73
[2018-12-10] VITALS: BP 133/75
[2018-12-10 04:00] VITALS: BP 101/53
[2018-12-10 05:12] LABS: BASOPHILS 0.4 % (0-2); EOSINOPHILS 2.2 % (0-7); HEMATOCRIT 33.3 % (36.0-48.0); HEMOGLOBIN 10.4 g/dL (12-16); IMMATURE GRANULOCYTES 0.1 % (0-5); LYMPHOCYTES 18.6 % (15-50); MCH 26.9 pg (26.0-34.0); MCHC 31.2 g/dL (31.0-37.0); MCV 86.3 fL (80.0-100.0); MEAN PLATELET VOLUME 10.6 fL (7.4-10.4); NEUTROPHILS 69.7 % (40-80); PLATELET COUNT 235 10x3/uL (130-400); RBC 3.86 10x6/uL (4.00-5.40); RDW 14.7 % (11.5-14.5); WBC 7.7 10x3/uL (4.8-10.8)
--- NOTE | 2018-12-10 05:16 | NUR ---
PT ACCIDENTALLY PULLED IV OUT WHILE GETTING UP TO BATHROOM. CATHETER INTACT. RESITED 22G IV LEFT FA X1 ATTEMPT. INFUSING 1/2NS @ 50 W/ DILAUDID AIR DEFENSE CONTROL OFFICER
[2018-12-10 05:25] LABS: CALC OSMOLALITY 291 mosm/kg (275-300); CALCIUM 7.9 mg/dL (8.5-10.1); CHLORIDE - SERUM 107 mmol/L (98-107); CREATININE - SERUM 0.7 mg/dL (0.6-1.3); GLUCOSE 161 mg/dL (74-106); SODIUM 144 mmol/L (136-145); UREA NITROGEN 18 mg/dL (7-18); eGFR NON AFRICAN AMERICAN > 90 mL/min (90-120)
--- NOTE | 2018-12-10 07:30 | NUR ---
REC'D IN WALKING ROUNDS AWAKE AND ALERT. RESP EVEN AND UNLABORED WITH NO DISTRESS NOTED. CAN EXPRESS NEEDS AND WANTS. NO C/O NOTED OR VOICED. ASSESSMENT COMPLETED. FAMILY AND C/L IN REACH AT BEDSIDE.
--- NOTE | 2018-12-10 07:33 | NUR ---
PATIENT IN BED WITH IV INTACT. NO COMPLAINTS OR SIGNS OF DISTRESS. FAMILY AT BEDSIDE. CALL LIGHT WITHIN REACH.
[2018-12-10 08:00] VITALS: BP 100/52
--- NOTE | 2018-12-10 11:00 | NUR ---
Pt complaining of pain and wanted her IV restarted. 22 gauge IV started in right wrist x 1 stick, + blood return, flushed with 10 ml of NS secured with tegaderm and swab cap placed. notified patients primary nurse
--- NOTE | 2018-12-10 11:04 | MORECARE ---
CASE MANAGEMENT DISCHARGE SUMMARY PATIENT: SALMA FREEMAN UNIT: [id number] ADM DATE: 12/09/18 AGE: 48 : 68 SEX: F ROOM/BED: D.2204 AUTHOR: LYNN BRADLEY PHYSICIAN: REFERRING PHYSICIAN: MCKAY DENNIS MD DATE OF SERVICE: 12/10/18 Discharge Plan Patient Name: SALMA FREEMAN [facility] [facility] 1970 Planned Disposition: Home with Home Health Anticipated Discharge Date: Discharge Date: Expected LOS: Initial Reviewer: [email or web address] Initial Review Date: 12/09/2018 Generated: 12/10/18 12:04 pm Patient Name: SALMA FREEMAN Page 60716 at 1104 All edits/amendments must be made on the electronic document DICTATION DATE: 12/10/18 110 BLOW DOWN HELPER: OBDULIO 12/10/18 1104 RPT#: [id number] DC DATE: STATUS: ADM IN [facility] [address] [place] [address] END OF REPORT
--- NOTE | 2018-12-10 11:13 | MORECARE ---
CASE MANAGEMENT DISCHARGE SUMMARY PATIENT: SALMA FREEMAN UNIT: [id number] ADM DATE: 12/09/18 AGE: 48 : 68 SEX: F ROOM/BED: D.2204 AUTHOR: MIRNA,DOC PHYSICIAN: REFERRING PHYSICIAN: MCKAY DENNIS MD DATE OF SERVICE: 12/10/18 Discharge Plan Patient Name: SALMA FREEMAN Facility: [facility]:[place] : 1970 Planned Disposition: Home with Home Health Anticipated Discharge Date: Discharge Date: Expected LOS: Initial Reviewer: [email or web address] Initial Review Date: 12/09/2018 Generated: 12/10/18 12:12 pm Comments DCP- Discharge Planning Updated by [email or web address]: Charlene Patrick on 12/10/18 10:[address] Patient Name: SALMA FREEMAN Admission Status: Elective Accout number: [id number] Admission Date: 12-09-2018 : 1970 Admission Diagnosis: Attending: MCKAY DENNIS Current LOS: 1 Anticipated DC Date: Planned Disposition: Home with Home Health Primary Insurance: MEDICARE A & B Discharge Planning Comments: CM met with patient to complete initial dc planning assessment. CM educated patient on the CM role and verbal consent given by patient to complete assessment. Patient lives at home in [place] [facility] with her daughter. At discharge patient plans to return there with [facility] (current) and feels this is a safe discharge. Her daughter will be her courtesy car driver home. She has a walker and wheelchair & does not think she will need anything else when she is DC. Patient denied known discharge needs at this time. CM will continue to follow and will assist as needed with dc plans/needs. Chocolate Maker: Charlene Patrick DCPIA - Discharge Planning Initial Assessment Updated by [id number]: Charlene Patrick on 12/10/18 11:07 am * Is the patient Alert and Oriented? Yes * How many steps to enter\exit or inside your home? * PCP none * Pharmacy [facility] in [place] * Preadmission Environment Home with Family * ADLs Independent * Equipment Walker Wheelchair * List name and contact numbers for known caregivers / representatives who currently or will assist patient after discharge: lilo freeman (daughter) [phone] * Verbal permission to speak to the caregivers and representatives has been obtained from the patient. N/A * Community resources currently utilized Home Health * Please name any agencies selected above. Kim * Additional services required to return to the preadmission environment? No * Can the patient safely return to the preadmission environment? Yes * Has this patient been hospitalized within the prior 30 days at any hospital? No Last DP export: 12/10/18 10:04 a Patient Name: SALMA FREEMAN Page 16203 at 1113 All edits/amendments must be made on the electronic document DICTATION DATE: 12/10/181111 ELEVATOR SERVICE MECHANIC: OBDULIO 12/10/181111 RPT#: [id number] DC DATE: STATUS: ADM IN [facility] [address] [place] [address] END OF REPORT
[2018-12-10 16:01] VITALS: Ht 180.3 cm; Wt 112.3 kg
[2018-12-10 16:30] VITALS: BP 116/64
--- NOTE | 2018-12-10 19:40 | NUR ---
A&O X 4. PT REPORTS PAIN IN LLE. KNEE IS SWOLLEN. HORIZONTAL INCISION SCAB AT BOTTOM OF KNEE, 2 BANDAIDS OVER INCISIONS ON TOP OF KNEE, CLEAN DRY INTACT. BILATTERAL LOWER EXTREMETIES WARM TO TOUCH, PULSES PALPABLE. PT IS AMBULATORY WITH A WALKER. REFUSES SCDs. DENIES NEEDS AT THIS TIME. WILL CONTINUE TO MONITOR.
[2018-12-10 20:41] VITALS: BP 124/59
--- NOTE | 2018-12-10 20:47 | NUR ---
RESING QUIETLY RESPIRATIONS WITH EASE AND UNLABORED. SR UP X2 CALL LIGHT WITHIN REACH.
[2018-12-11 00:33] VITALS: BP 118/54
[2018-12-11 05:52] VITALS: BP 111/59
--- NOTE | 2018-12-11 08:01 | NUR ---
AWAKE AND ALERT. ORIENTED X3. NO C/O AT THIS TIME. LUNGS ARE CLEAR BILATERALLY,, NO COUGH NOTED. SKIN IS INTACT WITHOUT REDNESS EXCEPT SOME REDNESS NOTED TO LEFT KNEE. REPORTS PAIN MANAGED WITH ANALOG DESIGN ENGINEER. IV TO RIGHT WRIST AREA IS PATENT WITHOUT REDNESS AT INSERTION SITE. DENIES NEEDS.
[2018-12-11 09:04] VITALS: BP 121/65
[2018-12-11 09:11] LABS: BASOPHILS 0.3 % (0-2); EOSINOPHILS 2.2 % (0-7); HEMATOCRIT 32.2 % (36.0-48.0); HEMOGLOBIN 10.2 g/dL (12-16); IMMATURE GRANULOCYTES 0.2 % (0-5); LYMPHOCYTES 31.9 % (15-50); MCH 27.2 pg (26.0-34.0); MCHC 31.7 g/dL (31.0-37.0); MCV 85.9 fL (80.0-100.0); MEAN PLATELET VOLUME 10.3 fL (7.4-10.4); MONOCYTES 9.3 % (2-11); NEUTROPHILS 56.1 % (40-80); PLATELET COUNT 222 10x3/uL (130-400); RBC 3.75 10x6/uL (4.00-5.40); RDW 14.8 % (11.5-14.5); WBC 6.3 10x3/uL (4.8-10.8)
[2018-12-11 09:18] LABS: CALC OSMOLALITY 281 mosm/kg (275-300); CALCIUM 8.5 mg/dL (8.5-10.1); CARBON DIOXIDE 29.7 mmol/L (21.0-32.0); CHLORIDE - SERUM 103 mmol/L (98-107); CREATININE - SERUM 0.6 mg/dL (0.6-1.3); POTASSIUM - SERUM 3.3 mmol/L (3.5-5.1); SODIUM 141 mmol/L (136-145); UREA NITROGEN 16 mg/dL (7-18); eGFR NON AFRICAN AMERICAN > 90 mL/min (90-120)
[2018-12-11 09:19] LABS: GLUCOSE 106 mg/dL (74-106)
--- NOTE | 2018-12-11 09:30 | NUR ---
REQUESTED AND GIVEN BOLUS ON PLATE SLITTER AND INSPECTOR FOR C/O LEFT KNEE PAIN.
--- NOTE | 2018-12-11 13:25 | NUR ---
SITTING UP EATING LUNCH. DENIES NEEDS.
[2018-12-11 13:33] VITALS: BP 104/60
[2018-12-11 16:56] VITALS: BP 115/67
[2018-12-11 20:00] VITALS: BP 102/53
[2018-12-12] VITALS: BP 111/64
--- NOTE | 2018-12-12 03:00 | NUR ---
I have reviewed this patient and I concur with the Shift Assessment completed by the Licensed Practical Nurse today this shift.
[2018-12-12 04:00] VITALS: BP 112/73
[2018-12-12 04:36] LABS: BASOPHILS 0.5 % (0-2); EOSINOPHILS 2.6 % (0-7); HEMATOCRIT 30.8 % (36.0-48.0); HEMOGLOBIN 9.5 g/dL (12-16); IMMATURE GRANULOCYTES 0.2 % (0-5); LYMPHOCYTES 36.1 % (15-50); MCH 26.9 pg (26.0-34.0); MCHC 30.8 g/dL (31.0-37.0); MCV 87.3 fL (80.0-100.0); MEAN PLATELET VOLUME 10.6 fL (7.4-10.4); MONOCYTES 9.9 % (2-11); NEUTROPHILS 50.7 % (40-80); PLATELET COUNT 214 10x3/uL (130-400); RBC 3.53 10x6/uL (4.00-5.40); RDW 14.9 % (11.5-14.5); WBC 5.7 10x3/uL (4.8-10.8)
[2018-12-12 04:45] LABS: CALC OSMOLALITY 285 mosm/kg (275-300); CALCIUM 8.1 mg/dL (8.5-10.1); CARBON DIOXIDE 28.8 mmol/L (21.0-32.0); CHLORIDE - SERUM 105 mmol/L (98-107); CREATININE - SERUM 0.7 mg/dL (0.6-1.3); GLUCOSE 152 mg/dL (74-106); POTASSIUM - SERUM 3.7 mmol/L (3.5-5.1); SODIUM 141 mmol/L (136-145); UREA NITROGEN 18 mg/dL (7-18); eGFR NON AFRICAN AMERICAN > 90 mL/min (90-120)
--- NOTE | 2018-12-12 06:12 | NUR ---
I have reviewed this patient and I concur with the Shift Assessment completed by the Licensed Practical Nurse today this shift.
--- NOTE | 2018-12-12 07:37 | NUR ---
AWAKE AND ALERT. ORIENTED X3. NO C/O AT THIS TIME. LUNGS ARE CLEAR BILATERALLY, NO COUGH NOTED. SKIN IS INTACT WITHOUT REDNESS EXCEPT SOME REDNESS AND EDEMA NOTED TO LEFT LEG. IV TO RIGHT HAND IS PATENT WITHOUT REDNESS AT INSERTION SITE.
[2018-12-12 08:06] VITALS: BP 103/54
--- NOTE | 2018-12-12 10:00 | NUR ---
UP TO SHOWER WITH SET UP ASSISTANCE. DENIES NEEDS.
--- NOTE | 2018-12-12 12:30 | NUR ---
ATE MOST OF LUNCH. DENIES NEEDS.
--- NOTE | 2018-12-12 12:40 | NUR ---
FOUND CRYING IN ROOM. REPORTS PAIN LEVEL 10. GIVEN 0.4 MG BOLUS OF DILAUDID. WILL MONITOR.
[2018-12-12 12:53] VITALS: BP 151/76
--- NOTE | 2018-12-12 14:34 | NUR ---
REPORTS PAIN IMPROVED GREATLY. DENIES NEEDS.
[2018-12-12 15:50] VITALS: BP 149/79
--- NOTE | 2018-12-12 18:33 | NUR ---
REPORTS GOOD RELIEF WITH USE OF TORADOL. ATE MOST OF SUPPER. VISITOR AT BEDSIDE. DENEIS NEEDS. NO CHANGES NOTED.
[2018-12-12 20:00] VITALS: BP 119/72
[2018-12-13] VITALS: BP 126/80
[2018-12-13 04:00] VITALS: BP 109/60
--- NOTE | 2018-12-13 06:00 | NUR ---
I have reviewed this patient and I concur with the Shift Assessment completed by the Licensed Practical Nurse today this shift.
[2018-12-13 07:12] LABS: BASOPHILS 0.6 % (0-2); EOSINOPHILS 2.7 % (0-7); HEMATOCRIT 28.4 % (36.0-48.0); HEMOGLOBIN 8.9 g/dL (12-16); IMMATURE GRANULOCYTES 0.2 % (0-5); LYMPHOCYTES 18.3 % (15-50); MCH 27.2 pg (26.0-34.0); MCHC 31.3 g/dL (31.0-37.0); MCV 86.9 fL (80.0-100.0); MEAN PLATELET VOLUME 10.2 fL (7.4-10.4); MONOCYTES 11.8 % (2-11); NEUTROPHILS 66.4 % (40-80); PLATELET COUNT 198 10x3/uL (130-400); RBC 3.27 10x6/uL (4.00-5.40); RDW 14.8 % (11.5-14.5); WBC 4.8 10x3/uL (4.8-10.8)
[2018-12-13 07:41] LABS: CALCIUM 8.1 mg/dL (8.5-10.1); CARBON DIOXIDE 30.6 mmol/L (21.0-32.0); CHLORIDE - SERUM 106 mmol/L (98-107); CREATININE - SERUM 0.6 mg/dL (0.6-1.3); POTASSIUM - SERUM 3.9 mmol/L (3.5-5.1); SODIUM 142 mmol/L (136-145); eGFR NON AFRICAN AMERICAN > 90 mL/min (90-120)
[2018-12-13 07:51] LABS: CALC OSMOLALITY 282 mosm/kg (275-300); GLUCOSE 102 mg/dL (74-106); UREA NITROGEN 12 mg/dL (7-18)
[2018-12-13 08:22] VITALS: BP 121/62
--- NOTE | 2018-12-13 08:30 | NUR ---
PT ALERT X 4. BREATH SOUNDS CLEAR BILAT. IV TO LEFT FOREARM, PATENT, DRESSING CLEAN DRY AND INTACT. PT REPORTING PAIN OF 8/10, CAN CAPPER IN PLACE, WILL MONITOR. FAMILY AT BEDSIDE. BED LOW, CALL LIGHT IN REACH. NO OTHER NEEDS AT THIS TIME.
[2018-12-13] MEDS ORDERED: KEFLEX500 MG PO (10:21)
[2018-12-13] MEDS ORDERED: PERCOCET 10-321 EAC1 PO (10:21)
--- NOTE | 2018-12-13 13:06 | NUR ---
IV TO LEFT FOREARM DC'D. TIP INTACT.
[2018-12-13 13:59] VITALS: BP 132/70
--- NOTE | 2018-12-13 14:28 | NUR ---
DISCHARGE PAPERWORK SIGNED, ALL QUESTIONS ANSWERED. NO OTHER NEEDS AT THIS TIME.
--- NOTE | 2018-12-13 17:19 | MORECARE ---
CASE MANAGEMENT DISCHARGE SUMMARY PATIENT: SALMA FREEMAN UNIT: [id number] ADM DATE: 12/09/18 AGE: 48 : 68 SEX: F ROOM/BED: D.2204 AUTHOR: MIRNA,DOC PHYSICIAN: REFERRING PHYSICIAN: MCKAY DENNIS MD DATE OF SERVICE: 12/13/18 Discharge Plan Patient Name: SALMA FREEMAN Facility: [facility]:[place] : 1970 Planned Disposition: Home with Home Health Anticipated Discharge Date: 12/13/18 Discharge Date: 12/13/2018 Expected LOS: 4 Initial Reviewer: [email or web address] Initial Review Date: 12/09/2018 Generated: 12/13/18 6:19 pm Comments DCP- Discharge Planning Updated by [email or web address]: Afshan Durham on 12/13/18 4:[address] LATE ENTRY 1155 TC TO [facility] TO ADVISE OF DISCHARGE. SPOKE WITH SERVICE. FAXED DISCHARGE INFORMATION. TC TO SERVICE I HAVE NOT SPOKEN WITH THE ONCALL. [facility] SPOKE WITH POLO THE PHYSICAL THERAPIST AIDE. PROVIDED INFORMATION REGARDING DISCHARGE TO HOME. WILL F/U IN THE AM. DCP- Discharge Planning Updated by [email or web address]: Charlene Patrick on 12/10/18 10:[address] Patient Name: SALMA FREEMAN Admission Status: Elective Accout number: [id number] Admission Date: 12-09-2018 : 1970 Admission Diagnosis: Attending: MCKAY DENNIS Current LOS: 1 Anticipated DC Date: Planned Disposition: Home with Home Health Primary Insurance: MEDICARE A & B Discharge Planning Comments: CM met with patient to complete initial dc planning assessment. CM educated patient on the CM role and verbal consent given by patient to complete assessment. Patient lives at home in [facility] with her daughter. At discharge patient plans to return there with [facility] (current) and feels this is a safe discharge. Her daughter will be her national dedicated truck driver home. She has a walker and wheelchair & does not think she will need anything else when she is DC. Patient denied known discharge needs at this time. CM will continue to follow and will assist as needed with dc plans/needs. Manager Digital: Charlene Patrick DCPIA - Discharge Planning Initial Assessment Updated by [email or web address]: Charlene Patrick on 12/10/18 11:07 am * Is the patient Alert and Oriented? Yes * How many steps to enter\exit or inside your home? * PCP none * Pharmacy [facility] [place] * Preadmission Environment Home with Family * ADLs Independent * Equipment Walker Wheelchair * List name and contact numbers for known caregivers / representatives who currently or will assist patient after discharge: lilo freeman (daughter) [phone] * Verbal permission to speak to the caregivers and representatives has been obtained from the patient. N/A * Community resources currently utilized Home Health * Please name any agencies selected above. [facility] * Additional services required to return to the preadmission environment? No * Can the patient safely return to the preadmission environment? Yes * Has this patient been hospitalized within the prior 30 days at any hospital? No Last DP export: 12/10/18 10:13 a Patient Name: SALMA FREEMAN Page 98036 at 1719 All edits/amendments must be made on the electronic document DICTATION DATE: 12/13/181718 SPORTS MARKETING INTERNSHIP: OBDULIO 12/13/181718 RPT#: [id number] DC DATE:12/13/18 STATUS: DIS IN [facility] [address] [place] [address] END OF REPORT
--- NOTE | 2018-12-15 10:22 | MORECARE ---
CASE MANAGEMENT DISCHARGE SUMMARY PATIENT: SALMA FREEMAN UNIT: [id number] ADM DATE: 12/09/18 AGE: 48 : 68 SEX: F ROOM/BED: D.2204 AUTHOR: MIRNA,DOC PHYSICIAN: REFERRING PHYSICIAN: MCKAY DENNIS MD DATE OF SERVICE: 12/15/18 Discharge Plan Patient Name: SALMA FREEMAN Facility: [facility]:[place] : 1970 Planned Disposition: Home with Home Health Anticipated Discharge Date: 12/13/18 Discharge Date: 12/13/2018 Expected LOS: 4 Initial Reviewer: [email or web address] Initial Review Date: 12/09/2018 Generated: 12/15/18 11:22 am Comments DCP- Discharge Planning Updated by [email or web address]: Afshan Durham on 12/13/18 4:[address] LATE ENTRY 1155 TC TO [facility] TO ADVISE OF DISCHARGE. SPOKE WITH SERVICE. FAXED DISCHARGE INFORMATION. TC TO SERVICE I HAVE NOT SPOKEN WITH THE ONCALL. TC [facility]. SPOKE WITH POLO THE AUTO TECH. PROVIDED INFORMATION REGARDING DISCHARGE TO HOME. WILL F/U IN THE AM. DCP- Discharge Planning Updated by [id number]: Charlene Patrick on 12/10/18 10:[address] Patient Name: SALMA FREEMAN Admission Status: Elective Accout number: [id number] Admission Date: 12-09-2018 : 1970 Admission Diagnosis: Attending: MCKAY DENNIS Current LOS: 1 Anticipated DC Date: Planned Disposition: Home with Home Health Primary Insurance: MEDICARE A & B Discharge Planning Comments: CM met with patient to complete initial dc planning assessment. CM educated patient on the CM role and verbal consent given by patient to complete assessment. Patient lives at home in [facility] with her daughter. At discharge patient plans to return there with [facility] (current) and feels this is a safe discharge. Her daughter will be her haul driver home. She has a walker and wheelchair & does not think she will need anything else when she is DC. Patient denied known discharge needs at this time. CM will continue to follow and will assist as needed with dc plans/needs. Manager Trade Marketing: Charlene Patrick DCPIA - Discharge Planning Initial Assessment Updated by [id number]: Charlene Patrick on 12/10/18 11:07 am * Is the patient Alert and Oriented? Yes * How many steps to enter\exit or inside your home? * PCP none * [facility]acy [facility] [place] * Preadmission Environment Home with Family * ADLs Independent * Equipment Walker Wheelchair * List name and contact numbers for known caregivers / representatives who currently or will assist patient after discharge: lilo freeman (daughter) [phone] * Verbal permission to speak to the caregivers and representatives has been obtained from the patient. N/A * Community resources currently utilized Home Health * Please name any agencies selected above. [facility] * Additional services required to return to the preadmission environment? No * Can the patient safely return to the preadmission environment? Yes * Has this patient been hospitalized within the prior 30 days at any hospital? No Last DP export: 12/13/18 4:19 pm Patient Name: SALMA FREEMAN Page 57500 at 1022 All edits/amendments must be made on the electronic document DICTATION DATE: 12/15/18 1021 CARDIOTHORACIC ANESTHESIA TECHNICIAN: OBDULIO 12/15/18 1021 RPT#: [id number] [place] DATE:12/13/18 STATUS: DIS IN [facility] [address] [place] [address] END OF REPORT
== END 2018-12-13 14:59 | disposition home health service (06) | DRG 561 ==
LOC: D.MS 14:24
PROVIDERS: Radiology Vascular & Interventional Radiology; ADMIT Orthopaedic Surgery; ATTEND Orthopaedic Surgery
PROC: 0S9D3ZZ Drainage of Left Knee Joint, Percutaneous Approach (ICD-10-PCS; principal; 2018-12-10 11:18)
DX: T84.54XA Infection and inflammatory reaction due to internal left knee prosthesis, initial encounter (principal); Y83.8 Other surgical procedures as the cause of abnormal reaction of the patient, or of later complication, without mention of misadventure at the time of the procedure; B95.61 Methicillin susceptible Staphylococcus aureus infection as the cause of diseases classified elsewhere; F41.9 Anxiety disorder, unspecified; Z72.0 Tobacco use

== ENCOUNTER → 2019-01-08 10:05 | Outpatient (CLI) | payer MEDICARE ==
[2018-12-10 16:01] VITALS: BMI 34.5
[~2019-01-08 10:05] MED LIST changes: +HYDROCODON-ACE1 EA10 PO; +KEFLEX500 MG PO; +PERCOCET 10-321 EAC1 PO
== END | disposition home or self-care (01) ==
LOC: D.US 01-07 15:00
PROVIDERS: ATTEND Orthopaedic Surgery
DX: M25.469 Effusion, unspecified knee (principal)

== ENCOUNTER 2019-01-17 11:20 | Inpatient (IN) | payer MEDICARE ==
[~2019-01-17] VITALS: Ht 180.3 cm; Wt 112.0 kg
[2019-01-17 12:36] LABS: BASOPHILS 0.2 % (0-2); HEMATOCRIT 41.5 % (36.0-48.0); HEMOGLOBIN 13.4 g/dL (12-16); IMMATURE GRANULOCYTES 0.2 % (0-5); LYMPHOCYTES 24.9 % (15-50); MCH 27.6 pg (26.0-34.0); MCHC 32.3 g/dL (31.0-37.0); MCV 85.6 fL (80.0-100.0); MONOCYTES 5.1 % (2-11); NEUTROPHILS 67.6 % (40-80); RBC 4.85 10x6/uL (4.00-5.40); RDW 13.7 % (11.5-14.5); WBC 9.1 10x3/uL (4.8-10.8)
[2019-01-17 12:40] LABS: PLATELET COUNT 393 10x3/uL (130-400)
[2019-01-17 12:55] LABS: INR 1.08 (0.85-1.17); PROTIME 13.5 SECONDS (11.6-15.0)
[2019-01-17 13:04] LABS: ALBUMIN 3.2 g/dL (3.4-5.0); ALKALINE PHOSPHATASE 99 U/L (46-116); ALT (SGPT) 12 U/L (10-68); C-REACTIVE PROTEIN 3.4 mg/dL (0.0-0.9); CALC OSMOLALITY 276 mosm/kg (275-300); CALCIUM 9.2 mg/dL (8.5-10.1); CARBON DIOXIDE 30.5 mmol/L (21.0-32.0); CHLORIDE - SERUM 100 mmol/L (98-107); CREATININE - SERUM 0.8 mg/dL (0.6-1.3); GLUCOSE 104 mg/dL (74-106); POTASSIUM - SERUM 4.4 mmol/L (3.5-5.1); SODIUM 139 mmol/L (136-145); UREA NITROGEN 11 mg/dL (7-18); eGFR NON AFRICAN AMERICAN 81 mL/min (90-120)
--- NOTE | 2019-01-17 13:55 | NUR ---
PT WAS ASSISTED TO THE RESTROOM VIA WHEELCHAIR, DIFFICULTY BEARING WEIGHT ON THE LEFT LEG AND TRANSFERRING WITHOUT ASSISTANCE HERE IN THE ED.
[2019-01-17 14:35] VITALS: BP 133/83
--- NOTE | 2019-01-17 16:28 | NUR ---
PT ASSISTED TO RESTROOM USING WHEELCHAIR. PT TRANSFERRED TO WHEELCHAIR WITH SOME DIFFICULTY BUT WAS ABLE TO DO SO UNASSISTED.
--- NOTE | 2019-01-17 16:49 | NUR ---
DR. LANCASTER AT BEDSIDE TO ASPIRATE LEFT KNEE
[2019-01-17 18:01] LABS: MACROPHAGES BF 2 %; NEUT - BF 66 %
[2019-01-17 19:01] VITALS: BP 161/92; BMI 34.5
[2019-01-17 20:00] VITALS: BP 135/78
[2019-01-18] VITALS: BP 131/61
[2019-01-18 03:00] VITALS: BP 105/63
--- NOTE | 2019-01-18 03:09 | NUR ---
I have reviewed this patient and I concur with the Shift Assessment completed by the Licensed Practical Nurse today this shift.
[2019-01-18 06:22] LABS: BASOPHILS 0.6 % (0-2); EOSINOPHILS 3.3 % (0-7); HEMATOCRIT 35.5 % (36.0-48.0); HEMOGLOBIN 11.1 g/dL (12-16); IMMATURE GRANULOCYTES 0.3 % (0-5); LYMPHOCYTES 31.3 % (15-50); MCH 26.9 pg (26.0-34.0); MCHC 31.3 g/dL (31.0-37.0); MEAN PLATELET VOLUME 9.8 fL (7.4-10.4); MONOCYTES 9.5 % (2-11); PLATELET COUNT 321 10x3/uL (130-400); RBC 4.13 10x6/uL (4.00-5.40); RDW 13.8 % (11.5-14.5)
[2019-01-18 06:33] LABS: WBC 6.7 10x3/uL (4.8-10.8)
[2019-01-18 06:41] LABS: CALC OSMOLALITY 275 mosm/kg (275-300); CALCIUM 8.5 mg/dL (8.5-10.1); CARBON DIOXIDE 27.3 mmol/L (21.0-32.0); CHLORIDE - SERUM 101 mmol/L (98-107); CREATININE - SERUM 0.8 mg/dL (0.6-1.3); GLUCOSE 113 mg/dL (74-106); SODIUM 137 mmol/L (136-145); eGFR NON AFRICAN AMERICAN 81 mL/min (90-120)
[2019-01-18 06:44] LABS: UREA NITROGEN 16 mg/dL (7-18)
[2019-01-18 09:54] VITALS: BP 113/77
[2019-01-18 13:43] VITALS: BP 110/66
--- NOTE | 2019-01-18 16:22 | NUR ---
I have reviewed this patient and I concur with the Shift Assessment completed by the Licensed Practical Nurse today this shift.
--- NOTE | 2019-01-18 16:42 | NUR ---
PT IS AAOX4. ON ROOM AIR, IV TO RIGHT AC, INFUSING 1/2NS AT 50ML/HR. USES WALKER WITH ASSIST FOR AMBULATION. ERASTO WRAP TO LEFT KNEE. KNEE AND UPPER THIGH SWELLING PRESENT, PLEXI-BOOTS TO BILATERAL LEGS. TREATING PAIN TO LEFT LEG WITH IV AND PO PAIN PILLS. PAIN REMAINS AT 8-10 MAJORITY OF THE TIME. DENIES ANY CURRENT NEEDS OR DISCOMFORTS, BED LOWERED AND LOCKED, CALL LIGHT WITHIN REACH. CPOC
[2019-01-18 17:49] VITALS: BP 118/68
--- NOTE | 2019-01-18 19:15 | NUR ---
RECEIVED REPORT, ASSUMED CARE, A&O, WALKER AT BEDSIDE, DENIES NEEDS, BED LOWEST POSITION, CALL LIGHT IN REACH, IV TO LAC INFUSING PATENT, PLEXI BOOTS OFF AT THIS TIME STATED SHE WANTED A BREAK
[2019-01-18 20:00] VITALS: BP 108/66
[2019-01-19] VITALS: BP 96/63
--- NOTE | 2019-01-19 04:11 | NUR ---
I have reviewed this patient and I concur with the Shift Assessment completed by the Licensed Practical Nurse today this shift.
[2019-01-19 07:50] LABS: BASOPHILS 0.5 % (0-2); EOSINOPHILS 2.6 % (0-7); HEMATOCRIT 34.7 % (36.0-48.0); HEMOGLOBIN 10.9 g/dL (12-16); IMMATURE GRANULOCYTES 0.2 % (0-5); LYMPHOCYTES 31.6 % (15-50); MCH 26.8 pg (26.0-34.0); MCHC 31.4 g/dL (31.0-37.0); MCV 85.5 fL (80.0-100.0); MONOCYTES 10.8 % (2-11); NEUTROPHILS 54.3 % (40-80); PLATELET COUNT 274 10x3/uL (130-400); RBC 4.06 10x6/uL (4.00-5.40); RDW 13.5 % (11.5-14.5); WBC 6.7 10x3/uL (4.8-10.8)
[2019-01-19 08:04] LABS: CALC OSMOLALITY 275 mosm/kg (275-300); CALCIUM 8.4 mg/dL (8.5-10.1); CARBON DIOXIDE 27.3 mmol/L (21.0-32.0); CHLORIDE - SERUM 101 mmol/L (98-107); CREATININE - SERUM 0.8 mg/dL (0.6-1.3); GLUCOSE 117 mg/dL (74-106); POTASSIUM - SERUM 4.1 mmol/L (3.5-5.1); SODIUM 137 mmol/L (136-145); UREA NITROGEN 16 mg/dL (7-18); eGFR NON AFRICAN AMERICAN 81 mL/min (90-120)
[2019-01-19 10:07] VITALS: BP 115/69
[2019-01-19 11:36] LABS: ERYTHROCYTE SEDIMENTATION RATE 62 mm/hr (0-20)
--- NOTE | 2019-01-19 13:56 | NUR ---
I have reviewed this patient and I concur with the Shift Assessment completed by the Licensed Practical Nurse today this shift.
[2019-01-19 14:37] VITALS: BP 115/62
--- NOTE | 2019-01-19 15:13 | NUR ---
22 GAUGE IV STARTED IN THE RIGHT ARM x 1 STICK. +FLASH, FLUSHED WITHOUT REDNESS, EDEMA, OR DIFFICULTIES. SECRUED WITH TEGADERM AND TAPE SALINE LOCKED.
[2019-01-19 18:12] VITALS: BP 117/67
--- NOTE | 2019-01-19 20:00 | NUR ---
RESTING IN BED ERASTO WRAP IN PLACE TO LEFT KNEE, CAR DUMPER OPERATOR HELPER IN USE FOR PAIN CONTROL, SEE SHIFT ASSESSMENT, CALL LIGHT IN REACH
[2019-01-19 21:57] VITALS: BP 114/66
[2019-01-20 01:45] VITALS: BP 121/61
[2019-01-20 05:19] VITALS: BP 115/63
[2019-01-20 06:05] LABS: CALC OSMOLALITY 271 mosm/kg (275-300); CALCIUM 8.4 mg/dL (8.5-10.1); CARBON DIOXIDE 28.8 mmol/L (21.0-32.0); CHLORIDE - SERUM 100 mmol/L (98-107); CREATININE - SERUM 0.8 mg/dL (0.6-1.3); GLUCOSE 114 mg/dL (74-106); SODIUM 135 mmol/L (136-145); UREA NITROGEN 14 mg/dL (7-18); VANCOMYCIN - TROUGH 18.1 ug/mL (10.0-20.0); eGFR NON AFRICAN AMERICAN 81 mL/min (90-120)
[2019-01-20 06:10] LABS: BASOPHILS 0.5 % (0-2); EOSINOPHILS 2.8 % (0-7); HEMATOCRIT 34.2 % (36.0-48.0); HEMOGLOBIN 10.7 g/dL (12-16); IMMATURE GRANULOCYTES 0.1 % (0-5); LYMPHOCYTES 27.8 % (15-50); MCH 26.8 pg (26.0-34.0); MCHC 31.3 g/dL (31.0-37.0); MCV 85.7 fL (80.0-100.0); MEAN PLATELET VOLUME 10.4 fL (7.4-10.4); MONOCYTES 12.6 % (2-11); NEUTROPHILS 56.2 % (40-80); PLATELET COUNT 303 10x3/uL (130-400); RBC 3.99 10x6/uL (4.00-5.40); RDW 13.4 % (11.5-14.5); WBC 7.9 10x3/uL (4.8-10.8)
--- NOTE | 2019-01-20 07:20 | NUR ---
PT AAOX4 RESP EVEN AND NONLABORED, NO SIGNS OF DISTRESS NOTED, REQUESTING SOME ICE WATER AND FOR HER ERASTO WRAPPED TO BE CHANGED DONE AT THIS TIME WILL CONTINUE TO MONITOR, CL IN REACH
[2019-01-20 08:55] VITALS: BP 124/80
[2019-01-20 12:24] VITALS: BP 114/69
--- NOTE | 2019-01-20 15:26 | NUR ---
I have reviewed this patient and I concur with the Shift Assessment completed by the Licensed Practical Nurse today this shift.
[2019-01-20 16:45] VITALS: BP 111/63
--- NOTE | 2019-01-20 20:00 | NUR ---
RESTING IN BED, REPORTS POOR PAIN CONTROL WITH MAIL TECHNICIAN TODAY STATES HAD TO GET BOLUSES AND ADDITIONAL PAIN MEDS, WARM PACK GIVEN FOR KNEE, SEE SHIFT ASSESSMENT, CALL SUPRIYA PARTIDA
[2019-01-20 21:18] VITALS: BP 122/70
[2019-01-21 05:59] VITALS: BP 114/66
--- NOTE | 2019-01-21 07:15 | NUR ---
PT RESTING IN BED, EYES OPEN. NO C/O PAIN. NO S/S OF ACUTE DISTRESS NOTED. PT ALERT AND ORIENTED. PLEXI BOOTS PRESENT, NOT ON PT REFUSED. PT UP WITH WALKER. IV TO RIGHT HAND, 1/2 NS INFUSING @ 50ML/HR, DILAUDID STRAW HAT WASHER OPERATOR 0.2-10-4. ERASTO WRAP TO LEFT KNEE. PT DENIES ANYTHING FURTHER AT THIS TIME. CALL LIGHT IN REACH. WILL CONTINUE TO MONITOR.
--- NOTE | 2019-01-21 08:10 | NUR ---
PT C/O PAIN TO LEFT KNEE, GAVE DILAUDID BOLUS OF 0.4MG.
[2019-01-21 09:41] VITALS: BP 127/69
--- NOTE | 2019-01-21 11:53 | NUR ---
I have reviewed this patient and I concur with the Shift Assessment completed by the Licensed Practical Nurse today this shift.
[2019-01-21 15:09] VITALS: BP 107/68
--- NOTE | 2019-01-21 16:57 | MORECARE ---
CASE MANAGEMENT DISCHARGE SUMMARY PATIENT: SALMA SEPULVEDA UNIT: [id number] ADM DATE: 01/17/19 AGE: 48 : 68 SEX: F ROOM/BED: D.2235 AUTHOR: MIRNA,DOC PHYSICIAN: REFERRING PHYSICIAN: URIEL LANCASTER DO DATE OF SERVICE: 01/21/19 Discharge Plan Patient Name: SALMA SEPULVEDA Facility: [facility]:[place] : 1970 Planned Disposition: Home Anticipated Discharge Date: Discharge Date: Expected LOS: Initial Reviewer: [email or web address] Initial Review Date: 01/21/2019 Generated: 01/21/19 5:57 pm Comments DCP- Discharge Planning Updated by [email or web address]: Frannie Hutchinson on 01/21/19 3:[address] Patient Name: SALMA SEPULVEDA Admission Status: ER Accout number: [id number] Admission Date: 01-17-2019 : 1970 Admission Diagnosis:PAIN DUE TO INTERNAL ORTHOPEDIC PROSTH DEV/GRFT, INIT Attending: URIEL LANCASTER Current LOS: 4 Anticipated DC Date: Planned Disposition: Home Primary Insurance: MEDICARE A & B Discharge Planning Comments: CM met with patient to complete initial dc planning assessment. CM educated patient on the CM role and verbal consent given by patient to complete assessment. Patient lives at home in [place] with her daughter. CM discussed availability of home health, rehab services, and medical equipment. Patient denied known discharge needs at this time. She states her discharge plan is to return home with her daughter. States at this time, she does not think she will need home health. States "I haven't had to have them in awhile." States her daughter drives her where she needs to go. CM will continue to follow and assist with discharge planning/needs. Product Support Rep: Frannie Hutchinson DCPIA - Discharge Planning Initial Assessment Updated by [id number]: Frannie Hutchinson on 01/21/19 4:52 pm * Is the patient Alert and Oriented? Yes * How many steps to enter\\exit or inside your home? 0/0 * PCP None * Pharmacy [facility] in [place] * Preadmission Environment Home with Family * ADLs Partial Dependent * Partial ADLs (Assistance needed) Ambulation * Equipment Walker Wheelchair * List name and contact numbers for known caregivers / representatives who currently or will assist patient after discharge: Lorenza Sepulveda - R - [phone] * Verbal permission to speak to the caregivers and representatives has been obtained from the patient. Yes * Community resources currently utilized None * Please name any agencies selected above. Has used [facility] in the past * Additional services required to return to the preadmission environment? No * Can the patient safely return to the preadmission environment? Yes * Has this patient been hospitalized within the prior 30 days at any hospital? No Patient Name: SALMA SEPULVEDA Page 72177 at 1657 All edits/amendments must be made on the electronic document DICTATION DATE: 01/21/191656 STRIKE PLATE ATTACHER: OBDULIO 01/21/191656 RPT#: [id number] DC DATE: STATUS: ADM IN [facility] [address] [place] [address] END OF REPORT
[2019-01-21 17:54] VITALS: BP 112/72
--- NOTE | 2019-01-21 18:38 | NUR ---
PT RESTING IN BED, C/O PAIN. STATES PAIN MEDICINE IS NOT HELPING THE PAIN. NO S/S OF ACUTE DISTRESS NOTED. PT DENIES ANYTHING FURTHER AT THIS TIME. CALL LIGHT IN REACH. WILL CONTINUE TO MONITOR.
--- NOTE | 2019-01-21 18:58 | NUR ---
PT C/O PAIN, GAVE BOLUS 0.4MG DILAUDID
--- NOTE | 2019-01-21 19:55 | NUR ---
REPORT RECEIVED. PT ALERT AND ORIENTED WHEN ENTERING THE ROOM. PT STATES PAIN IS CURRENTLY UNDER CONTROL BUT ASKED THAT TORADOL BE GIVEN AT 8:15. PT RIGHT KNEE WITH EDEMA. ERASTO WRAP APPLIED. LEGS ELEVATED. ADVISED PT TO KEEP LEGS ELEVATED TO HELP WITH SWELLING. PT VERBALIZED UNDERSTANDING. IV INFUSING 1/2 NS @ 50 WITH DILAUDID MANAGER MEAT .. CALL LIGHT IN REACH.
--- NOTE | 2019-01-21 20:33 | NUR ---
PT COMPLAINS OF PAIN. ADMINISTERED TORADOL PER ORDER. PT TOLERATED WELL.
[2019-01-21 22:22] VITALS: BP 108/66
--- NOTE | 2019-01-21 22:43 | NUR ---
PT COMPLAINS OF PAIN 07/23. ADMINISTERED BOLUS DOSE PER ORDER. TOLERATED WELL.
--- NOTE | 2019-01-22 00:06 | NUR ---
RESITED IV TO THE RIGHT HAND.
--- NOTE | 2019-01-22 04:25 | NUR ---
I have reviewed this patient and I concur with the Shift Assessment completed by the Licensed Practical Nurse today this shift.
[2019-01-22 05:16] VITALS: BP 116/69
--- NOTE | 2019-01-22 05:36 | NUR ---
PT COMPLAINS OF PAIN. RATES 07/23. ADMINISTERED TORADOL PER ORDER.
--- NOTE | 2019-01-22 07:10 | NUR ---
PT RESTING IN BED, EYES OPEN. C/O PAIN. GAVE BOLUS OF DILAUDID, 0.4MG FOR PAIN. NO S/S OF ACUTE DISTRESS NOTED. IV TO RIGHT HAND, 1/2 NS INFUSING @ 50ML/HR, DILAUDID CERTIFICATION AND SELECTION SPECIALIST 0.2-10-4. PT ALERT AND ORIENTED. UP WITH WALKER. REFUSED PLEXI BOOTS. PT DENIES ANYTHING FURTHER AT THIS TIME. CALL LIGHT IN REACH. WILL CONTINUE TO MONITOR.
[2019-01-22 09:05] VITALS: BP 129/67
--- NOTE | 2019-01-22 11:45 | NUR ---
I have reviewed this patient and I concur with the Shift Assessment completed by the Licensed Practical Nurse today this shift.
[2019-01-22 12:47] VITALS: BP 112/60
[2019-01-22 14:39] VITALS: Ht 180.3 cm; Wt 112.0 kg
--- NOTE | 2019-01-22 15:40 | NUR ---
PT C/O KNEE PAIN, 07/23. GAVE DILAUDID 8MG FOR PAIN PER PHYSICIAN ORDERS.
[2019-01-22 17:24] VITALS: BP 136/73
--- NOTE | 2019-01-22 18:12 | NUR ---
PT RESTING IN BED, EYES CLOSED. RESPIRATIONS EVEN AND UNLABORED. AROUSES TO VOICE. NO C/O PAIN. NO S/S OF ACUTE DISTRESS NOTED. PT STATES ORAL DILAUDID IS CONTROLLING PAIN AT THIS TIME. PT DENIES ANYTHING FURTHER AT THIS TIME. CALL LIGHT IN REACH. WILL CONTINUE TO MONITOR.
--- NOTE | 2019-01-22 19:45 | NUR ---
MEDICATED WITH KLONOPIN FOR C/O ANXIETY. RATES PAIN IN LT KNEE 10 AND ASKING WHEN PAIN MED IS DUE. PAIN MED DUE @ 2136. SHE VERBALIZES UNDERSTANDING. RESP EVEN AND NONLABORED. BBS CTA. NO EDEMA NOTED. REFUSES PLEXI BOOTS. 1/2 NS @ 50 ML/HR INFUSING IN RT HAND WITHOUT DIFF. AMB WITH WALKER. SR ELEVATED X2. CL IN REACH.
[2019-01-22 20:34] VITALS: BP 117/69
--- NOTE | 2019-01-23 01:18 | NUR ---
AWAKE. REPORTS PAIN IN LT KNEE BUT NOT TIME FOR PAIN MED. PT AWARE. CL IN REACH.
--- NOTE | 2019-01-23 02:57 | NUR ---
REQUESTING PAIN MED FOR LT KNEE. EXPLAINED PAIN MED ISNT DUE UNTIL 344. SHE VERBALIZED UNDERSTANDING.
[2019-01-23 05:15] VITALS: BP 146/81
--- NOTE | 2019-01-23 07:55 | NUR ---
AAOX4. ON ROOM AIR, EVEN UNLABORED BREATHING, IV TO RIGHT HAND PATENT, INFUSING 1/2NS AT 50ML/HR, USES WALKER FOR AMBULATION. REFUSES PLEXI BOOTS. ON LOVENOX. PAIN LEVEL 07/23. OFFERED ALTERNATIVES (TYLENOL AND HEAT PACK) D/T PAIN MEDICATION NOT BEING DUE, REFUSED. LEFT KNEE SWOLLEN, NO DRAINAGE OF SITE, OPEN TO AIR. DENIES ANY CURRENT NEEDS OR DISCOMFORTS, BED LOWERED AND LOCKED, CALL LIGHT WITHIN REACH. CPOC
[2019-01-23 08:31] VITALS: BP 138/77
[2019-01-23] MEDS ORDERED: DILAUDID4 MG PO (11:10)
[2019-01-23] MEDS ORDERED: KEFLEX500 MG PO (11:11)
--- NOTE | 2019-01-23 11:44 | MORECARE ---
CASE MANAGEMENT DISCHARGE SUMMARY PATIENT: SALMA SEPULVEDA UNIT: [id number] ADM DATE: 01/17/19 AGE: 48 : 68 SEX: F ROOM/BED: D.2235 AUTHOR: LYNN BRADLEY PHYSICIAN: REFERRING PHYSICIAN: URIEL LANCASTER DO DATE OF SERVICE: 01/23/19 Discharge Plan Patient Name: SALMA SEPULVEDA Facility: [facility]:[place] : 1970 Planned Disposition: Home Anticipated Discharge Date: Discharge Date: Expected LOS: Initial Reviewer: [email or web address] Initial Review Date: 01/21/2019 Generated: 01/23/19 12:44 pm Comments DCP- Discharge Planning Updated by [email or web address]: Frannie Hutchinson on 01/23/19 10:[address] Patient Name: SALMA SEPULVEDA Encounter No: [id number] : 1970 Primary Insurance: MEDICARE A & B Anticipated DC Date: Planned Disposition: Home External Planned Provider: : DCP follow-up note: Patient and family in agreement with discharge plan. No changes to plan. Declines home health. States her ride will be here at 1:30. CM will continue to follow and assist with discharge planning/needs. Frannie Hutchinson DCP- Discharge Planning Updated by [email or web address]: Frannie Hutchinson on 01/21/19 3:[address] Patient Name: SALMA SEPULVEDA Admission Status: ER Accout number: [id number] Admission Date: 01-17-2019 : 1970 Admission Diagnosis:PAIN DUE TO INTERNAL ORTHOPEDIC PROSTH DEV/GRFT, INIT Attending: URIEL LANCASTER Current LOS: 4 Anticipated DC Date: Planned Disposition: Home Primary Insurance: MEDICARE A & B Discharge Planning Comments: CM met with patient to complete initial dc planning assessment. CM educated patient on the CM role and verbal consent given by patient to complete assessment. Patient lives at home in [place] with her daughter. CM discussed availability of home health, rehab services, and medical equipment. Patient denied known discharge needs at this time. She states her discharge plan is to return home with her daughter. States at this time, she does not think she will need home health. States "I haven't had to have them in awhile." States her daughter drives her where she needs to go. CM will continue to follow and assist with discharge planning/needs. Turn Down Man: Frannie Jasper DCPIA - Discharge Planning Initial Assessment Updated by [id number]: Frannie Jasper on 01/21/19 4:52 pm * Is the patient Alert and Oriented? Yes * How many steps to enter\\exit or inside your home? 0/0 * PCP None * Pharmacy [facility] in [place] * Preadmission Environment Home with Family * ADLs Partial Dependent * Partial ADLs (Assistance needed) Ambulation * Equipment Walker Wheelchair * List name and contact numbers for known caregivers / representatives who currently or will assist patient after discharge: Lorenza Sepulveda - R - [phone] * Verbal permission to speak to the caregivers and representatives has been obtained from the patient. Yes * Community resources currently utilized None * Please name any agencies selected above. Has used [facility] in the past * Additional services required to return to the preadmission environment? No * Can the patient safely return to the preadmission environment? Yes * Has this patient been hospitalized within the prior 30 days at any hospital? No Coverage Notice Reviewer: [email or web address] - Frannie Jasper Notice Issued Date-Time: 01/23/2019 11:39 Notice Type: IM Discharge Notice Notice Delivered To: Patient Relationship to Patient: Military Nurse Name: Delivery Method: HAND - Hand Delivered Kate Days: Prior Verbal Notification: Recipient Understood Notice: Yes Recipient Signature: Yes Med Rec Note Co-signed by Attending: Coverage Notice Comment: IMM explained, signed, given, copy placed in MR Last DP export: 01/21/19 3:57 p Patient Name: SALMA SEPULVEDA Page 92830 at 1144 All edits/amendments must be made on the electronic document DICTATION DATE: 01/23/19 1143 LITERACY CONSULTANT: OBDULIO 01/23/19 1143 RPT#: [id number] DC DATE: STATUS: ADM IN [facility] [address] [place] [address] END OF REPORT
--- NOTE | 2019-01-23 12:36 | NUR ---
DISCHARGE INSTRUCTION GIVEN. VERBALIZES UNDERSTANDING. HARD SCRIPTS GIVEN. DENIES ANY CONCERNS OR QUESTIONS.
--- NOTE | 2019-01-23 16:23 | MORECARE ---
CASE MANAGEMENT DISCHARGE SUMMARY PATIENT: SALMA SEPULVEDA UNIT: [id number] ADM DATE: 01/17/19 AGE: 48 : 68 SEX: F ROOM/BED: D.2235 AUTHOR: LYNN BRADLEY PHYSICIAN: REFERRING PHYSICIAN: URIEL LANCASTER DO DATE OF SERVICE: 01/23/19 Discharge Plan Patient Name: SALMA SEPULVEDA Facility: [facility]:[place] : 1970 Planned Disposition: Home Anticipated Discharge Date: Discharge Date: 01/23/2019 Expected LOS: 0 Initial Reviewer: [email or web address] Initial Review Date: 01/21/2019 Generated: 01/23/19 5:22 pm Comments DCP- Discharge Planning Updated by [email or web address]: Frannie Hutchinson on 01/23/19 10:[address] Patient Name: SALMA SEPULVEDA Encounter No: [id number] : 1970 Primary Insurance: MEDICARE A & B Anticipated DC Date: Planned Disposition: Home External Planned Provider: : DCP follow-up note: Patient and family in agreement with discharge plan. No changes to plan. Declines home health. States her ride will be here at 1:30. CM will continue to follow and assist with discharge planning/needs. Frannie Hutchinson DCP- Discharge Planning Updated by [id number]: Frannie Hutchinson on 01/21/19 3:[address] Patient Name: SALMA SEPULVEDA Admission Status: ER Accout number: [id number] Admission Date: 01-17-2019 : 1970 Admission Diagnosis:PAIN DUE TO INTERNAL ORTHOPEDIC PROSTH DEV/GRFT, INIT Attending: URIEL LANCASTER Current LOS: 4 Anticipated DC Date: Planned Disposition: Home Primary Insurance: MEDICARE A & B Discharge Planning Comments: CM met with patient to complete initial dc planning assessment. CM educated patient on the CM role and verbal consent given by patient to complete assessment. Patient lives at home in [place] with her daughter. CM discussed availability of home health, rehab services, and medical equipment. Patient denied known discharge needs at this time. She states her discharge plan is to return home with her daughter. States at this time, she does not think she will need home health. States "I haven't had to have them in awhile." States her daughter drives her where she needs to go. CM will continue to follow and assist with discharge planning/needs. Busser: Frannie Wildermarisel DCPIA - Discharge Planning Initial Assessment Updated by [email or web address]: Frannie Jasper on 01/21/19 4:52 pm * Is the patient Alert and Oriented? Yes * How many steps to enter\\exit or inside your home? 0/0 * PCP None * Pharmacy [facility] in [place] * Preadmission Environment Home with Family * ADLs Partial Dependent * Partial ADLs (Assistance needed) Ambulation * Equipment Walker Wheelchair * List name and contact numbers for known caregivers / representatives who currently or will assist patient after discharge: Lorenza Sepulveda - R - [phone] * Verbal permission to speak to the caregivers and representatives has been obtained from the patient. Yes * Community resources currently utilized None * Please name any agencies selected above. Has used [facility] in the past * Additional services required to return to the preadmission environment? No * Can the patient safely return to the preadmission environment? Yes * Has this patient been hospitalized within the prior 30 days at any hospital? No Coverage Notice Reviewer: [email or web address] - Frannie Jasper Notice Issued Date-Time: 01/23/2019 11:39 Notice Type: IM Discharge Notice Notice Delivered To: Patient Relationship to Patient: Lift Operator Name: Delivery Method: HAND - Hand Delivered Kate Days: Prior Verbal Notification: Recipient Understood Notice: Yes Recipient Signature: Yes Med Rec Note Co-signed by Attending: Coverage Notice Comment: IMM explained, signed, given, copy placed in MR Last DP export: 01/23/19 10:44 a Patient Name: SALMA SEPULVEDA Page 71484 at 1623 All edits/amendments must be made on the electronic document DICTATION DATE: 01/23/191621 INTERFACE DEVELOPER: OBDULIO 01/23/191621 RPT#: [id number] DC DATE:01/23/19 STATUS: DIS IN [facility] [address] [place] [address] END OF REPORT
== END 2019-01-23 13:30 | disposition home or self-care (01) | DRG 561 ==
LOC: D.ER 11:20 → D.EDHOLD 17:00 → D.MS 17:00
PROVIDERS: Family Medicine; Orthopaedic Surgery; ADMIT Orthopaedic Surgery; ATTEND Orthopaedic Surgery
DX: T84.84XA Pain due to internal orthopedic prosthetic devices, implants and grafts, initial encounter (principal)

== ENCOUNTER → 2019-02-13 13:13 | Outpatient (CLI) | payer MEDICARE ==
[2019-01-22 14:39] VITALS: BMI 34.4
[2019-02-13 14:55] LABS: BASOPHILS 0.3 % (0-2); EOSINOPHILS 2.8 % (0-7); HEMATOCRIT 36.7 % (36.0-48.0); HEMOGLOBIN 11.6 g/dL (12-16); IMMATURE GRANULOCYTES 0.3 % (0-5); LYMPHOCYTES 21.6 % (15-50); MCH 27.2 pg (26.0-34.0); MCHC 31.6 g/dL (31.0-37.0); MCV 85.9 fL (80.0-100.0); MEAN PLATELET VOLUME 11.1 fL (7.4-10.4); MONOCYTES 10.4 % (2-11); NEUTROPHILS 64.6 % (40-80); PLATELET COUNT 291 10x3/uL (130-400); RBC 4.27 10x6/uL (4.00-5.40); RDW 13.5 % (11.5-14.5); WBC 6.8 10x3/uL (4.8-10.8)
[2019-02-13 17:49] LABS: ERYTHROCYTE SEDIMENTATION RATE 42 mm/hr (0-20)
== END | disposition home or self-care (01) ==
LOC: D.LABREF 13:13
PROVIDERS: ATTEND Orthopaedic Surgery
DX: M25.562 Pain in left knee (principal)

== ENCOUNTER 2019-03-28 17:35 | Emergency (ER) | payer MEDICARE ==
[~2019-03-28] VITALS: Ht 180.3 cm; Wt 119.5 kg
[2019-03-28 17:37] VITALS: Ht 180.3 cm; Wt 119.5 kg
[2019-03-28] MEDS ORDERED: RIFADIN300 MG PO (17:39)
[2019-03-28] MEDS ORDERED: HYDROCODON-ACE1 EA10 PO ×2 (17:39→20:11)
[2019-03-28 18:32] LABS: BASOPHILS 0.2 % (0-2); EOSINOPHILS 1.9 % (0-7); HEMATOCRIT 41.1 % (36.0-48.0); HEMOGLOBIN 13.8 g/dL (12-16); IMMATURE GRANULOCYTES 0.4 % (0-5); LYMPHOCYTES 25.7 % (15-50); MCH 27.8 pg (26.0-34.0); MCHC 33.6 g/dL (31.0-37.0); MCV 82.7 fL (80.0-100.0); MEAN PLATELET VOLUME 10.7 fL (7.4-10.4); MONOCYTES 7.3 % (2-11); NEUTROPHILS 64.5 % (40-80); PLATELET COUNT 266 10x3/uL (130-400); RBC 4.97 10x6/uL (4.00-5.40); RDW 13.3 % (11.5-14.5); WBC 8.4 10x3/uL (4.8-10.8)
[2019-03-28 21:04] VITALS: BP 120/72
[2019-03-28 21:09] LABS: ERYTHROCYTE SEDIMENTATION RATE 62 mm/hr (0-30)
== END 2019-03-28 21:04 | disposition home or self-care (01) ==
LOC: D.ER 17:35
PROVIDERS: Emergency Medicine
DX: T84.54XA Infection and inflammatory reaction due to internal left knee prosthesis, initial encounter (principal)

== ENCOUNTER 2019-04-24 19:35 | Inpatient (IN) | payer MEDICARE ==
[~2019-04-24] VITALS: Ht 180.3 cm; Wt 124.5 kg
[2019-04-24 20:51] LABS: BASOPHILS 0.5 % (0-2); EOSINOPHILS 3.9 % (0-7); HEMATOCRIT 38.1 % (36.0-48.0); HEMOGLOBIN 12.4 g/dL (12-16); IMMATURE GRANULOCYTES 0.2 % (0-5); LYMPHOCYTES 21.9 % (15-50); MCH 27.3 pg (26.0-34.0); MCHC 32.5 g/dL (31.0-37.0); MCV 83.7 fL (80.0-100.0); MEAN PLATELET VOLUME 10.5 fL (7.4-10.4); MONOCYTES 11.2 % (2-11); NEUTROPHILS 62.3 % (40-80); PLATELET COUNT 252 10x3/uL (130-400); RBC 4.55 10x6/uL (4.00-5.40); RDW 13.5 % (11.5-14.5); WBC 9.9 10x3/uL (4.8-10.8)
[2019-04-24 21:01] LABS: ALBUMIN 3.1 g/dL (3.4-5.0); ALKALINE PHOSPHATASE 94 U/L (46-116); ALT (SGPT) 14 U/L (10-68); BILIRUBIN - TOTAL 0.17 mg/dL (0.2-1.3); C-REACTIVE PROTEIN 8.5 mg/dL (0.0-0.9); CALC OSMOLALITY 281 mosm/kg (275-300); CALCIUM 8.3 mg/dL (8.5-10.1); CARBON DIOXIDE 28.3 mmol/L (21.0-32.0); CHLORIDE - SERUM 102 mmol/L (98-107); CREATININE - SERUM 0.7 mg/dL (0.6-1.3); GLUCOSE 119 mg/dL (74-106); POTASSIUM - SERUM 3.6 mmol/L (3.5-5.1); PROTEIN - SERUM 7.3 g/dL (6.4-8.2); SODIUM 139 mmol/L (136-145); UREA NITROGEN 20 mg/dL (7-18); eGFR NON AFRICAN AMERICAN > 90 mL/min (90-120)
[2019-04-24] MEDS ORDERED: HYSINGLA ER30 MG PO (21:52)
[2019-04-24 21:53] LABS: ERYTHROCYTE SEDIMENTATION RATE 71 mm/hr (0-30)
[2019-04-24 23:04] VITALS: Ht 180.3 cm; Wt 124.5 kg
[2019-04-25 04:00] VITALS: BP 83/62
--- NOTE | 2019-04-25 04:44 | NUR ---
ASSESSED AT TIME OF ADMISSION TO FLOOR. PT IS ALERT AND ORIENTED, ABLE TO VERBALZE NEEDS. SHE HAS TROUBLE BEARING WEIGHT ON AFFECTED KNEE ANDF WAS GIVEN A WALKER TO WALK SAFELY TO THE BATHROOM. A KEY PERSON WAS STARTED AFTER TALKING WITH DR DENNIS. FAMILY BROUGHT HER FOOD AND SHE ATE AND THEN HAS BEEN ASLEEP MOST OF THE TIME THROUGH THE NIGHT. NO COMPLAINTS HAVE BEEN VOICED AND SHE STATES THE KEY PERSON IS TAKING CARE OF HER PAIN. BED IS LOW, RAILS UP X'S 2 WITH THE CALL LIGHT AT HAND.
[2019-04-25 05:55] LABS: BASOPHILS 0.5 % (0-2); EOSINOPHILS 5.3 % (0-7); HEMATOCRIT 34.5 % (36.0-48.0); IMMATURE GRANULOCYTES 0.2 % (0-5); LYMPHOCYTES 23.4 % (15-50); MCH 26.9 pg (26.0-34.0); MCHC 31.9 g/dL (31.0-37.0); MCV 84.4 fL (80.0-100.0); MEAN PLATELET VOLUME 10.7 fL (7.4-10.4); MONOCYTES 14.1 % (2-11); NEUTROPHILS 56.5 % (40-80); PLATELET COUNT 243 10x3/uL (130-400); RBC 4.09 10x6/uL (4.00-5.40); RDW 13.6 % (11.5-14.5); WBC 8.3 10x3/uL (4.8-10.8)
[2019-04-25 06:43] LABS: ALBUMIN 2.6 g/dL (3.4-5.0); ALKALINE PHOSPHATASE 79 U/L (46-116); ALT (SGPT) 14 U/L (10-68); BILIRUBIN - TOTAL 0.15 mg/dL (0.2-1.3); C-REACTIVE PROTEIN 7.6 mg/dL (0.0-0.9); CALC OSMOLALITY 281 mosm/kg (275-300); CALCIUM 8.2 mg/dL (8.5-10.1); CARBON DIOXIDE 29.5 mmol/L (21.0-32.0); CHLORIDE - SERUM 103 mmol/L (98-107); CREATININE - SERUM 0.8 mg/dL (0.6-1.3); GLUCOSE 130 mg/dL (74-106); POTASSIUM - SERUM 3.9 mmol/L (3.5-5.1); PROTEIN - SERUM 6.9 g/dL (6.4-8.2); SODIUM 139 mmol/L (136-145); UREA NITROGEN 17 mg/dL (7-18); eGFR NON AFRICAN AMERICAN 80 mL/min (90-120)
[2019-04-25 07:56] LABS: ERYTHROCYTE SEDIMENTATION RATE 59 mm/hr (0-30)
[2019-04-25 09:29] VITALS: BP 108/69
[2019-04-25 13:50] VITALS: BP 118/70
[2019-04-25 16:37] VITALS: BP 142/72
[2019-04-25 17:52] VITALS: BP 109/65
--- NOTE | 2019-04-25 19:38 | NUR ---
I have reviewed this patient and I concur with the Shift Assessment completed by the Licensed Practical Nurse today this shift.
--- NOTE | 2019-04-25 19:45 | NUR ---
LYING IN BED. ALERT AND ORIENTED X4. RESP EVEN AND NONLABORED. C/O PAIN IN LT KNEE RATING 8. EXPLOSIVE OPERATOR GRENADE DILAUDID IN USE. LLE IS EDEMATOUS AND SLIGHTLY RED. PEDAL PULSES WNL. AMB WITH ASSIST OF WALKER. NS @ 50 ML/HR INFUSING IN LT HAND WITHOUT DIFF. REQUESTING SNACKS. SR ELEVATED X2. CL IN REACH.
[2019-04-25 20:17] VITALS: BP 99/58
--- NOTE | 2019-04-26 00:10 | NUR ---
SITTING UP IN BED REQUESTING SANDWICH. NO DISTRESS. CL IN REACH.
[2019-04-26 01:42] VITALS: BP 109/57
[2019-04-26 04:00] VITALS: BP 125/68
[2019-04-26 09:16] VITALS: BP 107/62
[2019-04-26 12:35] VITALS: BP 112/77
--- NOTE | 2019-04-26 15:54 | NUR ---
I have reviewed this patient and I concur with the Shift Assessment completed by the Licensed Practical Nurse today this shift.
[2019-04-26 16:36] VITALS: BP 123/76
--- NOTE | 2019-04-26 19:40 | NUR ---
SITTING UP IN BED EATING FRUIT TRAY. ALERT AND ORIENTED X4. RATES PAIN IN LT KNEE 9. PRODUCTION CONTROL SPECIALIST DILAUDID IN USE. RESP EVEN AND NONLABORED. EDEMA NOTED TO LT KNEE. AMB WITH WALKER. NS @ 50 ML/HR INFUSING IN LT HAND WITHOUT DIFF. NO ACUTE DISTRESS. SR ELEVATED X2. CL IN REACH.
[2019-04-26 20:00] VITALS: BP 109/62
--- NOTE | 2019-04-27 02:59 | NUR ---
HAS RESTED WELL SO FAR THIS SHIFT. LYING IN BED WITH EYES CLOSED. RESP EVEN AND NONLABORED. NO DISTRESS. CL IN REACH.
--- NOTE | 2019-04-27 07:30 | NUR ---
PT RESTING IN BED, ALERT AND ORIENTED. SWELLING TO LEFT KNEE, HEATING PACK APPLIED HELPS ALEVIATE PAIN. UP WITH WALKER. IV TO LEFT HAND, NS INFUSING @ 50 ML/HR. SITE PATENT WITHOUT REDNESS OR SWELLING. PT DENIES ANYTHING FURTHER AT THIS TIME. CALL LIGHT IN REACH. NO S/S OF ACUTE DISTRESS NOTED. C/O PAIN, DILAUDID COLLECTIONS TECHNICIAN MANAGING PAIN. WILL CONTINUE TO MONITOR.
[2019-04-27 09:46] VITALS: BP 110/52
--- NOTE | 2019-04-27 12:54 | NUR ---
I have reviewed this patient and I concur with the Shift Assessment completed by the Licensed Practical Nurse today this shift.
[2019-04-27 14:23] VITALS: BP 140/84
[2019-04-27 17:12] VITALS: BP 95/61
--- NOTE | 2019-04-27 18:23 | NUR ---
PT RESTING IN BED, ALERT AND ORIENTED. NO C/O PAIN. NO S/S OF ACUTE DISTRESS NOTED. PT DENIES ANYTHING FURTHER AT THIS TIME. CALL LIGHT IN REACH. WILL CONTINUE TO MONITOR.
--- NOTE | 2019-04-27 19:45 | NUR ---
PT SITTING UP IN BED WITHOUT DISTRESS, ALERT AND ORIENTED. STATES PAIN 9/10 IN LEFT KNEE. IV LEFT HAND INFUSING NS @ 50 WITH DILAUDID PRODUCTION FINISHER. DENIES NEEDS AT THIS TIME. CL IN REACH, WILL CTM
[2019-04-27 22:03] VITALS: BP 113/53
[2019-04-28 01:49] VITALS: BP 109/61
[2019-04-28 05:56] LABS: BASOPHILS 0.5 % (0-2); EOSINOPHILS 7.1 % (0-7); HEMATOCRIT 31.7 % (36.0-48.0); HEMOGLOBIN 9.9 g/dL (12-16); IMMATURE GRANULOCYTES 0.2 % (0-5); LYMPHOCYTES 26.4 % (15-50); MCH 26.3 pg (26.0-34.0); MCHC 31.2 g/dL (31.0-37.0); MCV 84.3 fL (80.0-100.0); MONOCYTES 10.5 % (2-11); NEUTROPHILS 55.3 % (40-80); PLATELET COUNT 212 10x3/uL (130-400); RBC 3.76 10x6/uL (4.00-5.40); RDW 13.6 % (11.5-14.5); WBC 5.9 10x3/uL (4.8-10.8)
[2019-04-28 06:25] LABS: ALBUMIN 2.3 g/dL (3.4-5.0); ALKALINE PHOSPHATASE 85 U/L (46-116); ALT (SGPT) 32 U/L (10-68); BILIRUBIN - TOTAL 0.13 mg/dL (0.2-1.3); C-REACTIVE PROTEIN 3.5 mg/dL (0.0-0.9); CALC OSMOLALITY 284 mosm/kg (275-300); CALCIUM 7.9 mg/dL (8.5-10.1); CHLORIDE - SERUM 107 mmol/L (98-107); CREATININE - SERUM 0.8 mg/dL (0.6-1.3); GLUCOSE 118 mg/dL (74-106); POTASSIUM - SERUM 4.1 mmol/L (3.5-5.1); PROTEIN - SERUM 6.1 g/dL (6.4-8.2); SODIUM 142 mmol/L (136-145); UREA NITROGEN 14 mg/dL (7-18); eGFR NON AFRICAN AMERICAN 80 mL/min (90-120)
[2019-04-28 06:31] VITALS: BP 118/56
--- NOTE | 2019-04-28 07:35 | NUR ---
RCVD PT ALERT AND ORIENTED, RESTING IN BED. UP WITH WALKER. SWELLING TO LEFT KNEE. IV TO LEFT HAND, NS INFUSING @ 50ML/HR. SITE PATENT WITHOUT REDNESS OR SWELLING. DILAUDID RECORDS MANAGEMENT MANAGER 0.2-10-4, RECORDS MANAGEMENT MANAGER MANAGING PAIN AT THIS TIME. NO C/O PAIN. NO S/S OF ACUTE DISTRESS NOTED. CALL LIGHT IN REACH. WILL CONTINUE TO MONITOR.
[2019-04-28 08:45] LABS: ERYTHROCYTE SEDIMENTATION RATE 60 mm/hr (0-30)
[2019-04-28 09:32] VITALS: BP 100/47
[2019-04-28 13:01] VITALS: BP 108/56
--- NOTE | 2019-04-28 18:41 | NUR ---
PT ALERT AND ORIENTED, RESTING IN BED. DENIES ANY NEEDS AT THIS TIME. CALL LIGHT IN REACH. WILL CONTINUE TO MONITOR.
[2019-04-28 18:45] VITALS: BP 110/51
--- NOTE | 2019-04-28 19:35 | NUR ---
PT SITTING UP IN BED WITHOUT DISTRESS, ALERT AND ORIENTED. EATING FRUIT TRAY AT THIS TIME. STATES PAIN 6/10 IN LEFT KNEE. IV LEFT HAND INFUSING NS @ 50 WITH DILAUDID LEGISLATIVE ADVOCATE. DENIES NEEDS AT THIS TIME. CL IN REACH, WILL CTM
[2019-04-28 20:00] VITALS: BP 121/71
[2019-04-29] VITALS: BP 132/64
--- NOTE | 2019-04-29 00:30 | NUR ---
IV LEFT HAND LEAKING FLUID AROUND IV SITE, TENDER TO TOUCH. DC'D IV WITH CATHETER INTACT. 22G IV RESITED TO RIGHT FA X1 ATTEMPT
[2019-04-29 04:00] VITALS: BP 101/67
--- NOTE | 2019-04-29 07:15 | NUR ---
ALERT AND ORIENTED X 3. LUNGS CLEAR BILATERALLY IN ALL CEJA. HEART SOUNDS S1 AND S2 HEARD IN ALL CEJA. BOWEL SOUNDS ACTIVE X 4. SKIN INTACT WITHOUT REDNESS. IV TO RFA PATENT WITHOUT REDNESS. REQUESTED AND GIVEN PRN TORDOL. DENIES FURTHER NEEDS. BED LOW. CALL NATARAJAN AND PERSONAL ITEMS IN REACH. WILL CONTINUE TO MONITOR.
[2019-04-29] MEDS ORDERED: VIBRAMYCIN 100100 MG PO (08:05)
--- NOTE | 2019-04-29 09:02 | NUR ---
LONGWALL HEADGATE OPERATOR DISCONTINUED PER ORDER FOR DISCHARGE. IV REMOVED FROM RFA PER PATIENT REQUEST. DENIES FURTHER NEEDS.
--- NOTE | 2019-04-29 09:15 | MORECARE ---
CASE MANAGEMENT DISCHARGE SUMMARY PATIENT: SALMA FREEMAN UNIT: [id number] ADM DATE: 04/24/19 AGE: 49 : [birth year] SEX: F ROOM/BED: D.2234 AUTHOR: LYNN BRADLEY PHYSICIAN: REFERRING PHYSICIAN: MCKAY DENNIS MD DATE OF SERVICE: 04/29/19 Discharge Plan Patient Name: SALMA FREEMAN [facility] [facility] 1970 Planned Disposition: Home Anticipated Discharge Date: 04/29/19 Discharge Date: Expected LOS: 5 Initial Reviewer: [email or web address] Initial Review Date: 04/29/2019 Generated: 04/29/19 10:15 am Patient Name: SALMA FREEMAN Page [phone] at 0915 All edits/amendments must be made on the electronic document DICTATION DATE: 04/29/19913 LOOM DOFFER: OBDULIO 04/29/19913 RPT#: [id number] DC DATE: STATUS: ADM IN [facility] [address] [place] [address] END OF REPORT
--- NOTE | 2019-04-29 09:23 | MORECARE ---
CASE MANAGEMENT DISCHARGE SUMMARY PATIENT: SALMA FREEMAN UNIT: [id number] ADM DATE: 04/24/19 AGE: 49 : [birth year] SEX: F ROOM/BED: D.2234 AUTHOR: MIRNA,DOC PHYSICIAN: REFERRING PHYSICIAN: MCKAY DENNIS MD DATE OF SERVICE: 04/29/19 Discharge Plan Patient Name: SALMA FREEAMN Facility: [facility]:[place] : 1970 Planned Disposition: Home Anticipated Discharge Date: 04/29/19 Discharge Date: Expected LOS: 5 Initial Reviewer: [email or web address] Initial Review Date: 04/29/2019 Generated: 04/29/19 10:22 am Comments DCP- Discharge Planning Updated by [email or web address]: Frannie Hutchinson on 04/29/19 8:[address] Patient Name: SALMA FREEMAN Admission Status: ER Accout number: [id number] Admission Date: 04-24-2019 : 1970 Admission Diagnosis:PAIN IN LEFT KNEE Attending: MCKAY DENNIS Current LOS: 5 Anticipated DC Date: 04-29-2019 Planned Disposition: Home Primary Insurance: MEDICARE A & B Discharge Planning Comments: CM met with patient to complete initial dc planning assessment. CM educated patient on the CM role and verbal consent given by patient to complete assessment. Patient lives at home with her niece (Shirin Houston). At discharge patient plans to return and feels this is a safe discharge. CM discussed availability of home health, rehab services, and medical equipment. Patient denied known discharge needs at this time. Her physical address is [address] [place] [address] in [place] [address]. I have emailed Danette Light and Paola Boone in admissions. CM will continue to follow and will assist as needed with dc plans/needs. Fountain Supervisor: Frannie Hutchinson DCPIA - Discharge Planning Initial Assessment Updated by [email or web address]: Frannie Hutchinson on 04/29/19 9:16 am * Is the patient Alert and Oriented? Yes * How many steps to enter\exit or inside your home? Ramp/0 * PCP No PCP * [facility] * Preadmission Environment Home with Family * ADLs Partial Dependent * Partial ADLs (Assistance needed) Ambulation * Equipment Grab Bars Shower Chair Walker Wheelchair * List name and contact numbers for known caregivers / representatives who currently or will assist patient after discharge: Shirin Houston * Verbal permission to speak to the caregivers and representatives has been obtained from the patient. Yes * Community resources currently utilized None * Additional services required to return to the preadmission environment? No * Can the patient safely return to the preadmission environment? Yes * Has this patient been hospitalized within the prior 30 days at any hospital? No Coverage Notice Reviewer: [id number] Blank Hutchinson Notice Issued Date-Time: 04/29/2019 9:18 Notice Type: IM Discharge Notice Notice Delivered To: Patient Relationship to Patient: Self Oil Burner Mechanic Name: Delivery Method: HAND - Hand Delivered Kate Days: Prior Verbal Notification: Recipient Understood Notice: Yes Recipient Signature: Yes Med Rec Note Co-signed by Attending: Coverage Notice Comment: IMM explained, signed, given, copy placed in MR Last DP export: 04/29/19 8:15 a Patient Name: SALMA FREEMAN Page [phone] at 0923 All edits/amendments must be made on the electronic document DICTATION DATE: 04/29/19921 EQUIPMENT PROCESSOR: OBDULIO 04/29/19921 RPT#: [id number] DC DATE: STATUS: ADM IN [facility] [address] [place] [address] END OF REPORT
--- NOTE | 2019-04-29 10:19 | NUR ---
DISCHARGE EDUCATION PROVIDED BOTH WRITTEN AND VERBAL. VERBALIZED UNDERSTANDING. DENIES FURTHER QUESTIOS. IV PREVIOUSLY REMOVED FROM RFA WITH TIP INTACT. PATIENT DISCHARGED HOME WITH ALL BELONGINGS.
== END 2019-04-29 10:20 | disposition home or self-care (01) | DRG 560 ==
LOC: D.ER 19:35 → D.MS 20:04
PROVIDERS: Family Medicine; ADMIT Orthopaedic Surgery; ATTEND Orthopaedic Surgery
DX: T84.54XA Infection and inflammatory reaction due to internal left knee prosthesis, initial encounter (principal); F17.213 Nicotine dependence, cigarettes, with withdrawal; M25.562 Pain in left knee

== ENCOUNTER 2019-05-02 15:58 | Emergency (ER) | payer MEDICARE ==
[~2019-05-02] VITALS: Ht 180.3 cm; Wt 124.1 kg
[~2019-05-02 15:58] MED LIST changes: +HYSINGLA ER30 MG PO
[2019-05-02 16:01] VITALS: Ht 180.3 cm; Wt 124.1 kg
[2019-05-02 17:13] LABS: BASOPHILS 0.6 % (0-2); EOSINOPHILS 8.2 % (0-7); HEMATOCRIT 35.9 % (36.0-48.0); HEMOGLOBIN 11.5 g/dL (12-16); IMMATURE GRANULOCYTES 0.2 % (0-5); LYMPHOCYTES 22.2 % (15-50); MCH 26.9 pg (26.0-34.0); MCV 83.9 fL (80.0-100.0); MEAN PLATELET VOLUME 9.9 fL (7.4-10.4); MONOCYTES 8.1 % (2-11); NEUTROPHILS 60.7 % (40-80); RBC 4.28 10x6/uL (4.00-5.40); RDW 13.8 % (11.5-14.5); WBC 9.1 10x3/uL (4.8-10.8)
[2019-05-02 17:20] LABS: PLATELET COUNT 291 10x3/uL (130-400)
[2019-05-02 17:33] LABS: ALKALINE PHOSPHATASE 94 U/L (46-116); ALT (SGPT) 16 U/L (10-68); BILIRUBIN - TOTAL 0.14 mg/dL (0.2-1.3); CALC OSMOLALITY 278 mosm/kg (275-300); CALCIUM 8.6 mg/dL (8.5-10.1); CARBON DIOXIDE 29.2 mmol/L (21.0-32.0); CHLORIDE - SERUM 105 mmol/L (98-107); CREATININE - SERUM 0.7 mg/dL (0.6-1.3); GLUCOSE 114 mg/dL (74-106); POTASSIUM - SERUM 4.1 mmol/L (3.5-5.1); SODIUM 140 mmol/L (136-145); UREA NITROGEN 11 mg/dL (7-18); eGFR NON AFRICAN AMERICAN > 90 mL/min (90-120)
[2019-05-02 18:44] VITALS: BP 132/77
== END 2019-05-02 18:45 | disposition home or self-care (01) ==
LOC: D.ER 15:58
PROVIDERS: Emergency Medicine
DX: M25.562 Pain in left knee (principal); F17.210 Nicotine dependence, cigarettes, uncomplicated

== ENCOUNTER 2019-05-07 13:45 | Inpatient (IN) | payer MEDICARE ==
[~2019-05-07] VITALS: Ht 180.3 cm; Wt 124.1 kg
[2019-05-12] MEDS ORDERED: IBUPROFEN200 MG PO (09:15)
[2019-05-12 09:45] LABS: BASOPHILS 0.4 % (0-2); HEMATOCRIT 37.1 % (36.0-48.0); IMMATURE GRANULOCYTES 0.3 % (0-5); LYMPHOCYTES 18.8 % (15-50); MCH 27.1 pg (26.0-34.0); MCHC 32.3 g/dL (31.0-37.0); MCV 83.7 fL (80.0-100.0); MEAN PLATELET VOLUME 10.4 fL (7.4-10.4); MONOCYTES 6.9 % (2-11); NEUTROPHILS 67.6 % (40-80); PLATELET COUNT 252 10x3/uL (130-400); RBC 4.43 10x6/uL (4.00-5.40); RDW 13.7 % (11.5-14.5); WBC 9.9 10x3/uL (4.8-10.8)
[2019-05-12 09:54] LABS: APPEARANCE CLEAR (CLEAR); BILIRUBIN NEGATIVE (NEGATIVE); COLOR YELLOW (YELLOW); GLUCOSE NEGATIVE (NEGATIVE); KETONE NEGATIVE (NEGATIVE); NITRITE NEGATIVE (NEGATIVE); PROTEIN NEGATIVE (NEGATIVE); UROBILINOGEN NORMAL (NORMAL)
[2019-05-12 10:11] LABS: CALC OSMOLALITY 282 mosm/kg (275-300); CALCIUM 8.2 mg/dL (8.5-10.1); CARBON DIOXIDE 26.4 mmol/L (21.0-32.0); CHLORIDE - SERUM 104 mmol/L (98-107); CREATININE - SERUM 0.7 mg/dL (0.6-1.3); GLUCOSE 124 mg/dL (74-106); POTASSIUM - SERUM 3.3 mmol/L (3.5-5.1); SODIUM 141 mmol/L (136-145); UREA NITROGEN 15 mg/dL (7-18); eGFR NON AFRICAN AMERICAN > 90 mL/min (90-120)
[2019-05-14 08:09] VITALS: BP 137/90; BMI 38.3
--- NOTE | 2019-05-14 10:57 | NUR ---
PLASMA BLADE SET TO 6/8 BOVIE PAD RIGHT THIGH [id number] EXP 12/29/20
--- NOTE | 2019-05-14 12:28 | NUR ---
CALLED REPORT TO LEON BANEGAS ON MS FOR ROOM 2212. NOTIFIED FAMILY OF ROOM NUMBER AND UPDATE. WILL TRANSFER PT AT THIS TIME.
[2019-05-14 12:46] VITALS: BP 134/92
[2019-05-14 13:38] VITALS: BP 135/85; Ht 180.3 cm; Wt 124.1 kg
[2019-05-14 17:53] VITALS: BP 138/74
--- NOTE | 2019-05-14 18:55 | NUR ---
PT RESTING IN BED. NO S/S OF ACUTE DISTRESS. CONVENTIONAL MORTGAGE UNDERWRITER INFUSING. EDUCATION DONE CL IN PLACE.
[2019-05-14 20:25] VITALS: BP 115/60
--- NOTE | 2019-05-15 00:30 | NUR ---
DRESSING ON RIGHT WRIST IV COMING OFF AND MAYBE LEAKING. TIGHTENED CONNECTION AND FLUSHED. IV PATENT WITH NO LEAKS. TAPED BACK DOWN AND DRESSED WITH TEGADERM. NO OTHER NEEDS. WILL REASSESS AND CONTINUE TO MONITOR.
[2019-05-15 06:35] VITALS: BP 115/50
--- NOTE | 2019-05-15 06:39 | NUR ---
RIGHT WRIST IV SWOLLEN AND WILL NOT FLUSH. REMOVED IV CATHETER INTACT. GAVE PERCOCET-10 FOR PAIN 8/10 UNTIL IV CAN BE RESITED. NO OTHER NEEDS.
[2019-05-15 06:44] LABS: HEMATOCRIT 31.2 % (36.0-48.0); HEMOGLOBIN 10.1 g/dL (12-16)
--- NOTE | 2019-05-15 07:25 | NUR ---
PT IS WITHOUT DISTRESS.WANTS IV RESITED SOON POSSIBLE THIS AM. MONITOR FOR NEEDS
--- NOTE | 2019-05-15 08:15 | NUR ---
IV RESITED TO LEFT FOREARM X2 STICKS USING ASEPTIC TECH,20G.
[2019-05-15 08:34] VITALS: BP 118/54
--- NOTE | 2019-05-15 10:00 | NUR ---
ASSESSMENT PER FLOW SHEET. PT IS WITHOUT DISTRESS.MONITOR FOR NEEDS.
[2019-05-15 12:48] VITALS: BP 118/62
--- NOTE | 2019-05-15 14:00 | NUR ---
FAMILY TO VISIT. PT IS WITOUT DISTRESS.SMALL RED AREA ON LEFT FOREARM THAT IS RAISED. PT STATES SHE WIPED WITH BATH WIPES.MONITOR
--- NOTE | 2019-05-15 15:46 | NUR ---
BOLUS ORDERED PER MAR FOR PAIN.
--- NOTE | 2019-05-15 16:02 | OP ---
PATIENT NAME: VIDHI SEPULVEDA MEDICAL RECORD: [id number] :[birth year] LOCATION:D.[id number] ADMISSION DATE:05/14/19 SURGEON: MCKAY DENNIS MD DATE OF OPERATION: 05/14/2019 PREOPERATIVE DIAGNOSES: Chronic infection of the left knee, status post total knee arthroplasty with multiple revisions. POSTOPERATIVE DIAGNOSES: Chronic infection of the left knee, status post total knee arthroplasty with multiple revisions. PROCEDURE: Left below-knee amputation. SURGEON: Mckay Dennis MD OFFICE SERVICES ASSISTANT: Kj Joseph INTRAOPERATIVE COMPLICATIONS: None. SUMMARY OF PATHOLOGIC FINDINGS: Consistent with preoperative diagnoses. One small area of purulence was encountered. Attempt was made to avoid the intracapsular infection. This was copiously irrigated. The femoral canal was curettaged of what appeared to be residual slime layer. Adductor myodesis was performed. INDICATIONS: Ms. Vidhi Sepulveda is a 49-year-old female who had a total knee arthroplasty for end-stage degenerative arthritis. Unfortunately, due to her postoperative noncompliance, she developed multiple complications including but not limited to multiple infections as well as need for revision and antibiotic cement spacers. She has now been placed on chronic suppression due to complete lack of bone. She eventually decided that she wanted a below-knee and above-knee amputation for improvement of quality of life. OPERATIVE SUMMARY IN DETAIL: After obtaining the appropriate preoperative orthopedic surgery consent as well as anesthetic consultation, evaluation and clearance, the patient was brought to the operating room and placed in the operating table in supine position. After adequate general laryngeal mask airway was administered, a tourniquet was placed about the proximal aspect of the left lower extremity. Left lower extremity was then prepped and draped in routine sterile fashion. At this point, appropriate timeout was taken and agreed upon by all after the appropriate identifiers were announced. The leg was elevated, not exsanguinated. Tourniquet was inflated to 350 mmHg. A fishmouth incision was drawn on the leg and then the anterior fishmouth incision was taken down to the level of the femur as was the posterior fishmouth incision. At this point, the corticotomy was performed about the patient's previously placed revision stem and the lower extremity was removed and taken off the field. Copious irrigation at this point was then followed by cleanup bone cutting for some junction. Drill holes were then placed in the lateral aspect of the cortex. The adductor was then myodesed to the bone using #5 Ethibond. After this, the vessels were all dissected down and high ligated with hand tying. At this point, the tourniquet was let down to be sure that there was no further bleeding. Excellent hemostasis had been achieved. At this point, the posterior and anterior flaps were reapproximated with a combination of #2 Ethibond, #1 Vicryl. This was then followed by #1 Vicryl final closure primarily done by Kj Joseph including skin austen for final closure. Sterile OPERATIVE REPORT [id number] VIDHI SEPULVEDA dressings were applied. The patient was awakened and taken to the recovery room in stable condition. All final needle and sponge counts were correct. TRANSINT:[id number] Voice Confirmation ID: [id number] DOCUMENT ID: [id number] JEANNIE LIU, MCKAY FUENTES at 1602 CC: [id number] DICTATION DATE: 05/14/19 1144 EQUITY DIRECTOR: 05/14/19 1155 ADM IN [facility] [address] [place] [address]
[2019-05-15 16:45] VITALS: BP 124/66
--- NOTE | 2019-05-15 18:26 | NUR ---
REMAINS WITHOUT NEEDS,WITHOUT CHANGE.CONT PLAN OF CARE
[2019-05-15 20:00] VITALS: BP 128/59
[2019-05-16] VITALS: BP 111/59
[2019-05-16 04:00] VITALS: BP 100/48
[2019-05-16 06:20] LABS: HEMATOCRIT 31.2 % (36.0-48.0)
[2019-05-16 08:45] VITALS: BP 104/47
[2019-05-16 13:28] VITALS: BP 109/60
[2019-05-16 16:34] VITALS: BP 112/60
[2019-05-16 20:00] VITALS: BP 110/45
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
[2019-05-17 04:00] VITALS: BP 114/53; BP 115/47
[2019-05-17 05:40] LABS: HEMATOCRIT 29.7 % (36.0-48.0); HEMOGLOBIN 9.4 g/dL (12-16)
[2019-05-17 09:08] VITALS: BP 110/55
[2019-05-17 11:36] VITALS: BP 112/60
--- NOTE | 2019-05-17 14:04 | MORECARE ---
CASE MANAGEMENT DISCHARGE SUMMARY PATIENT: SALMA FREEMAN UNIT: [id number] ADM DATE: 05/14/19 AGE: 49 : [birth year] SEX: F ROOM/BED: D.2212 AUTHOR: LYNN BRADLEY PHYSICIAN: REFERRING PHYSICIAN: MCKAY DENNIS MD DATE OF SERVICE: 05/17/19 Discharge Plan Patient Name: SALMA FREEMAN [facility] [facility] 1970 Planned Disposition: Anticipated Discharge Date: Discharge Date: Expected LOS: Initial Reviewer: [email or web address] Initial Review Date: 05/17/2019 Generated: 05/17/19 3:04 pm Patient Name: SALMA FREEMAN Page [phone] at 1404 All edits/amendments must be made on the electronic document DICTATION DATE: 05/17/191403 PATIENT ACCOUNT LIAISON: OBDULIO 05/17/19 1404 RPT#: [id number] DC DATE: STATUS: ADM IN [facility] [address] [place] [address] END OF REPORT
--- NOTE | 2019-05-17 14:17 | MORECARE ---
CASE MANAGEMENT DISCHARGE SUMMARY PATIENT: SALMA FREEMAN UNIT: [id number] ADM DATE: 05/14/19 AGE: 49 : [birth year] SEX: F ROOM/BED: D.2212 AUTHOR: LYNN BRADLEY PHYSICIAN: REFERRING PHYSICIAN: MCKAY DENNIS MD DATE OF SERVICE: 05/17/19 Discharge Plan Patient Name: SALMA FREEMAN [facility] [facility] 1970 Planned Disposition: Anticipated Discharge Date: Discharge Date: Expected LOS: Initial Reviewer: [email or web address] Initial Review Date: 05/17/2019 Generated: 05/17/19 3:17 pm Comments DCP- Discharge Planning Updated by [id number]: Shaylee Delgado on 05/17/19 1:[address] Patient Name: SALMA FREEMAN Admission Status: Urgent Accout number: [id number] Admission Date: 05-14-2019 : 1970 Admission Diagnosis: Attending: MCKAY DENNIS Current LOS: 3 Anticipated DC Date: Planned Disposition: Primary Insurance: MEDICARE A & B Discharge Planning Comments: CM CONSULT FROM DR DENNIS FOR [facility]. AYAH PAPERS AND INFO ON PROVIDERS GIVEN AND PT CHOSE [facility]. I NOTIFIED MARIA E OF EV[facility]. Compound Specialist: Shaylee Delgado Last DP export: 05/17/19 1:04 pm Patient Name: SALMA FREEMAN Page [phone] at 1417 All edits/amendments must be made on the electronic document DICTATION DATE: 05/17/19 1416 PAPER SHEETER: OBDULIO 05/17/19 1416 RPT#: [id number] DC DATE: STATUS: ADM IN [facility] [address] [place] [address] END OF REPORT
[2019-05-17 16:31] VITALS: BP 107/57
[2019-05-17 20:00] VITALS: BP 120/63
[2019-05-18] VITALS (8 sets, daily range): BP systolic 103–118; BP diastolic 54–72
--- NOTE | 2019-05-18 08:14 | NUR ---
P/O/D 4 [place]
--- NOTE | 2019-05-18 09:12 | NUR ---
PATIENT CONTINUES TO REPORT PAIN TO LEFT LEG AMP SITE, PRN OXYCODONE GIVEN. DRESSING C/D/I/. CL IN EASY REACH
--- NOTE | 2019-05-18 19:35 | NUR ---
LYING IN BED. ALERT AND ORIENTED X4. ASSISTED ONTO BEDPAN TO VOID. RATES PAIN IN LT AKA 10. UNISAW OPERATOR DILAUDID IN USE. DRSG NOTED TO LT AKA WITH ERASTO WRAP IS C/D/I. 1/2 NS @ 30 ML/HR INFUSING IN LT WRIST WITHOUT DIFF. REFUSES TO WEAR SCD ON RLE. SR ELEVATED X2. CL IN REACH.
--- NOTE | 2019-05-19 02:03 | NUR ---
ASSISTED ONTO BEDPAN TO VOID. REQUESTED DILAUDID FINISHING DEPARTMENT SUPERVISOR BOLUS AND GIVEN AT THIS TIME. RATES PAIN IN LT AKA 10. CL IN REACH.
[2019-05-19 04:00] VITALS: BP 106/65
[2019-05-19 08:24] VITALS: BP 100/78
--- NOTE | 2019-05-19 09:51 | NUR ---
PT ALERT X 4. BREATH SOUNDS CLEAR BILAT. IV TO LEFT WRIST SALINE LOCKED, DIRECTOR EMERGENCY DEPARTMENT DC'D PER ORDERS. PT REPORTING PAIN OF 10/10, MEDICATED PER ORDERS, WILL MONITOR. DRESSING TO LEFT LEG CHANGED AND CDI, INCISION WELL APPROXIMATED. BED LOW, CALL LIGHT IN REACH. NO OTHER NEEDS AT THIS TIME.
[2019-05-19 11:54] VITALS: BP 117/59
[2019-05-19 15:45] VITALS: BP 107/57
--- NOTE | 2019-05-19 19:54 | NUR ---
PT SITTING UP IN BED WATCHING TV. REQUESTING HELP TO BE PUT ON THE BEDPAN, ASSISTED HER ON AND BACK OFF OF BEDPAN. BREATHING EVEN AND NONLABORED. ALERT AND ORIENTED. SALINE LOCKED IV LOCATED TO LEFT WRIST, REPORTS IRRITATION DUE TO DRESSING/TAPE, REQUESTING IT BE REMOVED SINCE IT ISNT BEING USED AND ITS CAUSING DISCOMFORT. REMOVED IV, CATHETER INTACT. DENIES ANY OTHER NEEDS AT THIS TIME. BED LOW, RAILS UP X 2, CALL LIGHT IN REACH. WILL CONTINUE TO MONITOR.
[2019-05-19 20:00] VITALS: BP 114/67
[2019-05-19 20:31] VITALS: BP 114/67
--- NOTE | 2019-05-19 21:30 | NUR ---
PT LEACH CELL OPERATOR LIGHT. REPORTS PAIN 10/10 REQUESTING PAIN MEDS, ADMINISTERED PERCOCET PER DR.S ORDERS. ASSISTED ON THE BEDPAN AND BACK OFF. PT DENIES ANY FURTHER NEEDS AT THIS TIME. BED LOW, CALL LIGHT IN REACH, RAILS UP X 2. WILL CONTINUE TO MONITOR.
--- NOTE | 2019-05-19 22:45 | NUR ---
PT FORENSIC AUDIT EXPERT LIGHT REQUESTING TO BE PUT ON BEDPAN. ASSITED ON AND OFF BEDPAN. DENIES ANY FURTHER NEEDS AT THIS TIME.
--- NOTE | 2019-05-20 08:10 | NUR ---
PT RESTING IN BED. ASSISTED PT ON BEDPAN. NO S/S OF ACUTE DISTRESS. CL IN PLACE. BROUGHT SOME COFFEE TO PT.
[2019-05-20] MEDS ORDERED: ELIQUIS2.5 MG PO (08:17)
[2019-05-20] MEDS ORDERED: PERCOCET 10-321 EAC1 PO (08:17)
[2019-05-20] MEDS ORDERED: KLONOPIN0.5 MG PO (08:17)
[2019-05-20 09:20] VITALS: BP 116/68
--- NOTE | 2019-05-20 11:09 | MORECARE ---
CASE MANAGEMENT DISCHARGE SUMMARY PATIENT: SALMA FREEMAN UNIT: [id number] ADM DATE: 05/14/19 AGE: 49 : [birth year] SEX: F ROOM/BED: D.1433 AUTHOR: MIRNA,DOC PHYSICIAN: REFERRING PHYSICIAN: MCKAY DENNIS MD DATE OF SERVICE: 05/20/19 Discharge Plan Patient Name: SALMA FREEMAN [facility] [facility] 1970 Planned Disposition: Anticipated Discharge Date: Discharge Date: Expected LOS: Initial Reviewer: [email or web address] Initial Review Date: 05/17/2019 Generated: 05/20/19 12:09 pm Comments DCP- Discharge Planning Updated by [email or web address]: Shaylee Delgado on 05/17/19 1:[address] Patient Name: SALMA FREEMAN Admission Status: Urgent Accout number: [id number] Admission Date: 05-14-2019 : 1970 Admission Diagnosis: Attending: MCKAY DENNIS Current LOS: 3 Anticipated DC Date: Planned Disposition: Primary Insurance: MEDICARE A & B Discharge Planning Comments: CM CONSULT FROM DR DENNIS FOR [facility]. TANNER PAPERS AND INFO ON PROVIDERS GIVEN AND PT CHOSE [facility]. I NOTIFIED MARIA E OF EVAL. Plant Operations Worker: Shaylee Delgado External Providers External Provider: [facility] Next Contact Date: Service Request Date: Service Type: Resolution: Reviewer: Comments: External Provider: L[facility] Next Contact Date: Service Request Date: Service Type: Resolution: Reviewer: Comments: Coverage Notice Reviewer: [id number] Blank Patrick Notice Issued Date-Time: 05/20/2019 10:45 Notice Type: IM Discharge Notice Notice Delivered To: Patient Relationship to Patient: Supervisor Bakery Sanitation Name: Delivery Method: HAND - Hand Delivered Kate Days: Prior Verbal Notification: Recipient Understood Notice: Yes Recipient Signature: Yes Med Rec Note Co-signed by Attending: Coverage Notice Comment: DISCHARGE IMM SERVED, SIGNATURES OBTAINED. COPY TO THE PATIENT. COPY TO THE CHART Reviewer: [email or web address] Blank Patrick Notice Issued Date-Time: 05/20/2019 10:45 Notice Type: Patient Choice Letter Notice Delivered To: Patient Relationship to Patient: Supervisor Bakery Sanitation Name: Delivery Method: - Kate Days: Prior Verbal Notification: Recipient Understood Notice: Yes Recipient Signature: Yes Med Rec Note Co-signed by Attending: Coverage Notice Comment: [facility] Last DP export: 05/17/19 1:17 pm Patient Name: SALMA FREEMAN Page [phone] at 1109 All edits/amendments must be made on the electronic document DICTATION DATE: 05/20/191108 ASSISTANT CHILD CARE TEACHER: OBDULIO 05/20/19 110 RPT#: [id number] DC DATE: STATUS: ADM IN [facility] [address] [place] [address] END OF REPORT
--- NOTE | 2019-05-20 11:51 | MORECARE ---
CASE MANAGEMENT DISCHARGE SUMMARY PATIENT: SALMA FREEMAN UNIT: [id number] ADM DATE: 05/14/19 AGE: 49 : 68 SEX: F ROOM/BED: D.2213 AUTHOR: MIRNA,DOC PHYSICIAN: REFERRING PHYSICIAN: MCKAY DENNIS MD DATE OF SERVICE: 05/20/19 Discharge Plan Patient Name: SALMA FREEMAN Facility[facility]:[place] : 1970 Planned Disposition: Home Health Service Anticipated Discharge Date: Discharge Date: Expected LOS: Initial Reviewer: [email or web address] Initial Review Date: 05/17/2019 Generated: 05/20/19 12:50 pm Comments DCP- Discharge Planning Updated by [id number]: Shaylee Delgado on 05/17/19 1:[address] Patient Name: SALMA FREEMAN Admission Status: Urgent Accout number: [id number] Admission Date: 05-14-2019 : 1970 Admission Diagnosis: Attending: MCKAY DENNIS Current LOS: 3 Anticipated DC Date: Planned Disposition: Primary Insurance: MEDICARE A & B Discharge Planning Comments: CM CONSULT FROM DR DENNIS FOR [facility]. TANNER PAPERS AND INFO ON PROVIDERS GIVEN AND PT CHOSE [facility]. I NOTIFIED MARIA E OF [facility]. [place] Can Worker: Shaylee Delgado DCPIA - Discharge Planning Initial Assessment Updated by [email or web address]: Charlene Patrick on 05/20/19 11:44 am * Is the patient Alert and Oriented? Yes * How many steps to enter\exit or inside your home? RAMP * PCP JEANNIE * [facility] * Preadmission Environment Home with Family * ADLs Independent * Equipment Bedside Commode Elevated [place] Seat Rolling Walker Shower Chair Wheelchair * List name and contact numbers for known caregivers / representatives who currently or will assist patient after discharge: LAURA RABAGO ([phone]) * Verbal permission to speak to the caregivers and representatives has been obtained from the patient. N/A * Community resources currently utilized None * Additional services required to return to the preadmission environment? Yes * Can the patient safely return to the preadmission environment? Yes * Has this patient been hospitalized within the prior 30 days at any hospital? No Coverage Notice Reviewer: [email or web address] - Charlene Patrick Notice Issued Date-Time: 05/20/2019 10:45 Notice Type: IM Discharge Notice Notice Delivered To: Patient Relationship to Patient: High [employer] Special Education Teacher Name: Delivery Method: HAND - Hand Delivered Kate Days: Prior Verbal Notification: Recipient Understood Notice: Yes Recipient Signature: Yes Med Rec Note Co-signed by Attending: Coverage Notice Comment: DISCHARGE IMM SERVED, SIGNATURES OBTAINED. COPY TO THE PATIENT. COPY TO THE CHART Reviewer: [id number] Blank Patrick Notice Issued Date-Time: 05/20/2019 10:45 Notice Type: Patient Choice Letter Notice Delivered To: Patient Relationship to Patient: High [employer] Special Education Teacher Name: Delivery Method: - Kate Days: Prior Verbal Notification: Recipient Understood Notice: Yes Recipient Signature: Yes Med Rec Note Co-signed by Attending: Coverage Notice Comment: [facility] Last DP export: 05/20/19 10:09 am Patient Name: SALMA FREEMAN Page [phone] at 1151 All edits/amendments must be made on the electronic document DICTATION DATE: 05/20/19 1150 PULMONARY DISEASE SPECIALIST: OBDULIO 05/20/19 1150 RPT#: [id number] DC DATE: STATUS: ADM IN [facility] [address] [place] [address] END OF REPORT
--- NOTE | 2019-05-20 11:52 | NUR ---
DC INSTRUSTIONS AND EDUCATION DONE WITH PT. DRESSING CHANGE TO L AKA PER MD ORDER. NO S/S OF ACUTE DISTRESS. PT TOOK ALL BELONGINGS. ASSISTED OFF FLOOR VIA WC.
--- NOTE | 2019-05-20 12:05 | MORECARE ---
CASE MANAGEMENT DISCHARGE SUMMARY PATIENT: SALMA FREEMAN UNIT: [id number] ADM DATE: 05/14/19 AGE: 49 : 68 SEX: F ROOM/BED: D.7573 AUTHOR: MIRNA,DOC PHYSICIAN: REFERRING PHYSICIAN: MCKAY DENNIS MD DATE OF SERVICE: 05/20/19 Discharge Plan Patient Name: SALMA FREEMAN Facility: [facility]:[place] : 1970 Planned Disposition: Home Health Service Anticipated Discharge Date: Discharge Date: 05/20/2019 Expected LOS: Initial Reviewer: [email or web address] Initial Review Date: 05/17/2019 Generated: 05/20/19 1:05 pm Comments DCP- Discharge Planning Updated by [email or web address]: Charlene Patrick on 05/20/19 11:[address] patient address is [address] [place] [address] cell is [phone] Patient also does not have a PCP, I have called [facility] to see if she would get in with Dr Talamantes. I spoke with Ericka there and she stated that she would have to talk to her hospital security officer to see if that was ok. Information also given to her about home care and assistance. [facility] signed for this . She will look into these services and referral sent to the office. CM will continue to follow and assist with dc planning as needed DCP- Discharge Planning Updated by [email or web address]: Charlene Patrick on 05/20/19 10:[address] Patient Name: SALMA FREEMAN Admission Status: Urgent Accout number: [id number] Admission Date: 05-14-2019 : 1970 Admission Diagnosis:INFECT/INFLM REACTION DUE TO INTERNAL LEFT KNEE PROSTH, Attending: MCKAY DENNIS Current LOS: 6 Anticipated DC Date: Planned Disposition: Home Health Service Primary Insurance: MEDICARE A & B Discharge Planning Comments: CM met with patient to complete initial dc planning assessment. CM educated patient on the CM role and verbal consent given by patient to complete assessment. Patient lives at home & her niece lives with her and will help her at home. Patient stated that she is independent with her care. At discharge patient plans to return home and feels this is a safe discharge. CM discussed availability of home health, rehab services, and medical equipment. She will have home health. AYAH with [facility] and she she also needs a BSC. AYAH with [facility]. I have sent the referral to [facility] and spoke with Alycia, the patient will pick it up on her way home. She has a shower chair, wheelchair x 2, shower chair. There is a ramp at her home. Her niece will drive her home. IMM is served and explained and placed in chart. Patient denied known discharge needs at this time. CM will continue to follow and will assist as needed with dc plans/needs. Desktop Publisher: Charlene Patrick DCP- Discharge Planning Updated by [email or web address]: Shaylee Delgado on 05/17/19 1:[address] Patient Name: SALMA FREEMAN Admission Status: Urgent Accout number: [id number] Admission Date: 05-14-2019 : 1970 Admission Diagnosis: Attending: MCKAY DENNIS Current LOS: 3 Anticipated DC Date: Planned Disposition: Primary Insurance: MEDICARE A & B Discharge Planning Comments: CM CONSULT FROM DR DENNIS FOR [facility]. [facility] PAPERS AND INFO ON PROVIDERS GIVEN AND PT CHOSE [facility]. I NOTIFIED MARIA E OF EVAL. Desktop Publisher: Shaylee Delgado DCPIA - Discharge Planning Initial Assessment Updated by [email or web address]: Charlene Patrick on 05/20/19 11:44 am * Is the patient Alert and Oriented? Yes * How many steps to enter\exit or inside your home? RAMP * PCP JEANNIE * [facility] * Preadmission Environment Home with Family * ADLs Independent * Equipment Bedside Commode Elevated [place] Seat Rolling Walker Shower Chair Wheelchair * List name and contact numbers for known caregivers / representatives who currently or will assist patient after discharge: LAURA RABAGO ([phone]) * Verbal permission to speak to the caregivers and representatives has been obtained from the patient. N/A * Community resources currently utilized None * Additional services required to return to the preadmission environment? Yes * Can the patient safely return to the preadmission environment? Yes * Has this patient been hospitalized within the prior 30 days at any hospital? No Coverage Notice Reviewer: [id number] - Charlene Patrick Notice Issued Date-Time: 05/20/2019 10:45 Notice Type: IM Discharge Notice Notice Delivered To: Patient Relationship to Patient: Dough Mixer Name: Delivery Method: HAND - Hand Delivered Kate Days: Prior Verbal Notification: Recipient Understood Notice: Yes Recipient Signature: Yes Med Rec Note Co-signed by Attending: Coverage Notice Comment: DISCHARGE IMM SERVED, SIGNATURES OBTAINED. COPY TO THE PATIENT. COPY TO THE CHART Reviewer: [email or web address] Blank Patrick Notice Issued Date-Time: 05/20/2019 10:45 Notice Type: Patient Choice Letter Notice Delivered To: Patient Relationship to Patient: Dough Mixer Name: Delivery Method: - Kate Days: Prior Verbal Notification: Recipient Understood Notice: Yes Recipient Signature: Yes Med Rec Note Co-signed by Attending: Coverage Notice Comment: [facility] Last DP export: 05/20/19 10:51 am Patient Name: SALMA FREEMAN Page [id number] at 1205 All edits/amendments must be made on the electronic document DICTATION DATE: 05/20/19 1205 BOOM SUPERVISOR: OBDULIO 05/20/19 1205 RPT#: [id number] DC DATE:05/20/19 STATUS: DIS IN [facility] [address] [place] [address] END OF REPORT
== END 2019-05-20 11:54 | disposition home health service (06) | DRG 476 ==
LOC: D.MS 05-14 07:30 → D.SDCHOLD 05-14 07:30 → D.MS 05-14 12:14
PROVIDERS: Anesthesiology; ADMIT Orthopaedic Surgery; ATTEND Orthopaedic Surgery
PROC: 0Y6J0Z2 Detachment at Left Lower Leg, Mid, Open Approach (ICD-10-PCS; principal; 2019-05-14 09:30)
DX: T84.54XA Infection and inflammatory reaction due to internal left knee prosthesis, initial encounter (principal); Y83.9 Surgical procedure, unspecified as the cause of abnormal reaction of the patient, or of later complication, without mention of misadventure at the time of the procedure; Z72.0 Tobacco use; Z91.19 Patient's noncompliance with other medical treatment and regimen

== ENCOUNTER 2019-05-13 16:56 | Emergency (ER) | payer MEDICARE ==
[~2019-05-13] VITALS: Ht 180.3 cm; Wt 124.5 kg
[~2019-05-13 16:56] MED LIST changes: +IBUPROFEN200 MG PO
[2019-05-13 17:59] VITALS: BP 149/82; Ht 180.3 cm; Wt 124.5 kg
== END 2019-05-13 20:43 | disposition home or self-care (01) ==
LOC: D.ER 16:56
DX: L08.9 Local infection of the skin and subcutaneous tissue, unspecified (principal)

== ENCOUNTER 2020-07-11 19:27 | Emergency (ER) | payer MEDICARE ==
[~2020-07-11] VITALS: Ht 180.3 cm; Wt 130.5 kg
[2020-07-11 19:34] VITALS: Ht 180.3 cm; Wt 130.5 kg
[2020-07-11] MEDS ORDERED: NORCO 7.5-3251 EACH PO (19:41)
[2020-07-11 22:54] VITALS: BP 146/92
== END 2020-07-11 22:54 | disposition home or self-care (01) ==
LOC: D.ER 19:27
DX: M25.561 Pain in right knee (principal); W05.0XXA Fall from non-moving wheelchair, initial encounter; Y93.9 Activity, unspecified; Y92.9 Unspecified place or not applicable